=== PATIENT | female | born 1965 | race African-American/Black ===

== ENCOUNTER 2018-01-17 02:11 | Inpatient (IN) ==
[2018-01-18] MEDS ORDERED: Lactobacillus Acidophilus/L. Spores Tablet ONE (22:31)
[2018-01-19] MEDS: Insulin NovoLOG Aspart Correctional Sugar Inj SQ SCH ×4 (08:00→20:44)
[2018-01-19 08:27] LABS: Baso % (Auto) 0.5 % (0.0-2.0); Eos # (Auto) 0.2 th/mm3 (0.0-0.4); Eos % (Auto) 4.6 % (0.0-4.0); Hematocrit 32.6 % (35.0-46.0); Hemoglobin 10.2 gm/dL (11.6-15.3); Lymph # (Auto) 0.7 th/mm3 (1.0-4.8); Lymph % (Auto) 18.7 % (9.0-44.0); Mean Corpuscular HGB Conc 31.2 % (32.0-36.0); Mean Corpuscular Hemoglobin 28.5 pg (27.0-34.0); Mean Corpuscular Volume 91.2 fL (80.0-100.0); Mean Platelet Volume 8.1 fL (7.0-11.0); Mono # (Auto) 0.3 th/mm3 (0.0-0.9); Mono % (Auto) 8.9 % (0.0-8.0); Neut # (Auto) 2.3 th/mm3 (1.8-7.7); Neut % (Auto) 67.3 % (16.0-70.0); Platelet Count 299 th/mm3 (150-450); Red Blood Count 3.57 mil/mm3 (4.00-5.30); Red Cell Distribution Width 17.4 % (11.6-17.2); White Blood Count 3.5 th/mm3 (4.0-11.0)
[2018-01-19] MEDS ORDERED: Amiodarone 200 MG Tablet PO SCH (09:00)
[2018-01-19] MEDS ORDERED: Furosemide 40 MG Tablet PO SCH (09:00)
[2018-01-19] MEDS: Lactobacillus Acidophilus/L. Spores Tablet PO SCH ×2 (10:16→20:30)
[2018-01-19] MEDS: Aspirin 325 MG Tablet PO SCH (10:17)
[2018-01-19] MEDS: amLODIPine 5 MG Tablet PO SCH (10:17)
[2018-01-19] MEDS: Pantoprazole Inj 40 MG Vial IV.PUSH SCH (10:18)
[2018-01-19] MEDS: Docusate Sodium 100 MG Capsule PO SCH ×2 (10:18→20:30)
[2018-01-19] MEDS: Folic Acid 1 MG Tablet PO SCH (10:18)
[2018-01-19] MEDS: Insulin Detemir Inj 1,000 UNIT/10 ML Vial SQ SCH ×2 (10:21→20:31)
--- NOTE | 2018-01-19 13:15 | P.PNIM ---
Subjective Interval history: Pt feels more swollen today She does not feel more SOB Still requiring 2L of supplemental O2 Physical Exam Vital signs: Vital Signs 01/19/18 04:00 01/19/18 08:00 Temperature 97.5 F L 97.4 F L Pulse Rate 63 64 Respiratory Rate 19 18 Blood Pressure 179/88 H 169/77 H Pulse Oximetry 97 94 L Intake & Output 01/18/18 01/19/18 01/19/18 18:59 06:59 18:59 Intake Total 240 / 240 Output Total Balance 239 / 239 Intake: Oral 240 / 240 Output: Stool Other: # Voids 1 # Incontinent Voids 2 Date of Last Bowel Movement 01/19/18 01/18/18 Narrative: GENERAL: NAD, AAOx3, somewhat flat affect CARDIO: Regular. RESP: CTA bilaterally. Poor inspiratory effort. ABD: Minimal bowel sounds, firm, distended, nontender. No guarding. EXT: 2+ Bilateral LE edema. SCDs in place - Urinary Catheter Management Indwelling Urethral Catheter Cath placed during this visit: yes Urethral indwelling: Yes Reason for continuing: Hourly intake/output Insertion date: 01/21/18 Insertion time: 12:40 Results - Labs CBC & Chem 7: 01/24/18 12:00 01/25/18 07:00 Laboratory Results - last 24 hr 01/16/18 01/16/18 01/16/18 23:14 23:14 23:14 WBC RBC Hgb Hct MCV MCH MCHC RDW Plt Count MPV Neut % (Auto) Lymph % (Auto) Hughes % (Auto) Eos % (Auto) Baso % (Auto) Neut # (Auto) Lymph # (Auto) Hughes # (Auto) Eos # (Auto) Baso # (Auto) CBC Comment WBC Differential Differential Comment PT 11.6 INR 1.1 APTT 29.0 Sodium 136 Potassium 6.1 H Chloride 103 Carbon Dioxide 26.3 Anion Gap 7 BUN 47 H Creatinine 2.43 H Estimated GFR 21 L POC Glucose Random Glucose 117 H Calcium 8.6 Magnesium Total Bilirubin 0.4 AST 57 H ALT 63 H Alkaline Phosphatase 920 H B-Natriuretic Peptide 1368 H Total Protein 7.9 Albumin 2.3 L Lipase 37 L Free T4 TSH 3rd Generation 7.470 H Urine Color Urine Turbidity Urine pH Ur Specific Gardiner Urine Protein Urine Glucose (UA) Urine Ketones Urine Occult Blood Urine Nitrite Urine Bilirubin Urine Urobilinogen Ur Leukocyte Esterase Urine RBC Urine WBC Ur Squamous Epith Cells Hyaline Casts Urine Mucus Micro UA Comment 01/16/18 01/17/18 01/17/18 23:14 00:15 06:11 WBC 4.7 RBC 3.56 L Hgb 10.4 L Hct 32.6 L MCV 91.5 MCH 29.1 MCHC 31.8 L RDW 17.7 H Plt Count 317 MPV 8.1 Neut % (Auto) 76.1 H Lymph % (Auto) 13.8 Hughes % (Auto) 6.4 Eos % (Auto) 2.1 Baso % (Auto) 1.6 Neut # (Auto) 3.6 Lymph # (Auto) 0.7 L Hughes # (Auto) 0.3 Eos # (Auto) 0.1 Baso # (Auto) 0.1 CBC Comment DIFF FINAL WBC Differential Differential Comment PT INR APTT Sodium 137 Potassium 5.5 H Chloride 103 Carbon Dioxide 25.2 Anion Gap 9 BUN 44 H Creatinine 2.30 H Estimated GFR 27 L POC Glucose Random Glucose 34 L* Calcium 8.8 Magnesium Total Bilirubin AST ALT Alkaline Phosphatase B-Natriuretic Peptide Total Protein Albumin Lipase Free T4 TSH 3rd Generation Urine Color YELLOW Urine Turbidity CLEAR Urine pH 6.0 Ur Specific Gardiner 1.015 Urine Protein >=500 Urine Glucose (UA) NEG Urine Ketones NEG Urine Occult Blood NEG Urine Nitrite NEG Urine Bilirubin NEG Urine Urobilinogen LESS THAN 2 Ur Leukocyte Esterase NEG Urine RBC 3 Urine WBC 1 Ur Squamous Epith Cells <1 Hyaline Casts 6 Urine Mucus FEW H Micro UA Comment CULT NOT INDICATED 01/17/18 01/18/18 01/18/18 11:49 10:31 10:31 WBC 5.1 RBC 3.59 L Hgb 10.3 L Hct 32.9 L MCV 91.6 MCH 28.8 MCHC 31.4 L RDW 17.6 H Plt Count 321 MPV 8.5 Neut % (Auto) 75.1 H Lymph % (Auto) 13.8 Hughes % (Auto) 7.4 Eos % (Auto) 2.2 Baso % (Auto) 1.5 Neut # (Auto) 3.8 Lymph # (Auto) 0.7 L Hughes # (Auto) 0.4 Eos # (Auto) 0.1 Baso # (Auto) 0.1 CBC Comment DIFF FINAL WBC Differential Differential Comment PT INR APTT Sodium 136 Potassium 5.7 H 5.0 Chloride 101 Carbon Dioxide 24.7 Anion Gap 10 BUN 46 H Creatinine 2.49 H Estimated GFR 25 L POC Glucose Random Glucose 263 H D Calcium 8.5 Magnesium 2.2 Total Bilirubin 0.5 AST 52 H ALT 65 H Alkaline Phosphatase 918 H B-Natriuretic Peptide Total Protein 7.9 Albumin 2.7 L Lipase Free T4 1.48 H TSH 3rd Generation Urine Color Urine Turbidity Urine pH Ur Specific Gardiner Urine Protein Urine Glucose (UA) Urine Ketones Urine Occult Blood Urine Nitrite Urine Bilirubin Urine Urobilinogen Ur Leukocyte Esterase Urine RBC Urine WBC Ur Squamous Epith Cells Hyaline Casts Urine Mucus Micro UA Comment 01/19/18 01/19/18 06:47 08:11 WBC 3.5 L RBC 3.57 L Hgb 10.2 L Hct 32.6 L MCV 91.2 MCH 28.5 MCHC 31.2 L RDW 17.4 H Plt Count 299 MPV 8.1 Neut % (Auto) 67.3 Lymph % (Auto) 18.7 Hughes % (Auto) 8.9 H Eos % (Auto) 4.6 H Baso % (Auto) 0.5 Neut # (Auto) 2.3 Lymph # (Auto) 0.7 L Hughes # (Auto) 0.3 Eos # (Auto) 0.2 Baso # (Auto) 0.0 CBC Comment WBC Differential . Differential Comment Auto diff final PT INR APTT Sodium Potassium Chloride Carbon Dioxide Anion Gap BUN Creatinine Estimated GFR POC Glucose 95 Random Glucose Calcium Magnesium Total Bilirubin AST ALT Alkaline Phosphatase B-Natriuretic Peptide Total Protein Albumin Lipase Free T4 TSH 3rd Generation Urine Color Urine Turbidity Urine pH Ur Specific Gardiner Urine Protein Urine Glucose (UA) Urine Ketones Urine Occult Blood Urine Nitrite Urine Bilirubin Urine Urobilinogen Ur Leukocyte Esterase Urine RBC Urine WBC Ur Squamous Epith Cells Hyaline Casts Urine Mucus Micro UA Comment Assessment and Plan - Assessment (1) Nonischemic cardiomyopathy Code(s): I42.8 - Other cardiomyopathies Status: Chronic Plan: Nonischemic cardiomyopathy Chronic systolic CHF with EF 15-20% s/p AICD - Pt was given a dose of IV Lasix in the ED - CXR in the ED noted Cardiomegaly with prominent main pulmonary artery. Pacer lead overlies right ventricle. No focal consolidation or effusion. - Pt was continued on PO Lasix 40mg BID due to worsening renal function - Give a dose of Lasix 80mg IV this evening with Albumin IV given prior to the Lasix - Still awaiting repeat labs for today - Monitor electrolyte closely - Pt was reportedly evaluated at [facility] recently for Heart transplant vs. LVAD but had a stroke during that admission and was not felt to be a good candidate after the CVA. - Cont. home meds - CXR in AM - Monitor clinical status closely - Pt is typically on 2L of supplemental O2 - Discussed code status with the pt and she wishes to be a full code. - Consult Palliative care for goals of care (2) Diabetes Code(s): E11.9 - Type 2 diabetes mellitus without complications Status: Chronic Plan: Diabetes mellitus, poorly controlled Hgb A1C 14.4 on 08/31/17 Hypoglycemia - Pt was also given Novolin 10 units and Dextrose overnight and was hypoglycemic with BS 34 on 01/17. Pt was given orange juice twice this morning and her BS improved to 158. - Today her BS are in the 200s. - Pt is normally on Novolin 10 units BID and NovoLog SSI - Basal insulin with Levemir 5 units BID started on 01/18 and titrate up to 10 units BID today, BS on 01/18 and last night were still quite elevated in the 200- 300s but today are lower - Keep insulin scheduled as it for now - NovoLog SSI - Accu checks - Monitor BS closely (3) Acute on chronic kidney failure Code(s): N17.9 - Acute kidney failure, unspecified; N18.9 - Chronic kidney disease, unspecified Status: Acute Plan: Hyperkalemia Acute on chronic renal disease, stage 3 - Outpt labs from 11/2017 noted Cr around 1.4-1.5 - Labs in the ED noted a potassium of 6.1. - Pt was given Kayexalate and Calcium Gluconate in the ED her repeat potassium this morning was 5.5 and second repeat was 5.7 on 01/17 - Pt refusing Lab draws on 01/18, but we discussed with the pt the importance of getting er labs drawn to monitor her electrolytes and kidney function and was agreed - Pt was given a second dose of Kayexalate on 01/17 but pt has not moved her bowels. - Repeat K+ down to 5.0 but renal function is worse on 01/18 with Cr around 2.49 - Pt was given a dose of IV Lasix in the ED and she was continued on oral Lasix 40mg BID - Monitor renal function - Awaiting repeat labs today (4) Hyperkalemia Code(s): E87.5 - Hyperkalemia Status: Acute Plan: - See above (5) HTN (hypertension) Code(s): I10 - Essential (primary) hypertension Status: Acute Plan: HTN - Cont. home meds - BP is poorly controlled - Clonidine PRN - Monitor closely (6) Elevated LFTs Code(s): R94.5 - Abnormal results of liver function studies Status: Acute Plan: Elevated LFTS Congestive hepatopathy Ascites - Review of outpt records show the pts AlkPhos has been elevated since 10/2016 - AlkPhos Isoenzyme in 10/2017 noted 72% liver, 20% bone, 8% intestine - Transjugular liver bx (12/20/17) --> Findings suggestive of congestive hepatopathy. (7) Ascites Code(s): R18.8 - Other ascites Status: Acute Plan: - See above (8) Constipation Code(s): K59.00 - Constipation, unspecified Status: Acute Plan: Abdominal pain Nausea/vomiting Constipation - Pt is a 52 y/o AAF with chronic systolic CHF, nonischemic cardiomyopathy with EF 15-20% s/p AICD, hx of CVA in 12/2017 (Bilateral acute to subacute posterior cerebral artery infarcts on Head CT on 12/22/17), congestive hepatopathy, ascites , HTN, CKD, stage 3, and type 2 diabetes mellitus, insulin dependent. Pt has had multiple hospitalizations at [facility] in [place] and [facility] in the last several month for various issues related to her CHF /Cardiomyopathy, DKA, Acute on chronic renal failure, CVA. After her most recent admission from 12/02/17 to 01/08/18 was for CHF and was transferred to [facility] to be evaluated for possible heart transplant vs. LVAD. During that admission she had an acute CVA with resulting left sided weakness and felt that she was not a good candidate for advanced heart failure treatment. Pt was discharged to [facility] on 01/08/18. - She was brought to the ED from a local rehab center for hyperkalemia and N/V. She has noted issues with constipation more recently. Over the last two days she has had nausea/vomiting and has not been eating much. She has not passed any stool in the last two days either. - CT abd/pelvis in the ED which noted moderate ascites and anasarca, cardiomegaly with pacer lead tip in right ventricle, and small fat-containing umbilical hernia. No bowel obstruction. In reviewing the images she has a significant amount of stool throughout the colon and in the rectum. - Pt had a small BM on 01/17 but has been refusing the Lactulose BID - Pt was given Mag Citrate and Colace BID on 01/18 but no significant stooling - Zofran PRN - Protonix 40mg IV daily - Gastrografin enema for tomorrow - Attending Attestation Patient examined. Assessment and plan formulated with Margaux Caceres PA-C. I agree with the above. 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
[2018-01-19 15:53] LABS: Anion Gap 9 meq/L (5-15); Blood Urea Nitrogen 48 mg/dL (7-18); Chloride 100 meq/L (98-107); Glomerular Filtration Rate 25 mL/min (>89); Potassium 5.1 meq/L (3.5-5.1); Sodium 136 meq/L (136-145)
[2018-01-19 15:54] LABS: Alanine Aminotransferase 61 U/L (10-53); Albumin 2.4 g/dL (3.4-5.0); Alkaline Phosphatase 878 U/L (45-117); Aspartate Aminotransferase 50 U/L (15-37); Calcium 8.7 mg/dL (8.5-10.1); Free T4 (Free Thyroxine) 1.36 ng/dL (0.76-1.46); Glucose,Random 64 mg/dL (74-106); Magnesium 2.3 mg/dL (1.5-2.5); Total Protein 7.6 g/dL (6.4-8.2); Triiodothyronine (T3) Free 1.23 pg/mL (2.18-3.98)
[2018-01-19] MEDS: Isosorbide Mononitrate 20 MG Tablet PO SCH ×2 (17:29→20:30)
[2018-01-20 05:35] LABS: Calcium 8.3 mg/dL (8.5-10.1); Carbon Dioxide 26.4 meq/L (21.0-32.0); Magnesium 2.3 mg/dL (1.5-2.5); Potassium 5.1 meq/L (3.5-5.1)
[2018-01-20] MEDS: Insulin NovoLOG Aspart Correctional Sugar Inj SQ SCH ×4 (09:11→23:16)
--- NOTE | 2018-01-20 10:35 | XR ---
EXAM DATE: 01/20/2018 10:32 AM EDT AGE/SEX: 52 years / Female INDICATIONS: Short of breath. CLINICAL DATA: This is the patient's initial encounter. Patient reports that signs and symptoms have been present for 4 - 6 days and indicates a pain score of 0/10. MEDICAL/SURGICAL HISTORY: Congestive heart failure. Cardiovascular disease. Pacemaker. COMPARISON: No prior exams available for comparison. FINDINGS: Single lead AICD device in place. No significant focal pleural or parenchymal opacities. Cardiac silh ouette is enlarged. Central pulmonary vascularity is slightly indistinct. Bony thorax is intact. CONCLUSION: 1. Cardiomegaly with trace positive fluid balance. Electronically signed by: Houston Vogt MD 01/20/2018 10:34 AM EDT
[2018-01-20] MEDS ORDERED: Diatrizoate Meglum/Diatrizoate Sod Liq 120 ML Bottle (for RAD diag) RECTAL ONE (10:45)
--- NOTE | 2018-01-20 10:49 | FL ---
EXAM DATE: 01/20/2018 10:37 AM EDT AGE/SEX: 52 years / Female INDICATIONS: Constipation. CLINICAL DATA: This is the patient's initial encounter. Patient reports that signs and symptoms have been present for 1 week and indicates a pain score of 10/10. MEDICAL/SURGICAL HISTORY: None. Renal failure, chronic. Anemia. Cerebrovascular disease. CHF. CAD. DVT. Diabetes. GERD. None. COMPARISON: No prior exams available for comparison. FLUORO TIME: 3.6 IMAGE COUNT: 17 FINDINGS: Preliminary film is unremarkable. There is a moderate amount stool throughout the colon. A small amou nt of residual contrast is seen in the right colon. The study is being performed for therapeutic cons tipation. Under fluoroscopic guidance a Gastrografin enema was performed with free flow of contrast to the righ t colon. There is a diffuse amount stool throughout the entire colon. CONCLUSION: Status post therapeutic Gastrografin enema. Electronically signed by: Jaziel Jonas MD 01/20/2018 10:48 AM EDT
[2018-01-20] MEDS: Aspirin 325 MG Tablet PO SCH (10:59)
[2018-01-20] MEDS: Docusate Sodium 100 MG Capsule PO SCH ×2 (11:00→22:30)
[2018-01-20] MEDS: Isosorbide Mononitrate 20 MG Tablet PO SCH ×2 (11:01→22:30)
[2018-01-20] MEDS: Lactobacillus Acidophilus/L. Spores Tablet PO SCH ×2 (11:01→22:30)
[2018-01-20] MEDS: Folic Acid 1 MG Tablet PO SCH (11:01)
[2018-01-20] MEDS: Pantoprazole Inj 40 MG Vial IV.PUSH SCH (11:02)
[2018-01-20] MEDS: amLODIPine 5 MG Tablet PO SCH (11:02)
[2018-01-20] MEDS: Insulin Detemir Inj 1,000 UNIT/10 ML Vial SQ SCH ×2 (11:04→23:16)
--- NOTE | 2018-01-20 12:19 | P.PNIM ---
Subjective Interval history: Pt had Gastrografin enema today and has had a large volume of stool output Pt was seen by ST on 01/19 and recommended mechanical soft diet with nectar thickened liquids Pt has had bleeding from a previous IV site in the RUE Physical Exam Vital signs: Vital Signs 01/19/18 15:18 01/19/18 16:00 01/19/18 19:56 Temperature 98.3 F Pulse Rate 65 65 Respiratory Rate 17 Blood Pressure 186/81 H Pulse Oximetry 97 99 01/19/18 20:00 01/19/18 23:51 01/20/18 00:00 Temperature 97.9 F 97.8 F Pulse Rate 67 68 66 Respiratory Rate 18 18 Blood Pressure 176/82 H 163/72 H Pulse Oximetry 97 95 01/20/18 04:00 01/20/18 05:04 Temperature 97.8 F Pulse Rate 63 60 Respiratory Rate 18 Blood Pressure 175/80 H Pulse Oximetry 94 L Intake & Output 01/19/18 01/20/18 01/20/18 18:59 06:59 18:59 Intake Total 650 / 650 Balance 650 / 650 Intake: Oral 650 / 650 Other: # Voids 7 4 Date of Last Bowel Movement 01/18/18 01/19/18 # Bowel Movements 2 Narrative: GENERAL: NAD, AAOx3, somewhat flat affect CARDIO: Regular. RESP: CTA bilaterally. Poor inspiratory effort. ABD: Minimal bowel sounds, firm, less distended, nontender. No guarding. EXT: 2+ Bilateral LE edema. SCDs in place - Urinary Catheter Management Indwelling Urethral Catheter Cath placed during this visit: yes Urethral indwelling: Yes Reason for continuing: Acute urinary retention Insertion date: 01/21/18 Insertion time: 12:40 Results - Labs CBC & Chem 7: 01/21/18 08:57 01/23/18 12:57 Laboratory Results - last 24 hr 01/19/18 01/19/18 01/19/18 06:47 13:10 17:26 Sodium 136 Potassium 5.1 Chloride 100 Carbon Dioxide 27.0 Anion Gap 9 BUN 48 H Creatinine 2.48 H Estimated GFR 25 L POC Glucose 162 H 127 H Random Glucose 64 L Calcium 8.7 Magnesium 2.3 Total Bilirubin 0.5 AST 50 H ALT 61 H Alkaline Phosphatase 878 H B-Natriuretic Peptide Total Protein 7.6 Albumin 2.4 L TSH 6.760 H Free T4 1.36 Free T3 1.23 L 01/19/18 01/20/18 01/20/18 20:23 04:12 04:12 Sodium 137 Potassium 5.1 Chloride 101 Carbon Dioxide 26.4 Anion Gap 10 BUN 46 H Creatinine 2.35 H Estimated GFR 26 L POC Glucose 223 H Random Glucose 224 H D Calcium 8.3 L Magnesium 2.3 Total Bilirubin AST ALT Alkaline Phosphatase B-Natriuretic Peptide 1852 H Total Protein Albumin TSH Free T4 Free T3 01/20/18 07:42 Sodium Potassium Chloride Carbon Dioxide Anion Gap BUN Creatinine Estimated GFR POC Glucose 276 H Random Glucose Calcium Magnesium Total Bilirubin AST ALT Alkaline Phosphatase B-Natriuretic Peptide Total Protein Albumin TSH Free T4 Free T3 - Imaging Impressions Chest X-Ray 01/20/18 06:00 CONCLUSION: 1. Cardiomegaly with trace positive fluid balance. Enema w/Water Soluble 01/20/18 08:00 CONCLUSION: Status post therapeutic Gastrografin enema. Assessment and Plan - Assessment (1) Nonischemic cardiomyopathy Code(s): I42.8 - Other cardiomyopathies Status: Chronic Plan: Nonischemic cardiomyopathy Chronic systolic CHF with EF 15-20% s/p AICD - Pt was given a dose of IV Lasix in the ED - CXR in the ED noted Cardiomegaly with prominent main pulmonary artery. Pacer lead overlies right ventricle. No focal consolidation or effusion. - Pt was continued on PO Lasix 40mg BID due to worsening renal function - Pt was given a dose of Lasix 80mg IV with Albumin IV given prior to the Lasix on 01/19 - Cr is stable to improved today at 2.35 - BNP is elevated from at admission from 1368--> 1852 - Change Lasix from PO to 80mg IV BID - Monitor electrolyte closely - Pt was reportedly evaluated at [facility] recently for Heart transplant vs. LVAD but had a stroke during that admission and was not felt to be a good candidate after the CVA. - CXR (01/20/18) --> Cardiomegaly with trace positive fluid balance - Monitor clinical status closely - Pt is typically on 2L of supplemental O2 - Discussed code status with the pt and she wishes to be a full code. - Consult Palliative care for goals of care (2) Diabetes Code(s): E11.9 - Type 2 diabetes mellitus without complications Status: Chronic Plan: Diabetes mellitus, poorly controlled Hgb A1C 14.4 on 08/31/17 Hypoglycemia - Pt was also given Novolin 10 units and Dextrose overnight and was hypoglycemic with BS 34 on 01/17. Pt was given orange juice twice this morning and her BS improved to 158. - Today her BS are in the 200s. - Pt is normally on Novolin 10 units BID and NovoLog SSI - Basal insulin with Levemir 5 units BID started on 01/18 and titrate up to 10 units BID today, BS on 01/18 were still quite elevated in the 200-300s but valentine morning glucose on 01/19 was 95 so the insulin scheduled was kept the same - Her blood sugars last night and this morning are in the 200s - Consider increasing Levemir to 10 units BID but BS are rather labile, continue to monitor closely for now - NovoLog SSI - Accu checks - Monitor BS closely (3) Acute on chronic kidney failure Code(s): N17.9 - Acute kidney failure, unspecified; N18.9 - Chronic kidney disease, unspecified Status: Acute Plan: Hyperkalemia Acute on chronic renal disease, stage 3 - Outpt labs from 11/2017 noted Cr around 1.4-1.5 - Labs in the ED noted a potassium of 6.1. - Pt was given Kayexalate and Calcium Gluconate in the ED her repeat potassium this morning was 5.5 and second repeat was 5.7 on 01/17 - Pt refusing Lab draws on 01/18, but we discussed with the pt the importance of getting er labs drawn to monitor her electrolytes and kidney function and was agreed - Pt was given a second dose of Kayexalate on 01/17 but pt has not moved her bowels. - Repeat K+ down to 5.0 but renal function is worse on 01/18 with Cr around 2.49 - Pt was on po Lasix but continued to have swelling during initial hospitalization - Change to IV Lasix and monitor renal function (4) Hyperkalemia Code(s): E87.5 - Hyperkalemia Status: Acute Plan: - See above (5) HTN (hypertension) Code(s): I10 - Essential (primary) hypertension Status: Acute Plan: HTN - Cont. home meds - BP is poorly controlled on multiple medications - Monitor with change to IV Lasix - Clonidine PRN - Monitor closely (6) Elevated LFTs Code(s): R94.5 - Abnormal results of liver function studies Status: Acute Plan: Elevated LFTS Congestive hepatopathy Ascites - Review of outpt records show the pts AlkPhos has been elevated since 10/2016 - AlkPhos Isoenzyme in 10/2017 noted 72% liver, 20% bone, 8% intestine - Transjugular liver bx (12/20/17) --> Findings suggestive of congestive hepatopathy. (7) Ascites Code(s): R18.8 - Other ascites Status: Acute Plan: - See above (8) Constipation Code(s): K59.00 - Constipation, unspecified Status: Acute Plan: Abdominal pain Nausea/vomiting Constipation, improved - Pt is a 52 y/o AAF with chronic systolic CHF, nonischemic cardiomyopathy with EF 15-20% s/p AICD, hx of CVA in 12/2017 (Bilateral acute to subacute posterior cerebral artery infarcts on Head CT on 12/22/17), congestive hepatopathy, ascites , HTN, CKD, stage 3, and type 2 diabetes mellitus, insulin dependent. Pt has had multiple hospitalizations at [facility] in [place] and [facility] in the last several month for various issues related to her CHF /Cardiomyopathy, DKA, Acute on chronic renal failure, CVA. After her most recent admission from 12/02/17 to 01/08/18 was for CHF and was transferred to [facility] to be evaluated for possible heart transplant vs. LVAD. During that admission she had an acute CVA with resulting left sided weakness and felt that she was not a good candidate for advanced heart failure treatment. Pt was discharged to [facility] on 01/08/18. - She was brought to the ED from a local rehab center for hyperkalemia and N/V. She has noted issues with constipation more recently. Over the last two days she has had nausea/vomiting and has not been eating much. She has not passed any stool in the last two days either. - CT abd/pelvis in the ED which noted moderate ascites and anasarca, cardiomegaly with pacer lead tip in right ventricle, and small fat-containing umbilical hernia. No bowel obstruction. In reviewing the images she has a significant amount of stool throughout the colon and in the rectum. - Pt had a small BM on 01/17 but has been refusing the Lactulose BID - Pt was given Mag Citrate and Colace BID on 01/18 but no significant stooling - Pt had Gastrografin enema on 01/20 with large volume of stool output - Zofran PRN - Protonix 40mg IV daily - Attending Attestation Patient examined. Assessment and plan formulated with Margaux Caceres PA-C. I agree with the above.
--- NOTE | 2018-01-20 14:08 | P.CONPAL ---
Consult Service: Palliative Care . Requesting Physician: Margaux Caceres Reason for Consult: a. To assist with evaluation and management of symptoms including: debility, constipation b. To assist medical decision maker(s) with: better understanding of current medical conditions; weighing benefits/burdens of medical treatment options; making medical treatment decisions. Primary Care Provider: Te Ramirez MD . History of Present Illness History of Present Illness: Patient is a 52-year-old female with a history of nonischemic cardiomyopathy with EF 15-20% s/p AICD, history of CVA in 12/2017, ascites, hypertension, CKD- stage III and diabetes who presented to [place] ED from a local rehab center on 01/16/2018 for evaluation of GI complaints. The patient reported intermittent n/ v, abdominal pain and poor nutritional intake x 2 days. Patient reported that she had been doing fairly well but had recently developed some lower extremity edema over the previous week. Outpatient blood work showed hyperkalemia; BNP was elevated at 1337. A recent echocardiogram on 11/09/2017 showed mild LVH; estimated EF 15-20%; mild to moderate mitral regurgitation; moderate tricuspid regurgitation; right ventricular systolic pressure estimated at 44mmHG; mild pulmonary hypertension and mild pulmonic regurgitation. Patient has had multiple hospitalizations at other facilities in the past several months secondary to her CHF/cardiomyopathy, DKA, acute on chronic renal failure and CVA. Most recently the patient was admitted from 12/02/2017 through 01/08/2018 with a CHF exacerbation; she was transferred to [facility] in [place] to be evaluated for a possible heart transplant versus LVAD. During that hospitalization the patient had an acute CVA and was no longer considered a candidate for aggressive interventions. She was discharged to [place] campus on 01/08/2018 Additional diagnostic data: * Vital signs: Pulse 57, respirations 18, BP 161/85, oxygen saturation 90% on room air * WBC: 4.7, hemoglobin 10.4, hematocrit 32.6, platelets 317, neutrophils 76.1% * Sodium: 136, potassium 6.1, chloride 103, carbon dioxide 26.3, glucose 117, calcium 8.6 * BUN: 47, creatinine 2.43, GFR 21 * Total bilirubin: 57, ALT 63, alkaline phosphatase 920 * BNP 1368 * Total protein: 7.9, albumin 2.3 * PT: 11.6, INR 1.1, APTT 29.0 * Urinalysis was normal * Chest x-ray revealed cardiomegaly with prominent main pulmonary artery; no focal consolidation or effusion. * CT abdomen/pelvis showing moderate ascites and anasarca; cardiomegaly with pacer lead tip in the right ventricle; small fat-containing umbilical hernia but no bowel obstruction. While in the ED, the patient received calcium gluconate 1 g IV, D50 1 amp IV, Novolin R 10 units IV, Kayexalate 30 g PO and Lasix 40 mg IV. Patient was admitted for further evaluation and medical management of abdominal pain. Additional impressions: gastroenteritis, hyperkalemia and CHF exacerbation. Patient's blood glucose was low the following morning at 34, improving to 158 after drinking some orange juice. Speech therapy evaluated patient on 01/19/2018 and recommendations were made for a mechanically soft diet with nectar consistency thickened liquids. Imaging showed the patient had a significant amount of stool throughout the colon and in the rectum; she had a small bowel movement on 01/17/2018 but was refusing lactulose. Patient received mag citrate and Colace BID on 01/17/18 but did not have a good BM. Patient had a Gastrografin enema today and had a large volume of stool output. . Function/Cognitive Trajectory: Patient reports feeling weak and tired. Family states the patient has been in and out of the hospital multiple times in the past year or more, but the patient continues is "okay when she's not sick." They report ongoing aggressive goals. Review of Systems Constitutional: Reports lack of energy, Reports weakness Cardiovascular: Reports leg swelling Comments: resolving Gastrointestinal: Reports abdominal pain, Reports constipation, Reports nausea PMFSH - History History Provided By: Patient, Family Member, Medical Record - Medical History Medical History: Medical History (Last Updated 01/20/18 @ 15:16 by GEOVANNA Aguero) Anemia Atrial fibrillation Cardiomyopathy Coronary artery disease DVT (deep venous thrombosis) GERD (gastroesophageal reflux disease) High triglycerides - Surgical History Surgical History: Surgical History (Last Updated 01/20/18 @ 15:16 by GEOVANNA Aguero) AICD (automatic cardioverter/defibrillator) present History of cardiac catheterization History of liver biopsy - Family History Family History: Family History (Last Updated 01/20/18 @ 15:19 by GEOVANNA Aguero) Mother Hypertension Brother Hypertension Sister Hypertension Stroke - Tobacco History Second Hand Smoke Exposure: No Tobacco Use In Past 30 Days: No (Patient denies) Smoking Status: Never smoker - Alcohol History How Often Do You Have a Drink Containing Alcohol: Never - Substance Use History Substance History: No History of Abuse - Travel History History of Recent Travel: No Recent Travel in the [place] Within the Last 8 Weeks: No Medications and Allergies Active Medications: Active Medications Acetaminophen (Tylenol) 650 mg PO Q4H PRN PRN Reason: fever or pain Amiodarone HCl (Cordarone) 100 mg PO DAILY [facility] Amlodipine Besylate (Norvasc) 5 mg PO DAILY [facility] Last Admin: 01/20/18 11:02 Dose: 5 mg Apixaban (Eliquis) 5 mg PO BID [facility] Last Admin: 01/20/18 11:04 Dose: Not Given Aspirin (Aspirin) 325 mg PO DAILY [facility] Last Admin: 01/20/18 10:59 Dose: Not Given Bisoprolol Fumarate (Zebeta) 2.5 mg PO DAILY [facility] Last Admin: 01/20/18 11:03 Dose: 2.5 mg Clonidine HCl (Catapres) 0.1 mg PO Q6H PRN PRN Reason: systolic BP greater than 170 Last Admin: 01/19/18 17:31 Dose: 0.1 mg Dextrose (D50w Vial) 50 ml IV.PUSH UNSCH PRN PRN Reason: HYPOGLYCEMIA - SEE COMMENTS Docusate Sodium (Colace) 100 mg PO BID [facility] Last Admin: 01/20/18 11:00 Dose: Not Given Folic Acid (Folic Acid) 1 mg PO DAILY [facility] Last Admin: 01/20/18 11:01 Dose: 1 mg Furosemide (Lasix Inj) 80 mg IV.PUSH BID@0900,1800 [facility] Furosemide (Lasix Inj) 80 mg IV.PUSH ONCE ONE Stop: 01/20/18 13:17 Glucagon (Glucagon Inj) 1 mg OTHER UNSCH PRN PRN Reason: HYPOGLYCEMIA-SEE COMMENTS Hydralazine HCl (Apresoline) 100 mg PO Q8HR [facility] Last Admin: 01/20/18 06:20 Dose: 100 mg Insulin Aspart (Novolog Insulin Suppl Scale Inj) 0 unit SQ [facility]; Protocol Last Admin: 01/20/18 09:11 Dose: 7 unit Insulin Detemir (Levemir Inj) 5 unit SQ Q12HR [facility] Last Admin: 01/20/18 11:04 Dose: 5 unit Isosorbide Mononitrate (Ismo) 20 mg PO BID [facility] Last Admin: 01/20/18 11:01 Dose: 20 mg Lactobacillus Acidophilus (Lactinex) 1 tab PO Q12HR [facility] Last Admin: 01/20/18 11:01 Dose: 1 tab Miscellaneous (Pill Splitter) 1 each OTHER UNSCH PRN PRN Reason: SEE LABEL COMMENTS Ondansetron HCl (Zofran Odt) 4 mg PO Q4H PRN PRN Reason: NAUSEA OR VOMITING Pantoprazole Sodium (Protonix Inj) 40 mg IV.PUSH Q24H [facility] Last Admin: 01/20/18 11:02 Dose: Not Given Thiamine HCl (Vitamin B1) 50 mg PO DAILY [facility] Last Admin: 01/20/18 11:02 Dose: 50 mg Allergies Allergy/AdvReac Type Severity Reaction Status Date / Time lisinopril Allergy Unknown Verified 01/16/18 22:57 oseltamivir Allergy Unknown Verified 01/16/18 22:57 tramadol Allergy Unknown Verified 01/16/18 22:57 Home Medications Medication Instructions Recorded Confirmed Type Saccharomyces boulardii 250 mg PO DAILY 01/18/18 01/18/18 History amiodarone 100 mg PO DAILY 01/18/18 01/18/18 History amlodipine 5 mg PO DAILY 01/18/18 01/18/18 History apixaban 5 mg PO BID 01/18/18 01/18/18 History ascorbic acid (vitamin C) 250 mg PO DAILY 01/18/18 01/18/18 History aspirin 325 mg PO DAILY 01/18/18 01/18/18 History bisoprolol fumarate 2.5 mg PO DAILY 01/18/18 01/18/18 History clonidine HCl 0.2 mg PO BID 01/18/18 01/18/18 History famotidine 20 mg PO DAILY 01/18/18 01/18/18 History folic acid 1 mg PO DAILY 01/18/18 01/18/18 History furosemide 40 mg PO BID 01/18/18 01/18/18 History hydralazine 100 mg PO Q8HR 01/18/18 01/18/18 History insulin aspart U-100 1 sliding scale dose SUB-Q UD 01/18/18 01/18/18 History insulin glargine 10 unit SUB-Q BID 01/18/18 01/18/18 History isosorbide mononitrate 20 mg PO BID 01/18/18 01/18/18 History lactulose 20 g PO BID 01/18/18 01/18/18 History ondansetron 4 mg PO Q6HR PRN 01/18/18 01/18/18 History thiamine HCl (vitamin B1) 50 mg PO DAILY 01/18/18 01/18/18 History Advance Directives Advance Directives Date on File: 01/20/18 Living Will: No Healthcare Surrogate: Yes (Completed 01/20/2018) Health Care Surrogate Name and Number: Primary: Tanvi De Paz [phone] Alternate: Randi De Paz [phone] Power of Pants Presser Automatic: No Today's verbally stated goals: Patient verbalizing aggressive goals at this time. Upon discharge, she plans to go to a different SNF for rehab or possible rehab outpatient. . Family/friends goals: Family supports patient's aggressive goals. . Ethical and Legal Issues: No known ethical or legal issues at this time. . Physical Exam Vital Signs: Vital Signs - 24 hr 01/19/18 15:18 01/19/18 16:00 01/19/18 19:56 Temperature 98.3 F Pulse Rate 65 65 Respiratory Rate 17 Blood Pressure 186/81 H Pulse Oximetry 97 99 01/19/18 20:00 01/19/18 23:51 01/20/18 00:00 Temperature 97.9 F 97.8 F Pulse Rate 67 68 66 Respiratory Rate 18 18 Blood Pressure 176/82 H 163/72 H Pulse Oximetry 97 95 01/20/18 04:00 01/20/18 05:04 01/20/18 08:00 Temperature 97.8 F 98.6 F Pulse Rate 63 60 88 Respiratory Rate 18 17 Blood Pressure 175/80 H 158/74 H Pulse Oximetry 94 L 96 01/20/18 12:00 Temperature 97.1 F L Pulse Rate 60 Respiratory Rate 16 Blood Pressure 199/93 H Pulse Oximetry 97 . I&O: Intake & Output 01/18/18 01/19/18 01/20/18 01/21/18 06:59 06:59 06:59 06:59 Intake Total 240 / 240 650 / 650 Output Total Balance 239 / 239 650 / 650 . Physical Exam: CONSTITUTIONAL/GENERAL: This is a chronically ill appearing, middle aged female in no acute distress. TUBES/LINES/DRAINS: PIV x 1, nasal cannula SKIN: No jaundice, rashes, or lesions. Ecchymoses on upper extremities. Skin temperature appropriate. Not diaphoretic. HEAD: Atraumatic. Normocephalic. EYES: Pupils equal and round. Extraocular motions intact. No scleral icterus. No injection or drainage. Fundi not examined. ENT: Hearing grossly normal. Nose without bleeding or purulent drainage. NECK: Trachea midline. Supple, nontender. No palpable thyroid enlargement or nodularity. CARDIOVASCULAR: Regular rate and rhythm without murmurs, gallops, or rubs. No JVD. Peripheral pulses symmetric. RESPIRATORY/CHEST: Symmetric, unlabored respirations. Breath sounds equal bilaterally. No wheezes, rales, or rhonchi. GASTROINTESTINAL: Abdomen soft, non-tender, nondistended. No guarding. Bowel sounds present. GENITOURINARY: Without palpable bladder distension. MUSCULOSKELETAL: Extremities without clubbing or cyanosis. Trace edema in feet bilaterally. Left hand is swollen. LYMPHATICS: No palpable cervical or supraclavicular adenopathy. NEUROLOGICAL: Awake and alert. Answers questions appropriately; able to make needs known. Follows commands. Left-sided weakness PSYCHIATRIC: No obvious anxiety/depression. No apparent hallucinations or other psychotic thought process. . Diagnostic Tests Laboratory: Laboratory Results - last 72 hr 01/16/18 01/16/18 01/16/18 23:14 23:14 23:14 WBC RBC Hgb Hct MCV MCH MCHC RDW Plt Count MPV Neut % (Auto) Lymph % (Auto) [place] % (Auto) Eos % (Auto) Baso % (Auto) Neut # (Auto) Lymph # (Auto) [place] # (Auto) Eos # (Auto) Baso # (Auto) CBC Comment WBC Differential Differential Comment PT 11.6 INR 1.1 APTT 29.0 Sodium 136 Potassium 6.1 H Chloride 103 Carbon Dioxide 26.3 Anion Gap 7 BUN 47 H Creatinine 2.43 H Estimated GFR 21 L POC Glucose Random Glucose 117 H Calcium 8.6 Magnesium Total Bilirubin 0.4 AST 57 H ALT 63 H Alkaline Phosphatase 920 H B-Natriuretic Peptide 1368 H Total Protein 7.9 Albumin 2.3 L Lipase 37 L TSH Free T3 Free T4 TSH 3rd Generation 7.470 H Urine Color Urine Turbidity Urine pH Ur Specific [place] Urine Protein Urine Glucose (UA) Urine Ketones Urine Occult Blood Urine Nitrite Urine Bilirubin Urine Urobilinogen Ur Leukocyte Esterase Urine RBC Urine WBC Ur Squamous Epith Cells Hyaline Casts Urine Mucus Micro UA Comment 01/16/18 01/17/18 01/17/18 23:14 00:15 06:11 WBC 4.7 RBC 3.56 L Hgb 10.4 L Hct 32.6 L MCV 91.5 MCH 29.1 MCHC 31.8 L RDW 17.7 H Plt Count 317 MPV 8.1 Neut % (Auto) 76.1 H Lymph % (Auto) 13.8 [place] % (Auto) 6.4 Eos % (Auto) 2.1 Baso % (Auto) 1.6 Neut # (Auto) 3.6 Lymph # (Auto) 0.7 L [place] # (Auto) 0.3 Eos # (Auto) 0.1 Baso # (Auto) 0.1 CBC Comment DIFF FINAL WBC Differential Differential Comment PT INR APTT Sodium 137 Potassium 5.5 H Chloride 103 Carbon Dioxide 25.2 Anion Gap 9 BUN 44 H Creatinine 2.30 H Estimated GFR 27 L POC Glucose Random Glucose 34 L* Calcium 8.8 Magnesium Total Bilirubin AST ALT Alkaline Phosphatase B-Natriuretic Peptide Total Protein Albumin Lipase TSH Free T3 Free T4 TSH 3rd Generation Urine Color YELLOW Urine Turbidity CLEAR Urine pH 6.0 Ur Specific [place] 1.015 Urine Protein >=500 Urine Glucose (UA) NEG Urine Ketones NEG Urine Occult Blood NEG Urine Nitrite NEG Urine Bilirubin NEG Urine Urobilinogen LESS THAN 2 Ur Leukocyte Esterase NEG Urine RBC 3 Urine WBC 1 Ur Squamous Epith Cells <1 Hyaline Casts 6 Urine Mucus FEW H Micro UA Comment CULT NOT INDICATED 01/17/18 01/18/18 01/18/18 11:49 10:31 10:31 WBC 5.1 RBC 3.59 L Hgb 10.3 L Hct 32.9 L MCV 91.6 MCH 28.8 MCHC 31.4 L RDW 17.6 H Plt Count 321 MPV 8.5 Neut % (Auto) 75.1 H Lymph % (Auto) 13.8 [place] % (Auto) 7.4 Eos % (Auto) 2.2 Baso % (Auto) 1.5 Neut # (Auto) 3.8 Lymph # (Auto) 0.7 L [place] # (Auto) 0.4 Eos # (Auto) 0.1 Baso # (Auto) 0.1 CBC Comment DIFF FINAL WBC Differential Differential Comment PT INR APTT Sodium 136 Potassium 5.7 H 5.0 Chloride 101 Carbon Dioxide 24.7 Anion Gap 10 BUN 46 H Creatinine 2.49 H Estimated GFR 25 L POC Glucose Random Glucose 263 H D Calcium 8.5 Magnesium 2.2 Total Bilirubin 0.5 AST 52 H ALT 65 H Alkaline Phosphatase 918 H B-Natriuretic Peptide Total Protein 7.9 Albumin 2.7 L Lipase TSH Free T3 Free T4 1.48 H TSH 3rd Generation Urine Color Urine Turbidity Urine pH Ur Specific [place] Urine Protein Urine Glucose (UA) Urine Ketones Urine Occult Blood Urine Nitrite Urine Bilirubin Urine Urobilinogen Ur Leukocyte Esterase Urine RBC Urine WBC Ur Squamous Epith Cells Hyaline Casts Urine Mucus Micro UA Comment 01/19/18 01/19/18 01/19/18 06:47 06:47 08:11 WBC 3.5 L RBC 3.57 L Hgb 10.2 L Hct 32.6 L MCV 91.2 MCH 28.5 MCHC 31.2 L RDW 17.4 H Plt Count 299 MPV 8.1 Neut % (Auto) 67.3 Lymph % (Auto) 18.7 [place] % (Auto) 8.9 H Eos % (Auto) 4.6 H Baso % (Auto) 0.5 Neut # (Auto) 2.3 Lymph # (Auto) 0.7 L [place] # (Auto) 0.3 Eos # (Auto) 0.2 Baso # (Auto) 0.0 CBC Comment WBC Differential . Differential Comment Auto diff final PT INR APTT Sodium 136 Potassium 5.1 Chloride 100 Carbon Dioxide 27.0 Anion Gap 9 BUN 48 H Creatinine 2.48 H Estimated GFR 25 L POC Glucose 95 Random Glucose 64 L Calcium 8.7 Magnesium 2.3 Total Bilirubin 0.5 AST 50 H ALT 61 H Alkaline Phosphatase 878 H B-Natriuretic Peptide Total Protein 7.6 Albumin 2.4 L Lipase TSH 6.760 H Free T3 1.23 L Free T4 1.36 TSH 3rd Generation Urine Color Urine Turbidity Urine pH Ur Specific [place] Urine Protein Urine Glucose (UA) Urine Ketones Urine Occult Blood Urine Nitrite Urine Bilirubin Urine Urobilinogen Ur Leukocyte Esterase Urine RBC Urine WBC Ur Squamous Epith Cells Hyaline Casts Urine Mucus Micro UA Comment 01/19/18 01/19/18 01/19/18 13:10 17:26 20:23 WBC RBC Hgb Hct MCV MCH MCHC RDW Plt Count MPV Neut % (Auto) Lymph % (Auto) [place] % (Auto) Eos % (Auto) Baso % (Auto) Neut # (Auto) Lymph # (Auto) [place] # (Auto) Eos # (Auto) Baso # (Auto) CBC Comment WBC Differential Differential Comment PT INR APTT Sodium Potassium Chloride Carbon Dioxide Anion Gap BUN Creatinine Estimated GFR POC Glucose 162 H 127 H 223 H Random Glucose Calcium Magnesium Total Bilirubin AST ALT Alkaline Phosphatase B-Natriuretic Peptide Total Protein Albumin Lipase TSH Free T3 Free T4 TSH 3rd Generation Urine Color Urine Turbidity Urine pH Ur Specific [place] Urine Protein Urine Glucose (UA) Urine Ketones Urine Occult Blood Urine Nitrite Urine Bilirubin Urine Urobilinogen Ur Leukocyte Esterase Urine RBC Urine WBC Ur Squamous Epith Cells Hyaline Casts Urine Mucus Micro UA Comment 01/20/18 01/20/18 01/20/18 04:12 04:12 07:42 WBC RBC Hgb Hct MCV MCH MCHC RDW Plt Count MPV Neut % (Auto) Lymph % (Auto) [place] % (Auto) Eos % (Auto) Baso % (Auto) Neut # (Auto) Lymph # (Auto) [place] # (Auto) Eos # (Auto) Baso # (Auto) CBC Comment WBC Differential Differential Comment PT INR APTT Sodium 137 Potassium 5.1 Chloride 101 Carbon Dioxide 26.4 Anion Gap 10 BUN 46 H Creatinine 2.35 H Estimated GFR 26 L POC Glucose 276 H Random Glucose 224 H D Calcium 8.3 L Magnesium 2.3 Total Bilirubin AST ALT Alkaline Phosphatase B-Natriuretic Peptide 1852 H Total Protein Albumin Lipase TSH Free T3 Free T4 TSH 3rd Generation Urine Color Urine Turbidity Urine pH Ur Specific [place] Urine Protein Urine Glucose (UA) Urine Ketones Urine Occult Blood Urine Nitrite Urine Bilirubin Urine Urobilinogen Ur Leukocyte Esterase Urine RBC Urine WBC Ur Squamous Epith Cells Hyaline Casts Urine Mucus Micro UA Comment 01/20/18 12:14 WBC RBC Hgb Hct MCV MCH MCHC RDW Plt Count MPV Neut % (Auto) Lymph % (Auto) [place] % (Auto) Eos % (Auto) Baso % (Auto) Neut # (Auto) Lymph # (Auto) [place] # (Auto) Eos # (Auto) Baso # (Auto) CBC Comment WBC Differential Differential Comment PT INR APTT Sodium Potassium Chloride Carbon Dioxide Anion Gap BUN Creatinine Estimated GFR POC Glucose 174 H Random Glucose Calcium Magnesium Total Bilirubin AST ALT Alkaline Phosphatase B-Natriuretic Peptide Total Protein Albumin Lipase TSH Free T3 Free T4 TSH 3rd Generation Urine Color Urine Turbidity Urine pH Ur Specific [place] Urine Protein Urine Glucose (UA) Urine Ketones Urine Occult Blood Urine Nitrite Urine Bilirubin Urine Urobilinogen Ur Leukocyte Esterase Urine RBC Urine WBC Ur Squamous Epith Cells Hyaline Casts Urine Mucus Micro UA Comment Result Diagrams: 01/19/18 06:47 01/20/18 04:12 Microbiology: . Imaging: Chest X-Ray 01/20/18 06:00 CONCLUSION: 1. Cardiomegaly with trace positive fluid balance. Enema w/Water Soluble 01/20/18 08:00 CONCLUSION: Status post therapeutic Gastrografin enema. . Procedures: . Patient/Family Conference Present at Family Conference: Spoke with patient and 2 of her daughters at bedside. . Family Conference Location: Bedside Issues Discussed: * Palliative care role, purpose, approach * Additional medical, psychosocial, and spiritual history * Patients general health, functional status, and cognitive changes in the months leading up to the current hospitalization * Patient/family understanding of the current medical problems * Patient/family understanding of prognosis * Patients goals of care as best understood from advance directives and/or conversations and/or values * Current medical treatment options and benefits/burdens of those options * Likely scenarios comparing ongoing aggressive care with a transition to comfort measures only * Questions answered to the best of my ability * Palliative care contact information provided . Assessment and Plan - Disease Oriented Problem List (1) CHF exacerbation (2) Constipation (3) Diabetes (4) Acute on chronic kidney failure (5) Hyperkalemia (6) HTN (hypertension) (7) Elevated LFTs (8) Ascites - Symptom Scale (1) Debility, unspecified 0-10 Scale: Unable to quantify (2) Constipation 0-10 Scale: Unable to quantify Pertinent Non-Medical Issues: Psychosocial: Patient lives in [place]. Patient is legally but . She has 3 daughters (Randi, Izabel and Tanvi). She lives with one of her daughters. Spiritual:Christain jung; declined cable dispatcher visits Legal: Healthcare surrogate designation form completed 01/20/2018. Daughter, Tanvi Paula, is the primary healthcare surrogate decision-maker. Another daughter, Randi Paula, is the alternate healthcare surrogate decision maker. Ethical issues impacting care: No known ethical issues impacting care at this time. . Important Contacts: Tanvi Paula, daughter: [phone] Randi Paula, daughter: [phone] Lori Paula, daughter: [phone] . Prognosis: Patient is a 52 year old female with a complex medical history. She has multiple hospitalizations in recent months secondary to CHF, DKA, acute on chronic renal failure and CVA. Most recently the patient was admitted from 2017 through 01/08/2018 with a CHF exacerbation; she was transferred to [facility] in [place] to be evaluated for a possible heart transplant versus LVAD. During that hospitalization the patient had an acute CVA and was no longer considered a candidate for aggressive interventions. EF 15-20%. Patient is at high risk for ongoing decline and complications. She is hospice appropriate when/if her goals become comfort oriented. . Code Status: Full Code Plan: = FULL CODE = Decision making: patient currently shows insight and judgement related to her medical conditions. Healthcare surrogate designation form completed 01/20/2018. Daughter, Tanvi Paula, is the primary healthcare surrogate decision-maker. Another daughter, Randi Paula, is the alternate healthcare surrogate decision maker. = AGGRESSIVE GOALS = Discussed patient with Margaux ALMAGUER and nurse (Naseem) = Palliative care contact information was provided to the patient. = Symptom management Debility: Patient has had multiple hospitalizations at other facilities in the past several months secondary to her CHF/cardiomyopathy, DKA, acute on chronic renal failure and CVA. Recent echocardiogram in October, with EF 15-20%; family states there is a more recent echocardiogram showing the EF had improved. Follow-up echocardiogram ordered. Physical therapy following. Constipation: Imaging showed the patient had a significant amount of stool throughout the colon and in the rectum; she had a small bowel movement on 01/17/2018 but was refusing lactulose. Patient received mag citrate and Colace BID on 01/17/18 but did not have a good BM. Patient had a Gastrografin enema today and had a large volume of stool output. Current orders for Colace BID; w continue to monitor. = Palliative care will continue to follow this patient throughout her hospitalization to establish trust, assist with symptom management and clarification of medical treatment goals. Appreciation Thank you for the opportunity to participate in the care of Jesusita Horn. . Attestation Attestation: To help prompt me to consider important information that might be impacting today's encounter and assessment, information from prior notes written by myself or my colleagues may have been "brought forward" into today's note. My signature on this note, however, is an attestation that I personally performed the exam, history, and/or decision-making noted today, and, unless otherwise indicated, the interactions with patient, family, and staff as well as the review of records all occurred today. I also attest that the listed assessment and stated plan reflect my best clinical judgment today based on the combination of historical information, prior notes, and today's exam/ interactions. When time spent is documented, it refers only to time spent today by the signer, or if indicated, combined time spent today by collaborating physician/nurse practitioner. .
[2018-01-21] MEDS: Insulin Detemir Inj 1,000 UNIT/10 ML Vial SQ SCH ×2 (09:49→23:14)
[2018-01-21] MEDS: Lactobacillus Acidophilus/L. Spores Tablet PO SCH ×2 (09:49→22:45)
[2018-01-21] MEDS: Isosorbide Mononitrate 20 MG Tablet PO SCH ×2 (09:49→22:44)
[2018-01-21] MEDS: Folic Acid 1 MG Tablet PO SCH (09:49)
[2018-01-21] MEDS: Pantoprazole Inj 40 MG Vial IV.PUSH SCH (09:49)
[2018-01-21] MEDS: amLODIPine 5 MG Tablet PO SCH (09:49)
[2018-01-21] MEDS: Docusate Sodium 100 MG Capsule PO SCH ×2 (09:50→22:45)
[2018-01-21] MEDS: Aspirin 325 MG Tablet PO SCH (09:50)
[2018-01-21] MEDS: Insulin NovoLOG Aspart Correctional Sugar Inj SQ SCH ×4 (09:53→22:55)
[2018-01-21 10:10] LABS: Albumin 2.2 g/dL (3.4-5.0); Anion Gap 12 meq/L (5-15); Aspartate Aminotransferase 31 U/L (15-37); Blood Urea Nitrogen 43 mg/dL (7-18); Calcium 8.7 mg/dL (8.5-10.1); Carbon Dioxide 24.9 meq/L (21.0-32.0); Chloride 101 meq/L (98-107); Glomerular Filtration Rate 32 mL/min (>89); Glucose,Random 161 mg/dL (74-106); Potassium 4.6 meq/L (3.5-5.1); Sodium 138 meq/L (136-145)
[2018-01-21 10:13] LABS: Alanine Aminotransferase 42 U/L (10-53); Alkaline Phosphatase 660 U/L (45-117); Total Protein 6.7 g/dL (6.4-8.2)
[2018-01-21 10:39] LABS: Baso % (Auto) 1.2 % (0.0-2.0); Eos # (Auto) 0.2 th/mm3 (0.0-0.4); Eos % (Auto) 4.8 % (0.0-4.0); Hematocrit 28.5 % (35.0-46.0); Hemoglobin 9.1 gm/dL (11.6-15.3); Lymph # (Auto) 0.6 th/mm3 (1.0-4.8); Lymph % (Auto) 16.4 % (9.0-44.0); Mean Corpuscular HGB Conc 31.8 % (32.0-36.0); Mean Corpuscular Hemoglobin 28.8 pg (27.0-34.0); Mean Corpuscular Volume 90.6 fL (80.0-100.0); Mean Platelet Volume 8.1 fL (7.0-11.0); Mono # (Auto) 0.3 th/mm3 (0.0-0.9); Neut # (Auto) 2.4 th/mm3 (1.8-7.7); Neut % (Auto) 68.6 % (16.0-70.0); Platelet Count 256 th/mm3 (150-450); Red Blood Count 3.15 mil/mm3 (4.00-5.30); Red Cell Distribution Width 17.6 % (11.6-17.2); White Blood Count 3.5 th/mm3 (4.0-11.0)
[2018-01-21] MEDS ORDERED: [UNRECOGNIZED DRUG - REMARK] OTHER SCH (11:45)
--- NOTE | 2018-01-21 11:52 | P.PNIM ---
Subjective Interval history: IV site at left arm continues to ooze. Pt's PO intake is poor. Pt has refused to eat today. I asked nursing to try to have REPLANTING MACHINE OPERATOR sit with pt to see if Ms. Horn could be encouraged to eat. Physical Exam Vital signs: Vital Signs 01/20/18 12:00 01/20/18 16:00 01/20/18 20:00 Temperature 97.1 F L 97.3 F L 98.1 F Pulse Rate 60 60 Respiratory Rate 16 14 14 Blood Pressure 199/93 H 194/87 H 177/82 H Pulse Oximetry 97 99 96 01/20/18 23:30 01/21/18 00:00 01/21/18 03:31 Temperature 97.2 F L 97.6 F Pulse Rate 62 57 L 58 L Respiratory Rate 17 17 Blood Pressure 186/74 H 173/75 H Pulse Oximetry 100 99 01/21/18 04:00 01/21/18 04:15 01/21/18 08:00 Temperature 97.2 F L Pulse Rate 57 L 58 L Respiratory Rate 16 Blood Pressure 168/74 H 167/79 H Pulse Oximetry 99 Intake & Output 01/20/18 01/21/18 01/21/18 18:59 06:59 18:59 Intake Total 720 / 720 Balance 720 / 720 Intake: Oral 720 / 720 Other: # Voids 2 # Incontinent Voids 6 Date of Last Bowel Movement 01/20/18 01/20/18 Narrative: GENERAL: This is a well-nourished, well-developed patient, in no apparent distress. CARDIOVASCULAR: Regular rate and rhythm without murmurs, gallops, or rubs. RESPIRATORY: Clear to auscultation. Breath sounds equal bilaterally. No wheezes , rales, or rhonchi. GASTROINTESTINAL: Abdomen soft, non-tender, nondistended. Normal active bowel sounds MUSCULOSKELETAL: massive edema/anasarca at all extremities NEURO: Alert & Oriented x4 to person, place, time, situation. Moves all ext x4 Results - Labs CBC & Chem 7: 01/21/18 08:57 01/21/18 08:57 Laboratory Results - last 24 hr 01/20/18 01/20/18 01/20/18 12:14 17:53 22:31 WBC RBC Hgb Hct MCV MCH MCHC RDW Plt Count MPV Neut % (Auto) Lymph % (Auto) [place] % (Auto) Eos % (Auto) Baso % (Auto) Neut # (Auto) Lymph # (Auto) [place] # (Auto) Eos # (Auto) Baso # (Auto) WBC Differential Differential Comment Sodium Potassium Chloride Carbon Dioxide Anion Gap BUN Creatinine Estimated GFR POC Glucose 174 H 141 H 113 H Random Glucose Calcium Total Bilirubin AST ALT Alkaline Phosphatase Total Protein Albumin 01/21/18 01/21/18 01/21/18 08:36 08:57 08:57 WBC 3.5 L RBC 3.15 L Hgb 9.1 L Hct 28.5 L MCV 90.6 MCH 28.8 MCHC 31.8 L RDW 17.6 H Plt Count 256 MPV 8.1 Neut % (Auto) 68.6 Lymph % (Auto) 16.4 [place] % (Auto) 9.0 H Eos % (Auto) 4.8 H Baso % (Auto) 1.2 Neut # (Auto) 2.4 Lymph # (Auto) 0.6 L [place] # (Auto) 0.3 Eos # (Auto) 0.2 Baso # (Auto) 0.0 WBC Differential . Differential Comment Auto diff final Sodium 138 Potassium 4.6 Chloride 101 Carbon Dioxide 24.9 Anion Gap 12 BUN 43 H Creatinine 1.98 H Estimated GFR 32 L POC Glucose 167 H Random Glucose 161 H Calcium 8.7 Total Bilirubin 0.4 AST 31 ALT 42 Alkaline Phosphatase 660 H Total Protein 6.7 D Albumin 2.2 L 01/21/18 11:18 WBC RBC Hgb Hct MCV MCH MCHC RDW Plt Count MPV Neut % (Auto) Lymph % (Auto) [place] % (Auto) Eos % (Auto) Baso % (Auto) Neut # (Auto) Lymph # (Auto) [place] # (Auto) Eos # (Auto) Baso # (Auto) WBC Differential Differential Comment Sodium Potassium Chloride Carbon Dioxide Anion Gap BUN Creatinine Estimated GFR POC Glucose 200 H Random Glucose Calcium Total Bilirubin AST ALT Alkaline Phosphatase Total Protein Albumin - Imaging Impressions Chest X-Ray 01/20/18 06:00 CONCLUSION: 1. Cardiomegaly with trace positive fluid balance. Enema w/Water Soluble 01/20/18 08:00 CONCLUSION: Status post therapeutic Gastrografin enema. Assessment and Plan - Plan (1) Constipation Code(s): K59.00 - Constipation, unspecified Status: Acute Plan: Abdominal pain Nausea/vomiting Constipation, improved - Pt is a 52 y/o AAF with chronic systolic CHF, nonischemic cardiomyopathy with EF 15-20% s/p AICD, hx of CVA in 12/2017 (Bilateral acute to subacute posterior cerebral artery infarcts on Head CT on 12/22/17), congestive hepatopathy, ascites , HTN, CKD, stage 3, and type 2 diabetes mellitus, insulin dependent. Pt has had multiple hospitalizations at [facility] in [place] and [facility] in the last several month for various issues related to her CHF /Cardiomyopathy, DKA, Acute on chronic renal failure, CVA. After her most recent admission from 12/02/17 to 01/08/18 was for CHF and was transferred to [facility] to be evaluated for possible heart transplant vs. LVAD. During that admission she had an acute CVA with resulting left sided weakness and felt that she was not a good candidate for advanced heart failure treatment. Pt was discharged to [facility] on 01/08/18. - She was brought to the ED from a local rehab center for hyperkalemia and N/V. She has noted issues with constipation more recently. Over the last two days she has had nausea/vomiting and has not been eating much. She has not passed any stool in the last two days either. - CT abd/pelvis in the ED which noted moderate ascites and anasarca, cardiomegaly with pacer lead tip in right ventricle, and small fat-containing umbilical hernia. No bowel obstruction. In reviewing the images she has a significant amount of stool throughout the colon and in the rectum. - Pt had a small BM on 01/17 but has been refusing the Lactulose BID - Pt was given Mag Citrate and Colace BID on 01/18 but no significant stooling - Pt had Gastrografin enema on 01/20 with large volume of stool output - Zofran PRN - Protonix 40mg IV daily (2) Nonischemic cardiomyopathy Code(s): I42.8 - Other cardiomyopathies Status: Chronic Plan: Nonischemic cardiomyopathy Chronic systolic CHF with EF 15-20% s/p AICD - Pt was given a dose of IV Lasix in the ED - CXR in the ED noted Cardiomegaly with prominent main pulmonary artery. Pacer lead overlies right ventricle. No focal consolidation or effusion. - Pt was continued on PO Lasix 40mg BID due to worsening renal function - Pt was given a dose of Lasix 80mg IV with Albumin IV given prior to the Lasix on 01/19 - Cr is stable to improved today at 2.35 - BNP is elevated from at admission from 1368--> 1852 - Monitor electrolyte closely - Pt was reportedly evaluated at [facility] recently for Heart transplant vs. LVAD but had a stroke during that admission and was not felt to be a good candidate after the CVA. - CXR (01/20/18) --> Cardiomegaly with trace positive fluid balance - Monitor clinical status closely - Pt is typically on 2L of supplemental O2 - Discussed code status with the pt and she wishes to be a full code. - appreciate input from Palliative Service - increased lasix to 80mg IV TID. - Pt's Creatinine has improved with IV lasix but there is no clinical improvement yet. - Pt's prognosis is poor. - Hospice would be appropriate. - Consult Nephrology to see if pt might benefit from hemodialysis (3) Diabetes Code(s): E11.9 - Type 2 diabetes mellitus without complications Status: Chronic Plan: Diabetes mellitus, poorly controlled Hgb A1C 14.4 on 08/31/17 Hypoglycemia - Pt was also given Novolin 10 units and Dextrose overnight and was hypoglycemic with BS 34 on 01/17. Pt was given orange juice twice this morning and her BS improved to 158. - Today her BS are in the 200s. - Pt is normally on Novolin 10 units BID and NovoLog SSI - Basal insulin with Levemir 5 units BID started on 01/18 and titrate up to 10 units BID today, BS on 01/18 were still quite elevated in the 200-300s but valentine morning glucose on 01/19 was 95 so the insulin scheduled was kept the same - Her blood sugars last night and this morning are in the 200s - Consider increasing Levemir to 10 units BID but BS are rather labile, continue to monitor closely for now - NovoLog SSI - Accu checks - Monitor BS closely (4) Acute on chronic kidney failure Code(s): N17.9 - Acute kidney failure, unspecified; N18.9 - Chronic kidney disease, unspecified Status: Acute Plan: Hyperkalemia Acute on chronic renal disease, stage 3 - Outpt labs from 11/2017 noted Cr around 1.4-1.5 - Labs in the ED noted a potassium of 6.1. - Pt was given Kayexalate and Calcium Gluconate in the ED her repeat potassium this morning was 5.5 and second repeat was 5.7 on 01/17 - Pt refusing Lab draws on 01/18, but we discussed with the pt the importance of getting er labs drawn to monitor her electrolytes and kidney function and was agreed - Pt was given a second dose of Kayexalate on 01/17 but pt has not moved her bowels. - Repeat K+ down to 5.0 but renal function is worse on 01/18 with Cr around 2.49 - renal function improving - see above (5) Hyperkalemia Code(s): E87.5 - Hyperkalemia Status: Acute Plan: - See above (6) HTN (hypertension) Code(s): I10 - Essential (primary) hypertension Status: Acute Plan: HTN - Cont. home meds - BP is poorly controlled on multiple medications - Monitor with change to IV Lasix - Clonidine PRN - Monitor closely (7) Elevated LFTs Code(s): R94.5 - Abnormal results of liver function studies Status: Acute Plan: Elevated LFTS Congestive hepatopathy Ascites - Review of outpt records show the pts AlkPhos has been elevated since 10/2016 - AlkPhos Isoenzyme in 10/2017 noted 72% liver, 20% bone, 8% intestine - Transjugular liver bx (12/20/17) --> Findings suggestive of congestive hepatopathy. (8) Ascites Code(s): R18.8 - Other ascites Status: Acute Plan: - See above (9) CVA - recent CVA - holding oral anticoagulant d/t continued oozing from forming peripheral IV site. - pt at risk for developing anemia d/t blood loss.
--- NOTE | 2018-01-21 14:38 | MB ---
cc: Shin Ahmadi MD DATE: 01/21/2018 REASON FOR CONSULTATION: Elevated BUN and creatinine, for evaluation. HISTORY OF PRESENT ILLNESS: This is a 52-year-old female with past medical history of ischemic heart disease, congestive heart failure with nonischemic cardiomyopathy, history of cerebrovascular accident, AICD placement, ascites, hypertension, chronic kidney disease, diabetes mellitus, on insulin, who was admitted because of abdominal pain, constipation and hyperkalemia. I was called to see the patient because of elevated BUN and creatinine. The patient is not a very good historian. She seems to be not oriented completely. She does not know why she was brought to the hospital and how long she has been here. Most of the history was taken from the patient's chart and some from the patient. According to the patient, she is not still eating very good and she has been vomiting off and on. She has multiple admissions at [facility] related to her cardiomyopathy. Her creatinine on admission was 2.4 and it has stayed in the same range and today is slightly better, is 1.9. The potassium was elevated on admission ,was 6.1 and it is improved, now it is in normal range. The patient denies any shortness of breath. She does not have any chest pain. She has mild abdominal discomfort and vomited once this morning, according to her, and she has nausea. There is no history of diarrhea. Currently, she has a Hines catheter, which is draining clear urine. The patient was found on admission that she has ascites and anasarca and she has been getting a diuretic. She initially reached. She initially received the treatment for hyperkalemia also. PAST MEDICAL HISTORY: Nonischemic cardiomyopathy, hypertension, diabetes mellitus, chronic kidney disease, hyperlipidemia, and history of alcoholism. PAST SURGICAL HISTORY: History of automatic implantable cardioverter-defibrillator placement and transjugular liver biopsy. REVIEW OF SYSTEMS: The patient has generalized weakness, feeling tired, has decreased appetite, nausea and vomited once. Mild abdominal discomfort. No chest pain, no shortness of breath. She is not fully oriented. Oriented x 1 only. SOCIAL HISTORY: She has history of alcoholism. There is no history of smoking. FAMILY HISTORY: Noncontributory. ALLERGIES: SHE IS ALLERGIC TO LISINOPRIL, OSELTAMIVIR, TRAMADOL. MEDICATIONS: Currently, she is on the following medications: 1. Tylenol p.r.n. 2. Amiodarone 100 mg daily. 3. Eliquis 5 mg b.i.d. 4. Aspirin 325 mg daily. 5. Zebeta 2.5 mg once a day. 6. Catapres 0.1 mg p.r.n. 7. Colace 100 mg b.i.d. 8. Folic acid 1 mg daily. 9. Lasix 80 mg t.i.d. 10. Glucagon 1 mg p.r.n. 11. Hydralazine 100 mg q.8 hours. 12. Insulin aspart as per sliding scale. 13. Insulin Levemir 5000 units subcutaneous every 12 hourly. 14. Esmolol 20 mg b.i.d. 15. Lactinex 1 tablet q.12 hours. 16. Procardia-XL 30 mg b.i.d. 17. Zofran as needed. 18. Protonix as needed. 19. Vitamin B1 50 mg daily. PHYSICAL EXAMINATION: GENERAL: Awake, alert. She is not fully oriented, not in acute distress. VITAL SIGNS: Her last blood pressure is 189/87. The blood pressure is on the higher side. Temperature is 97.2, oxygen saturation is 98-99%. HEENT: Pupils are mid constricted. Nonicteric sclerae. Conjunctivae are normal. NECK: Supple. JVD is slightly elevated. LUNGS: The patient has bilateral decreased air entry with basilar rales and scattered wheezing. HEART: S1, S2. Regular rate and rhythm. ABDOMEN: Soft and lax. There is an umbilical hernia, reducible and nontender. EXTREMITIES: She has 1+ edema in the legs. INVESTIGATIONS: WBC count 3.5, hemoglobin 9.1, platelet count of 256, neutrophils 68.7%, eosinophils 4.8%. INR 1.1. Sodium 138, potassium 4.6, chloride 101, bicarbonate 24.6, BUN 43, creatinine 1.9, glucose 200, calcium 8.7. AST, ALT normal. Alkaline phosphatase is 660, total protein is 6.7, albumin of 2.2. Urinalysis showing protein of more than 500. IMAGING STUDIES: The patient has a chest x-ray done, which shows cardiomegaly with prominent pulmonary artery. I cannot get the CT scan results, since EMR is updated. Abdominal x-ray shows that she has radiographic contrast in the colon. Moderate ascites. ASSESSMENT AND PLAN: 1. Hypertension, uncontrolled. 2. Chronic kidney disease with possibility of some acute worsening. 3. Congestive heart failure with cardiomyopathy. 4. Diabetes mellitus. 5. Proteinuria and edema. 6. Generalized anasarca and ascites. The patient has proteinuria and most likely she has chronic kidney disease because of diabetic nephropathy. The CT scan report, finally I was able to review, and says the kidneys are normal in size. Currently, she is on diuretic with Lasix. She has been diuresing well. Her creatinine is slightly better now. The potassium is normal. Need to encourage oral intake. The blood pressure is on the higher side. She is currently on Hydralazine 100 mg and nifedipine was just started today, so we will wait for the effect of the nifedipine and continue the diuretic and try to keep the patient in negative fluid balance, avoiding nephrotoxins. Thank you for the consultation. I will follow the patient while she is in the hospital. MD CHERRIE Tam/SARAH , 01:52 PM , 02:37 PM
--- NOTE | 2018-01-21 18:13 | ECHRPT ---
Indication: HEART FAILURE CONCLUSIONS Normal left ventricular size. Mild concentric left ventricular hypertrophy. Low normal to mildly red uced left ventricular systolic function with estimated ejection fraction of 45-50%. No segmental wall motion abnormalities. Possible mild right ventricular enlargement with normal systolic function. A pacemaker wire is noted. Mild mitral valve regurgitation. There is mild tricuspid valve regurgitation. The estimated pulmonary arterial pressure is 35 mmH BP: / HR: Rhythm: Sinus MEASUREMENTS (Male / Female) Normal Values Technical Quality:Fair 2D ECHO LV Diastolic Diameter PLAX 5.1 cm 4.2 - 5.9 / 3.9 - 5.3 cm LV Systolic Diameter PLAX 3.5 cm IVS Diastolic Thickness 1.1 cm 0.6 - 1.0 / 0.6 - 0.9 cm LVPW Diastolic Thickness 1.1 cm 0.6 - 1.0 / 0.6 - 0.9 cm LV Relative Wall Thickness 0.4 RV Internal Dim ED PLAX 3.0 cm LVOT Diameter 2.0 cm Aortic Root Diameter 2.8 cm LA Systolic Diameter LX 3.7 cm 3.0 - 4.0 / 2.7 - 3.8 cm M-MODE AV Cusp Separation MM 2.0 cm DOPPLER AV Peak Velocity 136.0 cm/s AV Peak Gradient 7.4 mmHg AV Mean Gradient 4.0 mmHg AV Velocity Time Integral 31.7 cm LVOT Peak Velocity 83.5 cm/s LVOT Peak Gradient 2.8 mmHg LVOT Velocity Time Integral 21.1 cm AV Area Cont Eq vti 2.1 cm AV Area Cont Eq pk 1.9 cm Mitral E Point Velocity 96.3 cm/s Mitral A Point Velocity 49.9 cm/s Mitral E to A Ratio 1.9 LV E' Lateral Velocity 7.0 cm/s Mitral E to LV E' Lateral Ratio 13.7 LV E' Septal Velocity 6.5 cm/s Mitral E to LV E' Septal Ratio 14.7 TR Peak Velocity 266.0 cm/s TR Peak Gradient 28.3 mmHg Right Atrial Pressure 10.0 mmHg Pulmonary Artery Systolic Pressu 38.3 mmHg Right Ventricular Systolic Press 38.3 mmHg PV Peak Velocity 53.4 cm/s PV Peak Gradient 1.1 mmHg FINDINGS LEFT VENTRICLE Normal left ventricular size. Mild concentric left ventricular hypertrophy. Low normal to mildly red uced left ventricular systolic function with estimated ejection fraction of 45-50%. No segmental wall motion abnormalities. RIGHT VENTRICLE Possible mild right ventricular enlargement with normal systolic function. A pacemaker wire is noted. LEFT ATRIUM The left atrial size is normal. RIGHT ATRIUM The right atrial size is normal. There is a pacemaker wire present in the right atrial cavity. ATRIAL SEPTUM No atrial level shunt is demonstrated by color flow Doppler interrogation. AORTA The aortic root and proximal ascending aorta are normal in size on limited imaging. MITRAL VALVE Mild mitral valve regurgitation. AORTIC VALVE Trileaflet aortic valve. No aortic valve stenosis or regurgitation. TRICUSPID VALVE There is mild tricuspid valve regurgitation. The estimated pulmonary arterial pressure is 35 mmHg. PULMONARY VALVE Mild pulmonary valve regurgitation. VESSELS The inferior vena cava was not well visualized. PERICARDIUM No pericardial effusion. Matt Amezcua MD (Electronically Signed) Final Date:21 January 2018 18:12
[2018-01-22] MEDS: Lactobacillus Acidophilus/L. Spores Tablet PO SCH ×2 (09:32→20:40)
[2018-01-22] MEDS: Docusate Sodium 100 MG Capsule PO SCH ×2 (09:33→20:40)
[2018-01-22] MEDS: Isosorbide Mononitrate 20 MG Tablet PO SCH ×2 (09:33→20:40)
[2018-01-22] MEDS: Folic Acid 1 MG Tablet PO SCH (09:33)
[2018-01-22] MEDS: Pantoprazole Inj 40 MG Vial IV.PUSH SCH (09:34)
--- NOTE | 2018-01-22 10:23 | P.PNPAL ---
Reason for Visit Reason for visit: a. To assist with evaluation and management of symptoms including: debility, constipation b. To assist medical decision maker(s) with: better understanding of current medical conditions; weighing benefits/burdens of medical treatment options; making medical treatment decisions. Subjective Subjective/Interval History: Draft.. Patient is a 52-year-old female with a history of nonischemic cardiomyopathy with EF 15-20% s/p AICD, history of CVA in 12/2017, ascites, hypertension, CKD- stage III and diabetes who presented to [facility] from a local rehab center on 01/16/2018 for evaluation of GI complaints. The patient reported intermittent n/ v, abdominal pain and poor nutritional intake x 2 days. Patient reported that she had been doing fairly well but had recently developed some lower extremity edema over the previous week. Outpatient blood work showed hyperkalemia; BNP was elevated at 1337. Imaging showed the patient had a significant amount of stool throughout the colon and in the rectum; she had a small bowel movement on 01/17/2018 but was refusing lactulose. Patient received mag citrate and Colace BID on 01/17/18 but did not have a good BM. Patient had a Gastrografin enema on and had a large volume of stool output. Follow up visit for symptom management and clarification of medical treatment goals. Patient presents lying in bed, more alert and engaged than yesterday. Patient reports she has not had a bowel movement since 01/20/18. Abdomen is firm, slightly distended. Bowel sound are hypoactive. Appetite improving. Patient remains on mechanically soft diet with nectar consistency thickened liquids. Speech therapy following. Patient reporting ongoing weakness stating she is too weak to get OOB. Echocardiogram on 01/21/2018 with estimated EF of 45-50%. . Advance Directives Advance Directives Date on File: 01/20/18 Health Care Surrogate Name and Number: Primary: Tanvi De Paz [phone] Alternate: Randi De Paz [phone] Objective Vital Signs: Vital Signs 01/21/18 12:00 01/21/18 16:00 01/21/18 19:41 Temperature 97.2 F L 97.1 F L 98.1 F Pulse Rate 62 58 L 63 Respiratory Rate 17 16 18 Blood Pressure 189/87 H 169/76 H 130/76 Pulse Oximetry 98 99 96 01/21/18 20:00 01/21/18 23:13 01/22/18 00:00 Temperature 97.4 F L Pulse Rate 62 62 62 Respiratory Rate 18 Blood Pressure 137/72 Pulse Oximetry 95 01/22/18 03:18 01/22/18 04:00 01/22/18 08:00 Temperature 97.6 F 97.3 F L Pulse Rate 63 63 60 Respiratory Rate 17 18 Blood Pressure 123/67 143/67 H Pulse Oximetry 98 97 Intake & Output 01/21/18 01/22/18 01/22/18 18:59 06:59 18:59 Intake Total 480 / 480 480 / 480 Output Total 2700 / 2700 650 / 650 Balance -2220 / -2220 -170 / -170 Weight 77.5 kg Intake: Oral 480 / 480 480 / 480 Output: Urine 1350 / 1350 Urine Amount (Catheter) 1350 / 1350 650 / 650 Indwelling Urethral Catheter 1350 / 1350 650 / 650 Other: Date of Last Bowel Movement 01/20/18 # Bowel Movements 0 0 Weight On Admission 77.5 kg Physical Exam: CONSTITUTIONAL/GENERAL: This is a chronically ill appearing, middle aged female in no acute distress. TUBES/LINES/DRAINS: PIV x 1, nasal cannula SKIN: No jaundice, rashes, or lesions. Ecchymoses on upper extremities. Skin temperature appropriate. Not diaphoretic. HEAD: Atraumatic. Normocephalic. EYES: Pupils equal and round. Extraocular motions intact. No scleral icterus. No injection or drainage. Fundi not examined. ENT: Hearing grossly normal. Nose without bleeding or purulent drainage. NECK: Trachea midline. Supple, nontender. No palpable thyroid enlargement or nodularity. CARDIOVASCULAR: Regular rate and rhythm without murmurs, gallops, or rubs. No JVD. Peripheral pulses symmetric. RESPIRATORY/CHEST: Symmetric, unlabored respirations. Breath sounds equal bilaterally. No wheezes, rales, or rhonchi. GASTROINTESTINAL: Abdomen firm, slightly distended no guarding. Hypoactive sounds present. GENITOURINARY: Without palpable bladder distension. MUSCULOSKELETAL: Extremities without clubbing or cyanosis. Trace edema in feet bilaterally. Left hand is swollen. LYMPHATICS: No palpable cervical or supraclavicular adenopathy. NEUROLOGICAL: Awake and alert. Answers questions appropriately; able to make needs known. Follows commands. Left-sided weakness PSYCHIATRIC: No obvious anxiety/depression. No apparent hallucinations or other psychotic thought process. . Diagnostic Tests Laboratory: Laboratory Results - last 72 hr 01/19/18 01/19/18 01/19/18 06:47 13:10 17:26 WBC RBC Hgb Hct MCV MCH MCHC RDW Plt Count MPV Neut % (Auto) Lymph % (Auto) [place] % (Auto) Eos % (Auto) Baso % (Auto) Neut # (Auto) Lymph # (Auto) [place] # (Auto) Eos # (Auto) Baso # (Auto) WBC Differential Differential Comment Sodium 136 Potassium 5.1 Chloride 100 Carbon Dioxide 27.0 Anion Gap 9 BUN 48 H Creatinine 2.48 H Estimated GFR 25 L POC Glucose 162 H 127 H Random Glucose 64 L Calcium 8.7 Magnesium 2.3 Total Bilirubin 0.5 AST 50 H ALT 61 H Alkaline Phosphatase 878 H B-Natriuretic Peptide Total Protein 7.6 Albumin 2.4 L TSH 6.760 H Free T4 1.36 Free T3 1.23 L 01/19/18 01/20/18 01/20/18 20:23 04:12 04:12 WBC RBC Hgb Hct MCV MCH MCHC RDW Plt Count MPV Neut % (Auto) Lymph % (Auto) [place] % (Auto) Eos % (Auto) Baso % (Auto) Neut # (Auto) Lymph # (Auto) [place] # (Auto) Eos # (Auto) Baso # (Auto) WBC Differential Differential Comment Sodium 137 Potassium 5.1 Chloride 101 Carbon Dioxide 26.4 Anion Gap 10 BUN 46 H Creatinine 2.35 H Estimated GFR 26 L POC Glucose 223 H Random Glucose 224 H D Calcium 8.3 L Magnesium 2.3 Total Bilirubin AST ALT Alkaline Phosphatase B-Natriuretic Peptide 1852 H Total Protein Albumin TSH Free T4 Free T3 01/20/18 01/20/18 01/20/18 07:42 12:14 17:53 WBC RBC Hgb Hct MCV MCH MCHC RDW Plt Count MPV Neut % (Auto) Lymph % (Auto) [place] % (Auto) Eos % (Auto) Baso % (Auto) Neut # (Auto) Lymph # (Auto) [place] # (Auto) Eos # (Auto) Baso # (Auto) WBC Differential Differential Comment Sodium Potassium Chloride Carbon Dioxide Anion Gap BUN Creatinine Estimated GFR POC Glucose 276 H 174 H 141 H Random Glucose Calcium Magnesium Total Bilirubin AST ALT Alkaline Phosphatase B-Natriuretic Peptide Total Protein Albumin TSH Free T4 Free T3 01/20/18 01/21/18 01/21/18 22:31 08:36 08:57 WBC 3.5 L RBC 3.15 L Hgb 9.1 L Hct 28.5 L MCV 90.6 MCH 28.8 MCHC 31.8 L RDW 17.6 H Plt Count 256 MPV 8.1 Neut % (Auto) 68.6 Lymph % (Auto) 16.4 [place] % (Auto) 9.0 H Eos % (Auto) 4.8 H Baso % (Auto) 1.2 Neut # (Auto) 2.4 Lymph # (Auto) 0.6 L [place] # (Auto) 0.3 Eos # (Auto) 0.2 Baso # (Auto) 0.0 WBC Differential . Differential Comment Auto diff final Sodium Potassium Chloride Carbon Dioxide Anion Gap BUN Creatinine Estimated GFR POC Glucose 113 H 167 H Random Glucose Calcium Magnesium Total Bilirubin AST ALT Alkaline Phosphatase B-Natriuretic Peptide Total Protein Albumin TSH Free T4 Free T3 01/21/18 01/21/18 01/21/18 08:57 11:18 17:01 WBC RBC Hgb Hct MCV MCH MCHC RDW Plt Count MPV Neut % (Auto) Lymph % (Auto) [place] % (Auto) Eos % (Auto) Baso % (Auto) Neut # (Auto) Lymph # (Auto) [place] # (Auto) Eos # (Auto) Baso # (Auto) WBC Differential Differential Comment Sodium 138 Potassium 4.6 Chloride 101 Carbon Dioxide 24.9 Anion Gap 12 BUN 43 H Creatinine 1.98 H Estimated GFR 32 L POC Glucose 200 H 154 H Random Glucose 161 H Calcium 8.7 Magnesium Total Bilirubin 0.4 AST 31 ALT 42 Alkaline Phosphatase 660 H B-Natriuretic Peptide Total Protein 6.7 D Albumin 2.2 L TSH Free T4 Free T3 01/21/18 01/21/18 01/22/18 21:16 23:09 09:07 WBC RBC Hgb Hct MCV MCH MCHC RDW Plt Count MPV Neut % (Auto) Lymph % (Auto) [place] % (Auto) Eos % (Auto) Baso % (Auto) Neut # (Auto) Lymph # (Auto) [place] # (Auto) Eos # (Auto) Baso # (Auto) WBC Differential Differential Comment Sodium Potassium Chloride Carbon Dioxide Anion Gap BUN Creatinine Estimated GFR POC Glucose 135 H 155 H 256 H Random Glucose Calcium Magnesium Total Bilirubin AST ALT Alkaline Phosphatase B-Natriuretic Peptide Total Protein Albumin TSH Free T4 Free T3 Result Diagrams: 01/21/18 08:57 01/22/18 10:05 Imaging: Chest X-Ray 01/20/18 06:00 CONCLUSION: 1. Cardiomegaly with trace positive fluid balance. Enema w/Water Soluble 01/20/18 08:00 CONCLUSION: Status post therapeutic Gastrografin enema. Procedures: N/A . Assessment and Plan - Disease Oriented Problem List (1) CHF exacerbation (2) Constipation (3) Diabetes (4) Acute on chronic kidney failure (5) Hyperkalemia (6) HTN (hypertension) (7) Elevated LFTs (8) Ascites - Symptom Scale (2) Constipation 0-10 Scale: Unable to quantify Pertinent Non-Medical Issues: Psychosocial: Patient lives in [place]. Patient is legally but . She has 3 daughters (Randi, Izabel and Tanvi). She lives with one of her daughters. Spiritual:Christain jung; declined sports apparel internship visits Legal: Healthcare surrogate designation form completed 01/20/2018. Daughter, Tanvi Paula, is the primary healthcare surrogate decision-maker. Another daughter, Randi Paula, is the alternate healthcare surrogate decision maker. Ethical issues impacting care: No known ethical issues impacting care at this time. . Important Contacts: Tanvi Paula, daughter: [phone] Randi Paula, daughter: [phone] Daphneyhubert Paula, daughter: [phone] . Prognosis: Patient is a 52 year old female with a complex medical history. She has multiple hospitalizations in recent months secondary to CHF, DKA, acute on chronic renal failure and CVA. Most recently the patient was admitted from 2017 through 01/08/2018 with a CHF exacerbation; she was transferred to [facility] in [place] to be evaluated for a possible heart transplant versus LVAD. During that hospitalization the patient had an acute CVA and was no longer considered a candidate for aggressive interventions. EF 15-20%. Patient is at high risk for ongoing decline and complications. She is hospice appropriate when/if her goals become comfort oriented. . Code Status: Full Code Plan: = FULL CODE = Decision making: patient currently shows insight and judgement related to her medical conditions. Healthcare surrogate designation form completed 01/20/2018. Daughter, Tanvi Paula, is the primary healthcare surrogate decision-maker. Another daughter, Ranid Paula, is the alternate healthcare surrogate decision maker. = AGGRESSIVE GOALS = Palliative care contact information was provided to the patient. = Symptom management: Debility: Patient has had multiple hospitalizations at other facilities in the past several months secondary to her CHF/cardiomyopathy, DKA, acute on chronic renal failure and CVA. Recent echocardiogram in October, with EF 15-20%; family states there is a more recent echocardiogram showing the EF had improved. Follow- up echocardiogram on 01/21/2018 with estimated EF of 45-50%. Physical therapy following. Constipation: Imaging showed the patient had a significant amount of stool throughout the colon and in the rectum; she had a small bowel movement on 01/17/2018 but was refusing lactulose. Patient had a Gastrografin enema 01/20/2018 and had a large volume of stool output but has had no bowel movement since that time. Abdomen is firm, slightly distended with hypoactive bowel sounds. Current orders for Colace BID. Recommendations to add additional laxative; consider KUB. = Palliative care will continue to follow this patient throughout her hospitalization to establish trust, assist with symptom management and clarification of medical treatment goals. Attestation Attestation: To help prompt me to consider important information that might be impacting today's encounter and assessment, information from prior notes written by myself or my colleagues may have been "brought forward" into today's note. My signature on this note, however, is an attestation that I personally performed the exam, history, and/or decision-making noted today, and, unless otherwise indicated, the interactions with patient, family, and staff as well as the review of records all occurred today. I also attest that the listed assessment and stated plan reflect my best clinical judgment today based on the combination of historical information, prior notes, and today's exam/ interactions. When time spent is documented, it refers only to time spent today by the signer, or if indicated, combined time spent today by collaborating physician/nurse practitioner.
[2018-01-22] MEDS: Insulin NovoLOG Aspart Correctional Sugar Inj SQ SCH ×4 (10:30→20:41)
[2018-01-22 11:27] LABS: Carbon Dioxide 26.5 meq/L (21.0-32.0); Potassium 4.1 meq/L (3.5-5.1)
[2018-01-22] MEDS: Aspirin 325 MG Tablet PO SCH (12:12)
[2018-01-22] MEDS: Insulin Detemir Inj 1,000 UNIT/10 ML Vial SQ SCH ×2 (12:13→20:41)
--- NOTE | 2018-01-22 12:40 | P.PN ---
Subjective Interval history: 52-year-old female with past medical history of ischemic heart disease, congestive heart failure with nonischemic cardiomyopathy, history of cerebrovascular accident, AICD placement, ascites, hypertension, chronic kidney disease, diabetes mellitus, on insulin, who was admitted because of abdominal pain, constipation and hyperkalemia. I was called to see the patient because of elevated BUN and creatinine. Patient is alert, feeling better, breathing improving. Physical Exam Vital signs: Vital Signs 01/21/18 16:00 01/21/18 19:41 01/21/18 20:00 Temperature 97.1 F L 98.1 F Pulse Rate 58 L 63 62 Respiratory Rate 16 18 Blood Pressure 169/76 H 130/76 Pulse Oximetry 99 96 01/21/18 23:13 01/22/18 00:00 01/22/18 03:18 Temperature 97.4 F L 97.6 F Pulse Rate 62 62 63 Respiratory Rate 18 17 Blood Pressure 137/72 123/67 Pulse Oximetry 95 98 01/22/18 04:00 01/22/18 08:00 Temperature 97.3 F L Pulse Rate 63 60 Respiratory Rate 18 Blood Pressure 143/67 H Pulse Oximetry 97 Intake & Output 01/21/18 01/22/18 01/22/18 18:59 06:59 18:59 Intake Total 480 / 480 480 / 480 Output Total 2700 / 2700 650 / 650 Balance -2220 / -2220 -170 / -170 Weight 77.5 kg Intake: Oral 480 / 480 480 / 480 Output: Urine 1350 / 1350 Urine Amount (Catheter) 1350 / 1350 650 / 650 Indwelling Urethral Catheter 1350 / 1350 650 / 650 Other: Date of Last Bowel Movement 01/20/18 01/20/18 # Bowel Movements 0 0 Weight On Admission 77.5 kg - Constitutional no acute distress - Routine HEENT Exam Head: Present: normocephalic Eye: Present: EOMI ENT: Present: mucous membranes moist - Routine Neck Exam Present: supple, JVD - Routine Respiratory Exam Present: rhonchi, crackles, distant breath sounds, diminished air movement - Routine Cardiovascular Exam Present: RRR, S1, S2 - Routine Abdominal Exam Present: soft, normoactive bowel sounds, distended - Routine Extremities Exam Present: edema (moderate) - Routine Skin Exam Present: intact - Routine Neurological Exam Present: alert, oriented X3 - Detailed Neurological Exam: Coma Scale Verbal Response: Oriented - Routine Psychiatric Exam Present: cooperative - Urinary Catheter Management Indwelling Urethral Catheter Cath placed during this visit: yes Reason for continuing: Hourly intake/output Insertion date: 01/21/18 Insertion time: 12:40 Results - Labs CBC & Chem 7: 01/21/18 08:57 01/22/18 10:05 Laboratory Results - last 24 hr 01/21/18 01/21/18 01/21/18 17:01 21:16 23:09 Sodium Potassium Chloride Carbon Dioxide Anion Gap BUN Creatinine Estimated GFR POC Glucose 154 H 135 H 155 H Random Glucose Calcium Magnesium 01/22/18 01/22/18 01/22/18 09:07 10:05 10:05 Sodium 136 Potassium 4.1 Chloride 99 Carbon Dioxide 26.5 Anion Gap 11 BUN 44 H Creatinine 2.25 H Estimated GFR 28 L POC Glucose 256 H Random Glucose 230 H Calcium 9.0 Magnesium 2.1 Assessment and Plan - Plan 1. Hypertension, uncontrolled. 2. Chronic kidney disease with possibility of some acute worsening. 3. Congestive heart failure with cardiomyopathy. 4. Diabetes mellitus. 5. Proteinuria and edema. 6. Generalized anasarca and ascites. The patient has proteinuria and most likely she has chronic kidney disease because of diabetic nephropathy. The CT scan report,showing the kidneys are normal in size. Currently, she is on diuretic with Lasix 80 mg TID, Continue same. Creatinine increase slightly to 2.2, possibly at her baseline, Follow Urine out put and BMP. Keep the patient in negative fluid balance, avoiding nephrotoxins.
--- NOTE | 2018-01-22 12:57 | P.PNIM ---
Subjective Interval history: Patient resting comfortably in bed offers no new concerns/complaints Physical Exam Vital signs: Vital Signs 01/21/18 16:00 01/21/18 19:41 01/21/18 20:00 Temperature 97.1 F L 98.1 F Pulse Rate 58 L 63 62 Respiratory Rate 16 18 Blood Pressure 169/76 H 130/76 Pulse Oximetry 99 96 01/21/18 23:13 01/22/18 00:00 01/22/18 03:18 Temperature 97.4 F L 97.6 F Pulse Rate 62 62 63 Respiratory Rate 18 17 Blood Pressure 137/72 123/67 Pulse Oximetry 95 98 01/22/18 04:00 01/22/18 08:00 Temperature 97.3 F L Pulse Rate 63 60 Respiratory Rate 18 Blood Pressure 143/67 H Pulse Oximetry 97 Intake & Output 01/21/18 01/22/18 01/22/18 18:59 06:59 18:59 Intake Total 480 / 480 480 / 480 Output Total 2700 / 2700 650 / 650 Balance -2220 / -2220 -170 / -170 Weight 77.5 kg Intake: Oral 480 / 480 480 / 480 Output: Urine 1350 / 1350 Urine Amount (Catheter) 1350 / 1350 650 / 650 Indwelling Urethral Catheter 1350 / 1350 650 / 650 Other: Date of Last Bowel Movement 01/20/18 01/20/18 # Bowel Movements 0 0 Weight On Admission 77.5 kg - Constitutional no acute distress - Routine HEENT Exam Head: Present: normocephalic, atraumatic Eye: Present: EOMI ENT: Present: mucous membranes dry - Routine Respiratory Exam Present: CTA bilaterally. Absent: accessory muscle use - Routine Cardiovascular Exam Present: RRR - Routine Abdominal Exam Present: soft, normoactive bowel sounds. Absent: tenderness, distended - Routine Extremities Exam Present: edema (anasarca), pulses intact - Routine Neurological Exam Present: oriented X3 - Urinary Catheter Management Indwelling Urethral Catheter Cath placed during this visit: yes Reason for continuing: Hourly intake/output Insertion date: 01/21/18 Insertion time: 12:40 Results - Labs CBC & Chem 7: 01/21/18 08:57 01/23/18 12:57 Laboratory Results - last 24 hr 01/21/18 01/21/18 01/21/18 17:01 21:16 23:09 Sodium Potassium Chloride Carbon Dioxide Anion Gap BUN Creatinine Estimated GFR POC Glucose 154 H 135 H 155 H Random Glucose Calcium Magnesium 01/22/18 01/22/18 01/22/18 09:07 10:05 10:05 Sodium 136 Potassium 4.1 Chloride 99 Carbon Dioxide 26.5 Anion Gap 11 BUN 44 H Creatinine 2.25 H Estimated GFR 28 L POC Glucose 256 H Random Glucose 230 H Calcium 9.0 Magnesium 2.1 Assessment and Plan - Assessment (1) Nonischemic cardiomyopathy Code(s): I42.8 - Other cardiomyopathies Status: Chronic Plan: Nonischemic cardiomyopathy Chronic systolic CHF with EF 15-20% s/p AICD - Pt was given a dose of IV Lasix in the ED - CXR in the ED noted Cardiomegaly with prominent main pulmonary artery. Pacer lead overlies right ventricle. No focal consolidation or effusion. - Pt was continued on PO Lasix 40mg BID due to worsening renal function - Pt was given a dose of Lasix 80mg IV with Albumin IV given prior to the Lasix on 01/19 - Cr is stable to improved today at 2.35 - BNP is elevated from at admission from 1368--> 1852 - Change Lasix from PO to 80mg IV BID - Monitor electrolyte closely - Pt was reportedly evaluated at [facility] recently for Heart transplant vs. LVAD but had a stroke during that admission and was not felt to be a good candidate after the CVA. - CXR (01/20/18) --> Cardiomegaly with trace positive fluid balance - Monitor clinical status closely - Pt is typically on 2L of supplemental O2 - Discussed code status with the pt and she wishes to be a full code. - Consult Palliative care for goals of care - Echocardiogram from 01/21/18 reveiwed and reveals: Normal left ventricular size. Mild concentric left ventricular hypertrophy. Low normal to mildly reduced left ventricular systolic function with estimated ejection fraction of 45-50% . No segmental wall motion abnormalities. Possible mild right ventricular enlargement with normal systolic function. A pacemaker wire is noted. Mild mitral valve regurgitation. There is mild tricuspid valve regurgitation. The estimated pulmonary arterial pressure is 35 mmH - patient continues to have anasarca Consider cardiology consult in AM (2) Diabetes Code(s): E11.9 - Type 2 diabetes mellitus without complications Status: Chronic Plan: Diabetes mellitus, poorly controlled Hgb A1C 14.4 on 08/31/17 Hypoglycemia - Pt was also given Novolin 10 units and Dextrose overnight and was hypoglycemic with BS 34 on 01/17. Pt was given orange juice twice this morning and her BS improved to 158. - Today her BS are in the 200s. - Pt is normally on Novolin 10 units BID and NovoLog SSI - Basal insulin with Levemir 5 units BID started on 01/18 - increase Levemir to 10 units BID (01/22) - Her blood sugars last night and this morning are in the 200s - continue to monitor closely for now - NovoLog SSI - Accu checks - Monitor BS closely (3) Acute on chronic kidney failure Code(s): N17.9 - Acute kidney failure, unspecified; N18.9 - Chronic kidney disease, unspecified Status: Acute Plan: Hyperkalemia Acute on chronic renal disease, stage 3 - Outpt labs from 11/2017 noted Cr around 1.4-1.5 - Labs in the ED noted a potassium of 6.1. - Pt was given Kayexalate and Calcium Gluconate in the ED her repeat potassium this morning was 5.5 and second repeat was 5.7 on 01/17 - Pt refusing Lab draws on 01/18, but we discussed with the pt the importance of getting er labs drawn to monitor her electrolytes and kidney function and was agreed - Pt was given a second dose of Kayexalate on 01/17 but pt has not moved her bowels. - Repeat K+ down to 5.0 but renal function is worse on 01/18 with Cr around 2.49 - Pt was on po Lasix but continued to have swelling during initial hospitalization - Changed to IV Lasix and monitor renal function -Consult nephrology, appreciate input -BMP in AM (4) Hyperkalemia Code(s): E87.5 - Hyperkalemia Status: Acute Plan: - See above (5) HTN (hypertension) Code(s): I10 - Essential (primary) hypertension Status: Acute Plan: HTN - Cont. home meds - BP is poorly controlled on multiple medications - Monitor with change to IV Lasix - Clonidine PRN - Monitor closely (6) Elevated LFTs Code(s): R94.5 - Abnormal results of liver function studies Status: Acute Plan: Elevated LFTS Congestive hepatopathy Ascites - Review of outpt records show the pts AlkPhos has been elevated since 10/2016 - AlkPhos Isoenzyme in 10/2017 noted 72% liver, 20% bone, 8% intestine - Transjugular liver bx (12/20/17) --> Findings suggestive of congestive hepatopathy. (7) Ascites Code(s): R18.8 - Other ascites Status: Acute Plan: - See above (8) Constipation Code(s): K59.00 - Constipation, unspecified Status: Acute Plan: Abdominal pain Nausea/vomiting Constipation, improved - Pt is a 52 y/o AAF with chronic systolic CHF, nonischemic cardiomyopathy with EF 15-20% s/p AICD, hx of CVA in 12/2017 (Bilateral acute to subacute posterior cerebral artery infarcts on Head CT on 12/22/17), congestive hepatopathy, ascites , HTN, CKD, stage 3, and type 2 diabetes mellitus, insulin dependent. Pt has had multiple hospitalizations at [facility] in [place] and [facility] in the last several month for various issues related to her CHF /Cardiomyopathy, DKA, Acute on chronic renal failure, CVA. After her most recent admission from 12/02/17 to 01/08/18 was for CHF and was transferred to [facility] to be evaluated for possible heart transplant vs. LVAD. During that admission she had an acute CVA with resulting left sided weakness and felt that she was not a good candidate for advanced heart failure treatment. Pt was discharged to [facility] on 01/08/18. - She was brought to the ED from a local rehab center for hyperkalemia and N/V. She has noted issues with constipation more recently. Over the last two days she has had nausea/vomiting and has not been eating much. She has not passed any stool in the last two days either. - CT abd/pelvis in the ED which noted moderate ascites and anasarca, cardiomegaly with pacer lead tip in right ventricle, and small fat-containing umbilical hernia. No bowel obstruction. In reviewing the images she has a significant amount of stool throughout the colon and in the rectum. - Pt had a small BM on 01/17 but has been refusing the Lactulose BID - Pt was given Mag Citrate and Colace BID on 01/18 but no significant stooling - Pt had Gastrografin enema on 7/2 with large volume of stool output - Zofran PRN - Protonix 40mg IV daily - Attending Attestation Patient examined. Assessment and plan formulated with Missy ZAMBRANO I agree with the above.
[2018-01-23] MEDS: Insulin NovoLOG Aspart Correctional Sugar Inj SQ SCH ×4 (08:58→22:18)
[2018-01-23] MEDS: Docusate Sodium 100 MG Capsule PO SCH ×2 (08:59→20:38)
[2018-01-23] MEDS: Aspirin 325 MG Tablet PO SCH (08:59)
[2018-01-23] MEDS: Lactobacillus Acidophilus/L. Spores Tablet PO SCH ×2 (08:59→20:38)
[2018-01-23] MEDS: Folic Acid 1 MG Tablet PO SCH (09:00)
[2018-01-23] MEDS: Isosorbide Mononitrate 20 MG Tablet PO SCH ×2 (09:00→20:37)
[2018-01-23] MEDS: Insulin Detemir Inj 1,000 UNIT/10 ML Vial SQ SCH ×2 (09:01→19:10)
[2018-01-23] MEDS: Pantoprazole Inj 40 MG Vial IV.PUSH SCH (09:01)
--- NOTE | 2018-01-23 11:24 | P.PNNP ---
Subjective Interval history: Reports nausea and dizziness. Creatinine at 2.25 yesterday. Moderate edema. <Sabrina Keller - Last Filed: 01/23/18 11:25> Physical Exam Vital signs: Vital Signs 01/22/18 12:00 01/22/18 16:00 01/22/18 19:49 Temperature 97.1 F L 97.3 F L Pulse Rate 62 65 68 Respiratory Rate 18 18 Blood Pressure 164/77 H 163/74 H Pulse Oximetry 98 98 01/22/18 20:00 01/22/18 20:32 01/22/18 23:05 Temperature 97.3 F L 97.9 F Pulse Rate 67 68 Respiratory Rate 17 17 Blood Pressure 136/63 148/66 H Pulse Oximetry 96 96 97 01/23/18 00:00 01/23/18 03:53 01/23/18 04:00 Temperature 97.8 F Pulse Rate 68 68 80 Respiratory Rate 17 Blood Pressure 167/72 H Pulse Oximetry 97 01/23/18 08:00 Temperature 97.7 F Pulse Rate 69 Respiratory Rate 17 Blood Pressure 183/73 H Pulse Oximetry 98 Intake & Output 01/22/18 01/23/18 01/23/18 18:59 06:59 18:59 Intake Total 120 / 120 Output Total 550 / 550 550 / 550 Balance -550 / -550 -430 / -430 Intake: Oral 120 / 120 Output: Urine Amount (Catheter) 550 / 550 550 / 550 Indwelling Urethral Catheter 550 / 550 550 / 550 Other: Date of Last Bowel Movement 01/20/18 01/22/18 01/22/18 # Bowel Movements 1 - Constitutional no acute distress - Routine HEENT Exam Head: Present: normocephalic - Routine Neck Exam Present: supple - Routine Respiratory Exam Present: decreased breath sounds. Absent: rales, rhonchi, wheezes - Routine Cardiovascular Exam Present: RRR. Absent: murmur - Routine Abdominal Exam Present: distended - Routine Extremities Exam Present: edema - Routine Skin Exam Present: intact, warm - Routine Neurological Exam Present: alert, oriented X3 - Urinary Catheter Management Indwelling Urethral Catheter Cath placed during this visit: yes Urethral indwelling: Yes Reason for continuing: Acute urinary retention Insertion date: 01/21/18 Insertion time: 12:40 <Sabrina Keller - Last Filed: 01/23/18 11:25> Vital signs: Vital Signs 01/22/18 23:05 01/23/18 00:00 01/23/18 03:53 Temperature 97.9 F Pulse Rate 68 68 68 Respiratory Rate 17 Blood Pressure 148/66 H Pulse Oximetry 97 01/23/18 04:00 01/23/18 08:00 01/23/18 11:24 Temperature 97.8 F 97.7 F Pulse Rate 80 69 Respiratory Rate 17 17 Blood Pressure 167/72 H 183/73 H Pulse Oximetry 97 98 97 01/23/18 12:00 01/23/18 16:00 Temperature 97.2 F L 97.3 F L Pulse Rate 63 63 Respiratory Rate 18 18 Blood Pressure 151/72 H 138/67 Pulse Oximetry 98 97 Intake & Output 01/23/18 01/23/18 01/24/18 06:59 18:59 06:59 Intake Total 120 / 120 Output Total 550 / 550 500 / 500 Balance -430 / -430 -500 / -500 Intake: Oral 120 / 120 Output: Urine Amount (Catheter) 550 / 550 500 / 500 Indwelling Urethral Catheter 550 / 550 500 / 500 Other: Date of Last Bowel Movement 01/22/18 01/22/18 # Bowel Movements 1 - Urinary Catheter Management Indwelling Urethral Catheter Cath placed during this visit: no <Shin Ahmadi - Last Filed: 01/23/18 22:43> Assessment and Plan - Assessment (1) Acute on chronic kidney failure Code(s): N17.9 - Acute kidney failure, unspecified; N18.9 - Chronic kidney disease, unspecified Status: Acute Plan: 1. Hypertension, uncontrolled. 2. Chronic kidney disease with possibility of some acute worsening. 3. Congestive heart failure with cardiomyopathy. 4. Diabetes mellitus. 5. Proteinuria and edema. 6. Generalized anasarca and ascites. The patient has proteinuria and most likely she has chronic kidney disease because of diabetic nephropathy. Baseline creatinine of 1.4-1.5 12/[address] scan report,showing the kidneys are normal in size. Baseline creatinine of 1.4-1.5 12/06 On Lasix 80 mg TID Creatinine increase slightly to 2.2. Follow Urine out put and BMP. Avoid nephrotoxins. NPO for heart cath today will order IVF's <Sabrina Keller - Last Filed: 01/23/18 11:25> - Assessment (1) Acute on chronic kidney failure Code(s): N17.9 - Acute kidney failure, unspecified; N18.9 - Chronic kidney disease, unspecified Status: Acute - Attending Attestation Patient seen and examined, agree with above. Creatinine is almost same. <Shin Ahmadi - Last Filed: 01/23/18 22:43>
[2018-01-23] MEDS ORDERED: fentaNYL Citrate Inj 100 MCG/2 ML Ampul ONE (14:23)
[2018-01-23] MEDS ORDERED: Heparin/NS PF Inj 500 ML ONE (14:23)
[2018-01-23] MEDS ORDERED: Lidocaine PF 1% Inj 30 ML Vial ONE (14:25)
[2018-01-23 14:38] LABS: Calcium 8.2 mg/dL (8.5-10.1); Carbon Dioxide 30.2 meq/L (21.0-32.0); Potassium 4.2 meq/L (3.5-5.1)
--- NOTE | 2018-01-23 16:25 | P.CONCA ---
History of Present Illness Consult date: 01/23/18 Requesting Physician: Steve Womack Reason for Consult: chf Primary Care Provider: eT Ramirez MD Chief Complaint: dyspnea, edema, abdominal distention History of Present Illness: Patient is a poor historian at baseline and much of her recent history is obtained from the medical records. 52 y/o AAF with chronic systolic CHF, nonischemic cardiomyopathy with EF previously reported as 15-20% s/p AICD but with apparent recovery of LV systolic function with current LVEF 45-50% by TTE on , PAF, hx of DVT, hx of CVA in 12/2017 (Bilateral acute to subacute posterior cerebral artery infarcts on Head CT on 12/22/17), congestive hepatopathy, ascites, HTN, CKD, stage 3 with acute on chronic renal insufficiency, and type 2 diabetes mellitus , insulin dependent. She has had multiple hospitalizations at [facility] in [place] and [facility] in the last several month for various issues related to her CHF/Cardiomyopathy, DKA, Acute on chronic renal failure, CVA. After her most recent admission from 12/02/17 to 01/08/18 was for CHF and was transferred to [facility] to be evaluated for possible heart transplant vs. LVAD. During that admission she had an acute CVA with resulting left sided weakness and felt that she was not a good candidate for advanced heart failure treatment. Pt was discharged to [facility] on 01/08/18. She was brought to the ED from a local rehab center on I believe 01/19/18 for hyperkalemia and nausea and vomiting with abdominal distention. She has noted issues with constipation more recently. CT abd/pelvis in the ED noted moderate ascites and anasarca, cardiomegaly with pacer lead tip in right ventricle, and small fat-containing umbilical hernia. No bowel obstruction. She had significant amount of stool throughout the colon and in the rectum. Her records from recent cardiovascular evaluation at outside facilities including heart catheterizations are currently unavailable for review, however have been requested. She has been started on an aggressive diuretic regimen with Lasix 80mg IV TID and has also been evaluated by nephrology. The patient and her sister at the bedside believe that she is getting somewhat better in terms of her dyspnea, edema and abdominal discomfort/distention. Her treating medical liaison Dr Womakc relays to me that it appears that she has not had much for improvement. Cardiology was consulted to possibly perform right heart catheterization for evaluation of CO/CI and volume status as well as medical management. Currently, her LE edema is minimal at the foot, ankle and quiros. She has tense edema in the thighs bilaterally along with a hard distended abdomen with subcutaneous edema. She denies any chest pain, palpitations, or syncope. Review of Systems Comments: 10pt ros negative other than noted in hpi, however patient is a poor historian [facility] - History History Provided By: Patient (see hpi), Family Member, Medical Record - Medical History Medical History: Medical History (Last Updated 01/20/18 @ 15:16 by GEOVANNA Aguero) Anemia Atrial fibrillation Cardiomyopathy Coronary artery disease DVT (deep venous thrombosis) GERD (gastroesophageal reflux disease) High triglycerides - Surgical History Surgical History: Surgical History (Last Updated 01/20/18 @ 15:16 by GEOVANNA Aguero) AICD (automatic cardioverter/defibrillator) present History of cardiac catheterization History of liver biopsy - Family History Family History: Family History (Last Updated 01/20/18 @ 15:19 by GEOVANNA Aguero) Mother Hypertension Brother Hypertension Sister Hypertension Stroke - Tobacco History Second Hand Smoke Exposure: No Tobacco Use In Past 30 Days: No (Patient denies) Smoking Status: Never smoker - Alcohol History How Often Do You Have a Drink Containing Alcohol: Never - Substance Use History Substance History: No History of Abuse - Travel History History of Recent Travel: No Recent Travel in the [facility] Within the Last 8 Weeks: No Medications and Allergies Active Medications: Active Medications Acetaminophen (Tylenol) 650 mg PO Q4H PRN PRN Reason: fever or pain Amiodarone HCl (Cordarone) 100 mg PO DAILY [facility] Apixaban (Eliquis) 5 mg PO BID [facility] Last Admin: 01/23/18 09:00 Dose: 5 mg Aspirin (Aspirin) 325 mg PO DAILY [facility] Last Admin: 01/23/18 08:59 Dose: 325 mg Carvedilol (Coreg) 12.5 mg PO BID [facility] Clonidine HCl (Catapres) 0.2 mg PO Q8HR [facility] Dextrose (D50w Vial) 50 ml IV.PUSH UNSCH PRN PRN Reason: HYPOGLYCEMIA - SEE COMMENTS Docusate Sodium (Colace) 100 mg PO BID [facility] Last Admin: 01/23/18 08:59 Dose: 100 mg Folic Acid (Folic Acid) 1 mg PO DAILY [facility] Last Admin: 01/23/18 09:00 Dose: 1 mg Furosemide (Lasix Inj) 80 mg IV.PUSH TID [facility] Last Admin: 01/23/18 08:59 Dose: 80 mg Glucagon (Glucagon Inj) 1 mg OTHER UNSCH PRN PRN Reason: HYPOGLYCEMIA-SEE COMMENTS Hydralazine HCl (Apresoline) 100 mg PO Q8HR [facility] Last Admin: 01/23/18 13:46 Dose: 100 mg Albumin Human (Alburx 5% Inj) 500 mls @ 250 mls/hr IV.SIG TID@0800,1200,1700 [facility] Sodium Chloride (Ns Inj) 1,000 mls @ 50 mls/hr IV.CONT .Q20H [facility] Insulin Aspart (Novolog Insulin Suppl Scale Inj) 0 unit SQ ACHS [facility]; Protocol Last Admin: 01/23/18 15:03 Dose: Not Given Insulin Detemir (Levemir Inj) 10 unit SQ Q12HR [facility] Last Admin: 01/23/18 09:01 Dose: 10 unit Isosorbide Mononitrate (Ismo) 20 mg PO BID [facility] Last Admin: 01/23/18 09:00 Dose: 20 mg Lactobacillus Acidophilus (Lactinex) 1 tab PO Q12HR [facility] Last Admin: 01/23/18 08:59 Dose: 1 tab Miscellaneous (Pill Splitter) 1 each OTHER UNSCH PRN PRN Reason: SEE LABEL COMMENTS Nifedipine (Procardia Xl) 30 mg PO BID [facility] Last Admin: 01/23/18 09:00 Dose: 30 mg Ondansetron HCl (Zofran Odt) 4 mg PO Q4H PRN PRN Reason: NAUSEA OR VOMITING Last Admin: 01/21/18 22:44 Dose: 4 mg Pantoprazole Sodium (Protonix Inj) 40 mg IV.PUSH Q24H [facility] Last Admin: 01/23/18 09:01 Dose: 40 mg Thiamine HCl (Vitamin B1) 50 mg PO DAILY [facility] Last Admin: 01/23/18 09:00 Dose: 50 mg Allergies Allergy/AdvReac Type Severity Reaction Status Date / Time lisinopril Allergy Unknown Verified 01/16/18 22:57 oseltamivir Allergy Unknown Verified 01/16/18 22:57 tramadol Allergy Unknown Verified 01/16/18 22:57 Home Medications Medication Instructions Recorded Confirmed Type Saccharomyces boulardii 250 mg PO DAILY 01/18/18 01/18/18 History amiodarone 100 mg PO DAILY 01/18/18 01/18/18 History amlodipine 5 mg PO DAILY 01/18/18 01/18/18 History apixaban 5 mg PO BID 01/18/18 01/18/18 History ascorbic acid (vitamin C) 250 mg PO DAILY 01/18/18 01/18/18 History aspirin 325 mg PO DAILY 01/18/18 01/18/18 History bisoprolol fumarate 2.5 mg PO DAILY 01/18/18 01/18/18 History clonidine HCl 0.2 mg PO BID 01/18/18 01/18/18 History famotidine 20 mg PO DAILY 01/18/18 01/18/18 History folic acid 1 mg PO DAILY 01/18/18 01/18/18 History furosemide 40 mg PO BID 01/18/18 01/18/18 History hydralazine 100 mg PO Q8HR 01/18/18 01/18/18 History insulin aspart U-100 1 sliding scale dose SUB-Q UD 01/18/18 01/18/18 History insulin glargine 10 unit SUB-Q BID 01/18/18 01/18/18 History isosorbide mononitrate 20 mg PO BID 01/18/18 01/18/18 History lactulose 20 g PO BID 01/18/18 01/18/18 History ondansetron 4 mg PO Q6HR PRN 01/18/18 01/18/18 History thiamine HCl (vitamin B1) 50 mg PO DAILY 01/18/18 01/18/18 History Exam Vital signs: Vital Signs 01/22/18 16:00 01/22/18 19:49 01/22/18 20:00 Temperature 97.3 F L 97.3 F L Pulse Rate 65 68 67 Respiratory Rate 18 17 Blood Pressure 163/74 H 136/63 Pulse Oximetry 98 96 01/22/18 20:32 01/22/18 23:05 01/23/18 00:00 Temperature 97.9 F Pulse Rate 68 68 Respiratory Rate 17 Blood Pressure 148/66 H Pulse Oximetry 96 97 01/23/18 03:53 01/23/18 04:00 01/23/18 08:00 Temperature 97.8 F 97.7 F Pulse Rate 68 80 69 Respiratory Rate 17 17 Blood Pressure 167/72 H 183/73 H Pulse Oximetry 97 98 01/23/18 11:24 Temperature Pulse Rate Respiratory Rate Blood Pressure Pulse Oximetry 97 Intake & Output 01/22/18 01/23/18 01/23/18 18:59 06:59 18:59 Intake Total 120 / 120 Output Total 550 / 550 550 / 550 Balance -550 / -550 -430 / -430 Intake: Oral 120 / 120 Output: Urine Amount (Catheter) 550 / 550 550 / 550 Indwelling Urethral Catheter 550 / 550 550 / 550 Other: Date of Last Bowel Movement 01/20/18 01/22/18 01/22/18 # Bowel Movements 1 - Routine Neck Exam Comments: GENERAL: NAD, AAOx3, somewhat flat affect CARDIO: Regular. 2/6 FANY RESP: CTA bilaterally. Poor inspiratory effort. ABD: Minimal bowel sounds, firm, distended, nontender. No guarding. EXT: 2+ Bilateral LE edema at thighs only . SCDs in place Results 01/21/18 08:57 01/23/18 12:57 Comprehensive Metabolic Panel 01/23/18 Range/Units 12:57 Sodium 140 (136-145) meq/L Potassium 4.2 (3.5-5.1) meq/L Chloride 101 (98-107) meq/L Carbon Dioxide 30.2 (21.0-32.0) meq/L BUN 43 H (7-18) mg/dL Creatinine 2.18 H (0.50-1.00) mg/dL Calcium 8.2 L D (8.5-10.1) mg/dL Intake and Output 01/23/18 01/23/18 01/23/18 06:59 14:59 22:59 Intake Total 120 / 120 Output Total 550 / 550 Balance -430 / -430 Intake: Oral 120 / 120 Output: Urine Amount (Catheter) 550 / 550 Indwelling Urethral Catheter 550 / 550 Other: Date of Last Bowel Movement 01/22/18 01/22/18 # Bowel Movements 1 Assessment and Plan - Assessment (1) Nonischemic cardiomyopathy Code(s): I42.8 - Other cardiomyopathies Status: Chronic Plan: Reported hx of NICM with EF as low as 15%, s/p AICD. Current LVEF is 45-50% by excellent quality echocardiogram on 01/21/18, which I personally reviewed and agree with EF estimate. Change Bisoprolol to Carvedilol 12.5mg bid. Allergy to RIN-Is. Not a good candidate for spironolactone due the CKD and hyperkalemia. HFpEF - still hypervolemic. Continue current diuretic therapy with Lasix 80mg iv tid and add metolazone 2.5mg daily. If no significant increase in diuresis, would change lasix to torsemide considering large bowl wall edema noted. Paroxysmal Atrial fibrillation: - continue anticoagulation therapy with Eliquis 5mg bid. (2) Acute on chronic kidney failure Code(s): N17.9 - Acute kidney failure, unspecified; N18.9 - Chronic kidney disease, unspecified Status: Acute Plan: Query if component of cardiorenal syndrome. Attempted RHC today to evaluate Cardiac index/output via right brachial vein approach due to patient's refusal of IJ access and is currently fully anticoagulated with eliquis would have posed high bleeding risk for femoral v. approach. Attempt to gain procedural access was unsuccessful today. Attempt to obtain right brachial venous access with IV team tomorrow and after may consider trying RHC again. (3) HTN (hypertension) Code(s): I10 - Essential (primary) hypertension Status: Acute Plan: Poorly Controlled. Change Bisoprolol to Carvedilol 12.5mg bid Increase Clonidine to 0.2mg q8hr with hold for sbp< 110 Continue Hydralazine [id number], Isosorbide 20mg bid, Nifedipine 30mg bid. (4) Ascites Code(s): R18.8 - Other ascites Status: Acute
--- NOTE | 2018-01-23 17:33 | P.PNIM ---
Subjective Interval history: No new complaints. Physical Exam Vital signs: Vital Signs 01/22/18 19:49 01/22/18 20:00 01/22/18 20:32 Temperature 97.3 F L Pulse Rate 68 67 Respiratory Rate 17 Blood Pressure 136/63 Pulse Oximetry 96 96 01/22/18 23:05 01/23/18 00:00 01/23/18 03:53 Temperature 97.9 F Pulse Rate 68 68 68 Respiratory Rate 17 Blood Pressure 148/66 H Pulse Oximetry 97 01/23/18 04:00 01/23/18 08:00 01/23/18 11:24 Temperature 97.8 F 97.7 F Pulse Rate 80 69 Respiratory Rate 17 17 Blood Pressure 167/72 H 183/73 H Pulse Oximetry 97 98 97 Intake & Output 01/22/18 01/23/18 01/23/18 18:59 06:59 18:59 Intake Total 120 / 120 Output Total 550 / 550 550 / 550 Balance -550 / -550 -430 / -430 Intake: Oral 120 / 120 Output: Urine Amount (Catheter) 550 / 550 550 / 550 Indwelling Urethral Catheter 550 / 550 550 / 550 Other: Date of Last Bowel Movement 01/20/18 01/22/18 01/22/18 # Bowel Movements 1 Narrative: GENERAL: NAD CARDIOVASCULAR: Regular rate and rhythm without murmurs, gallops, or rubs. RESPIRATORY: Clear to auscultation. Breath sounds equal bilaterally. No wheezes , rales, or rhonchi. GASTROINTESTINAL: Abdomen soft, non-tender, nondistended. Normal active bowel sounds MUSCULOSKELETAL: anasarca with b/l LE edema through thighs. Marked edema at LUE also NEURO: Alert & Oriented x4 to person, place, time, situation. Moves all ext x4 - Urinary Catheter Management Indwelling Urethral Catheter Cath placed during this visit: yes Urethral indwelling: Yes Reason for continuing: Hourly intake/output Insertion date: 01/21/18 Insertion time: 12:40 Results - Labs CBC & Chem 7: 01/21/18 08:57 01/23/18 12:57 Laboratory Results - last 24 hr 01/22/18 01/22/18 01/23/18 17:17 20:30 12:57 Sodium 140 Potassium 4.2 Chloride 101 Carbon Dioxide 30.2 Anion Gap 9 BUN 43 H Creatinine 2.18 H Estimated GFR 29 L POC Glucose 245 H 351 H Random Glucose 137 H Calcium 8.2 L D - Imaging ITS Impressions Chest X-Ray 01/20/18 06:00 CONCLUSION: 1. Cardiomegaly with trace positive fluid balance. Enema w/Water Soluble 01/20/18 08:00 CONCLUSION: Status post therapeutic Gastrografin enema. Assessment and Plan - Assessment (1) Nonischemic cardiomyopathy Code(s): I42.8 - Other cardiomyopathies Status: Chronic Plan: Nonischemic cardiomyopathy Chronic systolic CHF with EF 15-20% s/p AICD - comgmt with Cardiology & Palliative Medicine - Pt was given a dose of IV Lasix in the ED - CXR in the ED noted Cardiomegaly with prominent main pulmonary artery. Pacer lead overlies right ventricle. No focal consolidation or effusion. - BNP 1,368 (01/16), 1,852 (01/20) - IV lasix 80mg TID with IV albumin 1 hour prior - metolazone 2.5mg (01/23/18 - present) - Monitor electrolyte closely - Pt was reportedly evaluated at [facility] recently for Heart transplant vs. LVAD but had a stroke during that admission and was not felt to be a good candidate after the CVA. - CXR (01/20/18) --> Cardiomegaly with trace positive fluid balance - Full Code - Supplemental O2 at 2L NC - Pt is typically on 2L of supplemental O2 - Echocardiogram from (01/21/18) - Normal left ventricular size. Mild concentric left ventricular hypertrophy. - Low normal to mildly reduced left - ventricular systolic function with estimated ejection fraction of 45-50% . - No segmental wall motion abnormalities. - Possible mild right ventricular enlargement with normal systolic function. A pacemaker wire is noted. - The estimated pulmonary arterial pressure is 35 mmH - Case d/w Dr. Barreto. Unable to obtain RHC today (01/23). - Possible RHC 01/27/18. Eliquis on hold - will start SubQ heparin for DVT prophylaxis 01/25/18 - supportive care (2) Diabetes Code(s): E11.9 - Type 2 diabetes mellitus without complications Status: Chronic Plan: Diabetes mellitus, poorly controlled Hgb A1C 14.4 on 08/31/17 Hypoglycemia - increase Levemir to 20 units BID (01/22) - NovoLog SSI - Accu checks - Monitor BS closely (3) Acute on chronic kidney failure Code(s): N17.9 - Acute kidney failure, unspecified; N18.9 - Chronic kidney disease, unspecified Status: Acute Plan: Hyperkalemia Acute on chronic renal disease, stage 3 - Outpt labs from 11/2017 noted Cr around 1.4-1.5 - Labs in the ED noted a potassium of 6.1. - Pt was given Kayexalate and Calcium Gluconate in the ED her repeat potassium this morning was 5.5 and second repeat was 5.7 on 01/17 - Pt refusing Lab draws on 01/18, but we discussed with the pt the importance of getting er labs drawn to monitor her electrolytes and kidney function and was agreed - Pt was given a second dose of Kayexalate on 01/17 but pt has not moved her bowels. - Repeat K+ down to 5.0 but renal function is worse on 01/18 with Cr around 2.49 - Pt was on po Lasix but continued to have swelling during initial hospitalization - Changed to IV Lasix and monitor renal function -Consult nephrology, appreciate input -BMP in AM (4) Hyperkalemia Code(s): E87.5 - Hyperkalemia Status: Acute Plan: - See above (5) HTN (hypertension) Code(s): I10 - Essential (primary) hypertension Status: Acute Plan: HTN - Cont. home meds - BP is poorly controlled on multiple medications - Monitor with change to IV Lasix - Clonidine PRN - Monitor closely (6) Elevated LFTs Code(s): R94.5 - Abnormal results of liver function studies Status: Acute Plan: Elevated LFTS Congestive hepatopathy Ascites - Review of outpt records show the pts AlkPhos has been elevated since 10/2016 - AlkPhos Isoenzyme in 10/2017 noted 72% liver, 20% bone, 8% intestine - Transjugular liver bx (12/20/17) --> Findings suggestive of congestive hepatopathy. (7) Ascites Code(s): R18.8 - Other ascites Status: Acute Plan: - See above (8) Constipation Code(s): K59.00 - Constipation, unspecified Status: Acute Plan: Abdominal pain Nausea/vomiting Constipation, improved - Pt is a 52 y/o AAF with chronic systolic CHF, nonischemic cardiomyopathy with EF 15-20% s/p AICD, hx of CVA in 12/2017 (Bilateral acute to subacute posterior cerebral artery infarcts on Head CT on 12/22/17), congestive hepatopathy, ascites , HTN, CKD, stage 3, and type 2 diabetes mellitus, insulin dependent. Pt has had multiple hospitalizations at [facility] in [place] and [facility] in the last several month for various issues related to her CHF /Cardiomyopathy, DKA, Acute on chronic renal failure, CVA. After her most recent admission from 12/02/17 to 01/08/18 was for CHF and was transferred to [facility] to be evaluated for possible heart transplant vs. LVAD. During that admission she had an acute CVA with resulting left sided weakness and felt that she was not a good candidate for advanced heart failure treatment. Pt was discharged to [facility] on 01/08/18. - She was brought to the ED from a local rehab center for hyperkalemia and N/V. She has noted issues with constipation more recently. Over the last two days she has had nausea/vomiting and has not been eating much. She has not passed any stool in the last two days either. - CT abd/pelvis in the ED which noted moderate ascites and anasarca, cardiomegaly with pacer lead tip in right ventricle, and small fat-containing umbilical hernia. No bowel obstruction. In reviewing the images she has a significant amount of stool throughout the colon and in the rectum. 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
[2018-01-23] MEDS: Albumin Human 5% Inj 500 ML IV.SIG SCH ×2 (17:45→19:00)
[2018-01-23] MEDS: Carvedilol 12.5 MG Tablet PO SCH (20:38)
[2018-01-23] MEDS: Sod Chloride 0.9% Inj 1,000 ML IV.CONT SCH (21:26)
--- NOTE | 2018-01-24 08:42 | P.PNCA ---
<Len Mark - Last Filed: 01/24/18 09:14> Subjective Interval history: Seen with RN at bedside. Patient is sleeping upon arrival this morning, easily awakened, but grumpy and does not want to speak. She feels like her breathing might be a little better today. She denies any chest pain. Negative fluid balance overnight. Renal function stable. Physical Exam Vital signs: Vital Signs 01/23/18 11:24 01/23/18 12:00 01/23/18 16:00 Temperature 97.2 F L 97.3 F L Pulse Rate 63 63 Respiratory Rate 18 18 Blood Pressure 151/72 H 138/67 Pulse Oximetry 97 98 97 01/23/18 20:35 01/24/18 00:00 01/24/18 00:15 Temperature 97.2 F L 97.3 F L Pulse Rate 67 65 67 Respiratory Rate 17 17 Blood Pressure 183/87 H 177/85 H Pulse Oximetry 97 99 01/24/18 04:30 01/24/18 05:58 01/24/18 07:57 Temperature 97.9 F 97.2 F L Pulse Rate 69 69 71 Respiratory Rate 17 20 Blood Pressure 196/87 H 165/73 H 145/68 H Pulse Oximetry 99 99 Intake & Output 01/23/18 01/24/18 01/24/18 18:59 06:59 18:59 Intake Total 240 / 240 Output Total 500 / 500 1000 / 1000 Balance -500 / -500 -760 / -760 Intake: Oral 240 / 240 Output: Urine Amount (Catheter) 500 / 500 1000 / 1000 Indwelling Urethral Catheter 500 / 500 1000 / 1000 Other: Date of Last Bowel Movement 01/22/18 01/22/18 # Bowel Movements 0 Narrative: GENERAL: Well-developed well-nourished. In no acute distress. NECK: No carotid bruits. No JVD. CARDIOVASCULAR: Regular rate and rhythm. No murmur appreciated. RESPIRATORY: No accessory muscle use. Clear to auscultation. Breath sounds equal bilaterally. MUSCULOSKELETAL: No clubbing or cyanosis. No edema. NEUROLOGICAL: Awake and alert. Normal speech. - Urinary Catheter Management Indwelling Urethral Catheter Cath placed during this visit: yes Urethral indwelling: Yes Reason for continuing: Hourly intake/output Insertion date: 01/21/18 Insertion time: 12:40 Assessment and Plan - Plan Reported hx of NICM with EF as low as 15%, s/p AICD: Current LVEF is 45-50% by excellent quality echocardiogram on 01/21/18, agree with EF estimate on review. Changed Bisoprolol to Carvedilol 12.5mg bid. Allergy to RIN-Is. Not a good candidate for spironolactone due the CKD and hyperkalemia. Heart failure with preserved ejection fraction still hypervolemic. Continue current diuretic therapy with Lasix 80mg iv tid and add metolazone 2.5mg daily. If no significant increase in diuresis, would change lasix to torsemide considering large bowl wall edema noted. Paroxysmal atrial fibrillation: - continue anticoagulation therapy with Eliquis 5mg bid. Acute on chronic renal failure: Query if component of cardiorenal syndrome. Attempted RHC 01/23 to evaluate Cardiac index/output via right brachial vein approach due to patient's refusal of IJ access and is currently fully anticoagulated with eliquis would have posed high bleeding risk for femoral v. approach. Attempted to gain procedural access was unsuccessful. No plans at this time proceed w/ RHC. Hypertension: Poorly Controlled, but appears better this morning Continue carvedilol 12.5mg bid Continue clonidine to 0.2mg q8hr with hold for sbp< 110 Continue Hydralazine [id number], Isosorbide 20mg bid, Nifedipine 30mg bid. Discussed Condition With: Patient with RN at bedside, Dr. Barreto <Markus Barreto - Last Filed: 01/24/18 14:19> Physical Exam Vital signs: Vital Signs 01/23/18 16:00 01/23/18 20:35 01/24/18 00:00 Temperature 97.3 F L 97.2 F L Pulse Rate 63 67 65 Respiratory Rate 18 17 Blood Pressure 138/67 183/87 H Pulse Oximetry 97 97 01/24/18 00:15 01/24/18 04:30 01/24/18 05:58 Temperature 97.3 F L 97.9 F Pulse Rate 67 69 69 Respiratory Rate 17 17 Blood Pressure 177/85 H 196/87 H 165/73 H Pulse Oximetry 99 99 01/24/18 07:57 01/24/18 11:47 Temperature 97.2 F L 97.5 F L Pulse Rate 71 66 Respiratory Rate 20 20 Blood Pressure 145/68 H 159/74 H Pulse Oximetry 99 98 Intake & Output 01/23/18 01/24/18 01/24/18 18:59 06:59 18:59 Intake Total 740 / 740 Output Total 500 / 500 1000 / 1000 Balance -500 / -500 -260 / -260 Intake: IV 500 / 500 Alburx 5% Inj 500 ML @ 250 mls/ 500 / 500 hr IV.SIG TID@0800,1200,1700 ARIANA Rx#:[id number] Oral 240 / 240 Output: Urine Amount (Catheter) 500 / 500 1000 / 1000 Indwelling Urethral Catheter 500 / 500 1000 / 1000 Other: Date of Last Bowel Movement 01/22/18 01/22/18 01/22/18 # Bowel Movements 0 - Urinary Catheter Management Indwelling Urethral Catheter Cath placed during this visit: no Assessment and Plan - Assessment (1) Nonischemic cardiomyopathy Code(s): I42.8 - Other cardiomyopathies Status: Chronic (2) Acute on chronic kidney failure Code(s): N17.9 - Acute kidney failure, unspecified; N18.9 - Chronic kidney disease, unspecified Status: Acute (3) HTN (hypertension) Code(s): I10 - Essential (primary) hypertension Status: Acute (4) Ascites Code(s): R18.8 - Other ascites Status: Acute - Plan Agree with above. Would increase Metolazone to 5mg daily. If she does not have further increased Urine output, would transition lasix to Torsemide 80mg bid. Consider increasing Clonidine to 0.3mg q8hr, however may cause unacceptable fatigue. HTN may be in part driven by constipation and tense abdominal distention --> aggressive bowl regimen
--- NOTE | 2018-01-24 10:24 | P.PNNP ---
Subjective Interval history: Patient is sleeping this morning with no complaints. Creatinine at 2.18 today from 2.25. <Sabrina Keller - Last Filed: 01/24/18 10:16> Physical Exam Vital signs: Vital Signs 01/23/18 11:24 01/23/18 12:00 01/23/18 16:00 Temperature 97.2 F L 97.3 F L Pulse Rate 63 63 Respiratory Rate 18 18 Blood Pressure 151/72 H 138/67 Pulse Oximetry 97 98 97 01/23/18 20:35 01/24/18 00:00 01/24/18 00:15 Temperature 97.2 F L 97.3 F L Pulse Rate 67 65 67 Respiratory Rate 17 17 Blood Pressure 183/87 H 177/85 H Pulse Oximetry 97 99 01/24/18 04:30 01/24/18 05:58 01/24/18 07:57 Temperature 97.9 F 97.2 F L Pulse Rate 69 69 71 Respiratory Rate 17 20 Blood Pressure 196/87 H 165/73 H 145/68 H Pulse Oximetry 99 99 Intake & Output 01/23/18 01/24/18 01/24/18 18:59 06:59 18:59 Intake Total 240 / 240 Output Total 500 / 500 1000 / 1000 Balance -500 / -500 -760 / -760 Intake: Oral 240 / 240 Output: Urine Amount (Catheter) 500 / 500 1000 / 1000 Indwelling Urethral Catheter 500 / 500 1000 / 1000 Other: Date of Last Bowel Movement 01/22/18 01/22/18 # Bowel Movements 0 - Constitutional no acute distress - Routine HEENT Exam Head: Present: normocephalic ENT: Present: mucous membranes moist - Routine Neck Exam Present: supple. Absent: JVD - Routine Respiratory Exam Present: decreased breath sounds. Absent: rhonchi, wheezes, crackles - Routine Cardiovascular Exam Present: RRR. Absent: murmur - Routine Abdominal Exam Present: soft, normoactive bowel sounds - Routine Extremities Exam Present: edema - Routine Skin Exam Present: warm - Urinary Catheter Management Indwelling Urethral Catheter Cath placed during this visit: yes Urethral indwelling: Yes Reason for continuing: Hourly intake/output Insertion date: 01/21/18 Insertion time: 12:40 <Sabrina Keller - Last Filed: 01/24/18 10:16> Vital signs: Vital Signs 01/24/18 00:00 01/24/18 00:15 01/24/18 04:30 Temperature 97.3 F L 97.9 F Pulse Rate 65 67 69 Respiratory Rate 17 17 Blood Pressure 177/85 H 196/87 H Pulse Oximetry 99 99 01/24/18 05:58 01/24/18 07:57 01/24/18 11:47 Temperature 97.2 F L 97.5 F L Pulse Rate 69 71 66 Respiratory Rate 20 20 Blood Pressure 165/73 H 145/68 H 159/74 H Pulse Oximetry 99 98 01/24/18 15:52 Temperature 97.5 F L Pulse Rate 66 Respiratory Rate 20 Blood Pressure 178/86 H Pulse Oximetry 99 Intake & Output 01/24/18 01/24/18 01/25/18 06:59 18:59 06:59 Intake Total 740 / 740 500 / 500 Output Total 1000 / 1000 1025 / 1025 Balance -260 / -260 -525 / -525 Intake: IV 500 / 500 500 / 500 Alburx 5% Inj 500 ML @ 250 mls/ 500 / 500 500 / 500 hr IV.SIG TID@0800,1200,1700 ARIANA Rx#:[id number] Oral 240 / 240 Output: Urine Amount (Catheter) 1000 / 1000 1025 / 1025 Indwelling Urethral Catheter 1000 / 1000 1025 / 1025 Other: Date of Last Bowel Movement 01/22/18 01/22/18 # Bowel Movements 0 - Urinary Catheter Management Indwelling Urethral Catheter Cath placed during this visit: no <Shin Ahmadi - Last Filed: 01/24/18 22:57> Assessment and Plan - Assessment (1) Acute on chronic kidney failure Code(s): N17.9 - Acute kidney failure, unspecified; N18.9 - Chronic kidney disease, unspecified Status: Acute Plan: 1 The patient has proteinuria and most likely she has chronic kidney disease because of diabetic nephropathy. Baseline creatinine of 1.4-1.5 12/[address] scan report,showing the kidneys are normal in size. On Lasix 80 mg TID and metolazone and continues to have significant dependent edema Creatinine slightly improved at 2.18 Follow Urine out put and BMP. Avoid nephrotoxins. If patient going for heart cath recommend IVF's 12 hours prior to heart cath. (2) HTN (hypertension) Code(s): I10 - Essential (primary) hypertension Status: Acute Plan: Blood pressure labile at times Will monitor (3) Hyperkalemia Code(s): E87.5 - Hyperkalemia Status: Acute Plan: Resolved <Sabrina Keller - Last Filed: 01/24/18 10:16> - Assessment (1) Acute on chronic kidney failure Code(s): N17.9 - Acute kidney failure, unspecified; N18.9 - Chronic kidney disease, unspecified Status: Acute (2) HTN (hypertension) Code(s): I10 - Essential (primary) hypertension Status: Acute (3) Hyperkalemia Code(s): E87.5 - Hyperkalemia Status: Acute - Attending Attestation Patient seen and examined, agree with above. Creatinine is same, 2.1, avoid Nephrotoxins. <Shin Ahmadi - Last Filed: 01/24/18 22:57>
[2018-01-24] MEDS: Albumin Human 5% Inj 500 ML IV.SIG SCH ×3 (10:36→17:48)
[2018-01-24] MEDS: Docusate Sodium 100 MG Capsule PO SCH ×2 (10:40→21:25)
[2018-01-24] MEDS: Aspirin 325 MG Tablet PO SCH (10:40)
[2018-01-24] MEDS: Carvedilol 12.5 MG Tablet PO SCH ×2 (10:41→21:25)
[2018-01-24] MEDS: Insulin Detemir Inj 1,000 UNIT/10 ML Vial SQ SCH ×2 (10:42→21:21)
[2018-01-24] MEDS: Isosorbide Mononitrate 20 MG Tablet PO SCH ×2 (10:42→21:21)
[2018-01-24] MEDS: Lactobacillus Acidophilus/L. Spores Tablet PO SCH ×2 (10:43→21:25)
[2018-01-24] MEDS: Folic Acid 1 MG Tablet PO SCH (10:43)
[2018-01-24] MEDS: Insulin NovoLOG Aspart Correctional Sugar Inj SQ SCH ×4 (10:45→21:24)
[2018-01-24] MEDS: Sod Chloride 0.9% Inj 1,000 ML IV.CONT SCH (10:46)
[2018-01-24] MEDS: Pantoprazole Inj 40 MG Vial IV.PUSH SCH (10:50)
[2018-01-24 13:05] LABS: Eos # (Auto) 0.1 th/mm3 (0.0-0.4); Eos % (Auto) 3.1 % (0.0-4.0); Hematocrit 25.7 % (35.0-46.0); Hemoglobin 8.1 gm/dL (11.6-15.3); Lymph # (Auto) 0.5 th/mm3 (1.0-4.8); Lymph % (Auto) 11.3 % (9.0-44.0); Mean Corpuscular HGB Conc 31.6 % (32.0-36.0); Mean Corpuscular Hemoglobin 28.8 pg (27.0-34.0); Mean Corpuscular Volume 91.3 fL (80.0-100.0); Mean Platelet Volume 8.3 fL (7.0-11.0); Mono # (Auto) 0.3 th/mm3 (0.0-0.9); Neut # (Auto) 3.2 th/mm3 (1.8-7.7); Neut % (Auto) 77.6 % (16.0-70.0); Platelet Count 271 th/mm3 (150-450); Red Blood Count 2.81 mil/mm3 (4.00-5.30); Red Cell Distribution Width 16.8 % (11.6-17.2); White Blood Count 4.1 th/mm3 (4.0-11.0)
--- NOTE | 2018-01-24 13:28 | P.PNPAL ---
Reason for Visit Reason for visit: a. To assist with evaluation and management of symptoms including: debility, constipation b. To assist medical decision maker(s) with: better understanding of current medical conditions; weighing benefits/burdens of medical treatment options; making medical treatment decisions. Subjective Subjective/Interval History: Patient is a 52-year-old female who presented to [place] ED from a local rehab center on 01/16/2018 for evaluation of GI complaints. The patient reported intermittent n/v, abdominal pain and poor nutritional intake x 2 days. Patient reported that she had been doing fairly well but had recently developed some lower extremity edema over the previous week. Outpatient blood work showed hyperkalemia; BNP was elevated at 1337. Of note, patient has had multiple hospitalizations in the past several months for varius issues related to her CHF /cardiomyopathy (EF 10-15%), DKA, acute on chronic renal failure and CVA. During her most recent hospitalization in 11/2017, the patient was transferred to [facility] to be evaluated for possible heart transplant versus LVAD. During that admission the patient had an acute CVA with resulting left-sided weakness, and it was felt that she was not a good candidate for further advanced heart failure treatment. An echocardiogram on 01/21/2018 revealed an estimated EF of 45-50%. Follow up visit with Tia Harper, Palliative EMPLOYEE RELATIONS ADVISOR, for symptom management and clarification of medical treatment goals. Patient presents lying in bed with her eyes closed. She arouses to verbal stimuli but is difficult to engage in conversation. She denies dyspnea and/or pain. Patient remains hypervolemic; she continues to have significant dependent edema. Most recent BNP on 01/20/2018: 1852. Receiving Lasix 80 mg IV 3 TID and metolazone 2.5 mg daily. Nephrology following. Cardiology was consulted for possible right heart catheterization for evaluation of CO/CI and volume status as well as medical management. Procedure was attempted via right brachial vein because the patient refused IJ access; access attempt was unsuccessful. Patient was fully anticoagulated on Eliquis and would be high bleeding risk for femoral vein approach. Plan to reattempt today. Patient has verbalized ongoing goals; she was encouraged to consider what would be most important if there were no aggressive interventional options offered. Patient initially turned her ahead away and closed her eyes, but she eventually nodded that she would be willing to discuss medical treatment goals further after the cardiac catheterization. . Advance Directives Advance Directives Date on File: 01/20/18 Health Care Surrogate Name and Number: Primary: Tanvi De Paz [phone] Alternate: Randi De Paz [phone] Objective Vital Signs: Vital Signs 01/23/18 16:00 01/23/18 20:35 01/24/18 00:00 Temperature 97.3 F L 97.2 F L Pulse Rate 63 67 65 Respiratory Rate 18 17 Blood Pressure 138/67 183/87 H Pulse Oximetry 97 97 01/24/18 00:15 01/24/18 04:30 01/24/18 05:58 Temperature 97.3 F L 97.9 F Pulse Rate 67 69 69 Respiratory Rate 17 17 Blood Pressure 177/85 H 196/87 H 165/73 H Pulse Oximetry 99 99 01/24/18 07:57 01/24/18 11:47 Temperature 97.2 F L 97.5 F L Pulse Rate 71 66 Respiratory Rate 20 20 Blood Pressure 145/68 H 159/74 H Pulse Oximetry 99 98 Intake & Output 01/23/18 01/24/18 01/24/18 18:59 06:59 18:59 Intake Total 740 / 740 Output Total 500 / 500 1000 / 1000 Balance -500 / -500 -260 / -260 Intake: IV 500 / 500 Alburx 5% Inj 500 ML @ 250 mls/ 500 / 500 hr IV.SIG TID@0800,1200,1700 ARIANA Rx#:[id number] Oral 240 / 240 Output: Urine Amount (Catheter) 500 / 500 1000 / 1000 Indwelling Urethral Catheter 500 / 500 1000 / 1000 Other: Date of Last Bowel Movement 01/22/18 01/22/18 01/22/18 # Bowel Movements 0 Physical Exam: CONSTITUTIONAL/GENERAL: This is a chronically ill appearing, middle aged female in no acute distress. TUBES/LINES/DRAINS: PIV x 1, nasal cannula SKIN: No jaundice, rashes, or lesions. Ecchymoses on upper extremities. Skin temperature appropriate. Not diaphoretic. HEAD: Atraumatic. Normocephalic. EYES: Pupils equal and round. Extraocular motions intact. No scleral icterus. No injection or drainage. Fundi not examined. ENT: Hearing grossly normal. Nose without bleeding or purulent drainage. NECK: Trachea midline. Supple, nontender. No palpable thyroid enlargement or nodularity. CARDIOVASCULAR: Regular rate and rhythm without murmurs, gallops, or rubs. No JVD. Peripheral pulses symmetric. RESPIRATORY/CHEST: Symmetric, unlabored respirations. Breath sounds equal bilaterally. No wheezes, rales, or rhonchi. GASTROINTESTINAL: Abdomen firm, slightly distended no guarding. Hypoactive sounds present. GENITOURINARY: Without palpable bladder distension. MUSCULOSKELETAL: Extremities without clubbing or cyanosis. Trace edema in feet bilaterally. Left hand is swollen. LYMPHATICS: No palpable cervical or supraclavicular adenopathy. NEUROLOGICAL: Awake and alert. Answers questions appropriately; able to make needs known. Follows commands. Left-sided weakness PSYCHIATRIC: No obvious anxiety/depression. No apparent hallucinations or other psychotic thought process. . Diagnostic Tests Laboratory: Laboratory Results - last 72 hr 01/21/18 01/21/18 01/21/18 17:01 21:16 23:09 Sodium Potassium Chloride Carbon Dioxide Anion Gap BUN Creatinine Estimated GFR POC Glucose 154 H 135 H 155 H Random Glucose Calcium Magnesium 01/22/18 01/22/18 01/22/18 09:07 10:05 10:05 Sodium 136 Potassium 4.1 Chloride 99 Carbon Dioxide 26.5 Anion Gap 11 BUN 44 H Creatinine 2.25 H Estimated GFR 28 L POC Glucose 256 H Random Glucose 230 H Calcium 9.0 Magnesium 2.1 01/22/18 01/22/18 01/22/18 12:42 17:17 20:30 Sodium Potassium Chloride Carbon Dioxide Anion Gap BUN Creatinine Estimated GFR POC Glucose 223 H 245 H 351 H Random Glucose Calcium Magnesium 01/23/18 01/23/18 01/24/18 12:57 20:45 07:52 Sodium 140 Potassium 4.2 Chloride 101 Carbon Dioxide 30.2 Anion Gap 9 BUN 43 H Creatinine 2.18 H Estimated GFR 29 L POC Glucose 111 H 242 H Random Glucose 137 H Calcium 8.2 L D Magnesium 01/24/18 07:53 Sodium Potassium Chloride Carbon Dioxide Anion Gap BUN Creatinine Estimated GFR POC Glucose 285 H Random Glucose Calcium Magnesium Result Diagrams: 01/24/18 12:00 01/24/18 12:00 Imaging: Chest X-Ray 01/20/18 06:00 CONCLUSION: 1. Cardiomegaly with trace positive fluid balance. Enema w/Water Soluble 01/20/18 08:00 CONCLUSION: Status post therapeutic Gastrografin enema. Procedures: N/A . Assessment and Plan - Disease Oriented Problem List (1) CHF exacerbation (2) Constipation (3) Diabetes (4) Acute on chronic kidney failure (5) Hyperkalemia (6) HTN (hypertension) (7) Elevated LFTs (8) Ascites Pertinent Non-Medical Issues: Psychosocial: Patient lives in [place]. Patient is legally but . She has 3 daughters (Randi, Izabel and Tanvi). She lives with one of her daughters. Spiritual:Christain jung; declined manager financial reporting visits Legal: Healthcare surrogate designation form completed 01/20/2018. Daughter, Tanvi Paula, is the primary healthcare surrogate decision-maker. Another daughter, Randi Paula, is the alternate healthcare surrogate decision maker. Ethical issues impacting care: No known ethical issues impacting care at this time. . Important Contacts: Tanvi Paula, daughter: [phone] Randi Paula, daughter: [phone] Lori Paula, daughter: [phone] . Prognosis: Patient is a 52 year old female with a complex medical history. She has multiple hospitalizations in recent months secondary to CHF, DKA, acute on chronic renal failure and CVA. Most recently the patient was admitted from 2017 through 01/08/2018 with a CHF exacerbation; she was transferred to [facility] in [place] to be evaluated for a possible heart transplant versus LVAD. During that hospitalization the patient had an acute CVA and was no longer considered a candidate for aggressive interventions. EF 15-20%. Patient is at high risk for ongoing decline and complications. She is hospice appropriate when/if her goals become comfort oriented. . Code Status: Full Code Plan: = FULL CODE = Decision making: patient currently shows insight and judgement related to her medical conditions. Healthcare surrogate designation form completed 01/20/2018. Daughter, Tanvi Paula, is the primary healthcare surrogate decision-maker. Another daughter, Randi Paula, is the alternate healthcare surrogate decision maker. = Patient has verbalized ongoing goals; she was encouraged to consider what would be most important if there were no aggressive interventional options offered. Patient initially turned her ahead away and closed her eyes, but she eventually nodded that she would be willing to discuss medical treatment goals further after the cardiac catheterization. = Symptom management: Debility: Patient has had multiple hospitalizations at other facilities in the past several months secondary to her CHF/cardiomyopathy, DKA, acute on chronic renal failure and CVA. Recent echocardiogram in October, with EF 15-20%; family states there is a more recent echocardiogram showing the EF had improved. Follow- up echocardiogram on 01/21/2018 with estimated EF of 45-50%. Physical therapy following. Constipation: Imaging showed the patient had a significant amount of stool throughout the colon and in the rectum; she had a small bowel movement on 01/17/2018 but was refusing lactulose. Patient had a Gastrografin enema 01/20/2018 and had a large volume of stool output but has had no bowel movement since that time. Abdomen is firm, slightly distended with hypoactive bowel sounds. Current orders for Colace BID. = Palliative care will continue to follow this patient throughout her hospitalization to establish trust, assist with symptom management and clarification of medical treatment goals.
[2018-01-24 13:29] LABS: Calcium 8.2 mg/dL (8.5-10.1); Carbon Dioxide 27.4 meq/L (21.0-32.0); Potassium 4.2 meq/L (3.5-5.1)
[2018-01-24] MEDS: Minoxidil 2.5 MG Tablet PO SCH (17:49)
[2018-01-25] MEDS: Sod Chloride 0.9% Inj 1,000 ML IV.CONT SCH ×2 (06:26→23:48)
[2018-01-25 08:00] LABS: Calcium 9.2 mg/dL (8.5-10.1); Potassium 3.9 meq/L (3.5-5.1)
--- NOTE | 2018-01-25 08:34 | P.PNCA ---
<Ivory Coburn Elda - Last Filed: 01/25/18 08:30> Subjective Interval history: awake and alert this morning. reports stable sob. no chest pain. no events on tele overnight. Physical Exam Vital signs: Vital Signs 01/24/18 11:47 01/24/18 15:52 01/24/18 20:00 Temperature 97.5 F L 97.5 F L 97.2 F L Pulse Rate 66 66 60 Respiratory Rate 20 20 17 Blood Pressure 159/74 H 178/86 H 134/60 Pulse Oximetry 98 99 97 01/25/18 00:00 01/25/18 04:00 Temperature 97.8 F 97.6 F Pulse Rate 64 67 Respiratory Rate 17 17 Blood Pressure 148/70 H 138/66 Pulse Oximetry 98 98 Intake & Output 01/24/18 01/25/18 01/25/18 18:59 06:59 18:59 Intake Total 500 / 500 120 / 120 Output Total 1025 / 1025 900 / 900 Balance -525 / -525 -780 / -780 Weight 80.4 kg Intake: IV 500 / 500 Alburx 5% Inj 500 ML @ 250 mls/ 500 / 500 hr IV.SIG TID@0800,1200,1700 ARIANA Rx#:[id number] Oral 120 / 120 Output: Urine 900 / 900 Urine Amount (Catheter) 1025 / 1025 Indwelling Urethral Catheter 1025 / 1025 Other: Date of Last Bowel Movement 01/22/18 01/22/18 Narrative: GENERAL: SKIN: Warm and dry. HEAD: Normocephalic. EYES: No scleral icterus. No injection or drainage. NECK: Supple, trachea midline. No JVD or lymphadenopathy. CARDIOVASCULAR: Regular rate and rhythm without murmurs, gallops, or rubs. RESPIRATORY: Breath sounds equal bilaterally. No accessory muscle use. GASTROINTESTINAL: Abdomen soft, non-tender, nondistended. MUSCULOSKELETAL: No cyanosis, or edema. BACK: Nontender without obvious deformity. No CVA tenderness. - Urinary Catheter Management Indwelling Urethral Catheter Cath placed during this visit: yes Urethral indwelling: Yes Reason for continuing: Hourly intake/output Insertion date: 01/21/18 Insertion time: 12:40 Assessment and Plan - Assessment (1) Nonischemic cardiomyopathy Code(s): I42.8 - Other cardiomyopathies Status: Chronic (2) Acute on chronic kidney failure Code(s): N17.9 - Acute kidney failure, unspecified; N18.9 - Chronic kidney disease, unspecified Status: Acute (3) HTN (hypertension) Code(s): I10 - Essential (primary) hypertension Status: Acute - Plan Reported hx of NICM with EF as low as 15%, s/p AICD: Current LVEF is 45-50% by excellent quality echocardiogram on 01/21/18, agree with EF estimate on review. Cont Carvedilol 12.5mg bid. Allergy to RIN-Is. Not a good candidate for spironolactone due the CKD and hyperkalemia. Heart failure with preserved ejection fraction Improved diuresis with current diuretic therapy with Lasix 80mg iv tid and metolazone 5mg daily. If no significant increase in diuresis, would change lasix to torsemide considering large bowl wall edema noted. Paroxysmal atrial fibrillation: - continue anticoagulation therapy with Eliquis 5mg bid. Acute on chronic renal failure: Query if component of cardiorenal syndrome. Attempted RHC 01/23 to evaluate Cardiac index/output via right brachial vein approach due to patient's refusal of IJ access and is currently fully anticoagulated with eliquis would have posed high bleeding risk for femoral v. approach. Attempted to gain procedural access was unsuccessful. No plans at this time proceed w/ RHC. Hypertension: Poorly Controlled, but appears better this morning Continue carvedilol 12.5mg bid Continue clonidine to 0.2mg q8hr with hold for sbp< 110 Continue Hydralazine [id number], Isosorbide 20mg bid, Nifedipine 30mg bid. <Ahmet Solitario - Last Filed: 01/25/18 11:57> Physical Exam Vital signs: Vital Signs 01/24/18 15:52 01/24/18 20:00 01/25/18 00:00 Temperature 97.5 F L 97.2 F L 97.8 F Pulse Rate 66 60 64 Respiratory Rate 20 17 17 Blood Pressure 178/86 H 134/60 148/70 H Pulse Oximetry 99 97 98 01/25/18 04:00 01/25/18 08:00 Temperature 97.6 F 97.5 F L Pulse Rate 67 66 Respiratory Rate 17 14 Blood Pressure 138/66 162/75 H Pulse Oximetry 98 96 Intake & Output 01/24/18 01/25/1818 18:59 06:59 18:59 Intake Total 500 / 500 620 / 620 Output Total 1025 / 1025 900 / 900 Balance -525 / -525 -280 / -280 Weight 80.4 kg Intake: IV 500 / 500 500 / 500 Alburx 5% Inj 500 ML @ 250 mls/ 500 / 500 500 / 500 hr IV.SIG TID@0800,1200,1700 ARIANA Rx#:[id number] Oral 120 / 120 Output: Urine 900 / 900 Urine Amount (Catheter) 1025 / 1025 Indwelling Urethral Catheter 1025 / 1025 Other: Date of Last Bowel Movement 01/22/18 01/22/18 - Urinary Catheter Management Indwelling Urethral Catheter Cath placed during this visit: no Assessment and Plan - Assessment (1) Nonischemic cardiomyopathy Code(s): I42.8 - Other cardiomyopathies Status: Chronic (2) Acute on chronic kidney failure Code(s): N17.9 - Acute kidney failure, unspecified; N18.9 - Chronic kidney disease, unspecified Status: Acute (3) HTN (hypertension) Code(s): I10 - Essential (primary) hypertension Status: Acute - Attending Attestation anasarca mild-mod reduced LV function mild PTH edema out of proportion to echo findings RV normal. PA pressures normal. cardiomyopathy not severe discussed previously with dr horner. albumin noted to be low. now receiving albumin IV diuretic therapy. good diuresis recorded. weights appear inaccurate. edema seems improved. monitor Cr and potassium changed metalozone to 2.5 mg BID anemia - CKD vs blood loss vs hemolysis
[2018-01-25] MEDS: Minoxidil 2.5 MG Tablet PO SCH (09:08)
[2018-01-25] MEDS: Docusate Sodium 100 MG Capsule PO SCH ×2 (09:10→21:16)
[2018-01-25] MEDS: Carvedilol 12.5 MG Tablet PO SCH ×2 (09:10→21:18)
[2018-01-25] MEDS: Pantoprazole Inj 40 MG Vial IV.PUSH SCH (09:10)
[2018-01-25] MEDS: Folic Acid 1 MG Tablet PO SCH (09:10)
[2018-01-25] MEDS: Lactobacillus Acidophilus/L. Spores Tablet PO SCH ×2 (09:11→21:17)
[2018-01-25] MEDS: Insulin NovoLOG Aspart Correctional Sugar Inj SQ SCH ×4 (09:15→21:18)
[2018-01-25] MEDS: Insulin Detemir Inj 1,000 UNIT/10 ML Vial SQ SCH ×2 (09:16→21:18)
[2018-01-25] MEDS: Isosorbide Mononitrate 20 MG Tablet PO SCH ×2 (09:19→21:16)
[2018-01-25] MEDS: Albumin Human 5% Inj 500 ML IV.SIG SCH ×3 (11:04→18:08)
--- NOTE | 2018-01-25 15:22 | P.PNIM ---
Subjective Interval history: Pt in better spirits today. Pt's sister is visiting at the time of my rounds. Physical Exam Vital signs: Vital Signs 01/24/18 15:52 01/24/18 20:00 01/25/18 00:00 Temperature 97.5 F L 97.2 F L 97.8 F Pulse Rate 66 60 64 Respiratory Rate 20 17 17 Blood Pressure 178/86 H 134/60 148/70 H Pulse Oximetry 99 97 98 Narrative: GENERAL: NAD, AAOx3, somewhat flat affect CARDIO: Regular. RESP: clear x b/l ABD: Minimal bowel sounds, firm, distended, nontender. No guarding. EXT: 2+ Bilateral LE edema. SCDs in place; LEE also edematous. - Urinary Catheter Management Indwelling Urethral Catheter Cath placed during this visit: yes Urethral indwelling: Yes Reason for continuing: Hourly intake/output Insertion date: 01/21/18 Insertion time: 12:40 Results - Labs CBC & Chem 7: 01/24/18 12:00 01/25/18 07:00 Assessment and Plan - Assessment (1) Nonischemic cardiomyopathy Code(s): I42.8 - Other cardiomyopathies Status: Chronic Plan: Nonischemic cardiomyopathy Chronic systolic CHF with EF 15-20% s/p AICD - Pt was given a dose of IV Lasix in the ED - CXR in the ED noted Cardiomegaly with prominent main pulmonary artery. Pacer lead overlies right ventricle. No focal consolidation or effusion. - Pt was reportedly evaluated at [facility] recently for Heart transplant vs. LVAD but had a stroke during that admission and was not felt to be a good candidate after the CVA. - comgmt with Nephrology, Cardiology, and Palliative - continue IV albumin/lasix 80mg TID - continue PO Zaroxolyn 2.5mg BID - O2 - observe clinical response - Will review case with specialists on Saturday01/27/18 - Would pt benefit from HD - DVT prophylaxis with Eliquis - supportive care (2) Diabetes Code(s): E11.9 - Type 2 diabetes mellitus without complications Status: Chronic Plan: Diabetes mellitus, poorly controlled Hgb A1C 14.4 on 08/31/17 Hypoglycemia - Pt was also given Novolin 10 units and Dextrose overnight and was hypoglycemic with BS 34 on 01/17. Pt was given orange juice twice this morning and her BS improved to 158. - Today her BS are in the 200s. - Pt is normally on Novolin 10 units BID and NovoLog SSI - Basal insulin with Levemir 5 units BID started on 01/18 and titrate up to 10 units BID today, BS on 01/18 and last night were still quite elevated in the 200- 300s but today are lower - Keep insulin scheduled as it for now - NovoLog SSI - Accu checks - Monitor BS closely (3) Acute on chronic kidney failure Code(s): N17.9 - Acute kidney failure, unspecified; N18.9 - Chronic kidney disease, unspecified Status: Acute Plan: Hyperkalemia Acute on chronic renal disease, stage 3 - Outpt labs from 11/2017 noted Cr around 1.4-1.5 - Labs in the ED noted a potassium of 6.1. - Pt was given Kayexalate and Calcium Gluconate in the ED her repeat potassium this morning was 5.5 and second repeat was 5.7 on 01/17 - Pt refusing Lab draws on 01/18, but we discussed with the pt the importance of getting er labs drawn to monitor her electrolytes and kidney function and was agreed - Pt was given a second dose of Kayexalate on 01/17 but pt has not moved her bowels. - Repeat K+ down to 5.0 but renal function is worse on 01/18 with Cr around 2.49 - Monitor renal function - Awaiting repeat labs today (4) Hyperkalemia Code(s): E87.5 - Hyperkalemia Status: Acute Plan: - See above (5) HTN (hypertension) Code(s): I10 - Essential (primary) hypertension Status: Acute Plan: HTN - Cont. home meds - BP is poorly controlled - Clonidine PRN - Monitor closely (6) Elevated LFTs Code(s): R94.5 - Abnormal results of liver function studies Status: Acute Plan: Elevated LFTS Congestive hepatopathy Ascites - Review of outpt records show the pts AlkPhos has been elevated since 10/2016 - AlkPhos Isoenzyme in 10/2017 noted 72% liver, 20% bone, 8% intestine - Transjugular liver bx (12/20/17) --> Findings suggestive of congestive hepatopathy. (7) Ascites Code(s): R18.8 - Other ascites Status: Acute Plan: - See above (8) Constipation Code(s): K59.00 - Constipation, unspecified Status: Acute Plan: Abdominal pain Nausea/vomiting Constipation - Pt is a 52 y/o AAF with chronic systolic CHF, nonischemic cardiomyopathy with EF 15-20% s/p AICD, hx of CVA in 12/2017 (Bilateral acute to subacute posterior cerebral artery infarcts on Head CT on 12/22/17), congestive hepatopathy, ascites , HTN, CKD, stage 3, and type 2 diabetes mellitus, insulin dependent. Pt has had multiple hospitalizations at [facility] in [place] and [facility] in the last several month for various issues related to her CHF /Cardiomyopathy, DKA, Acute on chronic renal failure, CVA. After her most recent admission from 12/02/17 to 01/08/18 was for CHF and was transferred to [facility] to be evaluated for possible heart transplant vs. LVAD. During that admission she had an acute CVA with resulting left sided weakness and felt that she was not a good candidate for advanced heart failure treatment. Pt was discharged to [facility] on 01/08/18. - She was brought to the ED from a local rehab center for hyperkalemia and N/V. She has noted issues with constipation more recently. Over the last two days she has had nausea/vomiting and has not been eating much. She has not passed any stool in the last two days either. - CT abd/pelvis in the ED which noted moderate ascites and anasarca, cardiomegaly with pacer lead tip in right ventricle, and small fat-containing umbilical hernia. No bowel obstruction. In reviewing the images she has a significant amount of stool throughout the colon and in the rectum. - Pt had a small BM on 01/17 but has been refusing the Lactulose BID - Pt was given Mag Citrate and Colace BID on 01/18 but no significant stooling - Zofran PRN - Protonix 40mg IV daily - Gastrografin enema for tomorrow (2) Diabetes Qualifiers: Diabetes mellitus type: type 2 Diabetes mellitus vermin exterminator insulin use: with usp use Diabetes mellitus complication status: with unspecified complications Qualified Code(s): E11.8 - Type 2 diabetes mellitus with unspecified complications; Z79.4 - alf (current) use of insulin
[2018-01-25 18:05] LABS: Free T4 (Free Thyroxine) 1.02 ng/dL (0.76-1.46); Thyroid Stimulating Hormone 4.98 uIU/mL (0.358-3.740); Triiodothyronine (T3) Free 0.98 pg/mL (2.18-3.98)
--- NOTE | 2018-01-25 20:58 | P.PNNP ---
Subjective Interval history: no acute events Physical Exam Vital signs: Vital Signs 01/25/18 00:00 01/25/18 04:00 01/25/18 08:00 Temperature 97.8 F 97.6 F 97.5 F L Pulse Rate 64 67 70 Respiratory Rate 17 17 14 Blood Pressure 148/70 H 138/66 162/75 H Pulse Oximetry 98 98 96 01/25/18 12:00 01/25/18 16:00 Temperature 98.0 F 97.1 F L Pulse Rate 63 63 Respiratory Rate 12 12 Blood Pressure 153/78 H 153/74 H Pulse Oximetry 98 97 Intake & Output 01/25/18 01/25/18 01/26/18 06:59 18:59 06:59 Intake Total 620 / 620 1480 / 1480 Output Total 900 / 900 Balance -280 / -280 1480 / 1480 Weight 80.4 kg Intake: IV 500 / 500 1000 / 1000 Alburx 5% Inj 500 ML @ 250 mls/ 500 / 500 1000 / 1000 hr IV.SIG TID@0800,1200,1700 ARIANA Rx#:[id number] Oral 120 / 120 480 / 480 Output: Urine 900 / 900 Other: Date of Last Bowel Movement 01/22/18 01/25/18 # Bowel Movements 1 - Constitutional no acute distress - Routine HEENT Exam Head: Present: normocephalic Eye: Present: EOMI ENT: Present: mucous membranes moist - Routine Neck Exam Present: supple - Routine Respiratory Exam Present: diminished air movement - Routine Cardiovascular Exam Present: RRR - Routine Abdominal Exam Present: soft - Routine Skin Exam Present: intact - Routine Neurological Exam Present: alert, oriented X3 - Detailed Neurological Exam: Coma Scale Eye Opening: Spontaneous - Routine Psychiatric Exam Present: normal affect - Urinary Catheter Management Indwelling Urethral Catheter Cath placed during this visit: yes Urethral indwelling: Yes Reason for continuing: Hourly intake/output Insertion date: 01/21/18 Insertion time: 12:40 Assessment and Plan - Assessment (1) Acute on chronic kidney failure Code(s): N17.9 - Acute kidney failure, unspecified; N18.9 - Chronic kidney disease, unspecified Status: Acute Plan: 1 The patient has proteinuria and most likely she has chronic kidney disease because of diabetic nephropathy. Baseline creatinine of 1.4-1.5 12/[address] scan report,showing the kidneys are normal in size. On Lasix 80 mg TID and metolazone and continues to have significant dependent edema Creatinine stable at 2.2 Follow Urine out put and BMP. Avoid nephrotoxins. If patient going for heart cath recommend IVF's 12 hours prior to heart cath. (2) HTN (hypertension) Code(s): I10 - Essential (primary) hypertension Status: Acute Plan: Blood pressure labile at times Will monitor (3) Hyperkalemia Code(s): E87.5 - Hyperkalemia Status: Acute Plan: Resolved
[2018-01-25 23:47] LABS: Hematocrit 25.2 % (35.0-46.0); Mean Corpuscular HGB Conc 31.9 % (32.0-36.0); Mean Corpuscular Hemoglobin 28.8 pg (27.0-34.0); Mean Corpuscular Volume 90.3 fL (80.0-100.0); Mean Platelet Volume 8.4 fL (7.0-11.0); Platelet Count 295 th/mm3 (150-450)
[2018-01-26 00:10] LABS: Alanine Aminotransferase 38 U/L (10-53); Albumin 3.7 g/dL (3.4-5.0); Anion Gap 11 meq/L (5-15); Aspartate Aminotransferase 41 U/L (15-37); Blood Urea Nitrogen 46 mg/dL (7-18); Calcium 8.6 mg/dL (8.5-10.1); Carbon Dioxide 29.2 meq/L (21.0-32.0); Chloride 101 meq/L (98-107); Glomerular Filtration Rate 28 mL/min (>89); Glucose,Random 152 mg/dL (74-106); Magnesium 1.8 mg/dL (1.5-2.5); Potassium 3.6 meq/L (3.5-5.1); Sodium 141 meq/L (136-145)
[2018-01-26 00:11] LABS: Alkaline Phosphatase 581 U/L (45-117); Total Protein 7.8 g/dL (6.4-8.2)
--- NOTE | 2018-01-26 08:10 | P.PNCA ---
<Ivory Coburn - Last Filed: 01/26/18 08:04> Subjective Interval history: reports stable SOB, on 2L O2 via nasal cannula. no chest pain or palpitations. good urine output Physical Exam Vital signs: Vital Signs 01/25/18 12:00 01/25/18 16:00 01/25/18 20:00 Temperature 98.0 F 97.1 F L 97.3 F L Pulse Rate 63 63 66 Respiratory Rate 12 12 18 Blood Pressure 153/78 H 153/74 H 148/64 H Pulse Oximetry 98 97 96 01/26/18 00:32 01/26/18 04:00 Temperature 97.4 F L 97.7 F Pulse Rate 67 69 Respiratory Rate 20 20 Blood Pressure 154/67 H 154/70 H Pulse Oximetry 97 97 Intake & Output 01/25/18 01/26/18 01/26/18 18:59 06:59 18:59 Intake Total 1480 / 1480 Output Total 700 / 700 Balance 1480 / 1480 -700 / -700 Weight 80.4 kg Intake: IV 1000 / 1000 Alburx 5% Inj 500 ML @ 250 mls/ 1000 / 1000 hr IV.SIG TID@0800,1200,1700 [facility] Rx#:[id number] Oral 480 / 480 Output: Urine 700 / 700 Other: Date of Last Bowel Movement 01/25/18 01/25/18 # Bowel Movements 1 Narrative: GENERAL: SKIN: Warm and dry. HEAD: Normocephalic. EYES: No scleral icterus. No injection or drainage. NECK: Supple, trachea midline. No JVD or lymphadenopathy. CARDIOVASCULAR: Regular rate and rhythm without murmurs, gallops, or rubs. RESPIRATORY: Breath sounds equal bilaterally. No accessory muscle use. GASTROINTESTINAL: Abdomen soft, non-tender, nondistended. MUSCULOSKELETAL: trace-1+ bilateral lower leg edema . - Urinary Catheter Management Indwelling Urethral Catheter Cath placed during this visit: yes Urethral indwelling: Yes Reason for continuing: Hourly intake/output Insertion date: 01/21/18 Insertion time: 12:40 Assessment and Plan - Assessment (1) Nonischemic cardiomyopathy Code(s): I42.8 - Other cardiomyopathies Status: Chronic (2) Acute on chronic kidney failure Code(s): N17.9 - Acute kidney failure, unspecified; N18.9 - Chronic kidney disease, unspecified Status: Acute (3) HTN (hypertension) Code(s): I10 - Essential (primary) hypertension Status: Acute - Plan Reported hx of NICM with EF as low as 15%, s/p AICD: Current LVEF is 45-50% by excellent quality echocardiogram on 01/21/18, agree with EF estimate on review. Cont Carvedilol 12.5mg bid. Allergy to RIN-Is. Not a good candidate for spironolactone due the CKD and hyperkalemia. Heart failure with preserved ejection fraction Improved diuresis with current diuretic therapy with Lasix 80mg iv tid and metolazone 2.5mg daily. If no significant increase in diuresis, would change lasix to torsemide considering large bowl wall edema noted. Paroxysmal atrial fibrillation: - continue anticoagulation therapy with Eliquis 5mg bid. Acute on chronic renal failure: Query if component of cardiorenal syndrome. Attempted RHC 01/23 to evaluate Cardiac index/output via right brachial vein approach due to patient's refusal of IJ access and is currently fully anticoagulated with eliquis would have posed high bleeding risk for femoral v. approach. Attempted to gain procedural access was unsuccessful. No plans at this time proceed w/ RHC. Hypertension: Continue carvedilol 12.5mg bid Continue clonidine to 0.2mg q8hr with hold for sbp< 110 Continue Hydralazine [id number], Isosorbide 20mg bid, Nifedipine 30mg bid. metolazone decreased to 2.5mg BID yesterday. labs pending for this morning diuresing well with -805mL output yesterday anasarca anemia- Hgb continues to decline. CKD vs. blood loss vs. hemolysis <Minor,Ahmet - Last Filed: 01/26/18 09:47> Physical Exam Vital signs: Vital Signs 01/25/18 12:00 01/25/18 16:00 01/25/18 20:00 Temperature 98.0 F 97.1 F L 97.3 F L Pulse Rate 63 63 66 Respiratory Rate 12 12 18 Blood Pressure 153/78 H 153/74 H 148/64 H Pulse Oximetry 98 97 96 01/26/18 00:32 01/26/18 04:00 01/26/18 08:00 Temperature 97.4 F L 97.7 F 97.8 F Pulse Rate 67 69 70 Respiratory Rate 20 20 16 Blood Pressure 154/67 H 154/70 H 143/69 H Pulse Oximetry 97 97 95 Intake & Output 01/25/18 01/26/18 01/26/18 18:59 06:59 18:59 Intake Total 1480 / 1480 500 / 500 Output Total 700 / 700 Balance 1480 / 1480 500 / 500 -700 / -700 Weight 80.4 kg Intake: IV 1000 / 1000 500 / 500 Alburx 5% Inj 500 ML @ 250 mls/ 1000 / 1000 500 / 500 hr IV.SIG TID@0800,1200,1700 [facility] Rx#:[id number] Oral 480 / 480 Output: Urine 700 / 700 Other: Date of Last Bowel Movement 01/25/18 01/25/18 # Bowel Movements 1 - Urinary Catheter Management Indwelling Urethral Catheter Cath placed during this visit: no Assessment and Plan - Assessment (1) Nonischemic cardiomyopathy Code(s): I42.8 - Other cardiomyopathies Status: Chronic (2) Acute on chronic kidney failure Code(s): N17.9 - Acute kidney failure, unspecified; N18.9 - Chronic kidney disease, unspecified Status: Acute (3) HTN (hypertension) Code(s): I10 - Essential (primary) hypertension Status: Acute
[2018-01-26] MEDS: Albumin Human 5% Inj 500 ML IV.SIG SCH ×3 (08:55→18:25)
[2018-01-26] MEDS: Insulin NovoLOG Aspart Correctional Sugar Inj SQ SCH ×3 (08:55→18:25)
[2018-01-26 09:03] LABS: Albumin 3.4 g/dL (3.4-5.0); Anion Gap 11 meq/L (5-15); Aspartate Aminotransferase 38 U/L (15-37); Blood Urea Nitrogen 49 mg/dL (7-18); Calcium 9.1 mg/dL (8.5-10.1); Carbon Dioxide 28.6 meq/L (21.0-32.0); Chloride 101 meq/L (98-107); Glomerular Filtration Rate 28 mL/min (>89); Glucose,Random 83 mg/dL (74-106); Potassium 3.7 meq/L (3.5-5.1); Sodium 141 meq/L (136-145)
[2018-01-26 09:04] LABS: Alanine Aminotransferase 38 U/L (10-53)
[2018-01-26 09:06] LABS: Alkaline Phosphatase 588 U/L (45-117); Total Protein 7.7 g/dL (6.4-8.2)
[2018-01-26] MEDS: Insulin Detemir Inj 1,000 UNIT/10 ML Vial SQ SCH (10:06)
[2018-01-26] MEDS: Docusate Sodium 100 MG Capsule PO SCH ×2 (10:07→21:12)
[2018-01-26] MEDS: Carvedilol 12.5 MG Tablet PO SCH ×2 (10:07→21:13)
[2018-01-26] MEDS: Isosorbide Mononitrate 20 MG Tablet PO SCH ×2 (10:08→21:13)
[2018-01-26] MEDS: Folic Acid 1 MG Tablet PO SCH (10:08)
[2018-01-26] MEDS: Lactobacillus Acidophilus/L. Spores Tablet PO SCH ×2 (10:08→21:11)
[2018-01-26] MEDS: Minoxidil 2.5 MG Tablet PO SCH (10:09)
[2018-01-26] MEDS: Pantoprazole Inj 40 MG Vial IV.PUSH SCH (10:10)
[2018-01-26 13:00] LABS: Reticulocyte Percent 0.9 % (0.4-3.0)
[2018-01-26 13:16] LABS: % Iron Saturation 9.6 % (20-50)
[2018-01-26] MEDS: Bumetanide Inj 25 MG/100 ML BAG IV.CONT SCH (13:50)
--- NOTE | 2018-01-26 15:33 | P.PNNP ---
Subjective Interval history: no acute complaints Physical Exam Vital signs: Vital Signs 01/25/18 16:00 01/25/18 20:00 01/26/18 00:32 Temperature 97.1 F L 97.3 F L 97.4 F L Pulse Rate 63 66 67 Respiratory Rate 12 18 20 Blood Pressure 153/74 H 148/64 H 154/67 H Pulse Oximetry 97 96 97 01/26/18 04:00 01/26/18 08:00 01/26/18 12:00 Temperature 97.7 F 97.8 F 97.7 F Pulse Rate 69 68 68 Respiratory Rate 20 16 12 Blood Pressure 154/70 H 143/69 H 166/79 H Pulse Oximetry 97 95 95 Intake & Output 01/25/18 01/26/18 01/26/18 18:59 06:59 18:59 Intake Total 1480 / 1480 500 / 500 500 / 500 Output Total 700 / 700 Balance 1480 / 1480 500 / 500 -200 / -200 Weight 80.4 kg Intake: IV 1000 / 1000 500 / 500 500 / 500 Alburx 5% Inj 500 ML @ 250 mls/ 1000 / 1000 500 / 500 500 / 500 hr IV.SIG TID@0800,1200,1700 [facility] Rx#:[id number] Oral 480 / 480 Output: Urine 700 / 700 Other: Date of Last Bowel Movement 01/25/18 01/25/18 01/26/18 # Bowel Movements 1 - Constitutional no acute distress - Routine HEENT Exam Head: Present: normocephalic Eye: Present: EOMI ENT: Present: mucous membranes moist - Routine Neck Exam Present: supple - Routine Respiratory Exam Present: diminished air movement - Routine Cardiovascular Exam Present: RRR - Routine Abdominal Exam Present: soft - Routine Extremities Exam Present: edema - Routine Skin Exam Present: intact - Routine Neurological Exam Present: alert - Detailed Neurological Exam: Coma Scale Eye Opening: Spontaneous - Routine Psychiatric Exam Present: normal affect - Urinary Catheter Management Indwelling Urethral Catheter Cath placed during this visit: yes Urethral indwelling: Yes Reason for continuing: Hourly intake/output Insertion date: 01/21/18 Insertion time: 12:40 Assessment and Plan - Assessment (1) Acute on chronic kidney failure Code(s): N17.9 - Acute kidney failure, unspecified; N18.9 - Chronic kidney disease, unspecified Status: Acute Plan: 1 The patient has proteinuria and most likely she has chronic kidney disease because of diabetic nephropathy. Baseline creatinine of 1.4-1.5 12/[address] scan report,showing the kidneys are normal in size. On Lasix 80 mg TID and metolazone and continues to have significant dependent edema, with ongoing albumin infusion. Creatinine stable at 2.[address] Womack - will gear changer to bumex drip at 0.5mg/ hour for further fluid mobilization. Titrate as needed based on UOP and creatinine. Follow Urine out put and BMP. Avoid nephrotoxins. . (2) HTN (hypertension) Code(s): I10 - Essential (primary) hypertension Status: Acute Plan: Blood pressure labile at times Will monitor (3) Hyperkalemia Code(s): E87.5 - Hyperkalemia Status: Acute Plan: Resolved
--- NOTE | 2018-01-26 16:18 | P.PNIM ---
Subjective Interval history: No new complaints. Pt continues with b/l LE edema and right UE Physical Exam Vital signs: Vital Signs 01/25/18 20:00 01/26/18 00:32 01/26/18 04:00 Temperature 97.3 F L 97.4 F L 97.7 F Pulse Rate 66 67 69 Respiratory Rate 18 20 20 Blood Pressure 148/64 H 154/67 H 154/70 H Pulse Oximetry 96 97 97 01/26/18 08:00 01/26/18 12:00 Temperature 97.8 F 97.7 F Pulse Rate 68 68 Respiratory Rate 16 12 Blood Pressure 143/69 H 166/79 H Pulse Oximetry 95 95 Intake & Output 01/25/18 01/26/18 01/26/18 18:59 06:59 18:59 Intake Total 1480 / 1480 500 / 500 500 / 500 Output Total 700 / 700 Balance 1480 / 1480 500 / 500 -200 / -200 Weight 80.4 kg Intake: IV 1000 / 1000 500 / 500 500 / 500 Alburx 5% Inj 500 ML @ 250 mls/ 1000 / 1000 500 / 500 500 / 500 hr IV.SIG TID@0800,1200,1700 [facility] Rx#:[id number] Oral 480 / 480 Output: Urine 700 / 700 Other: Date of Last Bowel Movement 01/25/18 01/25/18 01/26/18 # Bowel Movements 1 Narrative: . GENERAL: This is a well-nourished, well-developed patient, in no apparent distress. CARDIOVASCULAR: Regular rate and rhythm without murmurs, gallops, or rubs. RESPIRATORY: Clear to auscultation. Breath sounds equal bilaterally. No wheezes , rales, or rhonchi. GASTROINTESTINAL: Abdomen soft, non-tender, nondistended. Normal active bowel sounds MUSCULOSKELETAL: marked b/l LE at posterior aspect of pt's thighs, RUE edema NEURO: Alert & Oriented x4 to person, place, time, situation. Moves all ext x4 - Urinary Catheter Management Indwelling Urethral Catheter Cath placed during this visit: yes Urethral indwelling: Yes Reason for continuing: Hourly intake/output Insertion date: 01/21/18 Insertion time: 12:40 Results - Labs CBC & Chem 7: 01/25/18 22:45 01/26/18 06:40 Laboratory Results - last 24 hr 01/25/18 01/25/18 01/25/18 07:00 17:18 20:07 WBC RBC Hgb Hct MCV MCH MCHC RDW Plt Count MPV Retic Count Absolute Retic Sodium Potassium Chloride Carbon Dioxide Anion Gap BUN Creatinine Estimated GFR POC Glucose 165 H 345 H Random Glucose Calcium Phosphorus Magnesium Iron TIBC % Saturation Ferritin Total Bilirubin AST ALT Alkaline Phosphatase Lactate Dehydrogenase Total Protein Albumin TSH 4.980 H Free T4 1.02 Free T3 0.98 L 01/25/18 01/25/18 01/26/18 22:45 22:45 06:40 WBC 4.0 RBC 2.80 L Hgb 8.0 L Hct 25.2 L MCV 90.3 MCH 28.8 MCHC 31.9 L RDW 17.0 Plt Count 295 MPV 8.4 Retic Count Absolute Retic Sodium 141 141 Potassium 3.6 3.7 Chloride 101 101 Carbon Dioxide 29.2 28.6 Anion Gap 11 11 BUN 46 H 49 H Creatinine 2.22 H 2.22 H Estimated GFR 28 L 28 L POC Glucose Random Glucose 152 H 83 Calcium 8.6 9.1 Phosphorus 4.0 Magnesium 1.8 Iron TIBC % Saturation Ferritin Total Bilirubin 0.4 0.4 AST 41 H 38 H ALT 38 38 Alkaline Phosphatase 581 H 588 H Lactate Dehydrogenase Total Protein 7.8 D 7.7 Albumin 3.7 3.4 TSH Free T4 Free T3 01/26/18 01/26/18 01/26/18 08:54 12:04 12:35 WBC RBC Hgb Hct MCV MCH MCHC RDW Plt Count MPV Retic Count Absolute Retic Sodium Potassium Chloride Carbon Dioxide Anion Gap BUN Creatinine Estimated GFR POC Glucose 96 120 H Random Glucose Calcium Phosphorus Magnesium Iron 17 L TIBC 176 L % Saturation 9.6 L Ferritin Total Bilirubin AST ALT Alkaline Phosphatase Lactate Dehydrogenase Total Protein Albumin TSH Free T4 Free T3 01/26/18 01/26/18 01/26/18 12:35 12:35 12:35 WBC RBC Hgb Hct MCV MCH MCHC RDW Plt Count MPV Retic Count 0.9 Absolute Retic 25.9 Sodium Potassium Chloride Carbon Dioxide Anion Gap BUN Creatinine Estimated GFR POC Glucose Random Glucose Calcium Phosphorus Magnesium Iron TIBC % Saturation Ferritin 180 Total Bilirubin AST ALT Alkaline Phosphatase Lactate Dehydrogenase 168 Total Protein Albumin TSH Free T4 Free T3 - Imaging ITS Impressions Chest X-Ray 01/20/18 06:00 CONCLUSION: 1. Cardiomegaly with trace positive fluid balance. Enema w/Water Soluble 01/20/18 08:00 CONCLUSION: Status post therapeutic Gastrografin enema. Assessment and Plan - Assessment (1) Nonischemic cardiomyopathy Code(s): I42.8 - Other cardiomyopathies Status: Chronic Plan: Nonischemic cardiomyopathy Chronic systolic CHF with EF 15-20% s/p AICD - Pt was given a dose of IV Lasix in the ED - CXR in the ED noted Cardiomegaly with prominent main pulmonary artery. Pacer lead overlies right ventricle. No focal consolidation or effusion. - Pt was reportedly evaluated at [facility] recently for Heart transplant vs. LVAD but had a stroke during that admission and was not felt to be a good candidate after the CVA. - comgmt with Nephrology, Cardiology, and Palliative - continue IV albumin - change IV lasix to Bumex gtt - continue PO Zaroxolyn 2.5mg BID - O2 - observe clinical response - Would pt benefit from HD - DVT prophylaxis with Eliquis - supportive care Diabetes mellitus, poorly controlled Hgb A1C 14.4 on 08/31/17 Hypoglycemia - levemir 20 units BID - novolog SS (2) Diabetes Code(s): E11.9 - Type 2 diabetes mellitus without complications Status: Chronic Plan: - see above (3) Acute on chronic kidney failure Code(s): N17.9 - Acute kidney failure, unspecified; N18.9 - Chronic kidney disease, unspecified Status: Acute Plan: Hyperkalemia Acute on chronic renal disease, stage 3 - Outpt labs from 11/2017 noted Cr around 1.4-1.5 - Labs in the ED noted a potassium of 6.1. - Pt was given Kayexalate and Calcium Gluconate in the ED her repeat potassium this morning was 5.5 and second repeat was 5.7 on 01/17 - Pt refusing Lab draws on 01/18, but we discussed with the pt the importance of getting er labs drawn to monitor her electrolytes and kidney function and was agreed - Pt was given a second dose of Kayexalate on 01/17 but pt has not moved her bowels. - Repeat K+ down to 5.0 but renal function is worse on 01/18 with Cr around 2.49 - Monitor renal function - Awaiting repeat labs today (4) Hyperkalemia Code(s): E87.5 - Hyperkalemia Status: Acute Plan: - See above (5) HTN (hypertension) Code(s): I10 - Essential (primary) hypertension Status: Acute Plan: HTN - Cont. home meds - BP is poorly controlled - Clonidine PRN - Monitor closely (6) Elevated LFTs Code(s): R94.5 - Abnormal results of liver function studies Status: Acute Plan: Elevated LFTS Congestive hepatopathy Ascites - Review of outpt records show the pts AlkPhos has been elevated since 10/2016 - AlkPhos Isoenzyme in 10/2017 noted 72% liver, 20% bone, 8% intestine - Transjugular liver bx (12/20/17) --> Findings suggestive of congestive hepatopathy. (7) Ascites Code(s): R18.8 - Other ascites Status: Acute Plan: - See above (8) Constipation Code(s): K59.00 - Constipation, unspecified Status: Acute Plan: Abdominal pain Nausea/vomiting Constipation - Pt is a 52 y/o AAF with chronic systolic CHF, nonischemic cardiomyopathy with EF 15-20% s/p AICD, hx of CVA in 12/2017 (Bilateral acute to subacute posterior cerebral artery infarcts on Head CT on 12/22/17), congestive hepatopathy, ascites , HTN, CKD, stage 3, and type 2 diabetes mellitus, insulin dependent. Pt has had multiple hospitalizations at [facility] in [place] and [facility] in the last several month for various issues related to her CHF /Cardiomyopathy, DKA, Acute on chronic renal failure, CVA. After her most recent admission from 12/02/17 to 01/08/18 was for CHF and was transferred to [facility] to be evaluated for possible heart transplant vs. LVAD. During that admission she had an acute CVA with resulting left sided weakness and felt that she was not a good candidate for advanced heart failure treatment. Pt was discharged to [facility] on 01/08/18. - She was brought to the ED from a local rehab center for hyperkalemia and N/V. She has noted issues with constipation more recently. Over the last two days she has had nausea/vomiting and has not been eating much. She has not passed any stool in the last two days either. - CT abd/pelvis in the ED which noted moderate ascites and anasarca, cardiomegaly with pacer lead tip in right ventricle, and small fat-containing umbilical hernia. No bowel obstruction. In reviewing the images she has a significant amount of stool throughout the colon and in the rectum. - Pt had a small BM on 01/17 but has been refusing the Lactulose BID - Pt was given Mag Citrate and Colace BID on 01/18 but no significant stooling - Zofran PRN - Protonix 40mg IV daily - Gastrografin enema for tomorrow - Plan (1) Constipation Code(s): K59.00 - Constipation, unspecified Status: Acute Plan: Abdominal pain Nausea/vomiting Constipation, improved - Pt is a 52 y/o AAF with chronic systolic CHF, nonischemic cardiomyopathy with EF 15-20% s/p AICD, hx of CVA in 12/2017 (Bilateral acute to subacute posterior cerebral artery infarcts on Head CT on 12/22/17), congestive hepatopathy, ascites , HTN, CKD, stage 3, and type 2 diabetes mellitus, insulin dependent. Pt has had multiple hospitalizations at [facility] in [place] and [facility] in the last several month for various issues related to her CHF /Cardiomyopathy, DKA, Acute on chronic renal failure, CVA. After her most recent admission from 12/02/17 to 01/08/18 was for CHF and was transferred to [facility] to be evaluated for possible heart transplant vs. LVAD. During that admission she had an acute CVA with resulting left sided weakness and felt that she was not a good candidate for advanced heart failure treatment. Pt was discharged to [facility] on 01/08/18. - She was brought to the ED from a local rehab center for hyperkalemia and N/V. She has noted issues with constipation more recently. Over the last two days she has had nausea/vomiting and has not been eating much. She has not passed any stool in the last two days either. - CT abd/pelvis in the ED which noted moderate ascites and anasarca, cardiomegaly with pacer lead tip in right ventricle, and small fat-containing umbilical hernia. No bowel obstruction. In reviewing the images she has a significant amount of stool throughout the colon and in the rectum. - Pt had a small BM on 01/17 but has been refusing the Lactulose BID - Pt was given Mag Citrate and Colace BID on 01/18 but no significant stooling - Pt had Gastrografin enema on 01/20 with large volume of stool output - Zofran PRN - Protonix 40mg IV daily (2) Nonischemic cardiomyopathy Code(s): I42.8 - Other cardiomyopathies Status: Chronic Plan: Nonischemic cardiomyopathy Chronic systolic CHF with EF 15-20% s/p AICD - Pt was given a dose of IV Lasix in the ED - CXR in the ED noted Cardiomegaly with prominent main pulmonary artery. Pacer lead overlies right ventricle. No focal consolidation or effusion. - Pt was continued on PO Lasix 40mg BID due to worsening renal function - Pt was given a dose of Lasix 80mg IV with Albumin IV given prior to the Lasix on 01/19 - Cr is stable to improved today at 2.35 - BNP is elevated from at admission from 1368--> 1852 - Monitor electrolyte closely - Pt was reportedly evaluated at [facility] recently for Heart transplant vs. LVAD but had a stroke during that admission and was not felt to be a good candidate after the CVA. - CXR (01/20/18) --> Cardiomegaly with trace positive fluid balance - Monitor clinical status closely - Pt is typically on 2L of supplemental O2 - Discussed code status with the pt and she wishes to be a full code. - appreciate input from Palliative Service - increased lasix to 80mg IV TID. - Pt's Creatinine has improved with IV lasix but there is no clinical improvement yet. - Pt's prognosis is poor. - Hospice would be appropriate. - Consult Nephrology to see if pt might benefit from hemodialysis (3) Diabetes Code(s): E11.9 - Type 2 diabetes mellitus without complications Status: Chronic Plan: Diabetes mellitus, poorly controlled Hgb A1C 14.4 on 08/31/17 Hypoglycemia - Pt was also given Novolin 10 units and Dextrose overnight and was hypoglycemic with BS 34 on 01/17. Pt was given orange juice twice this morning and her BS improved to 158. - Today her BS are in the 200s. - Pt is normally on Novolin 10 units BID and NovoLog SSI - Basal insulin with Levemir 5 units BID started on 01/18 and titrate up to 10 units BID today, BS on 01/18 were still quite elevated in the 200-300s but valentine morning glucose on 01/19 was 95 so the insulin scheduled was kept the same - Her blood sugars last night and this morning are in the 200s - Consider increasing Levemir to 10 units BID but BS are rather labile, continue to monitor closely for now - NovoLog SSI - Accu checks - Monitor BS closely (4) Acute on chronic kidney failure Code(s): N17.9 - Acute kidney failure, unspecified; N18.9 - Chronic kidney disease, unspecified Status: Acute Plan: Hyperkalemia Acute on chronic renal disease, stage 3 - Outpt labs from 11/2017 noted Cr around 1.4-1.5 - Labs in the ED noted a potassium of 6.1. - Pt was given Kayexalate and Calcium Gluconate in the ED her repeat potassium this morning was 5.5 and second repeat was 5.7 on 01/17 - Pt refusing Lab draws on 01/18, but we discussed with the pt the importance of getting er labs drawn to monitor her electrolytes and kidney function and was agreed - Pt was given a second dose of Kayexalate on 01/17 but pt has not moved her bowels. - Repeat K+ down to 5.0 but renal function is worse on 01/18 with Cr around 2.49 - renal function improving - see above (5) Hyperkalemia Code(s): E87.5 - Hyperkalemia Status: Acute Plan: - See above (6) HTN (hypertension) Code(s): I10 - Essential (primary) hypertension Status: Acute Plan: HTN - Cont. home meds - BP is poorly controlled on multiple medications - Monitor with change to IV Lasix - Clonidine PRN - Monitor closely (7) Elevated LFTs Code(s): R94.5 - Abnormal results of liver function studies Status: Acute Plan: Elevated LFTS Congestive hepatopathy Ascites - Review of outpt records show the pts AlkPhos has been elevated since 10/2016 - AlkPhos Isoenzyme in 10/2017 noted 72% liver, 20% bone, 8% intestine - Transjugular liver bx (12/20/17) --> Findings suggestive of congestive hepatopathy. (8) Ascites Code(s): R18.8 - Other ascites Status: Acute Plan: - See above (9) CVA - recent CVA - holding oral anticoagulant d/t continued oozing from forming peripheral IV site. - pt at risk for developing anemia d/t blood loss. 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
--- NOTE | 2018-01-27 08:00 | P.PNCA ---
<Ivory Coburn A - Last Filed: 01/27/18 07:54> Subjective Interval history: reports increased dyspnea, on 2L O2 via nasal cannula and resting comfortably. no chest pain Physical Exam Vital signs: Vital Signs 01/26/18 08:00 01/26/18 12:00 01/26/18 16:00 Temperature 97.8 F 97.7 F 97.4 F L Pulse Rate 68 70 70 Respiratory Rate 16 12 16 Blood Pressure 143/69 H 166/79 H 143/73 H Pulse Oximetry 95 95 93 L 01/26/18 20:00 01/27/18 00:00 01/27/18 04:00 Temperature 97.4 F L 97.5 F L 97.4 F L Pulse Rate 69 65 63 Respiratory Rate 18 18 18 Blood Pressure 142/68 H 145/53 H 158/70 H Pulse Oximetry 93 L 95 97 Intake & Output 01/26/18 01/27/18 01/27/18 18:59 06:59 18:59 Intake Total 1000 / 1000 340 / 340 Output Total 1800 / 1800 Balance -800 / -800 340 / 340 Weight 80.4 kg Intake: IV 1000 / 1000 Alburx 5% Inj 500 ML @ 250 mls/ 1000 / 1000 hr IV.SIG TID@0800,1200,1700 [facility] Rx#:[id number] Oral 340 / 340 Output: Urine 1800 / 1800 Other: # Voids 500 Date of Last Bowel Movement 01/26/18 01/25/18 Narrative: GENERAL: This is a well-nourished, well-developed patient, in no apparent distress. CARDIOVASCULAR: Regular rate and rhythm without murmurs, gallops, or rubs. RESPIRATORY: Clear to auscultation. Breath sounds equal bilaterally. No wheezes , rales, or rhonchi. GASTROINTESTINAL: Abdomen soft, non-tender, nondistended. Normal active bowel sounds MUSCULOSKELETAL: mild b/l LE at posterior aspect of pt's thighs, trace edema to bilateral lower legs NEURO: Alert & Oriented x4 to person, place, time, situation. Moves all ext x4 - Urinary Catheter Management Indwelling Urethral Catheter Cath placed during this visit: yes Urethral indwelling: Yes Reason for continuing: Hourly intake/output Insertion date: 01/21/18 Insertion time: 12:40 Assessment and Plan - Assessment (1) Nonischemic cardiomyopathy Code(s): I42.8 - Other cardiomyopathies Status: Chronic (2) Acute on chronic kidney failure Code(s): N17.9 - Acute kidney failure, unspecified; N18.9 - Chronic kidney disease, unspecified Status: Acute (3) HTN (hypertension) Code(s): I10 - Essential (primary) hypertension Status: Acute - Plan Reported hx of NICM with EF as low as 15%, s/p AICD: Current LVEF is 45-50% by excellent quality echocardiogram on 01/21/18, agree with EF estimate on review. Cont Carvedilol 12.5mg bid. Allergy to RIN-Is. Not a good candidate for spironolactone due the CKD and hyperkalemia. Paroxysmal atrial fibrillation: - continue anticoagulation therapy with Eliquis 5mg bid. Acute on chronic renal failure: Query if component of cardiorenal syndrome. Attempted RHC 01/23 to evaluate Cardiac index/output via right brachial vein approach due to patient's refusal of IJ access and is currently fully anticoagulated with eliquis would have posed high bleeding risk for femoral v. approach. Attempted to gain procedural access was unsuccessful. No plans at this time proceed w/ RHC. Hypertension: Continue carvedilol 12.5mg bid Continue clonidine to 0.2mg q8hr with hold for sbp< 110 Continue Hydralazine [id number], Isosorbide 20mg bid, Nifedipine 30mg bid. -460mL urine output yesterday nephrology has switched from furosemide to bumex gtt anemia- Hgb continues to decline. CKD vs. blood loss vs. hemolysis <Ahmet Solitario - Last Filed: 01/27/18 13:04> Physical Exam Vital signs: Vital Signs 01/26/18 16:00 01/26/18 20:00 01/27/18 00:00 Temperature 97.4 F L 97.4 F L 97.5 F L Pulse Rate 70 69 65 Respiratory Rate 16 18 18 Blood Pressure 143/73 H 142/68 H 145/53 H Pulse Oximetry 93 L 93 L 95 01/27/18 04:00 01/27/18 07:56 01/27/18 08:00 Temperature 97.4 F L 95.7 F L 97.5 F L Pulse Rate 63 66 64 Respiratory Rate 18 16 20 Blood Pressure 158/70 H 133/70 145/71 H Pulse Oximetry 97 97 95 01/27/18 11:45 Temperature 97.2 F L Pulse Rate 69 Respiratory Rate 20 Blood Pressure 131/69 Pulse Oximetry 97 Intake & Output 01/26/18 01/27/18 01/27/18 18:59 06:59 18:59 Intake Total 1000 / 1000 840 / 840 500 / 500 Output Total 1800 / 1800 Balance -800 / -800 840 / 840 500 / 500 Weight 80.4 kg Intake: IV 1000 / 1000 500 / 500 500 / 500 Alburx 5% Inj 500 ML @ 250 mls/ 1000 / 1000 500 / 500 500 / 500 hr IV.SIG TID@0800,1200,1700 [facility] Rx#:[id number] Oral 340 / 340 Output: Urine 1800 / 1800 Other: # Voids 500 Date of Last Bowel Movement 01/26/18 01/25/18 01/26/18 - Urinary Catheter Management Indwelling Urethral Catheter Cath placed during this visit: no Assessment and Plan - Assessment (1) Nonischemic cardiomyopathy Code(s): I42.8 - Other cardiomyopathies Status: Chronic (2) Acute on chronic kidney failure Code(s): N17.9 - Acute kidney failure, unspecified; N18.9 - Chronic kidney disease, unspecified Status: Acute (3) HTN (hypertension) Code(s): I10 - Essential (primary) hypertension Status: Acute - Attending Attestation still tense abdominal and bilateral lower extremity edema JVP not significantly elevated echocardiogram reviewed. Mild RV enlargement with normal estimated PA pressures not responding to intermittent IV diuretic dosing. switched to Bumex gtt today with Zaroxolyn. Monitor Cr and I/O. Albumin also being administered. Discussed case with Dr. Loaiza. Consider imaging of IVC and hepatic portal system to rule out obstruction or compression. Unfortunately, due to Cr, unable to do CT with contrast.
[2018-01-27] MEDS: Folic Acid 1 MG Tablet PO SCH (08:15)
[2018-01-27] MEDS: Docusate Sodium 100 MG Capsule PO SCH ×2 (08:15→23:58)
[2018-01-27] MEDS: Carvedilol 12.5 MG Tablet PO SCH ×2 (08:15→23:56)
[2018-01-27] MEDS: Minoxidil 2.5 MG Tablet PO SCH (08:15)
[2018-01-27] MEDS: Insulin Detemir Inj 1,000 UNIT/10 ML Vial SQ SCH (08:16)
[2018-01-27] MEDS: Insulin NovoLOG Aspart Correctional Sugar Inj SQ SCH ×3 (08:16→17:57)
[2018-01-27] MEDS: Lactobacillus Acidophilus/L. Spores Tablet PO SCH ×2 (08:16→23:57)
[2018-01-27 08:34] LABS: Baso % (Auto) 0.8 % (0.0-2.0); Eos # (Auto) 0.2 th/mm3 (0.0-0.4); Eos % (Auto) 3.7 % (0.0-4.0); Hematocrit 24.1 % (35.0-46.0); Hemoglobin 7.7 gm/dL (11.6-15.3); Lymph # (Auto) 0.6 th/mm3 (1.0-4.8); Lymph % (Auto) 10.7 % (9.0-44.0); Mean Corpuscular HGB Conc 31.8 % (32.0-36.0); Mean Corpuscular Hemoglobin 28.3 pg (27.0-34.0); Mean Corpuscular Volume 88.9 fL (80.0-100.0); Mean Platelet Volume 8.3 fL (7.0-11.0); Mono # (Auto) 0.4 th/mm3 (0.0-0.9); Mono % (Auto) 7.3 % (0.0-8.0); Neut # (Auto) 4.2 th/mm3 (1.8-7.7); Neut % (Auto) 77.5 % (16.0-70.0); Platelet Count 280 th/mm3 (150-450); Red Blood Count 2.71 mil/mm3 (4.00-5.30); Red Cell Distribution Width 17.1 % (11.6-17.2); White Blood Count 5.4 th/mm3 (4.0-11.0)
[2018-01-27 09:04] LABS: Carbon Dioxide 28.3 meq/L (21.0-32.0); Magnesium 1.9 mg/dL (1.5-2.5); Potassium 3.7 meq/L (3.5-5.1)
[2018-01-27] MEDS: Albumin Human 5% Inj 500 ML IV.SIG SCH ×3 (09:10→17:55)
[2018-01-27] MEDS: Isosorbide Mononitrate 20 MG Tablet PO SCH ×2 (09:13→23:57)
[2018-01-27] MEDS: Pantoprazole Inj 40 MG Vial IV.PUSH SCH (09:16)
--- NOTE | 2018-01-27 09:41 | P.PNIM ---
Subjective Interval history: Patient sleeping awakes easily offers no new concerns/complaints no improve in edema Physical Exam Vital signs: Vital Signs 01/26/18 12:00 01/26/18 16:00 01/26/18 20:00 Temperature 97.7 F 97.4 F L 97.4 F L Pulse Rate 70 70 69 Respiratory Rate 12 16 18 Blood Pressure 166/79 H 143/73 H 142/68 H Pulse Oximetry 95 93 L 93 L 01/27/18 00:00 01/27/18 04:00 01/27/18 07:56 Temperature 97.5 F L 97.4 F L 95.7 F L Pulse Rate 65 63 66 Respiratory Rate 18 18 16 Blood Pressure 145/53 H 158/70 H 133/70 Pulse Oximetry 95 97 97 01/27/18 08:00 Temperature 97.5 F L Pulse Rate 64 Respiratory Rate 20 Blood Pressure 145/71 H Pulse Oximetry 95 Intake & Output 01/26/18 01/27/18 01/27/18 18:59 06:59 18:59 Intake Total 1000 / 1000 840 / 840 Output Total 1800 / 1800 Balance -800 / -800 840 / 840 Weight 80.4 kg Intake: IV 1000 / 1000 500 / 500 Alburx 5% Inj 500 ML @ 250 mls/ 1000 / 1000 500 / 500 hr IV.SIG TID@0800,1200,1700 [facility] Rx#:[id number] Oral 340 / 340 Output: Urine 1800 / 1800 Other: # Voids 500 Date of Last Bowel Movement 01/26/18 01/25/18 Narrative: GENERAL: This is a well-nourished, well-developed patient, in no apparent distress. CARDIOVASCULAR: Regular rate and rhythm RESPIRATORY: Clear to auscultation. Breath sounds equal bilaterally. GASTROINTESTINAL: Abdomen soft, non-tender, nondistended. Normal active bowel sounds MUSCULOSKELETAL: tense edema bilateral LE at posterior aspect of pt's thighs, tense edema abdomen and LUE NEURO: Alert & Oriented x4 to person, place, time, situation. Moves all ext x4 - Urinary Catheter Management Indwelling Urethral Catheter Cath placed during this visit: yes Urethral indwelling: Yes Reason for continuing: Hourly intake/output Insertion date: 01/21/18 Insertion time: 12:40 Results - Labs CBC & Chem 7: 01/27/18 06:54 01/27/18 06:54 Laboratory Results - last 24 hr 01/26/18 01/26/18 01/26/18 12:04 12:35 12:35 WBC RBC Hgb Hct MCV MCH MCHC RDW Plt Count MPV Neut % (Auto) Lymph % (Auto) [place] % (Auto) Eos % (Auto) Baso % (Auto) Neut # (Auto) Lymph # (Auto) [place] # (Auto) Eos # (Auto) Baso # (Auto) WBC Differential Differential Comment Retic Count 0.9 Absolute Retic 25.9 Sodium Potassium Chloride Carbon Dioxide Anion Gap BUN Creatinine Estimated GFR POC Glucose 120 H Random Glucose Calcium Magnesium Iron 17 L TIBC 176 L % Saturation 9.6 L Ferritin Lactate Dehydrogenase 01/26/18 01/26/18 01/26/18 12:35 12:35 17:07 WBC RBC Hgb Hct MCV MCH MCHC RDW Plt Count MPV Neut % (Auto) Lymph % (Auto) [place] % (Auto) Eos % (Auto) Baso % (Auto) Neut # (Auto) Lymph # (Auto) [place] # (Auto) Eos # (Auto) Baso # (Auto) WBC Differential Differential Comment Retic Count Absolute Retic Sodium Potassium Chloride Carbon Dioxide Anion Gap BUN Creatinine Estimated GFR POC Glucose 91 Random Glucose Calcium Magnesium Iron TIBC % Saturation Ferritin 180 Lactate Dehydrogenase 168 01/27/18 01/27/18 01/27/18 00:28 06:54 06:54 WBC 5.4 RBC 2.71 L Hgb 7.7 L Hct 24.1 L MCV 88.9 MCH 28.3 MCHC 31.8 L RDW 17.1 Plt Count 280 MPV 8.3 Neut % (Auto) 77.5 H Lymph % (Auto) 10.7 [place] % (Auto) 7.3 Eos % (Auto) 3.7 Baso % (Auto) 0.8 Neut # (Auto) 4.2 Lymph # (Auto) 0.6 L [place] # (Auto) 0.4 Eos # (Auto) 0.2 Baso # (Auto) 0.0 WBC Differential . Differential Comment Auto diff final Retic Count Absolute Retic Sodium 140 Potassium 3.7 Chloride 100 Carbon Dioxide 28.3 Anion Gap 12 BUN 53 H Creatinine 2.20 H Estimated GFR 28 L POC Glucose 160 H Random Glucose 162 H Calcium 9.0 Magnesium 1.9 Iron TIBC % Saturation Ferritin Lactate Dehydrogenase 01/27/18 06:54 WBC RBC Hgb Hct MCV MCH MCHC RDW Plt Count MPV Neut % (Auto) Lymph % (Auto) [place] % (Auto) Eos % (Auto) Baso % (Auto) Neut # (Auto) Lymph # (Auto) [place] # (Auto) Eos # (Auto) Baso # (Auto) WBC Differential Differential Comment Retic Count Absolute Retic Sodium Potassium Chloride Carbon Dioxide Anion Gap BUN Creatinine Estimated GFR POC Glucose 180 H Random Glucose Calcium Magnesium Iron TIBC % Saturation Ferritin Lactate Dehydrogenase Assessment and Plan - Assessment (1) Nonischemic cardiomyopathy Code(s): I42.8 - Other cardiomyopathies Status: Chronic Plan: Abdominal pain Nausea/vomiting Constipation, improved - Pt is a 52 y/o AAF with chronic systolic CHF, nonischemic cardiomyopathy with EF 15-20% s/p AICD, hx of CVA in 12/2017 (Bilateral acute to subacute posterior cerebral artery infarcts on Head CT on 12/22/17), congestive hepatopathy, ascites , HTN, CKD, stage 3, and type 2 diabetes mellitus, insulin dependent. Pt has had multiple hospitalizations at [facility] in [place] and [facility] in the last several month for various issues related to her CHF /Cardiomyopathy, DKA, Acute on chronic renal failure, CVA. After her most recent admission from 12/02/17 to 01/08/18 was for CHF and was transferred to [facility] to be evaluated for possible heart transplant vs. LVAD. During that admission she had an acute CVA with resulting left sided weakness and felt that she was not a good candidate for advanced heart failure treatment. Pt was discharged to [facility] on 01/08/18. - She was brought to the ED from a local rehab center for hyperkalemia and N/V. She has noted issues with constipation more recently. Over the last two days she has had nausea/vomiting and has not been eating much. She has not passed any stool in the last two days either. - CT abd/pelvis in the ED which noted moderate ascites and anasarca, cardiomegaly with pacer lead tip in right ventricle, and small fat-containing umbilical hernia. No bowel obstruction. In reviewing the images she has a significant amount of stool throughout the colon and in the rectum. - Pt had a small BM on 01/17 but has been refusing the Lactulose BID - Pt was given Mag Citrate and Colace BID on 01/18 but no significant stooling - Pt had Gastrografin enema on 01/20 with large volume of stool output - Zofran PRN - Protonix 40mg IV daily Nonischemic cardiomyopathy Chronic systolic CHF with EF 15-20% s/p AICD - Pt was given a dose of IV Lasix in the ED - CXR in the ED noted Cardiomegaly with prominent main pulmonary artery. Pacer lead overlies right ventricle. No focal consolidation or effusion. - Pt was continued on PO Lasix 40mg BID due to worsening renal function - Pt was given a dose of Lasix 80mg IV with Albumin IV given prior to the Lasix on 01/19 - Cr is stable to improved today at 2.35 - BNP is elevated from at admission from 1368--> 1852 - Monitor electrolyte closely - Pt was reportedly evaluated at [facility] recently for Heart transplant vs. LVAD but had a stroke during that admission and was not felt to be a good candidate after the CVA. - CXR (01/20/18) --> Cardiomegaly with trace positive fluid balance - Monitor clinical status closely - Pt is typically on 2L of supplemental O2 - Discussed code status with the pt and she wishes to be a full code. - appreciate input from Palliative Service - increased lasix to 80mg IV TID. - Pt's Creatinine has improved with IV lasix but there is no clinical improvement yet. - continue IV albumin - change IV lasix to Bumex gtt (drip not running during rounds clarified with nurse- who will hang now) - continue PO Zaroxolyn 2.5mg BID - O2 - observe clinical response - Would pt benefit from HD - DVT prophylaxis with Eliquis - supportive care - Consult Nephrology to see if pt might benefit from hemodialysis Diabetes mellitus, poorly controlled Hgb A1C 14.4 on 08/31/17 Hypoglycemia - Pt was also given Novolin 10 units and Dextrose overnight and was hypoglycemic with BS 34 on 01/17. Pt was given orange juice twice this morning and her BS improved to 158. - Today her BS are in the 200s. - Pt is normally on Novolin 10 units BID and NovoLog SSI - Basal insulin with Levemir 5 units BID started on 01/18 and titrate up to 10 units BID today, BS on 6/30 were still quite elevated in the 200-300s but valentine morning glucose on 01/19 was 95 so the insulin scheduled was kept the same - Her blood sugars last night and this morning are in the 200s - Consider increasing Levemir to 10 units BID but BS are rather labile, continue to monitor closely for now - NovoLog SSI - Accu checks - Monitor BS closely Hyperkalemia Acute on chronic renal disease, stage 3 - Outpt labs from 11/2017 noted Cr around 1.4-1.5 - Labs in the ED noted a potassium of 6.1. - Pt was given Kayexalate and Calcium Gluconate in the ED her repeat potassium this morning was 5.5 and second repeat was 5.7 on 01/17 - Pt refusing Lab draws on 01/18, but we discussed with the pt the importance of getting er labs drawn to monitor her electrolytes and kidney function and was agreed - Pt was given a second dose of Kayexalate on 01/17 but pt has not moved her bowels. - Repeat K+ down to 5.0 but renal function is worse on 01/18 with Cr around 2.49 - (01/26) BUN 49m creatinine 2.22, estimated GFR 28 - (01/27) BUN 53, creatinine 2.20, estimated GFR 28 - renal function improving - see above Hyperkalemia - See above HTN (hypertension) - Cont. home meds - BP is poorly controlled on multiple medications - Monitor with change to IV Lasix - Clonidine PRN - Monitor closely Elevated LFTs Congestive hepatopathy Ascites - Review of outpt records show the pts AlkPhos has been elevated since 10/2016 - AlkPhos Isoenzyme in 10/2017 noted 72% liver, 20% bone, 8% intestine - Transjugular liver bx (12/20/17) --> Findings suggestive of congestive hepatopathy. Anemia - patient's hgb has been trending down on admission hgb 10.4 - (01/27) 7.7, hct 24.1, MCV 88.9 - iron 17, TIBC 176, % saturation 9.6 - start ferrous sulfate PO BID - reticulocyte count 0.9 - occult stool requested - recheck in AM Pt seen and examine with Iqra Beauchamp PAC. The exam, history, and the medical decision-making described in the above note were completed with the assistance of the mid-level provider. I reviewed and agree with the findings presented. I attest that I had a [id number] encounter with the patient on the same day, and personally performed and documented my assessment and findings in the medical record.
[2018-01-27] MEDS: Ferrous Sulfate 325 MG Tablet PO SCH (12:50)
[2018-01-27] MEDS: Bumetanide Inj 25 MG/100 ML BAG IV.CONT SCH (13:58)
--- NOTE | 2018-01-27 14:17 | P.PNNP ---
Subjective Interval history: Creatinine has remained stable at 2.20. On Bumex gtt. Reports shortness of breath. Dependent edema. <Sabrina Keller - Last Filed: 01/27/18 14:13> Physical Exam Vital signs: Vital Signs 01/26/18 16:00 01/26/18 20:00 01/27/18 00:00 Temperature 97.4 F L 97.4 F L 97.5 F L Pulse Rate 70 69 65 Respiratory Rate 16 18 18 Blood Pressure 143/73 H 142/68 H 145/53 H Pulse Oximetry 93 L 93 L 95 01/27/18 04:00 01/27/18 07:56 01/27/18 08:00 Temperature 97.4 F L 95.7 F L 97.5 F L Pulse Rate 63 66 64 Respiratory Rate 18 16 20 Blood Pressure 158/70 H 133/70 145/71 H Pulse Oximetry 97 97 95 01/27/18 11:45 01/27/18 14:00 Temperature 97.2 F L Pulse Rate 69 111 H Respiratory Rate 20 Blood Pressure 131/69 168/80 H Pulse Oximetry 97 Intake & Output 01/26/18 01/27/18 01/27/18 18:59 06:59 18:59 Intake Total 1000 / 1000 840 / 840 600 / 600 Output Total 1800 / 1800 Balance -800 / -800 840 / 840 600 / 600 Weight 80.4 kg Intake: IV 1000 / 1000 500 / 500 600 / 600 Bumex Inj 25 mg In 100 ml @ 0.5 100 / 100 MG/HR 2 mls/hr IV.CONT .Q24H [facility] Rx#:[id number] Alburx 5% Inj 500 ML @ 250 mls/ 1000 / 1000 500 / 500 500 / 500 hr IV.SIG TID@0800,1200,1700 [facility] Rx#:[id number] Oral 340 / 340 Output: Urine 1800 / 1800 Other: # Voids 500 Date of Last Bowel Movement 01/26/18 01/25/18 01/26/18 - Constitutional no acute distress - Routine HEENT Exam Head: Present: normocephalic ENT: Present: mucous membranes moist - Routine Neck Exam Present: supple. Absent: JVD - Routine Respiratory Exam Present: decreased breath sounds. Absent: rales, rhonchi - Routine Cardiovascular Exam Present: RRR - Routine Abdominal Exam Present: soft, normoactive bowel sounds - Routine Extremities Exam Present: edema - Routine Skin Exam Present: dry, warm - Routine Neurological Exam Present: alert - Urinary Catheter Management Indwelling Urethral Catheter Cath placed during this visit: yes Urethral indwelling: Yes Reason for continuing: Hourly intake/output Insertion date: 01/21/18 Insertion time: 12:40 <Sabrina Keller - Last Filed: 01/27/18 14:13> Vital signs: Vital Signs 01/27/18 00:00 01/27/18 04:00 01/27/18 07:56 Temperature 97.5 F L 97.4 F L 95.7 F L Pulse Rate 65 63 66 Respiratory Rate 18 18 16 Blood Pressure 145/53 H 158/70 H 133/70 Pulse Oximetry 95 97 97 01/27/18 08:00 01/27/18 11:45 01/27/18 14:00 Temperature 97.5 F L 97.2 F L Pulse Rate 64 69 111 H Respiratory Rate 20 20 Blood Pressure 145/71 H 131/69 168/80 H Pulse Oximetry 95 97 01/27/18 17:09 Temperature 97.2 F L Pulse Rate 67 Respiratory Rate 20 Blood Pressure 171/78 H Pulse Oximetry 97 Intake & Output 01/27/18 01/27/18 01/28/18 06:59 18:59 06:59 Intake Total 840 / 840 1400 / 1400 Balance 840 / 840 1400 / 1400 Weight 80.4 kg Intake: IV 500 / 500 1100 / 1100 Bumex Inj 25 mg In 100 ml @ 0.5 100 / 100 MG/HR 2 mls/hr IV.CONT .Q24H [facility] Rx#:[id number] Alburx 5% Inj 500 ML @ 250 mls/ 500 / 500 1000 / 1000 hr IV.SIG TID@0800,1200,1700 [facility] Rx#:[id number] Oral 340 / 340 300 / 300 Other: # Voids 500 Date of Last Bowel Movement 01/25/18 01/26/18 - Urinary Catheter Management Indwelling Urethral Catheter Cath placed during this visit: no <Shin Ahmadi - Last Filed: 01/27/18 21:41> Assessment and Plan - Assessment (1) Acute on chronic kidney failure Code(s): N17.9 - Acute kidney failure, unspecified; N18.9 - Chronic kidney disease, unspecified Status: Acute Plan: 1 The patient has proteinuria and most likely she has chronic kidney disease because of diabetic nephropathy. Baseline creatinine of 1.4-1.5 12/[address] scan report,showing the kidneys are normal in size. On Bumex gtt at 0.5mg/hr titrate as needed based on UOP and creatinine. Creatinine has remained stable at 2.2 Urinary output is starting to improve at 1800ml/24 hours. Continue bumex gtt starting to have improvement in urinary output Follow Urine out put and BMP. Avoid nephrotoxins. . (2) HTN (hypertension) Code(s): I10 - Essential (primary) hypertension Status: Acute Plan: Blood pressure labile at times Will monitor (3) Hyperkalemia Code(s): E87.5 - Hyperkalemia Status: Acute Plan: Resolved <Sabrina Keller - Last Filed: 01/27/18 14:13> - Assessment (1) Acute on chronic kidney failure Code(s): N17.9 - Acute kidney failure, unspecified; N18.9 - Chronic kidney disease, unspecified Status: Acute (2) HTN (hypertension) Code(s): I10 - Essential (primary) hypertension Status: Acute (3) Hyperkalemia Code(s): E87.5 - Hyperkalemia Status: Acute - Attending Attestation Patient seen and examined, agree with above. Started on Bumex infusion, Creatinine almost same, 2.2. Follow the urine out put and BMP. <Shin Ahmadi - Last Filed: 01/27/18 21:41>
--- NOTE | 2018-01-28 08:01 | P.PNCA ---
<Ivory Coburn Elda - Last Filed: 01/28/18 07:56> Subjective Interval history: 2 episodes of SOB at rest overnight with slight chest discomfort. poor urine output. Physical Exam Vital signs: Vital Signs 01/27/18 08:00 01/27/18 11:45 01/27/18 14:00 Temperature 97.5 F L 97.2 F L Pulse Rate 64 69 111 H Respiratory Rate 20 20 Blood Pressure 145/71 H 131/69 168/80 H Pulse Oximetry 95 97 01/27/18 17:09 01/27/18 20:00 01/28/18 00:00 Temperature 97.2 F L 97.3 F L 97.3 F L Pulse Rate 67 67 65 Respiratory Rate 20 24 20 Blood Pressure 171/78 H 169/72 H 145/67 H Pulse Oximetry 97 95 100 01/28/18 04:00 Temperature 98.0 F Pulse Rate 66 Respiratory Rate 16 Blood Pressure 162/69 H Pulse Oximetry 96 Intake & Output 01/27/18 01/28/18 01/28/18 18:59 06:59 18:59 Intake Total 1400 / 1400 240 / 240 Output Total 850 / 850 Balance 1400 / 1400 -610 / -610 Intake: IV 1100 / 1100 Bumex Inj 25 mg In 100 ml @ 0.5 100 / 100 MG/HR 2 mls/hr IV.CONT .Q24H [facility] Rx#:[id number] Alburx 5% Inj 500 ML @ 250 mls/ 1000 / 1000 hr IV.SIG TID@0800,1200,1700 [facility] Rx#:[id number] Oral 300 / 300 240 / 240 Output: Urine Amount (Catheter) 850 / 850 Indwelling Urethral Catheter 850 / 850 Other: Date of Last Bowel Movement 01/26/18 Narrative: GENERAL: This is a well-nourished, well-developed patient, in no apparent distress. CARDIOVASCULAR: Regular rate and rhythm, no murmurs RESPIRATORY: Clear to auscultation. Breath sounds equal bilaterally. GASTROINTESTINAL: Abdomen soft, non-tender, nondistended. Normal active bowel sounds MUSCULOSKELETAL: tense edema bilateral LE at posterior aspect of pt's thighs, tense edema abdomen NEURO: Alert & Oriented x4 to person, place, time, situation. Moves all ext x4 - Urinary Catheter Management Indwelling Urethral Catheter Cath placed during this visit: yes Urethral indwelling: Yes Reason for continuing: Hourly intake/output Insertion date: 01/21/18 Insertion time: 12:40 Assessment and Plan - Assessment (1) Nonischemic cardiomyopathy Code(s): I42.8 - Other cardiomyopathies Status: Chronic (2) Acute on chronic kidney failure Code(s): N17.9 - Acute kidney failure, unspecified; N18.9 - Chronic kidney disease, unspecified Status: Acute (3) HTN (hypertension) Code(s): I10 - Essential (primary) hypertension Status: Acute - Plan Reported hx of NICM with EF as low as 15%, s/p AICD: Current LVEF is 45-50% by excellent quality echocardiogram on 01/21/18 Cont Carvedilol. Allergy to RIN-Is. Not a good candidate for spironolactone due the CKD and hyperkalemia. Paroxysmal atrial fibrillation: - continue anticoagulation therapy with Eliquis 5mg bid. Acute on chronic renal failure: Query if component of cardiorenal syndrome. Attempted RHC 01/23 to evaluate Cardiac index/output via right brachial vein approach due to patient's refusal of IJ access and is currently fully anticoagulated with eliquis would have posed high bleeding risk for femoral v. approach. Attempted to gain procedural access was unsuccessful. No plans at this time proceed w/ RHC. Hypertension: Continue carvedilol Continue clonidine to 0.2mg q8hr with hold for sbp< 110 Continue Hydralazine [id number], Isosorbide 20mg bid, Nifedipine 30mg bid. tense edema to upper legs and abdomen x 2-3 weeks echo shows mild RV enlargement with normal PAP. consider imaging to abdomen and IVC to rule out obstruction /compression poor urine output despite bumex gtt and zaroxolyn creatinine stable, 2.2 anemia- Hgb continues to decline. CKD vs. blood loss vs. hemolysis stool for occult blood has been ordered <Ahmet Solitario - Last Filed: 01/28/18 11:26> Physical Exam Vital signs: Vital Signs 01/27/18 11:45 01/27/18 14:00 01/27/18 17:09 Temperature 97.2 F L 97.2 F L Pulse Rate 69 111 H 67 Respiratory Rate 20 20 Blood Pressure 131/69 168/80 H 171/78 H Pulse Oximetry 97 97 01/27/18 20:00 01/28/18 00:00 01/28/18 04:00 Temperature 97.3 F L 97.3 F L 98.0 F Pulse Rate 67 65 66 Respiratory Rate 24 20 16 Blood Pressure 169/72 H 145/67 H 162/69 H Pulse Oximetry 95 100 96 01/28/18 08:00 Temperature 97.5 F L Pulse Rate 64 Respiratory Rate 18 Blood Pressure 162/74 H Pulse Oximetry 96 Intake & Output 01/27/18 01/28/18 01/28/18 18:59 06:59 18:59 Intake Total 1400 / 1400 240 / 240 Output Total 850 / 850 Balance 1400 / 1400 -610 / -610 Intake: IV 1100 / 1100 Bumex Inj 25 mg In 100 ml @ 0.5 100 / 100 MG/HR 2 mls/hr IV.CONT .Q24H [facility] Rx#:[id number] Alburx 5% Inj 500 ML @ 250 mls/ 1000 / 1000 hr IV.SIG TID@0800,1200,1700 [facility] Rx#:[id number] Oral 300 / 300 240 / 240 Output: Urine Amount (Catheter) 850 / 850 Indwelling Urethral Catheter 850 / 850 Other: Date of Last Bowel Movement 01/26/18 01/26/18 - Urinary Catheter Management Indwelling Urethral Catheter Cath placed during this visit: no Assessment and Plan - Assessment (1) Nonischemic cardiomyopathy Code(s): I42.8 - Other cardiomyopathies Status: Chronic (2) Acute on chronic kidney failure Code(s): N17.9 - Acute kidney failure, unspecified; N18.9 - Chronic kidney disease, unspecified Status: Acute (3) HTN (hypertension) Code(s): I10 - Essential (primary) hypertension Status: Acute - Attending Attestation Bumex gtt titrated up poor urine output may need to consider ultrafiltration renal following - will sign off call with further questions
[2018-01-28] MEDS: Insulin NovoLOG Aspart Correctional Sugar Inj SQ SCH ×4 (08:04→21:09)
[2018-01-28] MEDS: Insulin Detemir Inj 1,000 UNIT/10 ML Vial SQ SCH ×2 (08:04→21:09)
[2018-01-28] MEDS: Docusate Sodium 100 MG Capsule PO SCH ×2 (08:12→21:05)
[2018-01-28] MEDS: Carvedilol 12.5 MG Tablet PO SCH ×2 (08:12→21:05)
[2018-01-28] MEDS: Minoxidil 2.5 MG Tablet PO SCH (08:12)
[2018-01-28] MEDS: Folic Acid 1 MG Tablet PO SCH (08:12)
[2018-01-28] MEDS: Isosorbide Mononitrate 20 MG Tablet PO SCH ×2 (08:12→21:05)
[2018-01-28] MEDS: Lactobacillus Acidophilus/L. Spores Tablet PO SCH ×2 (08:12→21:05)
--- NOTE | 2018-01-28 09:50 | P.PNIM ---
Subjective Interval history: Follow up: nonischemic cardiomyopathy with anasarca Patient sitting up in bed eating breakfast c/o generalized discomfort and stiffness continues to have firm edema abd, LUE and BLE Physical Exam Vital signs: Vital Signs 01/27/18 11:45 01/27/18 14:00 01/27/18 17:09 Temperature 97.2 F L 97.2 F L Pulse Rate 69 111 H 67 Respiratory Rate 20 20 Blood Pressure 131/69 168/80 H 171/78 H Pulse Oximetry 97 97 01/27/18 20:00 01/28/18 00:00 01/28/18 04:00 Temperature 97.3 F L 97.3 F L 98.0 F Pulse Rate 67 65 66 Respiratory Rate 24 20 16 Blood Pressure 169/72 H 145/67 H 162/69 H Pulse Oximetry 95 100 96 01/28/18 08:00 Temperature 97.5 F L Pulse Rate 64 Respiratory Rate 18 Blood Pressure 162/74 H Pulse Oximetry 96 Intake & Output 01/27/18 01/28/18 01/28/18 18:59 06:59 18:59 Intake Total 1400 / 1400 240 / 240 Output Total 850 / 850 Balance 1400 / 1400 -610 / -610 Intake: IV 1100 / 1100 Bumex Inj 25 mg In 100 ml @ 0.5 100 / 100 MG/HR 2 mls/hr IV.CONT .Q24H [facility] Rx#:[id number] Alburx 5% Inj 500 ML @ 250 mls/ 1000 / 1000 hr IV.SIG TID@0800,1200,1700 [facility] Rx#:[id number] Oral 300 / 300 240 / 240 Output: Urine Amount (Catheter) 850 / 850 Indwelling Urethral Catheter 850 / 850 Other: Date of Last Bowel Movement 01/26/18 Narrative: GENERAL: This is a 53 year old female with left hemiparalysis who appears older than stated age, in no apparent distress. CARDIOVASCULAR: Regular rate and rhythm RESPIRATORY: Clear to auscultation. Breath sounds equal bilaterally. GASTROINTESTINAL: Abdomen soft, non-tender, nondistended. Normal active bowel sounds MUSCULOSKELETAL: tense/firm edema bilateral LE at posterior aspect of pt's thighs, tense edema abdomen and LUE NEURO: Alert & Oriented. Moves all ext x4 - Urinary Catheter Management Indwelling Urethral Catheter Cath placed during this visit: yes Urethral indwelling: Yes Reason for continuing: Hourly intake/output Insertion date: 01/21/18 Insertion time: 12:40 Results - Labs CBC & Chem 7: 01/28/18 08:35 01/28/18 08:35 Laboratory Results - last 24 hr 01/28/18 00:11 POC Glucose 197 H Assessment and Plan - Assessment (1) Nonischemic cardiomyopathy Code(s): I42.8 - Other cardiomyopathies Status: Chronic Plan: Abdominal pain Nausea/vomiting Constipation, improved - Pt is a 52 y/o AAF with chronic systolic CHF, nonischemic cardiomyopathy with EF 15-20% s/p AICD, hx of CVA in 12/2017 (Bilateral acute to subacute posterior cerebral artery infarcts on Head CT on 12/22/17), congestive hepatopathy, ascites , HTN, CKD, stage 3, and type 2 diabetes mellitus, insulin dependent. Pt has had multiple hospitalizations at [facility] in [place] and [facility] in the last several month for various issues related to her CHF /Cardiomyopathy, DKA, Acute on chronic renal failure, CVA. After her most recent admission from 12/02/17 to 01/08/18 was for CHF and was transferred to [facility] to be evaluated for possible heart transplant vs. LVAD. During that admission she had an acute CVA with resulting left sided weakness and felt that she was not a good candidate for advanced heart failure treatment. Pt was discharged to [facility] on 01/08/18. - She was brought to the ED from a local rehab center for hyperkalemia and N/V. She has noted issues with constipation more recently. Over the last two days she has had nausea/vomiting and has not been eating much. She has not passed any stool in the last two days either. - CT abd/pelvis in the ED which noted moderate ascites and anasarca, cardiomegaly with pacer lead tip in right ventricle, and small fat-containing umbilical hernia. No bowel obstruction. In reviewing the images she has a significant amount of stool throughout the colon and in the rectum. - Pt had a small BM on 01/17 but has been refusing the Lactulose BID - Pt was given Mag Citrate and Colace BID on 01/18 but no significant stooling - Pt had Gastrografin enema on 01/20 with large volume of stool output - Zofran PRN - Protonix 40mg IV daily Nonischemic cardiomyopathy Chronic systolic CHF with EF 15-20% s/p AICD - Pt was given a dose of IV Lasix in the ED - CXR in the ED noted Cardiomegaly with prominent main pulmonary artery. Pacer lead overlies right ventricle. No focal consolidation or effusion. - Pt was continued on PO Lasix 40mg BID due to worsening renal function - Pt was given a dose of Lasix 80mg IV with Albumin IV given prior to the Lasix on 01/19 - Cr is stable to improved today at 2.35 - BNP is elevated from at admission from 1368--> 1852 - Monitor electrolyte closely - Pt was reportedly evaluated at [facility] recently for Heart transplant vs. LVAD but had a stroke during that admission and was not felt to be a good candidate after the CVA. - CXR (01/20/18) --> Cardiomegaly with trace positive fluid balance - Monitor clinical status closely - Pt is typically on 2L of supplemental O2 - Discussed code status with the pt and she wishes to be a full code. - appreciate input from Palliative Service - increased lasix to 80mg IV TID. - Pt's Creatinine has improved with IV lasix but there is no clinical improvement yet. - continue IV albumin - change IV lasix to Bumex gtt (01/26/18) - continue PO Zaroxolyn 2.5mg BID - O2 - observe clinical response - Would pt benefit from HD - DVT prophylaxis with Eliquis - supportive care - Consult Nephrology to see if pt might benefit from hemodialysis Diabetes mellitus, poorly controlled Hgb A1C 14.4 on 08/31/17 Hypoglycemia - Pt was also given Novolin 10 units and Dextrose overnight and was hypoglycemic with BS 34 on 01/17. Pt was given orange juice twice this morning and her BS improved to 158. - Today her BS are in the 200s. - Pt is normally on Novolin 10 units BID and NovoLog SSI - Basal insulin with Levemir 5 units BID started on 01/18 -> titrated to 15 units BID - NovoLog SSI - Accu checks - Monitor BS closely Hyperkalemia Acute on chronic renal disease, stage 3 - Outpt labs from 11/2017 noted Cr around 1.4-1.5 - Labs in the ED noted a potassium of 6.1. - Pt was given Kayexalate and Calcium Gluconate in the ED her repeat potassium this morning was 5.5 and second repeat was 5.7 on 01/17 - Pt refusing Lab draws on 01/18, but we discussed with the pt the importance of getting er labs drawn to monitor her electrolytes and kidney function and was agreed - Pt was given a second dose of Kayexalate on 01/17 but pt has not moved her bowels. - Repeat K+ down to 5.0 but renal function is worse on 01/18 with Cr around 2.49 - (01/26) BUN 49m creatinine 2.22, estimated GFR 28 - (01/27) BUN 53, creatinine 2.20, estimated GFR 28 - Labs pending for this AM HTN (hypertension) - Cont. home meds - BP is poorly controlled on multiple medications - Monitor with change to IV Lasix - Clonidine PRN - Monitor closely Elevated LFTs Congestive hepatopathy Ascites - Review of outpt records show the pts AlkPhos has been elevated since 10/2016 - AlkPhos Isoenzyme in 10/2017 noted 72% liver, 20% bone, 8% intestine - Transjugular liver bx (12/20/17) --> Findings suggestive of congestive hepatopathy. Anemia - patient's hgb has been trending down on admission hgb 10.4 - (01/27) 7.7, hct 24.1, MCV 88.9 - iron 17, TIBC 176, % saturation 9.6 - start ferrous sulfate PO BID - reticulocyte count 0.9 - occult stool requested - labs pending for this AM The exam, history, and the medical decision-making described in the above note were completed with the assistance of the mid-level provider. I reviewed and agree with the findings presented. I attest that I had a [id number] encounter with the patient on the same day, and personally performed and documented my assessment and findings in the medical record. lower levemir dosing for hypoglycemia. cont bumex gtt and monitor edema/urine output and gfr.
[2018-01-28 09:56] LABS: Baso % (Auto) 1.3 % (0.0-2.0); Eos # (Auto) 0.2 th/mm3 (0.0-0.4); Eos % (Auto) 5.1 % (0.0-4.0); Hematocrit 25.1 % (35.0-46.0); Lymph # (Auto) 0.4 th/mm3 (1.0-4.8); Lymph % (Auto) 14.7 % (9.0-44.0); Mean Corpuscular Hemoglobin 28.6 pg (27.0-34.0); Mean Corpuscular Volume 89.3 fL (80.0-100.0); Mean Platelet Volume 8.4 fL (7.0-11.0); Mono # (Auto) 0.3 th/mm3 (0.0-0.9); Mono % (Auto) 9.3 % (0.0-8.0); Neut # (Auto) 2.1 th/mm3 (1.8-7.7); Neut % (Auto) 69.6 % (16.0-70.0); Platelet Count 327 th/mm3 (150-450); Red Blood Count 2.81 mil/mm3 (4.00-5.30); White Blood Count 3.1 th/mm3 (4.0-11.0)
[2018-01-28 10:19] LABS: Calcium 9.5 mg/dL (8.5-10.1); Carbon Dioxide 26.2 meq/L (21.0-32.0); Potassium 3.6 meq/L (3.5-5.1)
[2018-01-28] MEDS: Ferrous Sulfate 325 MG Tablet PO SCH ×3 (12:10→17:27)
[2018-01-28] MEDS: Albumin Human 5% Inj 500 ML IV.SIG SCH ×3 (12:10→17:27)
--- NOTE | 2018-01-28 14:03 | P.PNPAL ---
Reason for Visit Reason for visit: a. To assist with evaluation and management of symptoms including: Edema, pain , orthopnea b. To assist medical decision maker(s) with: better understanding of current medical conditions; weighing benefits/burdens of medical treatment options; making medical treatment decisions. Subjective Subjective/Interval History: Patient seen today to evaluate symptom management of edema, pain, orthopnea. Patient continues to have tense edema to bilateral thighs and left upper extremity. Abdomen remains tense with CT of abdomen and pelvis showing moderate ascites and anasarca. She states her lower extremities were also painfully edematous prior to the application of knee-high sequential compression devices which have improved her edema below the knee. The lower legs reveal creases from compression and remain with trace to 1+ edema. Patient states she has had tense edema in her left upper extremity since her stroke in December 2017, but not prior. She states that the lower extremity edema had developed after her stroke and had been present since. She complains of pain from the edema as well as early satiety, likely related to the ascites and anasarca. She describes it as a tightness that increases with any mobility of the extremity, or sitting up, but is constant in duration of moderately severe intensity. She complains of orthopnea, although has minimal dyspnea sitting up. She is unable to lie flat and requires head of bed elevated to an approximate 3 pillow height. She states it feels as though she is "drowning" when trying to recline. . Family/Friend Interactions: Patient's family is at bedside. Clinical update given. Extensive cardiac education completed. Reviewed pathophysiology for possible right heart dysfunction contributing to symptoms of edema, ascites, anasarca. Reviewed current symptomatology. Family participated in providing information. Reviewed goals of care to include CODE STATUS and patient confirms that she wishes to continue aggressive care. Family also agrees with this goal. Her discharge plan is to go home with family. We did discuss participation with physical therapy to facilitate that goal. She states that she has difficulty moving due to the severe, tense edema in her legs, abdomen and left arm. . Advance Directives Advance Directives Date on File: 01/20/18 Health Care Surrogate Name and Number: Primary: Tanvi De Paz [phone] Alternate: Randi De Paz [phone] Objective Vital Signs: Vital Signs 01/27/18 14:00 01/27/18 17:09 01/27/18 20:00 Temperature 97.2 F L 97.3 F L Pulse Rate 111 H 67 67 Respiratory Rate 20 24 Blood Pressure 168/80 H 171/78 H 169/72 H Pulse Oximetry 97 95 01/28/18 00:00 01/28/18 04:00 01/28/18 08:00 Temperature 97.3 F L 98.0 F 97.5 F L Pulse Rate 65 66 64 Respiratory Rate 20 16 18 Blood Pressure 145/67 H 162/69 H 162/74 H Pulse Oximetry 100 96 96 01/28/18 12:00 Temperature 97.1 F L Pulse Rate 64 Respiratory Rate 20 Blood Pressure 165/81 H Pulse Oximetry 99 Intake & Output 01/27/18 01/28/18 01/28/18 18:59 06:59 18:59 Intake Total 1400 / 1400 740 / 740 500 / 500 Output Total 850 / 850 Balance 1400 / 1400 -110 / -110 500 / 500 Intake: IV 1100 / 1100 500 / 500 500 / 500 Bumex Inj 25 mg In 100 ml @ 0.5 100 / 100 MG/HR 2 mls/hr IV.CONT .Q24H [facility] Rx#:[id number] Alburx 5% Inj 500 ML @ 250 mls/ 1000 / 1000 500 / 500 500 / 500 hr IV.SIG TID@0800,1200,1700 [facility] Rx#:[id number] Oral 300 / 300 240 / 240 Output: Urine Amount (Catheter) 850 / 850 Indwelling Urethral Catheter 850 / 850 Other: Date of Last Bowel Movement 01/26/18 01/26/18 Physical Exam: CONSTITUTIONAL/GENERAL: This is a chronically ill appearing, middle aged female in no acute distress. TUBES/LINES/DRAINS: PIV x 1, nasal cannula SKIN: No jaundice, rashes, or lesions. Ecchymoses on upper extremities. Skin temperature appropriate. Not diaphoretic. HEAD: Atraumatic. Normocephalic. EYES: Pupils equal and round. Extraocular motions intact. No scleral icterus. No injection or drainage. Fundi not examined. ENT: Hearing grossly normal. Nose without bleeding or purulent drainage. NECK: Trachea midline. Supple, nontender. No palpable thyroid enlargement or nodularity. CARDIOVASCULAR: Regular rate and rhythm without murmurs, gallops, or rubs. Mild , right sided JVD. Peripheral pulses symmetric. RESPIRATORY/CHEST: Symmetric, unlabored respirations. Breath sounds equal bilaterally. No wheezes, rales, or rhonchi. GASTROINTESTINAL: Abdomen firm, distended, no guarding, tender to palpation. Hypoactive sounds present. GENITOURINARY: Without palpable bladder distension. MUSCULOSKELETAL: Extremities without clubbing or cyanosis. Tense edema in bilateral lower extremities, decreased below the knee secondary to compression of SCDs. Left upper extremity with tense edema at distal bicep and tricep, and 2+ edema through the remainder of the left upper extremity. LYMPHATICS: No palpable cervical or supraclavicular adenopathy. NEUROLOGICAL: Awake and alert. Answers questions appropriately; able to make needs known. Follows commands. Left-sided weakness PSYCHIATRIC: No obvious anxiety/depression. No apparent hallucinations or other psychotic thought process. . Diagnostic Tests Laboratory: Laboratory Results - last 72 hr 01/25/18 01/25/18 01/25/18 07:00 17:18 20:07 WBC RBC Hgb Hct MCV MCH MCHC RDW Plt Count MPV Neut % (Auto) Lymph % (Auto) Knox % (Auto) Eos % (Auto) Baso % (Auto) Neut # (Auto) Lymph # (Auto) Knox # (Auto) Eos # (Auto) Baso # (Auto) WBC Differential Differential Comment Retic Count Absolute Retic Sodium Potassium Chloride Carbon Dioxide Anion Gap BUN Creatinine Estimated GFR POC Glucose 165 H 345 H Random Glucose Calcium Phosphorus Magnesium Iron TIBC % Saturation Ferritin Total Bilirubin AST ALT Alkaline Phosphatase Lactate Dehydrogenase Total Protein Albumin TSH 4.980 H Free T4 1.02 Free T3 0.98 L 01/25/18 01/25/18 01/26/18 22:45 22:45 06:40 WBC 4.0 RBC 2.80 L Hgb 8.0 L Hct 25.2 L MCV 90.3 MCH 28.8 MCHC 31.9 L RDW 17.0 Plt Count 295 MPV 8.4 Neut % (Auto) Lymph % (Auto) Knox % (Auto) Eos % (Auto) Baso % (Auto) Neut # (Auto) Lymph # (Auto) Knox # (Auto) Eos # (Auto) Baso # (Auto) WBC Differential Differential Comment Retic Count Absolute Retic Sodium 141 141 Potassium 3.6 3.7 Chloride 101 101 Carbon Dioxide 29.2 28.6 Anion Gap 11 11 BUN 46 H 49 H Creatinine 2.22 H 2.22 H Estimated GFR 28 L 28 L POC Glucose Random Glucose 152 H 83 Calcium 8.6 9.1 Phosphorus 4.0 Magnesium 1.8 Iron TIBC % Saturation Ferritin Total Bilirubin 0.4 0.4 AST 41 H 38 H ALT 38 38 Alkaline Phosphatase 581 H 588 H Lactate Dehydrogenase Total Protein 7.8 D 7.7 Albumin 3.7 3.4 TSH Free T4 Free T3 01/26/18 01/26/18 01/26/18 08:54 12:04 12:35 WBC RBC Hgb Hct MCV MCH MCHC RDW Plt Count MPV Neut % (Auto) Lymph % (Auto) Knox % (Auto) Eos % (Auto) Baso % (Auto) Neut # (Auto) Lymph # (Auto) Knox # (Auto) Eos # (Auto) Baso # (Auto) WBC Differential Differential Comment Retic Count Absolute Retic Sodium Potassium Chloride Carbon Dioxide Anion Gap BUN Creatinine Estimated GFR POC Glucose 96 120 H Random Glucose Calcium Phosphorus Magnesium Iron 17 L TIBC 176 L % Saturation 9.6 L Ferritin Total Bilirubin AST ALT Alkaline Phosphatase Lactate Dehydrogenase Total Protein Albumin TSH Free T4 Free T3 01/26/18 01/26/18 01/26/18 12:35 12:35 12:35 WBC RBC Hgb Hct MCV MCH MCHC RDW Plt Count MPV Neut % (Auto) Lymph % (Auto) Knox % (Auto) Eos % (Auto) Baso % (Auto) Neut # (Auto) Lymph # (Auto) Knox # (Auto) Eos # (Auto) Baso # (Auto) WBC Differential Differential Comment Retic Count 0.9 Absolute Retic 25.9 Sodium Potassium Chloride Carbon Dioxide Anion Gap BUN Creatinine Estimated GFR POC Glucose Random Glucose Calcium Phosphorus Magnesium Iron TIBC % Saturation Ferritin 180 Total Bilirubin AST ALT Alkaline Phosphatase Lactate Dehydrogenase 168 Total Protein Albumin TSH Free T4 Free T3 01/26/18 01/27/18 01/27/18 17:07 00:28 06:54 WBC 5.4 RBC 2.71 L Hgb 7.7 L Hct 24.1 L MCV 88.9 MCH 28.3 MCHC 31.8 L RDW 17.1 Plt Count 280 MPV 8.3 Neut % (Auto) 77.5 H Lymph % (Auto) 10.7 Knox % (Auto) 7.3 Eos % (Auto) 3.7 Baso % (Auto) 0.8 Neut # (Auto) 4.2 Lymph # (Auto) 0.6 L Knox # (Auto) 0.4 Eos # (Auto) 0.2 Baso # (Auto) 0.0 WBC Differential . Differential Comment Auto diff final Retic Count Absolute Retic Sodium Potassium Chloride Carbon Dioxide Anion Gap BUN Creatinine Estimated GFR POC Glucose 91 160 H Random Glucose Calcium Phosphorus Magnesium Iron TIBC % Saturation Ferritin Total Bilirubin AST ALT Alkaline Phosphatase Lactate Dehydrogenase Total Protein Albumin TSH Free T4 Free T3 01/27/18 01/27/18 01/28/18 06:54 06:54 00:11 WBC RBC Hgb Hct MCV MCH MCHC RDW Plt Count MPV Neut % (Auto) Lymph % (Auto) Knox % (Auto) Eos % (Auto) Baso % (Auto) Neut # (Auto) Lymph # (Auto) Knox # (Auto) Eos # (Auto) Baso # (Auto) WBC Differential Differential Comment Retic Count Absolute Retic Sodium 140 Potassium 3.7 Chloride 100 Carbon Dioxide 28.3 Anion Gap 12 BUN 53 H Creatinine 2.20 H Estimated GFR 28 L POC Glucose 180 H 197 H Random Glucose 162 H Calcium 9.0 Phosphorus Magnesium 1.9 Iron TIBC % Saturation Ferritin Total Bilirubin AST ALT Alkaline Phosphatase Lactate Dehydrogenase Total Protein Albumin TSH Free T4 Free T3 01/28/18 01/28/18 08:35 08:35 WBC 3.1 L RBC 2.81 L Hgb 8.0 L Hct 25.1 L MCV 89.3 MCH 28.6 MCHC 32.0 RDW 17.0 Plt Count 327 MPV 8.4 Neut % (Auto) 69.6 Lymph % (Auto) 14.7 Knox % (Auto) 9.3 H Eos % (Auto) 5.1 H Baso % (Auto) 1.3 Neut # (Auto) 2.1 Lymph # (Auto) 0.4 L Knox # (Auto) 0.3 Eos # (Auto) 0.2 Baso # (Auto) 0.0 WBC Differential . Differential Comment Auto diff final Retic Count Absolute Retic Sodium 139 Potassium 3.6 Chloride 100 Carbon Dioxide 26.2 Anion Gap 13 BUN 55 H Creatinine 2.15 H Estimated GFR 29 L POC Glucose Random Glucose 63 L Calcium 9.5 Phosphorus Magnesium Iron TIBC % Saturation Ferritin Total Bilirubin AST ALT Alkaline Phosphatase Lactate Dehydrogenase Total Protein Albumin TSH Free T4 Free T3 Result Diagrams: 01/28/18 08:35 01/28/18 08:35 Imaging: ITS Impressions Chest X-Ray 01/20/18 06:00 CONCLUSION: 1. Cardiomegaly with trace positive fluid balance. Enema w/Water Soluble 01/20/18 08:00 CONCLUSION: Status post therapeutic Gastrografin enema. Procedures: N/A . Assessment and Plan - Disease Oriented Problem List (1) CHF exacerbation (2) Constipation (3) Diabetes (4) Acute on chronic kidney failure (5) Hyperkalemia (6) HTN (hypertension) (7) Elevated LFTs (8) Ascites Pertinent Non-Medical Issues: Psychosocial: Patient lives in [place]. Patient is legally but . She has 3 daughters (Randi, Izabel and Tanvi). She lives with one of her daughters. Spiritual: Mandaen jung; declined safety specialist visits Legal: Healthcare surrogate designation form completed 01/20/2018. Daughter, Tanvi Paula, is the primary healthcare surrogate decision-maker. Another daughter, Randi Paula, is the alternate healthcare surrogate decision maker. Ethical issues impacting care: No known ethical issues impacting care at this time. . Important Contacts: Tanvi Paula, daughter: [phone] Randi Paula, daughter: [phone] Lori Paula, daughter: [phone] . Prognosis: Patient is a 52 year old female with a complex medical history. She has multiple hospitalizations in recent months secondary to CHF, DKA, acute on chronic renal failure and CVA. Most recently the patient was admitted from 2017 through 01/08/2018 with a CHF exacerbation; she was transferred to [facility] in [place] to be evaluated for a possible heart transplant versus LVAD. During that hospitalization the patient had an acute CVA and was no longer considered a candidate for aggressive interventions. EF 15-20%. Patient is at high risk for ongoing decline and complications. She is hospice appropriate when/if her goals become comfort oriented. . Code Status: Full Code Plan: = FULL CODE = Decision making: patient currently shows insight and judgement related to her medical conditions. Healthcare surrogate designation form completed 01/20/2018. Daughter, Tanvi Paula, is the primary healthcare surrogate decision-maker. Another daughter, Randi Paula, is the alternate healthcare surrogate decision maker. = Patient has verbalized ongoing goals to go home with her family once stabilized. After discussion, she is aware that without a right-sided heart catheterization, there is little more that can be done to determine the cause of her fluid retention. In spite of continuous colloid and Bumex infusion, her I/oh balance remains positive. 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 Bilateral lower extremities appear to have more of a right-sided heart failure appearance, the left arm swelling is concerning for recurrent DVT. Would recommend venous Doppler of left upper extremity. * Pain: She states that the edema is causing her discomfort, making it difficult for her to move. She is currently on an albumin and Bumex continuous drip to attempt to ameliorate the edema, however at this time is not resolving the problem. Previous attempt at right heart catheterization was unsuccessful at gaining access and after multiple needle sticks, the patient declined any further intervention. She may be willing to reconsider that if adequate explanation is given. * Orthopnea: Part of her discomfort is being unable to recline as it exacerbates her dyspnea significantly. Head of bed is elevated at the approximate 3 pillow orthopnea level. Patient does become mildly dyspneic with continuous speech, requiring that she rest before resuming conversation. = Palliative care will continue to follow this patient throughout her hospitalization to establish trust, assist with symptom management and clarification of medical treatment goals. Attestation Attestation: To help prompt me to consider important information that might be impacting today's encounter and assessment, information from prior notes written by myself or my colleagues may have been "brought forward" into today's note. My signature on this note, however, is an attestation that I personally performed the exam, history, and/or decision-making noted today, and, unless otherwise indicated, the interactions with patient, family, and staff as well as the review of records all occurred today. I also attest that the listed assessment and stated plan reflect my best clinical judgment today based on the combination of historical information, prior notes, and today's exam/ interactions. When time spent is documented, it refers only to time spent today by the signer, or if indicated, combined time spent today by collaborating physician/nurse practitioner. .
--- NOTE | 2018-01-28 14:40 | P.PNNP ---
Subjective Interval history: Seen earlier in day. Continues to have tight dependent edema. On bumex gtt. Creatinine is stable. <Sabrina Keller - Last Filed: 01/28/18 14:32> Physical Exam Vital signs: Vital Signs 01/27/18 17:09 01/27/18 20:00 01/28/18 00:00 Temperature 97.2 F L 97.3 F L 97.3 F L Pulse Rate 67 67 65 Respiratory Rate 20 24 20 Blood Pressure 171/78 H 169/72 H 145/67 H Pulse Oximetry 97 95 100 01/28/18 04:00 01/28/18 08:00 01/28/18 12:00 Temperature 98.0 F 97.5 F L 97.1 F L Pulse Rate 66 64 64 Respiratory Rate 16 18 20 Blood Pressure 162/69 H 162/74 H 165/81 H Pulse Oximetry 96 96 99 Intake & Output 01/27/18 01/28/18 01/28/18 18:59 06:59 18:59 Intake Total 1400 / 1400 740 / 740 500 / 500 Output Total 850 / 850 Balance 1400 / 1400 -110 / -110 500 / 500 Intake: IV 1100 / 1100 500 / 500 500 / 500 Bumex Inj 25 mg In 100 ml @ 0.5 100 / 100 MG/HR 2 mls/hr IV.CONT .Q24H [facility] Rx#:[id number] Alburx 5% Inj 500 ML @ 250 mls/ 1000 / 1000 500 / 500 500 / 500 hr IV.SIG TID@0800,1200,1700 [facility] Rx#:[id number] Oral 300 / 300 240 / 240 Output: Urine Amount (Catheter) 850 / 850 Indwelling Urethral Catheter 850 / 850 Other: Date of Last Bowel Movement 01/26/18 01/26/18 - Constitutional no acute distress - Routine HEENT Exam Head: Present: normocephalic ENT: Present: mucous membranes moist - Routine Neck Exam Present: supple. Absent: JVD - Routine Respiratory Exam Present: decreased breath sounds. Absent: rales, rhonchi, wheezes - Routine Cardiovascular Exam Present: RRR. Absent: murmur - Routine Abdominal Exam Present: soft, normoactive bowel sounds - Routine Extremities Exam Present: edema Comments: tight dependent edema - Routine Skin Exam Present: dry, warm - Routine Neurological Exam Present: alert - Routine Psychiatric Exam Present: cooperative - Urinary Catheter Management Indwelling Urethral Catheter Cath placed during this visit: yes Urethral indwelling: Yes Reason for continuing: Hourly intake/output Insertion date: 01/21/18 Insertion time: 12:40 <Sabrina Keller - Last Filed: 01/28/18 14:32> Vital signs: Vital Signs 01/28/18 00:00 01/28/18 04:00 01/28/18 08:00 Temperature 97.3 F L 98.0 F 97.5 F L Pulse Rate 65 66 64 Respiratory Rate 20 16 18 Blood Pressure 145/67 H 162/69 H 162/74 H Pulse Oximetry 100 96 96 01/28/18 12:00 01/28/18 16:00 Temperature 97.1 F L 97.1 F L Pulse Rate 64 66 Respiratory Rate 20 22 Blood Pressure 165/81 H 165/72 H Pulse Oximetry 99 98 Intake & Output 01/28/18 01/28/18 01/29/18 06:59 18:59 06:59 Intake Total 740 / 740 1720 / 1720 Output Total 850 / 850 875 / 875 Balance -110 / -110 845 / 845 Intake: IV 500 / 500 1000 / 1000 Alburx 5% Inj 500 ML @ 250 mls/ 500 / 500 1000 / 1000 hr IV.SIG TID@0800,1200,1700 [facility] Rx#:[id number] Oral 240 / 240 720 / 720 Output: Urine 875 / 875 Urine Amount (Catheter) 850 / 850 Indwelling Urethral Catheter 850 / 850 Other: Date of Last Bowel Movement 01/26/18 - Urinary Catheter Management Indwelling Urethral Catheter Cath placed during this visit: no <Shin Ahmadi - Last Filed: 01/28/18 21:54> Assessment and Plan - Assessment (1) Acute on chronic kidney failure Code(s): N17.9 - Acute kidney failure, unspecified; N18.9 - Chronic kidney disease, unspecified Status: Acute Plan: 1 The patient has proteinuria and most likely she has chronic kidney disease because of diabetic nephropathy. Baseline creatinine of 1.4-1.5 12/[address] scan report,showing the kidneys are normal in size. On Bumex gtt at 1 mg/hr titrate as needed based on UOP and creatinine. Creatinine has remained stable at 2.15 Continue bumex gtt continues to increased edema will increase metolazone. Follow Urine out put and BMP. Avoid nephrotoxins. . (2) HTN (hypertension) Code(s): I10 - Essential (primary) hypertension Status: Acute Plan: Blood pressure elevated Minoxidil increased Will monitor (3) Hyperkalemia Code(s): E87.5 - Hyperkalemia Status: Acute Plan: Resolved <Sabrina Keller - Last Filed: 01/28/18 14:32> - Assessment (1) Acute on chronic kidney failure Code(s): N17.9 - Acute kidney failure, unspecified; N18.9 - Chronic kidney disease, unspecified Status: Acute (2) HTN (hypertension) Code(s): I10 - Essential (primary) hypertension Status: Acute (3) Hyperkalemia Code(s): E87.5 - Hyperkalemia Status: Acute - Attending Attestation Patient seen and examine, agree with above. Creatinine is almost same. Edema is not imrpoving. Continue Bumex gtt, increase Metolazone. Follow the urine out put and BMP. <Shin Ahmadi - Last Filed: 01/28/18 21:54>
[2018-01-28] MEDS: Bumetanide Inj 25 MG/100 ML BAG IV.CONT SCH (17:26)
[2018-01-28] MEDS: Pantoprazole Inj 40 MG Vial IV.PUSH SCH (17:27)
[2018-01-28] MEDS: metOLazone 5 MG Tablet PO SCH (19:11)
[2018-01-29] MEDS: Bumetanide Inj 25 MG/100 ML BAG IV.CONT SCH ×2 (05:09→19:57)
[2018-01-29] MEDS: Docusate Sodium 100 MG Capsule PO SCH ×2 (08:22→20:12)
[2018-01-29] MEDS: Minoxidil 2.5 MG Tablet PO SCH (08:23)
[2018-01-29] MEDS: Carvedilol 12.5 MG Tablet PO SCH ×2 (08:23→20:12)
[2018-01-29] MEDS: Lactobacillus Acidophilus/L. Spores Tablet PO SCH ×2 (08:23→20:12)
[2018-01-29] MEDS: Folic Acid 1 MG Tablet PO SCH (08:24)
[2018-01-29] MEDS: Sod Chloride 0.9% Inj 1,000 ML IV.CONT SCH ×2 (08:37→08:40)
[2018-01-29] MEDS: metOLazone 5 MG Tablet PO SCH (09:00)
[2018-01-29] MEDS: Isosorbide Mononitrate 20 MG Tablet PO SCH ×2 (09:00→20:12)
[2018-01-29] MEDS: Pantoprazole Inj 40 MG Vial IV.PUSH SCH (10:00)
--- NOTE | 2018-01-29 10:53 | P.PNIM ---
Subjective Interval history: No new complaints Tense edema relatively unchanged BP still elevated Physical Exam Vital signs: Vital Signs 01/28/18 12:00 01/28/18 16:00 01/28/18 19:53 Temperature 97.1 F L 97.1 F L Pulse Rate 64 66 66 Respiratory Rate 20 22 Blood Pressure 165/81 H 165/72 H Pulse Oximetry 99 98 01/28/18 20:00 01/28/18 22:15 01/28/18 23:57 Temperature 97.5 F L Pulse Rate 66 68 Respiratory Rate 17 18 Blood Pressure 147/74 H Pulse Oximetry 94 L 01/29/18 00:35 01/29/18 04:00 01/29/18 04:50 Temperature 97.2 F L 97.3 F L Pulse Rate 67 68 70 Respiratory Rate 17 17 Blood Pressure 136/74 174/83 H Pulse Oximetry 97 97 01/29/18 08:00 01/29/18 08:07 Temperature 97.5 F L Pulse Rate 73 Respiratory Rate 18 Blood Pressure 168/75 H Pulse Oximetry 93 L 97 Intake & Output 01/28/18 01/29/18 01/29/18 18:59 06:59 18:59 Intake Total 1720 / 1720 580 / 580 Output Total 875 / 875 300 / 300 Balance 845 / 845 280 / 280 Weight 86 kg Intake: IV 1000 / 1000 100 / 100 Bumex Inj 25 mg In 100 ml @ 1 100 / 100 MG/HR 4 mls/hr IV.CONT .Q24H [facility] Rx#:[id number] Alburx 5% Inj 500 ML @ 250 mls/ 1000 / 1000 hr IV.SIG TID@0800,1200,1700 [facility] Rx#:[id number] Oral 720 / 720 480 / 480 Output: Urine 875 / 875 Urine Amount (Catheter) 300 / 300 Indwelling Urethral Catheter 300 / 300 Other: Date of Last Bowel Movement 01/26/18 01/27/18 01/27/18 # Bowel Movements 0 Narrative: GENERAL: This is a 53 year old female with left hemiparalysis who appears older than stated age, in no apparent distress. CARDIOVASCULAR: Regular rate and rhythm RESPIRATORY: Clear to auscultation. Breath sounds equal bilaterally. GASTROINTESTINAL: Abdomen soft, non-tender, nondistended. Normal active bowel sounds MUSCULOSKELETAL: tense/firm edema bilateral LE at posterior aspect of pt's thighs, tense edema abdomen and LUE NEURO: Alert & Oriented. - Urinary Catheter Management Indwelling Urethral Catheter Cath placed during this visit: yes Urethral indwelling: Yes Reason for continuing: Hourly intake/output Insertion date: 01/21/18 Insertion time: 12:40 Results - Labs CBC & Chem 7: 01/28/18 08:35 01/28/18 08:35 Laboratory Results - last 24 hr 01/28/18 01/29/18 01/29/18 21:00 05:07 07:59 POC Glucose 223 H 230 H 199 H - Imaging ITS Impressions Chest X-Ray 01/20/18 06:00 CONCLUSION: 1. Cardiomegaly with trace positive fluid balance. Enema w/Water Soluble 01/20/18 08:00 CONCLUSION: Status post therapeutic Gastrografin enema. Assessment and Plan - Assessment (1) Nonischemic cardiomyopathy Code(s): I42.8 - Other cardiomyopathies Status: Chronic Plan: Abdominal pain Nausea/vomiting Constipation, improved - Pt is a 52 y/o AAF with chronic systolic CHF, nonischemic cardiomyopathy with EF 15-20% s/p AICD, hx of CVA in 12/2017 (Bilateral acute to subacute posterior cerebral artery infarcts on Head CT on 12/22/17), congestive hepatopathy, ascites , HTN, CKD, stage 3, and type 2 diabetes mellitus, insulin dependent. Pt has had multiple hospitalizations at [facility] in [place] and [facility] in the last several month for various issues related to her CHF /Cardiomyopathy, DKA, Acute on chronic renal failure, CVA. After her most recent admission from 12/02/17 to 01/08/18 was for CHF and was transferred to [facility] to be evaluated for possible heart transplant vs. LVAD. During that admission she had an acute CVA with resulting left sided weakness and felt that she was not a good candidate for advanced heart failure treatment. Pt was discharged to [facility] on 01/08/18. - She was brought to the ED from a local rehab center for hyperkalemia and N/V. She has noted issues with constipation more recently. Over the last two days she has had nausea/vomiting and has not been eating much. She has not passed any stool in the last two days either. - CT abd/pelvis in the ED which noted moderate ascites and anasarca, cardiomegaly with pacer lead tip in right ventricle, and small fat-containing umbilical hernia. No bowel obstruction. In reviewing the images she has a significant amount of stool throughout the colon and in the rectum. - Pt had a small BM on 01/17 but has been refusing the Lactulose BID - Pt was given Mag Citrate and Colace BID on 01/18 but no significant stooling - Pt had Gastrografin enema on 01/20 with large volume of stool output - Zofran PRN - Protonix 40mg IV daily Nonischemic cardiomyopathy Chronic systolic CHF with EF 15-20% s/p AICD - Pt was given a dose of IV Lasix in the ED - CXR in the ED noted Cardiomegaly with prominent main pulmonary artery. Pacer lead overlies right ventricle. No focal consolidation or effusion. - Pt was continued on PO Lasix 40mg BID due to worsening renal function - Pt was given a dose of Lasix 80mg IV with Albumin IV given prior to the Lasix on 01/19 BNP is elevated from at admission from 1368--> 1852 - Pt was reportedly evaluated at [facility] recently for Heart transplant vs. LVAD but had a stroke during that admission and was not felt to be a good candidate after the CVA. - CXR (01/20/18) --> Cardiomegaly with trace positive fluid balance - Pt is typically on 2L of supplemental O2 - Discussed code status with the pt and she wishes to be a full code. - Appreciate input from Palliative Service - 2D echo (01/21/18): - Estimated ejection fraction of 45-50%. No segmental wall motion abnormalities. - Possible mild right ventricular enlargement with normal systolic function. - A pacemaker wire is noted. - Mild mitral valve regurgitation. - Mild tricuspid valve regurgitation. - Estimated pulmonary arterial pressure is 35 mmHg - Pt was previous on Lasix to 80mg IV TID during admission and pt's Creatinine improved with IV lasix but there is no clinical improvement yet. - continue IV albumin - The IV lasix was changed to Bumex gtt (01/26/18) - Zaroxolyn increased to 5mg BID on 01/28 - O2 - observe clinical response - DVT prophylaxis with Eliquis - supportive care - Nephrology following Diabetes mellitus, poorly controlled Hgb A1C 14.4 on 08/31/17 Hypoglycemia - Pt was also given Novolin 10 units and Dextrose overnight and was hypoglycemic with BS 34 on 01/17. Pt was given orange juice twice this morning and her BS improved to 158. - Today her BS are in the 200s. - Pt is normally on Novolin 10 units BID and NovoLog SSI - Basal insulin with Levemir 5 units BID started on 01/18 -> titrated to 15 units BID - NovoLog SSI - Accu checks - Monitor BS closely Hyperkalemia Acute on chronic renal disease, stage 3 - Outpt labs from 11/2017 noted Cr around 1.4-1.5 - Labs in the ED noted a potassium of 6.1. - Pt was given Kayexalate and Calcium Gluconate in the ED her repeat potassium this morning was 5.5 and second repeat was 5.7 on 01/17 - Pt refusing Lab draws on 01/18, but we discussed with the pt the importance of getting er labs drawn to monitor her electrolytes and kidney function and was agreed - Pt was given a second dose of Kayexalate on 01/17 but pt has not moved her bowels. - (01/26) BUN 49m creatinine 2.22, estimated GFR 28 - (01/27) BUN 53, creatinine 2.20, estimated GFR 28 - (01/28) BUN 55, Creatinine 2.15, estimated GFR 29 - Labs pending for this AM HTN (hypertension) - Cont. home meds - BP is poorly controlled on multiple medications: Coreg 12.5mg BID, Clonidine 0.2mg Q8H, Hydralazine 100mg Q8H, Minoxidil 5mg po daily, Procardia XL 30mg po BID - Clonidine PRN - Monitor closely Elevated LFTs Congestive hepatopathy The exam, history, and the medical decision-making described in the above note were completed with the assistance of the mid-level provider. I reviewed and agree with the findings presented. I attest that I had a [id number] encounter with the patient on the same day, and personally performed and documented my assessment and findings in the medical record. Ascites - Review of outpt records show the pts AlkPhos has been elevated since 10/2016 - AlkPhos Isoenzyme in 10/2017 noted 72% liver, 20% bone, 8% intestine - Transjugular liver bx (12/20/17) --> Findings suggestive of congestive hepatopathy. Anemia - patient's hgb has been trending down on admission hgb 10.4 - (01/27) Hgb 7.7, hct 24.1, MCV 88.9 - (01/28) Hgb 8.0. Hct 25.1 - iron 17, TIBC 176, % saturation 9.6 - Ferrous sulfate PO BID - reticulocyte count 0.9 - occult stool requested - Monitor H/H The exam, history, and the medical decision-making described in the above note were completed with the assistance of the mid-level provider. I reviewed and agree with the findings presented. I attest that I had a [id number] encounter with the patient on the same day, and personally performed and documented my assessment and findings in the medical record.
[2018-01-29] MEDS: Insulin Detemir Inj 1,000 UNIT/10 ML Vial SQ SCH ×2 (10:54→22:33)
[2018-01-29] MEDS: Insulin NovoLOG Aspart Correctional Sugar Inj SQ SCH ×3 (11:04→22:40)
[2018-01-29] MEDS: Ferrous Sulfate 325 MG Tablet PO SCH ×2 (12:00→17:45)
[2018-01-29 13:32] LABS: Calcium 9.8 mg/dL (8.5-10.1); Carbon Dioxide 26.5 meq/L (21.0-32.0); Potassium 3.8 meq/L (3.5-5.1)
--- NOTE | 2018-01-29 16:47 | P.PNNP ---
Subjective Interval history: Seen earlier in day. Creatinine at 2.34. Continues to have dependent edema. On bumex gtt. Shortness of breath improved <Sabrina Keller - Last Filed: 01/29/18 16:48> Physical Exam Vital signs: Vital Signs 01/28/18 19:53 01/28/18 20:00 01/28/18 22:15 Temperature 97.5 F L Pulse Rate 66 66 Respiratory Rate 17 18 Blood Pressure 147/74 H Pulse Oximetry 94 L 01/28/18 23:57 01/29/18 00:35 01/29/18 04:00 Temperature 97.2 F L Pulse Rate 68 67 68 Respiratory Rate 17 Blood Pressure 136/74 Pulse Oximetry 97 01/29/18 04:50 01/29/18 08:00 01/29/18 08:07 Temperature 97.3 F L 97.5 F L Pulse Rate 70 73 Respiratory Rate 17 18 Blood Pressure 174/83 H 168/75 H Pulse Oximetry 97 93 L 97 01/29/18 12:00 Temperature 97.5 F L Pulse Rate 68 Respiratory Rate 18 Blood Pressure 169/72 H Pulse Oximetry 86 L Intake & Output 01/28/18 01/29/18 01/29/18 18:59 06:59 18:59 Intake Total 1720 / 1720 580 / 580 1000 / 1000 Output Total 875 / 875 300 / 300 Balance 845 / 845 280 / 280 1000 / 1000 Weight 86 kg Intake: IV 1000 / 1000 100 / 100 1000 / 1000 Bumex Inj 25 mg In 100 ml @ 1 100 / 100 MG/HR 4 mls/hr IV.CONT .Q24H [facility] Rx#:[id number] NS Inj 1,000 ML @ 50 mls/hr IV. 1000 / 1000 CONT .Q20H [facility] Rx#:[id number] Alburx 5% Inj 500 ML @ 250 mls/ 1000 / 1000 hr IV.SIG TID@0800,1200,1700 [facility] Rx#:[id number] Oral 720 / 720 480 / 480 Output: Urine 875 / 875 Urine Amount (Catheter) 300 / 300 Indwelling Urethral Catheter 300 / 300 Other: Date of Last Bowel Movement 01/26/18 01/27/18 01/27/18 # Bowel Movements 0 - Constitutional no acute distress - Routine HEENT Exam Head: Present: normocephalic - Routine Neck Exam Present: supple. Absent: JVD - Routine Respiratory Exam Present: decreased breath sounds. Absent: rales, rhonchi - Routine Cardiovascular Exam Present: RRR. Absent: murmur - Routine Abdominal Exam Present: soft, normoactive bowel sounds. Absent: tenderness - Routine Extremities Exam Present: edema Comments: dependent - Routine Skin Exam Present: dry, warm - Urinary Catheter Management Indwelling Urethral Catheter Cath placed during this visit: yes Urethral indwelling: Yes Reason for continuing: Hourly intake/output Insertion date: 01/21/18 Insertion time: 12:40 <Sabrina Keller - Last Filed: 01/29/18 16:48> Vital signs: Vital Signs 01/28/18 19:53 01/28/18 20:00 01/28/18 22:15 Temperature 97.5 F L Pulse Rate 66 66 Respiratory Rate 17 18 Blood Pressure 147/74 H Pulse Oximetry 94 L 01/28/18 23:57 01/29/18 00:35 01/29/18 04:00 Temperature 97.2 F L Pulse Rate 68 67 68 Respiratory Rate 17 Blood Pressure 136/74 Pulse Oximetry 97 01/29/18 04:50 01/29/18 08:00 01/29/18 08:07 Temperature 97.3 F L 97.5 F L Pulse Rate 70 73 Respiratory Rate 17 18 Blood Pressure 174/83 H 168/75 H Pulse Oximetry 97 93 L 97 01/29/18 12:00 01/29/18 16:00 Temperature 97.5 F L 97.2 F L Pulse Rate 68 66 Respiratory Rate 18 18 Blood Pressure 169/72 H 129/65 Pulse Oximetry 86 L 92 L Intake & Output 01/29/18 01/29/18 01/30/18 06:59 18:59 06:59 Intake Total 580 / 580 1480 / 1480 Output Total 300 / 300 Balance 280 / 280 1480 / 1480 Weight 86 kg Intake: IV 100 / 100 1000 / 1000 Bumex Inj 25 mg In 100 ml @ 1 100 / 100 MG/HR 4 mls/hr IV.CONT .Q24H [facility] Rx#:[id number] NS Inj 1,000 ML @ 50 mls/hr IV. 1000 / 1000 CONT .Q20H [facility] Rx#:[id number] Oral 480 / 480 480 / 480 Output: Urine Amount (Catheter) 300 / 300 Indwelling Urethral Catheter 300 / 300 Other: Date of Last Bowel Movement 01/27/18 01/27/18 # Bowel Movements 0 - Urinary Catheter Management Indwelling Urethral Catheter Cath placed during this visit: no <Shin Ahmadi - Last Filed: 01/29/18 19:26> Assessment and Plan - Assessment (1) Acute on chronic kidney failure Code(s): N17.9 - Acute kidney failure, unspecified; N18.9 - Chronic kidney disease, unspecified Status: Acute Plan: 1 The patient has proteinuria and most likely she has chronic kidney disease because of diabetic nephropathy. Baseline creatinine of 1.4-1.5 12/[address] scan report,showing the kidneys are normal in size. On Bumex gtt at 1 mg/hr titrate as needed based on UOP and creatinine. Creatinine slightly increased at 2.34 Continue bumex gtt and metolazone. Follow Urine out put and BMP. Avoid nephrotoxins. . (2) HTN (hypertension) Code(s): I10 - Essential (primary) hypertension Status: Acute Plan: blood pressure elevated On Coreg 12.5mg BID, Clonidine 0.2mg Q8H, Hydralazine 100mg Q8H, Minoxidil 5mg po daily, Procardia XL 30mg po BID Procardia XL increased Will monitor (3) Hyperkalemia Code(s): E87.5 - Hyperkalemia Status: Acute Plan: Resolved <Sabrina Keller - Last Filed: 01/29/18 16:48> - Assessment (1) Acute on chronic kidney failure Code(s): N17.9 - Acute kidney failure, unspecified; N18.9 - Chronic kidney disease, unspecified Status: Acute (2) HTN (hypertension) Code(s): I10 - Essential (primary) hypertension Status: Acute (3) Hyperkalemia Code(s): E87.5 - Hyperkalemia Status: Acute - Attending Attestation Patient seen and examined, agree with above. Still has edema, continue diuretics. If not better by tomorrow, will consider HD. D/W the patient about HD. <Shin Ahmadi - Last Filed: 01/29/18 19:26>
[2018-01-29] MEDS: Albumin Human 25% Inj 100 ML IV.SIG SCH ×2 (17:40)
--- NOTE | 2018-01-29 22:46 | XR ---
EXAM DATE: 01/29/2018 9:47 PM EDT AGE/SEX: 53 years / Female INDICATIONS: Shortness of breath. CLINICAL DATA: This is the patient's subsequent encounter. Patient reports that signs and symptoms h ave been present for 2 weeks and indicates a pain score of 0/10. MEDICAL/SURGICAL HISTORY: . Congestive heart failure. Cardiovascular disease Pacemaker. COMPARISON: C, CHEST 2V PA&LAT, 01/20/2018. . FINDINGS: There is a pacing/AICD device in place from the left subclavian approach. The heart size is mildly en larged. There is increased density at the left base with silhouetting the left hemidiaphragm. The rig ht lung is clear. CONCLUSION: Left lower lobe atelectasis or consolidation. Electronically signed by: Justin Post MD 01/29/2018 10:44 PM EDT
[2018-01-30] MEDS: Bumetanide Inj 25 MG/100 ML BAG IV.CONT SCH ×2 (00:16→18:48)
[2018-01-30 05:11] LABS: Baso % (Auto) 0.5 % (0.0-2.0); Eos # (Auto) 0.2 th/mm3 (0.0-0.4); Eos % (Auto) 2.6 % (0.0-4.0); Hematocrit 23.2 % (35.0-46.0); Hemoglobin 7.7 gm/dL (11.6-15.3); Lymph # (Auto) 0.4 th/mm3 (1.0-4.8); Lymph % (Auto) 5.8 % (9.0-44.0); Mean Corpuscular HGB Conc 33.2 % (32.0-36.0); Mean Corpuscular Hemoglobin 29.3 pg (27.0-34.0); Mean Corpuscular Volume 88.2 fL (80.0-100.0); Mean Platelet Volume 8.6 fL (7.0-11.0); Mono # (Auto) 0.3 th/mm3 (0.0-0.9); Mono % (Auto) 4.6 % (0.0-8.0); Neut # (Auto) 5.3 th/mm3 (1.8-7.7); Neut % (Auto) 86.5 % (16.0-70.0); Platelet Count 343 th/mm3 (150-450); Red Blood Count 2.64 mil/mm3 (4.00-5.30); Red Cell Distribution Width 16.6 % (11.6-17.2); White Blood Count 6.1 th/mm3 (4.0-11.0)
[2018-01-30 05:36] LABS: Calcium 9.7 mg/dL (8.5-10.1); Carbon Dioxide 26.5 meq/L (21.0-32.0); Potassium 3.8 meq/L (3.5-5.1)
--- NOTE | 2018-01-30 10:12 | P.PNIM ---
Subjective Interval history: pt thinks swelling better. Physical Exam Vital signs: Vital Signs 01/29/18 12:00 01/29/18 16:00 01/29/18 19:37 Temperature 97.5 F L 97.2 F L Pulse Rate 66 66 Respiratory Rate 18 18 Blood Pressure 169/72 H 129/65 Pulse Oximetry 86 L 92 L 90 L 01/29/18 20:00 01/29/18 20:30 01/29/18 22:38 Temperature 97.3 F L Pulse Rate 73 72 97 H Respiratory Rate 19 23 Blood Pressure 173/78 H Pulse Oximetry 93 L 01/29/18 23:23 01/30/18 00:00 01/30/18 04:00 Temperature 97.4 F L 97.7 F Pulse Rate 71 77 72 Respiratory Rate 19 18 Blood Pressure 171/80 H 157/83 H Pulse Oximetry 95 96 01/30/18 05:15 Temperature Pulse Rate 69 Respiratory Rate Blood Pressure Pulse Oximetry Intake & Output 01/29/18 01/30/18 01/30/18 18:59 06:59 18:59 Intake Total 2200 / 2200 460 / 460 Output Total 2075 / 2075 500 / 500 Balance 125 / 125 -40 / -40 Weight 86 kg Intake: IV 1000 / 1000 100 / 100 Bumex Inj 25 mg In 100 ml @ 1 100 / 100 MG/HR 4 mls/hr IV.CONT .Q24H [facility] Rx#:[id number] NS Inj 1,000 ML @ 50 mls/hr IV. 1000 / 1000 CONT .Q20H [facility] Rx#:[id number] Oral 1200 / 1200 360 / 360 Output: Urine 2075 / 2075 500 / 500 Other: Date of Last Bowel Movement 01/27/18 01/27/18 # Bowel Movements 0 0 heart reg lung cta abd hard abd wall edema ext hard lower ext edema - Urinary Catheter Management Indwelling Urethral Catheter Cath placed during this visit: yes Urethral indwelling: Yes Reason for continuing: Hourly intake/output Insertion date: 01/21/18 Insertion time: 12:40 Results - Labs CBC & Chem 7: 01/30/18 04:33 01/30/18 04:33 Laboratory Results - last 24 hr 01/29/18 01/29/18 01/29/18 12:14 12:55 17:04 WBC RBC Hgb Hct MCV MCH MCHC RDW Plt Count MPV Neut % (Auto) Lymph % (Auto) [place]ata[place] % (Auto) Eos % (Auto) Baso % (Auto) Neut # (Auto) Lymph # (Auto) [place] # (Auto) Eos # (Auto) Baso # (Auto) WBC Differential Differential Comment Sodium 138 Potassium 3.8 Chloride 99 Carbon Dioxide 26.5 Anion Gap 13 BUN 59 H Creatinine 2.34 H Estimated GFR 27 L POC Glucose 193 H 213 H Random Glucose 128 H Calcium 9.8 01/29/18 01/30/18 01/30/18 21:03 04:33 04:33 WBC 6.1 RBC 2.64 L Hgb 7.7 L Hct 23.2 L MCV 88.2 MCH 29.3 MCHC 33.2 RDW 16.6 Plt Count 343 MPV 8.6 Neut % (Auto) 86.5 H Lymph % (Auto) 5.8 L [place] % (Auto) 4.6 Eos % (Auto) 2.6 Baso % (Auto) 0.5 Neut # (Auto) 5.3 Lymph # (Auto) 0.4 L [place] # (Auto) 0.3 Eos # (Auto) 0.2 Baso # (Auto) 0.0 WBC Differential . Differential Comment Auto diff final Sodium 138 Potassium 3.8 Chloride 99 Carbon Dioxide 26.5 Anion Gap 13 BUN 68 H Creatinine 2.44 H Estimated GFR 25 L POC Glucose 219 H Random Glucose 102 Calcium 9.7 01/30/18 09:01 WBC RBC Hgb Hct MCV MCH MCHC RDW Plt Count MPV Neut % (Auto) Lymph % (Auto) [place] % (Auto) Eos % (Auto) Baso % (Auto) Neut # (Auto) Lymph # (Auto) [place] # (Auto) Eos # (Auto) Baso # (Auto) WBC Differential Differential Comment Sodium Potassium Chloride Carbon Dioxide Anion Gap BUN Creatinine Estimated GFR POC Glucose 168 H Random Glucose Calcium - Imaging Impressions Chest X-Ray 01/29/18 00:00 CONCLUSION: Left lower lobe atelectasis or consolidation. Assessment and Plan - Assessment (1) Nonischemic cardiomyopathy Code(s): I42.8 - Other cardiomyopathies Status: Chronic Plan: Abdominal pain Nausea/vomiting Constipation, improved - Pt is a 52 y/o AAF with chronic systolic CHF, nonischemic cardiomyopathy with EF 15-20% s/p AICD, hx of CVA in 12/2017 (Bilateral acute to subacute posterior cerebral artery infarcts on Head CT on 12/22/17), congestive hepatopathy, ascites , HTN, CKD, stage 3, and type 2 diabetes mellitus, insulin dependent. Pt has had multiple hospitalizations at [facility] in [place] and [facility] in the last several month for various issues related to her CHF /Cardiomyopathy, DKA, Acute on chronic renal failure, CVA. After her most recent admission from 12/02/17 to 01/08/18 was for CHF and was transferred to [facility] to be evaluated for possible heart transplant vs. LVAD. During that admission she had an acute CVA with resulting left sided weakness and felt that she was not a good candidate for advanced heart failure treatment. Pt was discharged to [facility] on 01/08/18. - She was brought to the ED from a local rehab center for hyperkalemia and N/V. She has noted issues with constipation more recently. Over the last two days she has had nausea/vomiting and has not been eating much. She has not passed any stool in the last two days either. - CT abd/pelvis in the ED which noted moderate ascites and anasarca, cardiomegaly with pacer lead tip in right ventricle, and small fat-containing umbilical hernia. No bowel obstruction. In reviewing the images she has a significant amount of stool throughout the colon and in the rectum. - Pt had a small BM on 01/17 but has been refusing the Lactulose BID - Pt was given Mag Citrate and Colace BID on 01/18 but no significant stooling - Pt had Gastrografin enema on 01/20 with large volume of stool output - Zofran PRN - Protonix 40mg IV daily Nonischemic cardiomyopathy Chronic systolic CHF with EF 15-20% s/p AICD - Pt was given a dose of IV Lasix in the ED - CXR in the ED noted Cardiomegaly with prominent main pulmonary artery. Pacer lead overlies right ventricle. No focal consolidation or effusion. - Pt was continued on PO Lasix 40mg BID due to worsening renal function - Pt was given a dose of Lasix 80mg IV with Albumin IV given prior to the Lasix on 01/19 BNP is elevated from at admission from 1368--> 1852 - Pt was reportedly evaluated at [facility] recently for Heart transplant vs. LVAD but had a stroke during that admission and was not felt to be a good candidate after the CVA. - CXR (01/20/18) --> Cardiomegaly with trace positive fluid balance - Pt is typically on 2L of supplemental O2 - Discussed code status with the pt and she wishes to be a full code. - Appreciate input from Palliative Service - 2D echo (01/21/18): - Estimated ejection fraction of 45-50%. No segmental wall motion abnormalities. - Possible mild right ventricular enlargement with normal systolic function. - A pacemaker wire is noted. - Mild mitral valve regurgitation. - Mild tricuspid valve regurgitation. - Estimated pulmonary arterial pressure is 35 mmHg - Pt was previous on Lasix to 80mg IV TID during admission . - continue IV albumin - The IV lasix was changed to Bumex gtt (01/26/18) - Zaroxolyn increased to 5mg BID on 01/28 - O2 - observe clinical response - DVT prophylaxis with Eliquis - supportive care - Nephrology following Pt thinks swelling is a little better today. but her renal function a little worse. would seem she needs to be dialyzed. ADDENDUM: SPOKE WITH DR Aspen KING. WE WILL PERFORM RADIONUCLEOTIDE VENOGRAM WITH VQ TO FOLLOW TO EXCLUDE IVC [facility] IS CONCERNED FOR THIS DX. Diabetes mellitus, poorly controlled Hgb A1C 14.4 on 08/31/17 Hypoglycemia - Pt was also given Novolin 10 units and Dextrose overnight and was hypoglycemic with BS 34 on 01/17. Pt was given orange juice twice this morning and her BS improved to 158. - Today her BS are in the 200s. - Pt is normally on Novolin 10 units BID and NovoLog SSI - Basal insulin with Levemir 5 units BID started on 01/18 -> titrated to 15 units BID - NovoLog SSI - Accu checks - Monitor BS closely Hyperkalemia Acute on chronic renal disease, stage 3 - Outpt labs from 11/2017 noted Cr around 1.4-1.5 - Labs in the ED noted a potassium of 6.1. - Pt was given Kayexalate and Calcium Gluconate in the ED her repeat potassium this morning was 5.5 and second repeat was 5.7 on 01/17 - Pt refusing Lab draws on 01/18, but we discussed with the pt the importance of getting er labs drawn to monitor her electrolytes and kidney function and was agreed - Pt was given a second dose of Kayexalate on 01/17 but pt has not moved her bowels. - (01/26) BUN 49m creatinine 2.22, estimated GFR 28 - (01/27) BUN 53, creatinine 2.20, estimated GFR 28 - (01/28) BUN 55, Creatinine 2.15, estimated GFR 29 - Labs pending for this AM HTN (hypertension) - Cont. home meds - BP is poorly controlled on multiple medications: Coreg 12.5mg BID, Clonidine 0.2mg Q8H, Hydralazine 100mg Q8H, Minoxidil 5mg po daily, Procardia XL 30mg po BID - Clonidine PRN - Monitor closely Elevated LFTs Congestive hepatopathy The exam, history, and the medical decision-making described in the above note were completed with the assistance of the mid-level provider. I reviewed and agree with the findings presented. I attest that I had a [id number] encounter with the patient on the same day, and personally performed and documented my assessment and findings in the medical record. Ascites - Review of outpt records show the pts AlkPhos has been elevated since 10/2016 - AlkPhos Isoenzyme in 10/2017 noted 72% liver, 20% bone, 8% intestine - Transjugular liver bx (12/20/17) --> Findings suggestive of congestive hepatopathy. Anemia - patient's hgb has been trending down on admission hgb 10.4 - (01/27) Hgb 7.7, hct 24.1, MCV 88.9 - (01/28) Hgb 8.0. Hct 25.1 - iron 17, TIBC 176, % saturation 9.6 - Ferrous sulfate PO BID - reticulocyte count 0.9 - occult stool requested - Monitor H/H
[2018-01-30] MEDS: Lactobacillus Acidophilus/L. Spores Tablet PO SCH ×2 (11:55→21:15)
[2018-01-30] MEDS: Folic Acid 1 MG Tablet PO SCH (11:56)
[2018-01-30] MEDS: Minoxidil 2.5 MG Tablet PO SCH (11:56)
[2018-01-30] MEDS: Docusate Sodium 100 MG Capsule PO SCH ×2 (11:56→21:15)
[2018-01-30] MEDS: Carvedilol 12.5 MG Tablet PO SCH ×2 (11:56→21:15)
[2018-01-30] MEDS: Albumin Human 25% Inj 100 ML IV.SIG SCH ×3 (11:57→18:49)
[2018-01-30] MEDS: Pantoprazole Inj 40 MG Vial IV.PUSH SCH (12:07)
[2018-01-30] MEDS: metOLazone 5 MG Tablet PO SCH (12:25)
[2018-01-30] MEDS: Isosorbide Mononitrate 20 MG Tablet PO SCH ×2 (12:25→21:15)
[2018-01-30] MEDS: Ferrous Sulfate 325 MG Tablet PO SCH ×2 (14:21→18:49)
--- NOTE | 2018-01-30 15:55 | P.RAD ---
Post Procedure Progress Note - Pre Procedure Diagnosis (1) Nonischemic cardiomyopathy - Post Procedure Diagnosis (1) Nonischemic cardiomyopathy - Procedure Information Procedure Date: 01/30/18 Supervising Radiologist: Tano Mcintosh Jr, MD Estimated blood loss (mL): 0 Anesthesia: Local - Plan of Activity Patient to Unit: Nursing Unit Patient Condition: Good See PACS Report for procedural detail/treatment. CVAD Radiology Procedures right Femoral Central Line Placement Device: triple lumen Vietnamese: 7 - Additional Detail Findings: R groin CVL placed. Functions well. OK to use. Plan: OK to use CVL.
--- NOTE | 2018-01-30 17:07 | NM ---
EXAM DATE: 01/30/2018 4:53 PM EDT AGE/SEX: 53 years / Female INDICATIONS: Short of breath. CLINICAL DATA: This is the patient's initial encounter. Patient reports that signs and symptoms have been present for 2 days and indicates a pain score of 4/10. MEDICAL/SURGICAL HISTORY: Diabetes mellitus type II. Renal failure, chronic. Cardiovascular d isease. CHF. Pacemaker. COMPARISON: [facility], CHEST 1V SINGLE AP, 01/29/2018. . DOSE: 0.79 mCi Tc99m DTPA aerosol 8.8 mCi Tc99m MAA IV TECHNIQUE: Following five minutes of tidal breathing of DTPA aerosol, planar images of the lungs wer e performed in eight projections. The patient was then injected with MAA, and eight-view perfusion s can was performed. FINDINGS: There is a homogeneous pattern of aerosol delivery to the periphery of both lungs with the exception of the left lower lobe. There is matched decreased activity at the left lower lobe. No focal ventila tory defects are seen. The perfusion lung scan demonstrates a homogenous pattern of uptake in both lungs with the exception of the left lower lobe. There is matched decreased activity at the left lower lobe.. No segmental o r subsegmental defects are seen. The chest x-ray demonstrate increased density of the left lower lobe . CONCLUSION: 1. Low probability for pulmonary embolus. 2. There is a triple matched defect at the left lower lobe likely related to consolidation, atelecta sis and/or effusion. Electronically signed by: Justin Post MD 01/30/2018 5:05 PM EDT
--- NOTE | 2018-01-30 18:08 | NM ---
Indication: IVC thrombus. MEDICAL HISTORY: Diabetes mellitus type 2, chronic renal failure, congestive heart failure. SURGICAL HISTORY: Pacemaker, hysterectomy Encounter: Initial Pain score: 0/10 Acuity: 1 day 8.8 mCi of technetium 99 M MAA was administered with an injection from the right lower extremity. FINDINGS: The IVC is clearly patent. The isotope can be seen extending from the right pelvis into the IVC and then into the right heart. CONCLUSION: The IVC is patent. Electronically signed by: Justin Post MD 01/30/2018 6:06 PM EDT
--- NOTE | 2018-01-30 18:50 | P.PNNP ---
Subjective Interval history: Patient seen after the nuclear scan, breathing is better. Physical Exam Vital signs: Vital Signs 01/29/18 19:37 01/29/18 20:00 01/29/18 20:30 Temperature 97.3 F L Pulse Rate 73 72 Respiratory Rate 19 Blood Pressure 173/78 H Pulse Oximetry 90 L 93 L 01/29/18 22:38 01/29/18 23:23 01/30/18 00:00 Temperature 97.4 F L Pulse Rate 97 H 71 77 Respiratory Rate 23 19 Blood Pressure 171/80 H Pulse Oximetry 95 01/30/18 04:00 01/30/18 05:15 Temperature 97.7 F Pulse Rate 72 69 Respiratory Rate 18 Blood Pressure 157/83 H Pulse Oximetry 96 Intake & Output 01/29/18 01/30/18 01/30/18 18:59 06:59 18:59 Intake Total 2200 / 2200 560 / 560 100 / 100 Output Total 2075 / 2075 500 / 500 Balance 125 / 125 60 / 60 100 / 100 Weight 86 kg Intake: IV 1000 / 1000 200 / 200 100 / 100 Bumex Inj 25 mg In 100 ml @ 1 100 / 100 MG/HR 4 mls/hr IV.CONT .Q24H ARIANA Rx#:[id number] NS Inj 1,000 ML @ 50 mls/hr IV. 1000 / 1000 CONT .Q20H ARIANA Rx#:[id number] Flexbumin 25% Inj 100 ML @ 60 100 / 100 100 / 100 mls/hr IV.SIG TID@,,17 ARIANA Rx#:[id number] Oral 1200 / 1200 360 / 360 Output: Urine 2075 / 2075 500 / 500 Other: Date of Last Bowel Movement 01/27/18 01/27/18 # Bowel Movements 0 0 Narrative: GENERAL: Patient is alert, has mild SOB, with nasal cannula. CARDIOVASCULAR: Regular rate and rhythm RESPIRATORY: Clear to auscultation. Breath sounds equal bilaterally. GASTROINTESTINAL: Abdomen soft, non-tender, nondistended. Normal active bowel sounds MUSCULOSKELETAL: tense/firm edema bilateral LE at posterior aspect of pt's thighs, tense edema abdomen and LUE NEURO: Alert & Oriented. - Urinary Catheter Management Indwelling Urethral Catheter Cath placed during this visit: yes Urethral indwelling: Yes Reason for continuing: Hourly intake/output Insertion date: 01/21/18 Insertion time: 12:40 Assessment and Plan - Assessment (1) Acute on chronic kidney failure Code(s): N17.9 - Acute kidney failure, unspecified; N18.9 - Chronic kidney disease, unspecified Status: Acute Plan: 1 The patient has proteinuria and most likely she has chronic kidney disease because of diabetic nephropathy. Baseline creatinine of 1.4-1.5 12/[address] scan report,showing the kidneys are normal in size. On Bumex gtt at 1 mg/hr titrate as needed based on UOP and creatinine. Creatinine slightly increased at 2.34 Continue bumex gtt and metolazone. Follow Urine out put and BMP. Avoid nephrotoxins. Patient has stable Creatinine.Urine out put is better. D/W the patient about possible HD if not better. . (2) HTN (hypertension) Code(s): I10 - Essential (primary) hypertension Status: Acute Plan: blood pressure elevated On Coreg 12.5mg BID, Clonidine 0.2mg Q8H, Hydralazine 100mg Q8H, Minoxidil 5mg po daily, Procardia XL 30mg po BID Procardia XL increased Will monitor (3) Hyperkalemia Code(s): E87.5 - Hyperkalemia Status: Acute Plan: Resolved
[2018-01-30] MEDS: Insulin NovoLOG Aspart Correctional Sugar Inj SQ SCH ×2 (23:40→23:42)
[2018-01-31] MEDS: Insulin NovoLOG Aspart Correctional Sugar Inj SQ SCH ×6 (00:01→18:08)
[2018-01-31] MEDS: metOLazone 5 MG Tablet PO SCH ×3 (00:01→18:08)
[2018-01-31] MEDS: Insulin Detemir Inj 1,000 UNIT/10 ML Vial SQ SCH ×2 (01:21→09:35)
[2018-01-31 07:30] LABS: Calcium 9.4 mg/dL (8.5-10.1); Carbon Dioxide 26.2 meq/L (21.0-32.0); Potassium 4.1 meq/L (3.5-5.1)
[2018-01-31 07:48] LABS: ABG Base Excess 2.8 mmol/L (-2-2); ABG PCO2 51 mmHg (38-42); ABG PO2 65 mmHg (61-120)
--- NOTE | 2018-01-31 08:03 | P.PNADD ---
Addendum to Inpatient Note Reason for Addendum: Additional Documentation Additional information: S: Medical team paged at approximately 0645 for HALICAT secondary to respiratory distress. Upon arrival nursing staff reports patient for acute on chronic CHF exacerbation. Patient was recommended to have cardiac catheterization, however patient declined. Patient also had a VQ scan completed yesterday that showed low probability of pulmonary embolism. This morning patient was found to be in respiratory distress with oxygen saturations in the low 80s. Patient was put on nonrebreather and HALICAT was called. Upon arriving to the room patient is in respiratory distress and only able to communicate in short, incomplete sentences. Currently her only complaint is increased abdominal pain due to her distention which is her baseline per nursing staff report. O: GENERAL: Elderly female lying in bed in respiratory distress. SKIN: Cool and dry. HEENT: Atraumatic, normocephalic with extraocular motions intact. No rhinorrhea. No visible lymphadenopathy or jugulovenous distension appreciated. CARDIOVASCULAR: Regular rate and rhythm without obvious murmurs, gallops, or rubs. RESPIRATORY: Crackles bilaterally on anterior auscultation of both lung arreaga. Patient in respiratory distress and unable to eat full sentences. Patient using accessory muscles. GASTROINTESTINAL: Abdomen taut, distended with distant bowel sounds. Patient tender to palpation in all 4 quadrants. (Baseline per nursing report) MUSCULOSKELETAL: No cyanosis or edema. No calf tenderness. NEURO/PSYCH: Afocal on limited exam. Awake and alert. A/P: Ms. Mc is a 53-year-old female admitted for acute on chronic CHF exacerbation currently presenting in respiratory distress. -Stat chest x-ray and ABG ordered -Patient with mild respiratory improvement on application of nonrebreather -Due to worsening respiratory status and increasing oxygen demand, recommend patient be transferred to ICU for further management at this time -Dr. Loaiza, patient's attending physician, arrived at bedside and will resume patient care at this time
[2018-01-31 08:04] LABS: Baso % (Auto) 0.6 % (0.0-2.0); Eos # (Auto) 0.2 th/mm3 (0.0-0.4); Eos % (Auto) 3.2 % (0.0-4.0); Hematocrit 21.7 % (35.0-46.0); Lymph # (Auto) 0.4 th/mm3 (1.0-4.8); Lymph % (Auto) 7.5 % (9.0-44.0); Mean Corpuscular HGB Conc 32.4 % (32.0-36.0); Mean Corpuscular Hemoglobin 28.6 pg (27.0-34.0); Mean Corpuscular Volume 88.4 fL (80.0-100.0); Mean Platelet Volume 8.2 fL (7.0-11.0); Mono # (Auto) 0.3 th/mm3 (0.0-0.9); Neut # (Auto) 3.9 th/mm3 (1.8-7.7); Neut % (Auto) 81.7 % (16.0-70.0); Platelet Count 335 th/mm3 (150-450); Red Blood Count 2.46 mil/mm3 (4.00-5.30); Red Cell Distribution Width 16.2 % (11.6-17.2); White Blood Count 4.8 th/mm3 (4.0-11.0)
--- NOTE | 2018-01-31 08:05 | IR ---
EXAM DATE: 01/30/2018 4:05 PM EDT AGE/SEX: 53 years / Female INDICATIONS: Patient presents with a need for venous access for a nuclear medicine test. CLINICAL DATA: This is the patient's initial encounter. Patient reports that signs and symptoms have been present for 1 day and indicates a pain score of 7/10. MEDICAL/SURGICAL HISTORY: Congestive heart failure. Hypertension. Diabetes mellitus type II. Nonischemic cardiomyopathy CVA Congestive hepatopathy, ascites of atrial tachycardia CKD, stage 3Hyp erlipidemiaHx regular alcohol use . Transjugular live BxAICDLHC COMPARISON: No prior exams available for comparison. FLUORO TIME (min): .09 IMAGE SERIES: ACCESS SITE: Right femoral vein DEVICE(S): 7 Malay triple lumen Arrow central line 20cm . . PROCEDURE : 1. Ultrasound guided venipuncture. 2. Fluoroscopic guidance. 3. Central line placement. The risks, benefits and alternatives to the procedure were explained and verbal and written consent w as obtained. The site was prepped in sterile fashion. Full sterile technique was used, including ca p, mask, sterile gloves and gown and a large sterile sheet. Hand hygiene and 2% chlorhexidine prep w as utilized per protocol for cutaneous antisepsis with appropriate dry time for site. Sterile gel an d sterile probe cover were utilized for ultrasound guidance. The skin and subcutaneous tissues were infiltrated with local anesthetic solution. A suitable site a paxton the vein was selected with ultrasound and fluoroscopic guidance. A small incision was made. Th e vein was accessed under direct ultrasound visualization using the micropuncture technique. The leydi ropuncture set was exchanged for a 0.035 wire. The tract was dilated. The catheter was advanced int o position under direct fluoroscopic visualization, and was advanced with the tip at the junction of the superior vena cava and rt atrium. The catheter was fixed in place with suture and a sterile dres sing was applied. The patient tolerated the procedure well and there were no complications. CONCLUSION: 1. Uncomplicated line placement as above. Electronically signed by: Tano Mcintosh MD 01/31/2018 8:04 AM EDT
--- NOTE | 2018-01-31 08:38 | XR ---
EXAM DATE: 01/31/2018 8:25 AM EDT AGE/SEX: 53 years / Female INDICATIONS: Shortness of breath. CLINICAL DATA: This is the patient's initial encounter. Patient reports that signs and symptoms have been present for 1 day and indicates a pain score of 0/10. MEDICAL/SURGICAL HISTORY: Diabetes mellitus type II. Congestive heart failure. Pacemaker. [place] [facility] [place]. . FINDINGS: A single AP view of the chest demonstrates mild cardiomegaly. Pulmonary vascular engorgement. Right b asilar intra-alveolar opacity. No effusions. Left lung is clear. The previously seen opacity on the l eft has resolved. Pacing device overlies the left chest. CONCLUSION: 1. Cardiomegaly with pulmonary vascular engorgement. 2. Right lower lobe consolidation is new and could either relate to an infectious etiology or focal edema. 3. Left lower lobe consolidation from the prior study has resolved. Electronically signed by: Tano Mcintosh MD 01/31/2018 8:37 AM EDT
[2018-01-31] MEDS ORDERED: Acetaminophen 325 MG Tablet PO PRN (08:55)
[2018-01-31] MEDS ORDERED: Heparin 10,000 UNITS/10 ML Vial (for IV use) IV.FLUSH PRN (08:55)
[2018-01-31] MEDS ORDERED: Gelatin 12 MM/7 MM Topical Foam TOPICAL PRN (08:55)
[2018-01-31] MEDS ORDERED: Sod Chloride 0.9% Inj 1,000 ML IV.CONT PRN (08:55)
[2018-01-31] MEDS ORDERED: Sod Chloride 0.9% Inj 1,000 ML OTHER PRN ×2 (08:55)
--- NOTE | 2018-01-31 09:01 | P.PNIM ---
Subjective Interval history: nemo called due to acute respiratory distress and hypoxia this AM pt moved to ICU and is currently less sob. called daughter back but no answer x 2. left message. Physical Exam Vital signs: Vital Signs 01/30/18 16:00 01/30/18 19:04 01/30/18 20:00 Temperature 98.9 F 97.3 F L Pulse Rate 69 66 Respiratory Rate 16 18 18 Blood Pressure 132/65 126/60 Pulse Oximetry 94 L 100 93 L 01/31/18 00:45 01/31/18 01:00 01/31/18 05:00 Temperature 97.2 F L Pulse Rate 68 69 71 Respiratory Rate 19 Blood Pressure 143/69 H Pulse Oximetry 95 01/31/18 05:10 Temperature 97.2 F L Pulse Rate 71 Respiratory Rate 19 Blood Pressure 170/77 H Pulse Oximetry 94 L Intake & Output 01/30/18 01/31/18 01/31/18 18:59 06:59 18:59 Intake Total 200 / 200 240 / 240 Output Total 200 / 200 Balance 200 / 200 40 / 40 Weight 88.8 kg Intake: IV 200 / 200 Bumex Inj 25 mg In 100 ml @ 1 100 / 100 MG/HR 4 mls/hr IV.CONT .Q24H ARIANA Rx#:[id number] Flexbumin 25% Inj 100 ML @ 60 100 / 100 mls/hr IV.SIG TID@, ARIANA Rx#:[id number] Oral 240 / 240 Output: Urine Amount (Catheter) 200 / 200 Indwelling Urethral Catheter 200 / 200 Other: Date of Last Bowel Movement 01/30/18 # Bowel Movements 0 on nrb. breathing less labored heart reg lung guilherme crackles lue edema abd wall edema lower ext hard edema right groin catheter.blood around exit site. - Urinary Catheter Management Indwelling Urethral Catheter Cath placed during this visit: yes Urethral indwelling: Yes Reason for continuing: Hourly intake/output Insertion date: 01/21/18 Insertion time: 12:40 Results - Labs CBC & Chem 7: 01/31/18 08:00 01/31/18 06:24 Laboratory Results - last 24 hr 01/30/18 01/30/18 01/31/18 09:01 20:22 06:24 WBC RBC Hgb Hct MCV MCH MCHC RDW Plt Count MPV Neut % (Auto) Lymph % (Auto) [place] % (Auto) Eos % (Auto) Baso % (Auto) Neut # (Auto) Lymph # (Auto) [place] # (Auto) Eos # (Auto) Baso # (Auto) WBC Differential Differential Comment Puncture Site Patient Temperature O2 Saturation ABG pH ABG pCO2 ABG pO2 ABG HCO3 ABG O2 Content ABG Base Excess ABG Methemoglobin Denis Test Hemoglobin Carboxyhemoglobin O2 Delivery Device Liter Flow Inspired O2 Critical Value Sodium 137 Potassium 4.1 Chloride 99 Carbon Dioxide 26.2 Anion Gap 12 BUN 77 H Creatinine 2.69 H Estimated GFR 23 L POC Glucose 168 H 391 H Random Glucose 79 Calcium 9.4 01/31/18 01/31/18 07:31 08:00 WBC 4.8 RBC 2.46 L Hgb 7.0 L Hct 21.7 L MCV 88.4 MCH 28.6 MCHC 32.4 RDW 16.2 Plt Count 335 MPV 8.2 Neut % (Auto) 81.7 H Lymph % (Auto) 7.5 L [place] % (Auto) 7.0 Eos % (Auto) 3.2 Baso % (Auto) 0.6 Neut # (Auto) 3.9 Lymph # (Auto) 0.4 L [place] # (Auto) 0.3 Eos # (Auto) 0.2 Baso # (Auto) 0.0 WBC Differential . Differential Comment Auto diff final Puncture Site Right radial Patient Temperature 98.6 O2 Saturation 88 L* ABG pH 7.36 L ABG pCO2 51 H* ABG pO2 65 ABG HCO3 28 H ABG O2 Content 9.0 L ABG Base Excess 2.8 H ABG Methemoglobin 1.0 Denis Test Present Hemoglobin 7.2 L Carboxyhemoglobin 1.6 O2 Delivery Device Non-rebreathing mask Liter Flow 15.00 Inspired O2 100 Critical Value Yes Sodium Potassium Chloride Carbon Dioxide Anion Gap BUN Creatinine Estimated GFR POC Glucose Random Glucose Calcium - Imaging Impressions Central Venous Line 01/30/18 00:00 CONCLUSION: 1. Uncomplicated line placement as above. Pulmonary Perfusion Imaging 01/30/18 00:00 CONCLUSION: 1. Low probability for pulmonary embolus. 2. There is a triple matched defect at the left lower lobe likely related to consolidation, atelectasis and/or effusion. Venogram Nuclear Medicine 01/30/18 14:33 CONCLUSION: The IVC is patent. Chest X-Ray 01/31/18 07:44 CONCLUSION: 1. Cardiomegaly with pulmonary vascular engorgement. 2. Right lower lobe consolidation is new and could either relate to an infectious etiology or focal edema. 3. Left lower lobe consolidation from the prior study has resolved. Assessment and Plan - Assessment (1) Nonischemic cardiomyopathy Code(s): I42.8 - Other cardiomyopathies Status: Chronic Plan: Abdominal pain Nausea/vomiting Constipation, improved - Pt is a 52 y/o AAF with chronic systolic CHF, nonischemic cardiomyopathy with EF 15-20% s/p AICD, hx of CVA in 12/2017 (Bilateral acute to subacute posterior cerebral artery infarcts on Head CT on 12/22/17), congestive hepatopathy, ascites , HTN, CKD, stage 3, and type 2 diabetes mellitus, insulin dependent. Pt has had multiple hospitalizations at [facility] in [place] and [facility] in the last several month for various issues related to her CHF /Cardiomyopathy, DKA, Acute on chronic renal failure, CVA. After her most recent admission from 12/02/17 to 01/08/18 was for CHF and was transferred to [facility] to be evaluated for possible heart transplant vs. LVAD. During that admission she had an acute CVA with resulting left sided weakness and felt that she was not a good candidate for advanced heart failure treatment. Pt was discharged to [facility] on 01/08/18. - She was brought to the ED from a local rehab center for hyperkalemia and N/V. She has noted issues with constipation more recently. Over the last two days she has had nausea/vomiting and has not been eating much. She has not passed any stool in the last two days either. - CT abd/pelvis in the ED which noted moderate ascites and anasarca, cardiomegaly with pacer lead tip in right ventricle, and small fat-containing umbilical hernia. No bowel obstruction. In reviewing the images she has a significant amount of stool throughout the colon and in the rectum. - Pt had a small BM on 01/17 but has been refusing the Lactulose BID - Pt was given Mag Citrate and Colace BID on 01/18 but no significant stooling - Pt had Gastrografin enema on 01/20 with large volume of stool output - Zofran PRN - Protonix 40mg IV daily Nonischemic cardiomyopathy Chronic systolic CHF with EF 15-20% s/p AICD - Pt was given a dose of IV Lasix in the ED - CXR in the ED noted Cardiomegaly with prominent main pulmonary artery. Pacer lead overlies right ventricle. No focal consolidation or effusion. - Pt was continued on PO Lasix 40mg BID due to worsening renal function - Pt was given a dose of Lasix 80mg IV with Albumin IV given prior to the Lasix on 01/19 BNP is elevated from at admission from 1368--> 1852 - Pt was reportedly evaluated at [facility] recently for Heart transplant vs. LVAD but had a stroke during that admission and was not felt to be a good candidate after the CVA. - CXR (01/20/18) --> Cardiomegaly with trace positive fluid balance - Pt is typically on 2L of supplemental O2 - Discussed code status with the pt and she wishes to be a full code. - Appreciate input from Palliative Service - 2D echo (01/21/18): - Estimated ejection fraction of 45-50%. No segmental wall motion abnormalities. - Possible mild right ventricular enlargement with normal systolic function. - A pacemaker wire is noted. - Mild mitral valve regurgitation. - Mild tricuspid valve regurgitation. - Estimated pulmonary arterial pressure is 35 mmHg - Cardiology concerned for IVC thrombus. 01/30 radionucleotide venogram performed and no evidence of thrombus right groin catheter placed at that time. - Pt was previous on Lasix to 80mg IV TID during admission . - continue IV albumin - The IV lasix was changed to Bumex gtt (01/26/18) - Zaroxolyn increased to 5mg BID on 01/28 - O2 - DVT prophylaxis with Eliquis - supportive care - Lonnieicajocelyn called today 01/31 for hypoxia and sob. Pt moved to ICU. only 200cc u.o overnight with bumex gtt spoke to renal and information technology associate. Moved to ICU. vascath ordered for HD. cont nrb. called daughter x 2. no answer. pt full code. Diabetes mellitus, poorly controlled Hgb A1C 14.4 on 08/31/17 Hypoglycemia - cont basal/bolus insulin. Hyperkalemia Acute on chronic renal disease, stage 3 - Outpt labs from 11/2017 noted Cr around 1.4-1.5 - Labs in the ED noted a potassium of 6.1. - Pt was given Kayexalate and Calcium Gluconate in the ED her repeat potassium this morning was 5.5 and second repeat was 5.7 on 01/17 - Pt refusing Lab draws on 01/18, but we discussed with the pt the importance of getting er labs drawn to monitor her electrolytes and kidney function and was agreed - Pt was given a second dose of Kayexalate on 01/17 but pt has not moved her bowels. - (01/26) BUN 49m creatinine 2.22, estimated GFR 28 - (01/27) BUN 53, creatinine 2.20, estimated GFR 28 - (01/28) BUN 55, Creatinine 2.15, estimated GFR 29 HTN (hypertension) - Cont. home meds - BP is poorly controlled on multiple medications: Coreg 12.5mg BID, Clonidine 0.2mg Q8H, Hydralazine 100mg Q8H, Minoxidil 5mg po daily, Procardia XL 30mg po BID - Clonidine PRN - Monitor closely Elevated LFTs Congestive hepatopathy Ascites - Review of outpt records show the pts AlkPhos has been elevated since 10/2016 - AlkPhos Isoenzyme in 10/2017 noted 72% liver, 20% bone, 8% intestine - Transjugular liver bx (12/20/17) --> Findings suggestive of congestive hepatopathy. Anemia - patient's hgb has been trending down on admission hgb 10.4 - iron 17, TIBC 176, % saturation 9.6 - reticulocyte count 0.9 - occult stool requested - Ferrous sulfate PO BID
[2018-01-31] MEDS: Docusate Sodium 100 MG Capsule PO SCH ×2 (09:30→21:23)
[2018-01-31] MEDS: Folic Acid 1 MG Tablet PO SCH (09:34)
[2018-01-31] MEDS: Lactobacillus Acidophilus/L. Spores Tablet PO SCH ×2 (09:35→21:22)
[2018-01-31] MEDS: Albumin Human 25% Inj 100 ML IV.SIG SCH ×2 (09:39→14:32)
[2018-01-31] MEDS: Carvedilol 12.5 MG Tablet PO SCH ×2 (09:55→21:22)
[2018-01-31] MEDS: Minoxidil 2.5 MG Tablet PO SCH (09:55)
[2018-01-31] MEDS: Isosorbide Mononitrate 20 MG Tablet PO SCH ×2 (09:55→21:22)
[2018-01-31] MEDS: Pantoprazole Inj 40 MG Vial IV.PUSH SCH (09:56)
[2018-01-31] MEDS ORDERED: *Heparin 10,000 UNITS/10 ML Vial Periprocedural ONLY ONE (11:35)
[2018-01-31] MEDS ORDERED: Heparin Central Flush 100 UNIT/ML 5 ML Vial IV.FLUSH PRN (11:50)
--- NOTE | 2018-01-31 11:53 | P.RAD ---
Post Procedure Progress Note - Pre Procedure Diagnosis (1) Acute on chronic kidney failure - Post Procedure Diagnosis (1) Acute on chronic kidney failure - Procedure Information Procedure Date: 01/31/18 Supervising Radiologist: Tano Mcintosh Jr, MD Estimated blood loss (mL): 0 Anesthesia: Local - Plan of Activity Patient to Unit: Nursing Unit Patient Condition: Good See PACS Report for procedural detail/treatment. CVAD Radiology Procedures right Internal Jugular Hemodialysis Catheter Non-Tunneled Placement Arabic: 14 - Additional Detail Findings: Placed RIJ Vascath. In good position and functions well. OK to use.
--- NOTE | 2018-01-31 14:15 | P.PNPAL ---
Reason for Visit Reason for visit: a. To assist with evaluation and management of symptoms including: Edema, pain , dyspnea b. To assist medical decision maker(s) with: better understanding of current medical conditions; weighing benefits/burdens of medical treatment options; making medical treatment decisions. Subjective Subjective/Interval History: Patient seen today to evaluate symptom management of edema, pain, dyspnea. Her edema is worsening since prior evaluation. Legs, abdomen and left upper extremity with worsening, tense, non-pitting edema. She states the edema had been constant since her stroke in December 2017 and has been steadily worsening since that time. She remains on albumin and Bumex drips, however albumin was held this morning due to increasing dyspnea. Her edema has continued to increase in spite of IV diuretics. A vas cath has now been placed in the right internal jugular with plans for immediate start of hemodialysis. She remains painful both at rest and with movement. She states the pain is related to her edema and describes it as a pulling, tight, aching type of pain which is constant and worsens with movement. She is currently not receiving any medications for pain. This morning she developed dyspnea, hypoxia and respiratory distress this morning requiring a Halicat. She was moved to the intensive care unit where she currently remains on 100% nonrebreather, pending dialysis. Her dyspnea had progressively worsened over the weekend corresponding with her increase in edema to an acute stage this morning requiring significant increase in oxygen and placing her at risk for intubation. . Family/Friend Interactions: Spoke with patient's daughter, Tanvi, as patient herself is extremely lethargic and not arousing to stimuli. Tanvi is listed as patient's first healthcare surrogate in case of her incapacitation due to her current level of lethargy, patient could be considered incapacitated, at least temporarily. Reviewed patient's recent sharp decline in respiratory and cognitive status as well as her transition to the intensive care unit, signaling her unstable status. Reviewed the possibility of continued respiratory decline and discussed the possibility of patient requiring intubation. While appropriately tearful and hopeful for dialysis removing the fluid, this does not resolve the underlying issue of the cause of the edema, anasarca and ascites. Of note she had only 200 cc of urine out in spite of continuous Bumex drip. We discussed the precarious and fragile nature of her condition and the progressively increasing risk for complications. Family asserts that they would still wish to have a full code resuscitation include intubation if necessary. . Advance Directives Advance Directives Date on File: 01/20/18 Health Care Surrogate Name and Number: Primary: Tanvi De Paz [phone] Alternate: Randi De Paz [phone] Objective Vital Signs: Vital Signs 01/30/18 16:00 01/30/18 19:04 01/30/18 20:00 Temperature 98.9 F 97.3 F L Pulse Rate 69 66 Respiratory Rate 16 18 18 Blood Pressure 132/65 126/60 Pulse Oximetry 94 L 100 93 L 01/31/18 00:45 01/31/18 01:00 01/31/18 05:00 Temperature 97.2 F L Pulse Rate 68 69 71 Respiratory Rate 19 Blood Pressure 143/69 H Pulse Oximetry 95 01/31/18 05:10 01/31/18 08:00 01/31/18 10:00 Temperature 97.2 F L 96.9 F L Pulse Rate 71 74 68 Respiratory Rate 19 18 Blood Pressure 170/77 H 142/73 H Pulse Oximetry 94 L 95 01/31/18 10:08 01/31/18 12:00 Temperature Pulse Rate 67 Respiratory Rate Blood Pressure Pulse Oximetry 93 L Intake & Output 01/30/18 01/31/18 01/31/18 18:59 06:59 18:59 Intake Total 200 / 200 240 / 240 0 / 0 Output Total 200 / 200 Balance 200 / 200 40 / 40 0 / 0 Weight 195 lb 12.328 oz Intake: IV 200 / 200 0 / 0 Bumex Inj 25 mg In 100 ml @ 1 100 / 100 0 / 0 MG/HR 4 mls/hr IV.CONT .Q24H ARIANA Rx#:[id number] Flexbumin 25% Inj 100 ML @ 60 100 / 100 0 / 0 mls/hr IV.SIG TID@,, ARIANA Rx#:[id number] Oral 240 / 240 Output: Urine Amount (Catheter) 200 / 200 Indwelling Urethral Catheter 200 / 200 Other: Date of Last Bowel Movement 01/30/18 01/30/18 # Bowel Movements 0 Physical Exam: CONSTITUTIONAL/GENERAL: This is a chronically ill appearing, middle aged female in no acute distress. TUBES/LINES/DRAINS: PIV x 1, right IJ Vas-Cath, 100% nonrebreather mask. SKIN: No jaundice, rashes, or lesions. Ecchymoses on upper extremities. Skin temperature appropriate. Not diaphoretic. HEAD: Atraumatic. Normocephalic. EYES: Pupils equal and round. Extraocular motions intact. No scleral icterus. No injection or drainage. Fundi not examined. ENT: Nose without bleeding or purulent drainage. NECK: Trachea midline. Supple, nontender. No palpable thyroid enlargement or nodularity. CARDIOVASCULAR: Regular rate and rhythm without murmurs, gallops, or rubs. Right sided JVD. Peripheral pulses symmetric. RESPIRATORY/CHEST: Symmetric, unlabored respirations. Breath sounds equal bilaterally. No wheezes, rales, or rhonchi. GASTROINTESTINAL: Abdomen firm, tense, distended, no guarding, tender to palpation. Hypoactive sounds present. GENITOURINARY: Without palpable bladder distension. Hines catheter draining a small quantity dark red urine. MUSCULOSKELETAL: Extremities without clubbing or cyanosis. Tense edema in bilateral lower extremities, decreased below the knee secondary to compression of SCDs. Left upper extremity with tense edema through the left upper extremity. LYMPHATICS: No palpable cervical or supraclavicular adenopathy. NEUROLOGICAL: Lethargic, not responding to vigorous stimuli. PSYCHIATRIC: Lethargic. . Diagnostic Tests Laboratory: Laboratory Results - last 72 hr 01/28/18 01/29/18 01/29/18 21:00 05:07 07:59 WBC RBC Hgb Hct MCV MCH MCHC RDW Plt Count MPV Neut % (Auto) Lymph % (Auto) Hardin % (Auto) Eos % (Auto) Baso % (Auto) Neut # (Auto) Lymph # (Auto) Hardin # (Auto) Eos # (Auto) Baso # (Auto) WBC Differential Differential Comment Puncture Site Patient Temperature O2 Saturation ABG pH ABG pCO2 ABG pO2 ABG HCO3 ABG O2 Content ABG Base Excess ABG Methemoglobin Denis Test Hemoglobin Carboxyhemoglobin O2 Delivery Device Liter Flow Inspired O2 Critical Value Sodium Potassium Chloride Carbon Dioxide Anion Gap BUN Creatinine Estimated GFR POC Glucose 223 H 230 H 199 H Random Glucose Calcium Nasal Screen MRSA (PCR) 01/29/18 01/29/18 01/29/18 12:14 12:55 17:04 WBC RBC Hgb Hct MCV MCH MCHC RDW Plt Count MPV Neut % (Auto) Lymph % (Auto) Hardin % (Auto) Eos % (Auto) Baso % (Auto) Neut # (Auto) Lymph # (Auto) Hardin # (Auto) Eos # (Auto) Baso # (Auto) WBC Differential Differential Comment Puncture Site Patient Temperature O2 Saturation ABG pH ABG pCO2 ABG pO2 ABG HCO3 ABG O2 Content ABG Base Excess ABG Methemoglobin Denis Test Hemoglobin Carboxyhemoglobin O2 Delivery Device Liter Flow Inspired O2 Critical Value Sodium 138 Potassium 3.8 Chloride 99 Carbon Dioxide 26.5 Anion Gap 13 BUN 59 H Creatinine 2.34 H Estimated GFR 27 L POC Glucose 193 H 213 H Random Glucose 128 H Calcium 9.8 Nasal Screen MRSA (PCR) 01/29/18 01/30/18 01/30/18 21:03 04:33 04:33 WBC 6.1 RBC 2.64 L Hgb 7.7 L Hct 23.2 L MCV 88.2 MCH 29.3 MCHC 33.2 RDW 16.6 Plt Count 343 MPV 8.6 Neut % (Auto) 86.5 H Lymph % (Auto) 5.8 L Hardin % (Auto) 4.6 Eos % (Auto) 2.6 Baso % (Auto) 0.5 Neut # (Auto) 5.3 Lymph # (Auto) 0.4 L Hardin # (Auto) 0.3 Eos # (Auto) 0.2 Baso # (Auto) 0.0 WBC Differential . Differential Comment Auto diff final Puncture Site Patient Temperature O2 Saturation ABG pH ABG pCO2 ABG pO2 ABG HCO3 ABG O2 Content ABG Base Excess ABG Methemoglobin Denis Test Hemoglobin Carboxyhemoglobin O2 Delivery Device Liter Flow Inspired O2 Critical Value Sodium 138 Potassium 3.8 Chloride 99 Carbon Dioxide 26.5 Anion Gap 13 BUN 68 H Creatinine 2.44 H Estimated GFR 25 L POC Glucose 219 H Random Glucose 102 Calcium 9.7 Nasal Screen MRSA (PCR) 01/30/18 01/30/18 01/31/18 09:01 20:22 06:24 WBC RBC Hgb Hct MCV MCH MCHC RDW Plt Count MPV Neut % (Auto) Lymph % (Auto) Hardin % (Auto) Eos % (Auto) Baso % (Auto) Neut # (Auto) Lymph # (Auto) Hardin # (Auto) Eos # (Auto) Baso # (Auto) WBC Differential Differential Comment Puncture Site Patient Temperature O2 Saturation ABG pH ABG pCO2 ABG pO2 ABG HCO3 ABG O2 Content ABG Base Excess ABG Methemoglobin Denis Test Hemoglobin Carboxyhemoglobin O2 Delivery Device Liter Flow Inspired O2 Critical Value Sodium 137 Potassium 4.1 Chloride 99 Carbon Dioxide 26.2 Anion Gap 12 BUN 77 H Creatinine 2.69 H Estimated GFR 23 L POC Glucose 168 H 391 H Random Glucose 79 Calcium 9.4 Nasal Screen MRSA (PCR) 01/31/18 01/31/18 01/31/18 07:31 08:00 08:45 WBC 4.8 RBC 2.46 L Hgb 7.0 L Hct 21.7 L MCV 88.4 MCH 28.6 MCHC 32.4 RDW 16.2 Plt Count 335 MPV 8.2 Neut % (Auto) 81.7 H Lymph % (Auto) 7.5 L Hardin % (Auto) 7.0 Eos % (Auto) 3.2 Baso % (Auto) 0.6 Neut # (Auto) 3.9 Lymph # (Auto) 0.4 L Hardin # (Auto) 0.3 Eos # (Auto) 0.2 Baso # (Auto) 0.0 WBC Differential . Differential Comment Auto diff final Puncture Site Right radial Patient Temperature 98.6 O2 Saturation 88 L* ABG pH 7.36 L ABG pCO2 51 H* ABG pO2 65 ABG HCO3 28 H ABG O2 Content 9.0 L ABG Base Excess 2.8 H ABG Methemoglobin 1.0 Denis Test Present Hemoglobin 7.2 L Carboxyhemoglobin 1.6 O2 Delivery Device Non-rebreathing mask Liter Flow 15.00 Inspired O2 100 Critical Value Yes Sodium Potassium Chloride Carbon Dioxide Anion Gap BUN Creatinine Estimated GFR POC Glucose Random Glucose Calcium Nasal Screen MRSA (PCR) Mrsa detected Result Diagrams: 01/31/18 08:00 01/31/18 06:24 Procedures: 01/31: Right IJ Vas-Cath placement . Assessment and Plan - Disease Oriented Problem List (1) CHF exacerbation (2) Constipation (3) Diabetes (4) Acute on chronic kidney failure (5) Hyperkalemia (6) HTN (hypertension) (7) Elevated LFTs (8) Ascites Pertinent Non-Medical Issues: Psychosocial: Patient lives in [place]. Patient is legally but . She has 3 daughters (Randi, Davya and Tanvi). She lives with one of her daughters. Spiritual: Rastafarian jung; declined hand mexican food maker visits Legal: Healthcare surrogate designation form completed 01/20/2018. Daughter, Tanvi Paula, is the primary healthcare surrogate decision-maker. Another daughter, Randi Paula, is the alternate healthcare surrogate decision maker. Ethical issues impacting care: No known ethical issues impacting care at this time. . Important Contacts: Tanvi Paula, daughter: [phone] Randi Paula, daughter: [phone] Daphneyhubert Paula, daughter: [phone] . Prognosis: Patient is a 52 year old female with a complex medical history. She has multiple hospitalizations in recent months secondary to CHF, DKA, acute on chronic renal failure and CVA. Most recently the patient was admitted from 2017 through 01/08/2018 with a CHF exacerbation; she was transferred to [facility] in [place] to be evaluated for a possible heart transplant versus LVAD. During that hospitalization the patient had an acute CVA and was no longer considered a candidate for aggressive interventions. EF 15-20%. Patient is at high risk for ongoing decline and complications. She is hospice appropriate when/if her goals become comfort oriented. . Code Status: Full Code Plan: = FULL CODE = Decision making: patient currently shows insight and judgement related to her medical conditions. Healthcare surrogate designation form completed 01/20/2018. Daughter, Tanvi Paula, is the primary healthcare surrogate decision-maker. Another daughter, Randi Paula, is the alternate healthcare surrogate decision maker. = Patient has verbalized ongoing goals to go home with her family once stabilized. After discussion, she is aware that without a right-sided heart catheterization, there is little more that can be done to determine the cause of her fluid retention. In spite of continuous colloid and Bumex infusion, her I/O balance remains positive. = Symptom management: * Edema: She is currently on an albumin and Bumex continuous drip to attempt to ameliorate the edema, however at this time is not resolving the problem. Previous attempt at right heart catheterization was unsuccessful at gaining access and after multiple needle sticks, the patient declined any further intervention. 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 Bilateral lower extremities appear to have more of a right-sided heart failure appearance, the left arm swelling is concerning for recurrent DVT. Would recommend venous Doppler of left upper extremity. * Pain: She is currently too lethargic to make her needs known. Her pain is primarily edema related as she has difficulty moving due to the significant swelling and is generally uncomfortable due to the tense edema. Dialysis has been initiated to try to reduce the fluid load. * Dyspnea: Patient became significantly dyspneic and developed respiratory difficulty this morning, requiring a Halicat. She has since been placed on a 100% nonrebreather and moved to the intensive care unit. She is at risk for continued respiratory decline and intubation. Family states at this time they would agree with intubation. = Palliative care will continue to follow this patient throughout her hospitalization to establish trust, assist with symptom management and clarification of medical treatment goals. Attestation Attestation: To help prompt me to consider important information that might be impacting today's encounter and assessment, information from prior notes written by myself or my colleagues may have been "brought forward" into today's note. My signature on this note, however, is an attestation that I personally performed the exam, history, and/or decision-making noted today, and, unless otherwise indicated, the interactions with patient, family, and staff as well as the review of records all occurred today. I also attest that the listed assessment and stated plan reflect my best clinical judgment today based on the combination of historical information, prior notes, and today's exam/ interactions. When time spent is documented, it refers only to time spent today by the signer, or if indicated, combined time spent today by collaborating physician/nurse practitioner. .
[2018-01-31] MEDS: Ferrous Sulfate 325 MG Tablet PO SCH ×2 (14:31→18:08)
[2018-01-31] MEDS: Bumetanide Inj 25 MG/100 ML BAG IV.CONT SCH (14:31)
--- NOTE | 2018-01-31 14:35 | IR ---
EXAM DATE: 01/31/2018 12:07 PM EDT AGE/SEX: 53 years / Female INDICATIONS: Patient presents with acute renal failure, in need of catheter placement. CLINICAL DATA: This is the patient's initial encounter. Patient reports that signs and symptoms have been present for 2 days and indicates a pain score of 8/10. MEDICAL/SURGICAL HISTORY: Diabetes mellitus type II. Congestive heart failure. Pacemaker. COMPARISON: [facility], CV LINE PLCMT W US&FL, 01/30/2018. . FLUORO TIME (min): .32 IMAGE SERIES: 1 ACCESS SITE: Right internal jugular vein DEVICE(S): 14 Samoan double lumen Schon catheter 15cm . . PROCEDURE : 1. Ultrasound guided venipuncture. 2. Fluoroscopic guidance. 3. Central line placement. The risks, benefits and alternatives to the procedure were explained and verbal and written consent w as obtained. The site was prepped in sterile fashion. Full sterile technique was used, including ca p, mask, sterile gloves and gown and a large sterile sheet. Hand hygiene and 2% chlorhexidine prep w as utilized per protocol for cutaneous antisepsis with appropriate dry time for site. Sterile gel an d sterile probe cover were utilized for ultrasound guidance. The skin and subcutaneous tissues were infiltrated with local anesthetic solution. A suitable site a paxton the vein was selected with ultrasound and fluoroscopic guidance. A small incision was made. Th e vein was accessed under direct ultrasound visualization using the micropuncture technique. The leydi ropuncture set was exchanged for a 0.035 wire. The tract was dilated. The catheter was advanced int o position under direct fluoroscopic visualization, and was advanced with the tip at the junction of the superior vena cava and rt atrium. The catheter was fixed in place with suture and a sterile dres sing was applied. The patient tolerated the procedure well and there were no complications. CONCLUSION: 1. Uncomplicated line placement as above. Electronically signed by: Tano Mcintosh MD 01/31/2018 2:34 PM EDT
[2018-01-31 14:59] LABS: Hepatitits B Surface Antigen Nonreactive (Nonreactive)
--- NOTE | 2018-01-31 15:02 | P.PNCC ---
Subjective Subjective Remarks/Hospital Course: I have been asked to see this 53-year-old woman with end-stage systolic heart failure and massive fluid retention. Attempts at diuresis is resulted in azotemia. She has woody edema involving the lower legs and abdomen. The extent and nature of the edema is not the pattern typically found an end-stage heart failure including severe right ventricular dysfunction. But her neck veins clearly demonstrated venous hypertension and without a doubt she needs fluid removed from her intravascular space. I am not certain how well she will mobilize extravascular water thereafter but I concur that at this point extracorporeal fluid removal is necessary. The hospitalist service has transferred her to the intensive care unit where I met her on her arrival. A dialysis catheter has been placed and we are instituting hemodialysis now. I have discussed the situation in detail with the dialysis team and agree that the removal of 3-4 L initially should be feasible. Ultimately, recovery of her renal function will be required for long-term survival. Hopefully reduction of venous hypertension will allow this. In the meantime we will stop her diuretics and hold her albumin replacement. Objective Vital Signs / I&O: Vital Signs 01/30/18 16:00 01/30/18 19:04 01/30/18 20:00 Temperature 98.9 F 97.3 F L Pulse Rate 69 66 Respiratory Rate 16 18 18 Blood Pressure 132/65 126/60 Pulse Oximetry 94 L 100 93 L 01/31/18 00:45 01/31/18 01:00 01/31/18 05:00 Temperature 97.2 F L Pulse Rate 68 69 71 Respiratory Rate 19 Blood Pressure 143/69 H Pulse Oximetry 95 01/31/18 05:10 01/31/18 08:00 01/31/18 10:00 Temperature 97.2 F L 96.9 F L Pulse Rate 71 74 68 Respiratory Rate 19 18 Blood Pressure 170/77 H 142/73 H Pulse Oximetry 94 L 95 01/31/18 10:08 01/31/18 12:00 Temperature Pulse Rate 67 Respiratory Rate Blood Pressure Pulse Oximetry 93 L Intake & Output 01/30/18 01/31/18 01/31/18 18:59 06:59 18:59 Intake Total 200 / 200 240 / 240 0 / 0 Output Total 200 / 200 Balance 200 / 200 40 / 40 0 / 0 Weight 88.8 kg Intake: IV 200 / 200 0 / 0 Bumex Inj 25 mg In 100 ml @ 1 100 / 100 0 / 0 MG/HR 4 mls/hr IV.CONT .Q24H [facility] Rx#:[id number] Flexbumin 25% Inj 100 ML @ 60 100 / 100 0 / 0 mls/hr IV.SIG TID@08,,17 [facility] Rx#:[id number] Oral 240 / 240 Output: Urine Amount (Catheter) 200 / 200 Indwelling Urethral Catheter 200 / 200 Other: Date of Last Bowel Movement 01/30/18 01/30/18 # Bowel Movements 0 Result Diagrams: 01/31/18 08:00 01/31/18 06:24 Objective Remarks: Physical exam: Head: Mild generalized edema, atraumatic Neck: Supple, airway widely patent, mild snoring but no obstruction. Lungs: Diffuse crackles, decreased breath sounds both bases. Mildly labored respiratory pattern. Heart: Rate controlled. Tensely distended jugular veins. Abdomen: Generalized edema in the lower abdominal soft tissue, quiet, no peritoneal irritation. Extremities: Tense woody edema involving both lower extremities and lower abdomen. Marginal distal perfusion. Neuro: Groans to stimulation. Wiggles fingers and toes to loud command. Assessment and Plan - Assessment and Plan Plan: Assessment and Plan - Assessment (1) Nonischemic cardiomyopathy, Chronic systolic CHF with EF 15-20% s/p AICD Code(s): I42.8 - Other cardiomyopathies Status: Chronic Plan: After her most recent admission from 12/02/17 to 01/08/18 was for CHF and was transferred to [facility] to be evaluated for possible heart transplant vs. LVAD. During that admission she had an acute CVA with resulting left sided weakness and felt that she was not a good candidate for advanced heart failure treatment. Pt was discharged to [facility] on 01/08/18. - Pt was given a dose of IV Lasix in the ED - CXR in the ED noted Cardiomegaly with prominent main pulmonary artery. Pacer lead overlies right ventricle. No focal consolidation or effusion. - Pt was continued on PO Lasix 40mg BID due to worsening renal function - Pt was given a dose of Lasix 80mg IV with Albumin IV given prior to the Lasix on 01/19 BNP is elevated from at admission from 1368--> 1852 - Pt was reportedly evaluated at [facility] recently for Heart transplant vs. LVAD but had a stroke during that admission and was not felt to be a good candidate after the CVA. - CXR (01/20/18) --> Cardiomegaly with trace positive fluid balance - Pt is typically on 2L of supplemental O2 - Discussed code status with the pt and she wishes to be a full code. - Appreciate input from Palliative Service - 2D echo (01/21/18): - Estimated ejection fraction of 45-50%. No segmental wall motion abnormalities. - Possible mild right ventricular enlargement with normal systolic function. - A pacemaker wire is noted. - Mild mitral valve regurgitation. - Mild tricuspid valve regurgitation. - Estimated pulmonary arterial pressure is 35 mmHg - Cardiology concerned for IVC thrombus. 01/30 radionucleotide venogram performed and no evidence of thrombus right groin catheter placed at that time. - Pt was previous on Lasix to 80mg IV TID during admission . - continue IV albumin - The IV lasix was changed to Bumex gtt (01/26/18) - Zaroxolyn increased to 5mg BID on 01/28 - O2 - DVT prophylaxis with Eliquis - supportive care - Lonnieicat called today 01/31 for hypoxia and sob. Pt moved to ICU. only 200cc u.o overnight with bumex gtt [facility] hospitalist spoke to renal and community assistant. Moved to ICU. vascath ordered for HD. cont nrb. called daughter x 2. no answer. pt full code. (2) hypoxemic respiratory failure, acute -Nonrebreathing mask, probable early intubation (3) Abdominal pain Nausea/vomiting Constipation, improved - Pt had a small BM on 01/17 but has been refusing the Lactulose BID - Pt was given Mag Citrate and Colace BID on 01/18 but no significant stooling - Pt had Gastrografin enema on 01/20 with large volume of stool output - Zofran PRN - Protonix 40mg IV daily (3) Diabetes mellitus, poorly controlled Hgb A1C 14.4 on 08/31/17 Hypoglycemia - cont basal/bolus insulin. (4)Hyperkalemia, Acute on chronic renal disease, stage 3 - Outpt labs from 11/2017 noted Cr around 1.4-1.5 - Labs in the ED noted a potassium of 6.1. - Pt was given Kayexalate and Calcium Gluconate in the ED her repeat potassium this morning was 5.5 and second repeat was 5.7 on 01/17 - Pt refusing Lab draws on 01/18, but we discussed with the pt the importance of getting er labs drawn to monitor her electrolytes and kidney function and was agreed - Pt was given a second dose of Kayexalate on 01/17 but pt has not moved her bowels. - (01/26) BUN 49m creatinine 2.22, estimated GFR 28 - (01/27) BUN 53, creatinine 2.20, estimated GFR 28 - (01/28) BUN 55, Creatinine 2.15, estimated GFR 29 - 01/31 -hemodialysis instituted today, name is to remove at least 3-4 L. (5)HTN (hypertension) - Cont. home meds - BP is poorly controlled on multiple medications: Coreg 12.5mg BID, Clonidine 0.2mg Q8H, Hydralazine 100mg Q8H, Minoxidil 5mg po daily, Procardia XL 30mg po BID - Clonidine PRN - Monitor closely (6)Elevated LFTs, Congestive hepatopathy, Ascites - Review of outpt records show the pts AlkPhos has been elevated since 10/2016 - AlkPhos Isoenzyme in 10/2017 noted 72% liver, 20% bone, 8% intestine - Transjugular liver bx (12/20/17) --> Findings suggestive of congestive hepatopathy. (5)Anemia - patient's hgb has been trending down on admission hgb 10.4 - iron 17, TIBC 176, % saturation 9.6 - reticulocyte count 0.9 - occult stool requested - Ferrous sulfate PO BID Overall impression: This woman is critically ill with hypoxemic respiratory failure due to advanced pulmonary edema produced by extreme fluid overload. The etiology is cardiac decompensation associated with advancing renal failure. The sudden worsening of renal failure appears to be related to venous hypertension, referred to by some as the cardiorenal syndrome. By physical exam the central venous pressure is at least 30 mmHg. Attempts at aggressive diuretic therapy have been unsuccessful, not surprisingly. Hopefully reduction of intravascular volume and venous hypertension will allow her kidneys to respond to normal diuretic therapy. Critical care time 60 minutes aside from invasive procedures.
[2018-01-31 15:20] LABS: Hepatitis A IgM Antibody Nonreactive (Nonreactive)
[2018-01-31] MEDS: Heparin 10,000 UNITS/10 ML Vial (for IV use) OTHER PRN (16:24)
--- NOTE | 2018-01-31 19:08 | P.PNNP ---
Subjective Interval history: Patient seen during HD, alert, in moderate resp. distress. Physical Exam Vital signs: Vital Signs 01/30/18 20:00 01/31/18 00:45 01/31/18 01:00 Temperature 97.3 F L 97.2 F L Pulse Rate 66 68 69 Respiratory Rate 18 19 Blood Pressure 126/60 143/69 H Pulse Oximetry 93 L 95 01/31/18 05:00 01/31/18 05:10 01/31/18 08:00 Temperature 97.2 F L 96.9 F L Pulse Rate 71 71 74 Respiratory Rate 19 18 Blood Pressure 170/77 H 142/73 H Pulse Oximetry 94 L 95 01/31/18 10:00 01/31/18 10:08 01/31/18 12:00 Temperature 97.5 F L Pulse Rate 68 64 Respiratory Rate 12 Blood Pressure 154/69 H Pulse Oximetry 93 L 95 01/31/18 14:00 01/31/18 16:00 01/31/18 18:00 Temperature 98.0 F Pulse Rate 64 68 68 Respiratory Rate 11 L Blood Pressure 120/68 Pulse Oximetry 95 Intake & Output 01/31/18 01/31/18 02/01/18 06:59 18:59 06:59 Intake Total 240 / 240 0 / 0 Output Total 200 / 200 4175 / 4175 Balance 40 / 40 -4175 / -4175 Weight 88.8 kg Intake: IV 0 / 0 Bumex Inj 25 mg In 100 ml @ 1 0 / 0 MG/HR 4 mls/hr IV.CONT .Q24H [facility] Rx#:[id number] Flexbumin 25% Inj 100 ML @ 60 0 / 0 mls/hr IV.SIG TID@ [facility] Rx#:[id number] Oral 240 / 240 Output: Hemodialysis Amount 4000 / 4000 Urine Amount (Catheter) 200 / 200 175 / 175 Indwelling Urethral Catheter 200 / 200 175 / 175 Other: Date of Last Bowel Movement 01/30/18 01/30/18 # Bowel Movements 0 Narrative: GENERAL: Patient is alert, in moderate SOB, with nasal cannula. CARDIOVASCULAR: Regular rate and rhythm RESPIRATORY: Clear to auscultation. Breath sounds equal bilaterally. GASTROINTESTINAL: Abdomen soft, non-tender, nondistended. Normal active bowel sounds MUSCULOSKELETAL: tense/firm edema bilateral LE at posterior aspect of pt's thighs, tense edema abdomen and LUE NEURO: Alert & Oriented. - Urinary Catheter Management Indwelling Urethral Catheter Cath placed during this visit: yes Urethral indwelling: Yes Reason for continuing: Hourly intake/output Insertion date: 01/21/18 Insertion time: 12:40 Assessment and Plan - Assessment (1) Acute on chronic kidney failure Code(s): N17.9 - Acute kidney failure, unspecified; N18.9 - Chronic kidney disease, unspecified Status: Acute Plan: 1 The patient has proteinuria and most likely she has chronic kidney disease because of diabetic nephropathy. Baseline creatinine of 1.4-1.5 12/[address] scan report,showing the kidneys are normal in size. On Bumex gtt at 1 mg/hr titrate as needed based on UOP and creatinine. Creatinine slightly increased at 2.34 Continue Bumex gtt and metolazone. Follow Urine out put and BMP. Avoid nephrotoxins. Patient has worsening breathing. Also has increase in the Creatinine. Started on HD, BP is stable, will remove fluid as tolerated. . (2) HTN (hypertension) Code(s): I10 - Essential (primary) hypertension Status: Acute Plan: blood pressure elevated On Coreg 12.5mg BID, Clonidine 0.2mg Q8H, Hydralazine 100mg Q8H, Minoxidil 5mg po daily, Procardia XL 30mg po BID Procardia XL increased Will monitor (3) Hyperkalemia Code(s): E87.5 - Hyperkalemia Status: Acute Plan: Resolved
[2018-01-31] MEDS: Dextrose 50% in Water 50 ML Vial IV.PUSH PRN (21:40)
[2018-02-01] MEDS: Insulin NovoLOG Aspart Correctional Sugar Inj SQ SCH ×5 (01:58→21:00)
[2018-02-01] MEDS: Insulin Detemir Inj 1,000 UNIT/10 ML Vial SQ SCH ×3 (01:58→21:02)
[2018-02-01 06:24] LABS: Albumin 3.8 g/dL (3.4-5.0); Calcium 9.4 mg/dL (8.5-10.1); Carbon Dioxide 25.1 meq/L (21.0-32.0); Phosphorus 5.1 mg/dL (2.5-4.9); Potassium 4.4 meq/L (3.5-5.1)
--- NOTE | 2018-02-01 08:14 | P.PNCC ---
Subjective Subjective Remarks/Hospital Course: I have been asked to see this 53-year-old woman with end-stage systolic heart failure and massive fluid retention. Attempts at diuresis is resulted in azotemia. She has woody edema involving the lower legs and abdomen. The extent and nature of the edema is not the pattern typically found an end-stage heart failure including severe right ventricular dysfunction. But her neck veins clearly demonstrated venous hypertension and without a doubt she needs fluid removed from her intravascular space. I am not certain how well she will mobilize extravascular water thereafter but I concur that at this point extracorporeal fluid removal is necessary. The hospitalist service has transferred her to the intensive care unit where I met her on her arrival. A dialysis catheter has been placed and we are instituting hemodialysis now. I have discussed the situation in detail with the dialysis team and agree that the removal of 3-4 L initially should be feasible. Ultimately, recovery of her renal function will be required for long-term survival. Hopefully reduction of venous hypertension will allow this. In the meantime we will stop her diuretics and hold her albumin replacement. 02/01: Removed 4 L of fluid with hemodialysis yesterday. She is still floridly overloaded with tensely distended jugular veins up to the ear. Her lower abdomen and legs woody with fluid engorgement. Spontaneous urine has not picked up. Objective Vital Signs / I&O: Vital Signs 01/31/18 10:00 01/31/18 10:08 01/31/18 12:00 Temperature 97.5 F L Pulse Rate 68 64 Respiratory Rate 12 Blood Pressure 154/69 H Pulse Oximetry 93 L 95 01/31/18 14:00 01/31/18 16:00 01/31/18 18:00 Temperature 98.0 F Pulse Rate 64 68 68 Respiratory Rate 11 L Blood Pressure 120/68 Pulse Oximetry 95 01/31/18 20:00 01/31/18 21:30 01/31/18 21:50 Temperature 97.8 F Pulse Rate 65 Respiratory Rate 11 L Blood Pressure 123/67 Pulse Oximetry 91 L 89 L 94 L 01/31/18 22:00 02/01/18 00:00 02/01/18 00:26 Temperature 98 F Pulse Rate 70 67 Respiratory Rate 16 Blood Pressure 148/67 H Pulse Oximetry 94 L 98 96 02/01/18 00:30 02/01/18 02:00 02/01/18 03:44 Temperature Pulse Rate 75 Respiratory Rate Blood Pressure Pulse Oximetry 94 L 97 02/01/18 03:46 02/01/18 04:00 02/01/18 05:57 Temperature 98.2 F Pulse Rate 77 76 Respiratory Rate 20 Blood Pressure 131/81 Pulse Oximetry 97 99 02/01/18 07:56 Temperature Pulse Rate Respiratory Rate Blood Pressure Pulse Oximetry 97 Intake & Output 01/31/18 02/01/18 02/01/18 18:59 06:59 18:59 Intake Total 0 / 0 240 / 240 Output Total 4175 / 4175 100 / 100 Balance -4175 / -4175 140 / 140 Weight 88.8 kg 80.9 kg Intake: IV 0 / 0 Bumex Inj 25 mg In 100 ml @ 1 0 / 0 MG/HR 4 mls/hr IV.CONT .Q24H [facility] Rx#:[id number] Flexbumin 25% Inj 100 ML @ 60 0 / 0 mls/hr IV.SIG TID@,, [facility] Rx#:[id number] Oral 240 / 240 Output: Hemodialysis Amount 4000 / 4000 Urine Amount (Catheter) 175 / 175 100 / 100 Indwelling Urethral Catheter 175 / 175 100 / 100 Other: Date of Last Bowel Movement 01/30/18 01/30/18 # Bowel Movements 0 Result Diagrams: 01/31/18 08:00 02/01/18 05:00 Objective Remarks: Physical exam: Head: Mild generalized edema, atraumatic Neck: Supple, airway widely patent, mild snoring but no obstruction. Lungs: Diffuse crackles, decreased breath sounds both bases. Moderately labored respiratory pattern. Heart: Rate controlled. Tensely distended jugular veins. Abdomen: Generalized edema in the lower abdominal soft tissue, quiet, no peritoneal irritation. Extremities: Tense woody edema involving both lower extremities and lower abdomen. Marginal distal perfusion. Neuro: Groans to stimulation. Wiggles fingers and toes to loud command. Assessment and Plan - Assessment and Plan Plan: Assessment and Plan - Assessment (1) Nonischemic cardiomyopathy, Chronic systolic CHF with EF 15-20% s/p AICD Code(s): I42.8 - Other cardiomyopathies Status: Chronic After her most recent admission from 12/02/17 to 01/08/18 was for CHF and was transferred to [facility] to be evaluated for possible heart transplant vs. LVAD. During that admission she had an acute CVA with resulting left sided weakness and felt that she was not a good candidate for advanced heart failure treatment. Pt was discharged to [facility] on 01/08/18. - Pt was given a dose of IV Lasix in the ED - CXR in the ED noted Cardiomegaly with prominent main pulmonary artery. Pacer lead overlies right ventricle. No focal consolidation or effusion. - Pt was continued on PO Lasix 40mg BID due to worsening renal function - Pt was given a dose of Lasix 80mg IV with Albumin IV given prior to the Lasix on 01/19 BNP is elevated from at admission from 1368--> 1852 - Pt was reportedly evaluated at [facility] recently for Heart transplant vs. LVAD but had a stroke during that admission and was not felt to be a good candidate after the CVA. - CXR (01/20/18) --> Cardiomegaly with trace positive fluid balance - Pt is typically on 2L of supplemental O2 - Discussed code status with the pt and she wishes to be a full code. - Appreciate input from Palliative Service - 2D echo (01/21/18): - Estimated ejection fraction of 45-50%. No segmental wall motion abnormalities. - Possible mild right ventricular enlargement with normal systolic function. - A pacemaker wire is noted. - Mild mitral valve regurgitation. - Mild tricuspid valve regurgitation. - Estimated pulmonary arterial pressure is 35 mmHg - Cardiology concerned for IVC thrombus. 01/30 radionucleotide venogram performed and no evidence of thrombus right groin catheter placed at that time. - Pt was previous on Lasix to 80mg IV TID during admission . - continue IV albumin - The IV lasix was changed to Bumex gtt (01/26/18) - Zaroxolyn increased to 5mg BID on 01/28 - O2 - DVT prophylaxis with Eliquis - supportive care - Chemo called today 01/31 for hypoxia and sob. Pt moved to ICU. only 200cc u.o overnight with bumex gtt [facility] hospitalist spoke to renal and claims vice president. Moved to ICU. vascath ordered for HD. cont nrb. called daughter x 2. no answer. pt full code. Hemodialysis [id number], 4 L removed first day. (2) hypoxemic respiratory failure, acute -Nonrebreathing mask, probable early intubation (3) Abdominal pain Nausea/vomiting Constipation, improved - Pt had a small BM on 01/17 but has been refusing the Lactulose BID - Pt was given Mag Citrate and Colace BID on 01/18 but no significant stooling - Pt had Gastrografin enema on 01/20 with large volume of stool output - Zofran PRN - Protonix 40mg IV daily (3) Diabetes mellitus, poorly controlled Hgb A1C 14.4 on 08/31/17 Hypoglycemia - cont basal/bolus insulin. (4)Hyperkalemia, Acute on chronic renal disease, stage 3 - Outpt labs from 11/2017 noted Cr around 1.4-1.5 - Labs in the ED noted a potassium of 6.1. - Pt was given Kayexalate and Calcium Gluconate in the ED her repeat potassium this morning was 5.5 and second repeat was 5.7 on 01/17 - Pt refusing Lab draws on 01/18, but we discussed with the pt the importance of getting er labs drawn to monitor her electrolytes and kidney function and was agreed - Pt was given a second dose of Kayexalate on 01/17 but pt has not moved her bowels. - (01/26) BUN 49m creatinine 2.22, estimated GFR 28 - (01/27) BUN 53, creatinine 2.20, estimated GFR 28 - (01/28) BUN 55, Creatinine 2.15, estimated GFR 29 - 01/31 -hemodialysis instituted today, name is to remove at least 3-4 L. (5)HTN (hypertension) - Cont. home meds - BP is poorly controlled on multiple medications: Coreg 12.5mg BID, Clonidine 0.2mg Q8H, Hydralazine 100mg Q8H, Minoxidil 5mg po daily, Procardia XL 30mg po BID - Clonidine PRN - Monitor closely (6)Elevated LFTs, Congestive hepatopathy, Ascites - Review of outpt records show the pts AlkPhos has been elevated since 10/2016 - AlkPhos Isoenzyme in 10/2017 noted 72% liver, 20% bone, 8% intestine - Transjugular liver bx (12/20/17) --> Findings suggestive of congestive hepatopathy. (5)Anemia - patient's hgb has been trending down on admission hgb 10.4 - iron 17, TIBC 176, % saturation 9.6 - reticulocyte count 0.9 - occult stool requested - Ferrous sulfate PO BID Overall impression: This woman remains critically ill with hypoxemic respiratory failure due to advanced pulmonary edema produced by extreme fluid overload. The etiology is cardiac decompensation associated with advancing renal failure. The sudden worsening of renal failure appears to be related to venous hypertension, referred to by some as the cardiorenal syndrome. By physical exam the central venous pressure is at least 30 mmHg. Attempts at aggressive diuretic therapy have been unsuccessful, not surprisingly. Hopefully reduction of intravascular volume and venous hypertension will allow her kidneys to respond to normal diuretic therapy. Critical care 45 minutes aside from procedures.
[2018-02-01] MEDS: Isosorbide Mononitrate 20 MG Tablet PO SCH ×2 (08:56→21:45)
[2018-02-01] MEDS: Lactobacillus Acidophilus/L. Spores Tablet PO SCH ×2 (08:56→21:45)
[2018-02-01] MEDS: Docusate Sodium 100 MG Capsule PO SCH ×2 (08:56→21:44)
[2018-02-01] MEDS: Minoxidil 2.5 MG Tablet PO SCH (08:56)
[2018-02-01] MEDS: Folic Acid 1 MG Tablet PO SCH (08:56)
[2018-02-01] MEDS: Carvedilol 12.5 MG Tablet PO SCH ×2 (08:56→21:44)
[2018-02-01] MEDS: metOLazone 5 MG Tablet PO SCH ×2 (08:59→17:44)
[2018-02-01] MEDS: Pantoprazole Inj 40 MG Vial IV.PUSH SCH (09:48)
[2018-02-01] MEDS: Heparin 10,000 UNITS/10 ML Vial (for IV use) OTHER PRN (11:56)
--- NOTE | 2018-02-01 12:39 | P.PNNP ---
Subjective Interval history: Seen during hemodialysis tolerating well. On Bipap. <Sabrina Keller - Last Filed: 02/01/18 12:31> Physical Exam Vital signs: Vital Signs 01/31/18 14:00 01/31/18 16:00 01/31/18 18:00 Temperature 98.0 F Pulse Rate 64 68 68 Respiratory Rate 11 L Blood Pressure 120/68 Pulse Oximetry 95 01/31/18 20:00 01/31/18 21:30 01/31/18 21:50 Temperature 97.8 F Pulse Rate 65 Respiratory Rate 11 L Blood Pressure 123/67 Pulse Oximetry 91 L 89 L 94 L 01/31/18 22:00 02/01/18 00:00 02/01/18 00:26 Temperature 98 F Pulse Rate 70 67 Respiratory Rate 16 Blood Pressure 148/67 H Pulse Oximetry 94 L 98 96 02/01/18 00:30 02/01/18 02:00 02/01/18 03:44 Temperature Pulse Rate 75 Respiratory Rate Blood Pressure Pulse Oximetry 94 L 97 02/01/18 03:46 02/01/18 04:00 02/01/18 05:57 Temperature 98.2 F Pulse Rate 77 76 Respiratory Rate 20 Blood Pressure 131/81 Pulse Oximetry 97 99 02/01/18 07:00 02/01/18 07:56 02/01/18 08:00 Temperature 98.0 F Pulse Rate 79 Respiratory Rate 16 Blood Pressure 134/62 Pulse Oximetry 95 97 95 02/01/18 10:00 02/01/18 11:24 Temperature Pulse Rate 80 Respiratory Rate Blood Pressure Pulse Oximetry 96 Intake & Output 01/31/18 02/01/18 02/01/18 18:59 06:59 18:59 Intake Total 0 / 0 240 / 240 Output Total 4175 / 4175 100 / 100 Balance -4175 / -4175 140 / 140 Weight 88.8 kg 80.9 kg Intake: IV 0 / 0 Bumex Inj 25 mg In 100 ml @ 1 0 / 0 MG/HR 4 mls/hr IV.CONT .Q24H ARIANA Rx#:[id number] Flexbumin 25% Inj 100 ML @ 60 0 / 0 mls/hr IV.SIG TID@,, ARIANA Rx#:[id number] Oral 240 / 240 Output: Hemodialysis Amount 4000 / 4000 Urine Amount (Catheter) 175 / 175 100 / 100 Indwelling Urethral Catheter 175 / 175 100 / 100 Other: Date of Last Bowel Movement 01/30/18 01/30/18 01/30/18 # Bowel Movements 0 - Constitutional no acute distress - Routine HEENT Exam Head: Present: normocephalic - Routine Neck Exam Present: JVD - Routine Respiratory Exam Present: decreased breath sounds. Absent: rales, rhonchi - Routine Cardiovascular Exam Present: RRR - Routine Abdominal Exam Present: soft, normoactive bowel sounds. Absent: tenderness Comments: large - Routine Extremities Exam Present: edema, vascular access Comments: Tight dependent edema. - Routine Skin Exam Present: dry, warm - Routine Neurological Exam Present: alert - Routine Psychiatric Exam Present: cooperative - Urinary Catheter Management Indwelling Urethral Catheter Cath placed during this visit: yes Urethral indwelling: Yes Reason for continuing: Hourly intake/output Insertion date: 01/21/18 Insertion time: 12:40 <Sabrina Keller - Last Filed: 02/01/18 12:31> Vital signs: Vital Signs 02/01/18 11:24 02/01/18 12:00 02/01/18 14:00 Temperature 98.0 F Pulse Rate 79 80 Respiratory Rate 20 Blood Pressure 116/58 L Pulse Oximetry 96 98 02/01/18 15:31 02/01/18 16:00 02/01/18 18:00 Temperature 97.8 F Pulse Rate 84 80 Respiratory Rate 20 Blood Pressure 127/62 Pulse Oximetry 98 98 02/01/18 20:00 02/01/18 20:21 02/01/18 22:00 Temperature 98.4 F Pulse Rate 74 71 Respiratory Rate 24 Blood Pressure 126/58 L Pulse Oximetry 100 100 02/01/18 23:55 02/02/18 00:00 02/02/18 02:00 Temperature 98.4 F Pulse Rate 70 69 Respiratory Rate 20 Blood Pressure 96/52 L Pulse Oximetry 97 98 02/02/18 04:00 02/02/18 04:19 02/02/18 06:00 Temperature 98.4 F Pulse Rate 69 68 Respiratory Rate 16 Blood Pressure 111/54 L Pulse Oximetry 98 98 02/02/18 07:00 02/02/18 08:00 02/02/18 08:21 Temperature 98.4 F Pulse Rate 72 Respiratory Rate 16 Blood Pressure 133/94 H Pulse Oximetry 92 L 100 96 07/15/18 10:00 Temperature Pulse Rate 66 Respiratory Rate Blood Pressure Pulse Oximetry Intake & Output 02/01/18 02/02/18 02/02/18 18:59 06:59 18:59 Intake Total 480 / 480 Output Total 5075 / 5075 50 / 50 Balance -5075 / -5075 430 / 430 Weight 78.9 kg Intake: Oral 480 / 480 Output: Urine 50 / 50 Hemodialysis Amount 5000 / 5000 Urine Amount (Catheter) 75 / 75 Indwelling Urethral Catheter 75 / 75 Other: Date of Last Bowel Movement 01/30/18 01/30/18 02/01/18 # Bowel Movements 0 - Urinary Catheter Management Indwelling Urethral Catheter Cath placed during this visit: no <Shin Ahmadi - Last Filed: 02/02/18 10:17> Assessment and Plan - Assessment (1) Acute on chronic kidney failure Code(s): N17.9 - Acute kidney failure, unspecified; N18.9 - Chronic kidney disease, unspecified Status: Acute Plan: 1 Acute kidney injury The patient has proteinuria and most likely she has chronic kidney disease because of diabetic nephropathy. Baseline creatinine of 1.4-1.5 12/[address] scan report,showing the kidneys are normal in size. On Bumex gtt at 1 mg/hr Creatinine slightly increased at 2.46 today Oliguric with 240cc/24 hours Continue Bumex gtt Follow Urine out put and BMP. Avoid nephrotoxins. Epogen with dialysis Hemodialysis started on 01/31 with UF of 4 liters Seen during hemodialysis today and plan to remove 5 liters. . (2) HTN (hypertension) Code(s): I10 - Essential (primary) hypertension Status: Acute Plan: Improved Continue current therapy will monitor (3) Hyperkalemia Code(s): E87.5 - Hyperkalemia Status: Acute Plan: Resolved <Sabrina Keller - Last Filed: 02/01/18 12:31> - Assessment (1) Acute on chronic kidney failure Code(s): N17.9 - Acute kidney failure, unspecified; N18.9 - Chronic kidney disease, unspecified Status: Acute (2) HTN (hypertension) Code(s): I10 - Essential (primary) hypertension Status: Acute (3) Hyperkalemia Code(s): E87.5 - Hyperkalemia Status: Acute - Attending Attestation Patient seen and examined, agree with above. Seen on HD, tolerating well. BP is stable. Remove fluid as tolerated. <Shin Ahmadi - Last Filed: 02/02/18 10:17>
[2018-02-01] MEDS: Ferrous Sulfate 325 MG Tablet PO SCH ×2 (12:41→17:43)
[2018-02-01] MEDS: Bumetanide Inj 25 MG/100 ML BAG IV.CONT SCH (12:41)
[2018-02-01] MEDS: Mupirocin 2% Nasal Oint Topical Syringe EACH NARE SCH (21:44)
[2018-02-02 04:24] LABS: Albumin 3.6 g/dL (3.4-5.0); Calcium 9.2 mg/dL (8.5-10.1); Carbon Dioxide 23.1 meq/L (21.0-32.0); Phosphorus 5.8 mg/dL (2.5-4.9); Potassium 4.6 meq/L (3.5-5.1)
[2018-02-02] MEDS: Docusate Sodium 100 MG Capsule PO SCH ×2 (08:34→19:59)
[2018-02-02] MEDS: Folic Acid 1 MG Tablet PO SCH (08:34)
[2018-02-02] MEDS: Lactobacillus Acidophilus/L. Spores Tablet PO SCH ×2 (08:35→19:59)
[2018-02-02] MEDS: Minoxidil 2.5 MG Tablet PO SCH (08:35)
[2018-02-02] MEDS: metOLazone 5 MG Tablet PO SCH ×2 (08:36→17:21)
[2018-02-02] MEDS: Isosorbide Mononitrate 20 MG Tablet PO SCH ×2 (08:37→19:59)
[2018-02-02] MEDS: Carvedilol 12.5 MG Tablet PO SCH ×2 (08:37→19:59)
[2018-02-02] MEDS: Mupirocin 2% Nasal Oint Topical Syringe EACH NARE SCH ×2 (08:38→20:01)
[2018-02-02] MEDS: Insulin Detemir Inj 1,000 UNIT/10 ML Vial SQ SCH ×3 (08:42→20:01)
[2018-02-02] MEDS: Insulin NovoLOG Aspart Correctional Sugar Inj SQ SCH ×3 (08:42→17:23)
[2018-02-02] MEDS: Pantoprazole Inj 40 MG Vial IV.PUSH SCH (11:18)
--- NOTE | 2018-02-02 11:23 | P.PNNP ---
Subjective Interval history: Sleeping on bipap at 55%. Hemodialysis yesterday tolerated well. <KrishnaSabrina - Last Filed: 02/02/18 11:17> Physical Exam Vital signs: Vital Signs 02/01/18 11:24 02/01/18 12:00 02/01/18 14:00 Temperature 98.0 F Pulse Rate 79 80 Respiratory Rate 20 Blood Pressure 116/58 L Pulse Oximetry 96 98 02/01/18 15:31 02/01/18 16:00 02/01/18 18:00 Temperature 97.8 F Pulse Rate 84 80 Respiratory Rate 20 Blood Pressure 127/62 Pulse Oximetry 98 98 02/01/18 20:00 02/01/18 20:21 02/01/18 22:00 Temperature 98.4 F Pulse Rate 74 71 Respiratory Rate 24 Blood Pressure 126/58 L Pulse Oximetry 100 100 02/01/18 23:55 02/02/18 00:00 02/02/18 02:00 Temperature 98.4 F Pulse Rate 70 69 Respiratory Rate 20 Blood Pressure 96/52 L Pulse Oximetry 97 98 02/02/18 04:00 02/02/18 04:19 02/02/18 06:00 Temperature 98.4 F Pulse Rate 69 68 Respiratory Rate 16 Blood Pressure 111/54 L Pulse Oximetry 98 98 02/02/18 07:00 02/02/18 08:00 02/02/18 08:21 Temperature 98.4 F Pulse Rate 72 Respiratory Rate 16 Blood Pressure 133/94 H Pulse Oximetry 92 L 100 96 02/02/18 10:00 Temperature Pulse Rate 66 Respiratory Rate Blood Pressure Pulse Oximetry Intake & Output 02/01/18 02/02/18 02/02/18 18:59 06:59 18:59 Intake Total 480 / 480 Output Total 5075 / 5075 50 / 50 Balance -5075 / -5075 430 / 430 Weight 78.9 kg Intake: Oral 480 / 480 Output: Urine 50 / 50 Hemodialysis Amount 5000 / 5000 Urine Amount (Catheter) 75 / 75 Indwelling Urethral Catheter 75 / 75 Other: Date of Last Bowel Movement 01/30/18 01/30/18 02/01/18 # Bowel Movements 0 - Constitutional no acute distress - Routine HEENT Exam Head: Present: normocephalic ENT: Present: mucous membranes moist - Routine Neck Exam Present: supple, JVD - Routine Respiratory Exam Present: decreased breath sounds. Absent: rhonchi, wheezes, crackles - Routine Cardiovascular Exam Present: RRR - Routine Abdominal Exam Present: soft, normoactive bowel sounds, distended. Absent: tenderness - Routine Exam Groin: Present: swelling - Routine Extremities Exam Present: edema, vascular access - Routine Skin Exam Present: dry, warm - Urinary Catheter Management Indwelling Urethral Catheter Cath placed during this visit: yes Urethral indwelling: Yes Reason for continuing: Terminally ill/Comfort care Insertion date: 01/21/18 Insertion time: 12:40 <Sabrina Keller - Last Filed: 02/02/18 11:17> Vital signs: Vital Signs 02/02/18 11:50 02/02/18 12:00 02/02/18 14:00 Temperature 98.1 F Pulse Rate 64 68 Respiratory Rate 12 Blood Pressure 102/56 L Pulse Oximetry 93 L 95 02/02/18 14:56 02/02/18 16:00 02/02/18 18:00 Temperature 98.6 F Pulse Rate 65 66 Respiratory Rate 11 L Blood Pressure 128/62 Pulse Oximetry 96 95 02/02/18 19:00 02/02/18 20:00 02/02/18 20:30 Temperature 97.4 F L Pulse Rate 63 Respiratory Rate 16 Blood Pressure 107/59 L Pulse Oximetry 90 L 90 L 97 02/02/18 20:35 02/02/18 20:37 02/02/18 22:00 Temperature Pulse Rate 53 L Respiratory Rate Blood Pressure Pulse Oximetry 91 L 94 L 02/03/18 00:00 02/03/18 02:00 02/03/18 04:00 Temperature 95.4 F L 97.9 F Pulse Rate 54 L 61 62 Respiratory Rate 12 12 Blood Pressure 110/57 L 106/59 L Pulse Oximetry 95 99 02/03/18 06:00 02/03/18 08:16 Temperature Pulse Rate 71 Respiratory Rate Blood Pressure Pulse Oximetry 96 Intake & Output 02/02/18 02/03/18 02/03/18 18:59 06:59 18:59 Intake Total 400 / 400 Output Total 4050 / 4050 0 / 0 Balance -3650 / -3650 0 / 0 Weight 77.5 kg Intake: IV 200 / 200 Flexbumin 25% Inj 100 ML @ 60 200 / 200 mls/hr IV.SIG WITH DIALYSIS PRN Rx#:[id number] Oral 200 / 200 Output: Urine 50 / 50 Hemodialysis Amount 4000 / 4000 Urine Amount (Catheter) 0 / 0 0 / 0 Indwelling Urethral Catheter 0 / 0 0 / 0 Other: Date of Last Bowel Movement 02/02/18 02/02/18 # Bowel Movements 1 - Urinary Catheter Management Indwelling Urethral Catheter Cath placed during this visit: no <Shin Ahmadi - Last Filed: 02/03/18 10:41> Assessment and Plan - Assessment (1) Acute on chronic kidney failure Code(s): N17.9 - Acute kidney failure, unspecified; N18.9 - Chronic kidney disease, unspecified Status: Acute Plan: 1 Acute kidney injury The patient has proteinuria and most likely she has chronic kidney disease because of diabetic nephropathy. Baseline creatinine of 1.4-1.5 12/[address] scan report,showing the kidneys are normal in size. Creatinine stable at 2.46 -> 2.45 Anuric with 50cc/24 hours Follow Urine out put and BMP. Avoid nephrotoxins. Epogen with dialysis Hemodialysis started on 01/31 Hemodialysis yesterday with removal of 5 liters Will repeat hemodialysis today as patient continues to be fluid overloaded and remove fluid as tolerated . (2) HTN (hypertension) Code(s): I10 - Essential (primary) hypertension Status: Acute Plan: Improved Continue current therapy will monitor (3) Hyperkalemia Code(s): E87.5 - Hyperkalemia Status: Acute Plan: Resolved <Sabrina Keller - Last Filed: 02/02/18 11:17> - Assessment (1) Acute on chronic kidney failure Code(s): N17.9 - Acute kidney failure, unspecified; N18.9 - Chronic kidney disease, unspecified Status: Acute (2) HTN (hypertension) Code(s): I10 - Essential (primary) hypertension Status: Acute (3) Hyperkalemia Code(s): E87.5 - Hyperkalemia Status: Acute - Attending Attestation Patient seen and examined, agree with above. Patient seen during HD, tolerating well, BP is stable. Remove fluid as tolerated. <Shin Ahmadi - Last Filed: 02/03/18 10:41>
--- NOTE | 2018-02-02 11:25 | P.PNCC ---
Subjective Subjective Remarks/Hospital Course: I have been asked to see this 53-year-old woman with end-stage systolic heart failure and massive fluid retention. Attempts at diuresis is resulted in azotemia. She has woody edema involving the lower legs and abdomen. The extent and nature of the edema is not the pattern typically found an end-stage heart failure including severe right ventricular dysfunction. But her neck veins clearly demonstrated venous hypertension and without a doubt she needs fluid removed from her intravascular space. I am not certain how well she will mobilize extravascular water thereafter but I concur that at this point extracorporeal fluid removal is necessary. The hospitalist service has transferred her to the intensive care unit where I met her on her arrival. A dialysis catheter has been placed and we are instituting hemodialysis now. I have discussed the situation in detail with the dialysis team and agree that the removal of 3-4 L initially should be feasible. Ultimately, recovery of her renal function will be required for long-term survival. Hopefully reduction of venous hypertension will allow this. In the meantime we will stop her diuretics and hold her albumin replacement. 02/01: Removed 4 L of fluid with hemodialysis yesterday. She is still floridly overloaded with tensely distended jugular veins up to the ear. Her lower abdomen and legs woody with fluid engorgement. Spontaneous urine has not picked up. 02/02: Gas exchange remains severely impaired and patient still requires BiPAP noninvasive ventilation. Neck veins remain tensely distended and we are still waiting ahead on intravascular volume. So far the daily hemodialysis has successfully ultrafiltrating 7 L without impairing hemodynamics. Hopefully we can continue this course of treatment. Objective Vital Signs / I&O: Vital Signs 02/01/18 11:24 02/01/18 12:00 02/01/18 14:00 Temperature 98.0 F Pulse Rate 79 80 Respiratory Rate 20 Blood Pressure 116/58 L Pulse Oximetry 96 98 02/01/18 15:31 02/01/18 16:00 02/01/18 18:00 Temperature 97.8 F Pulse Rate 84 80 Respiratory Rate 20 Blood Pressure 127/62 Pulse Oximetry 98 98 02/01/18 20:00 02/01/18 20:21 02/01/18 22:00 Temperature 98.4 F Pulse Rate 74 71 Respiratory Rate 24 Blood Pressure 126/58 L Pulse Oximetry 100 100 02/01/18 23:55 02/02/18 00:00 02/02/18 02:00 Temperature 98.4 F Pulse Rate 70 69 Respiratory Rate 20 Blood Pressure 96/52 L Pulse Oximetry 97 98 02/02/18 04:00 02/02/18 04:19 02/02/18 06:00 Temperature 98.4 F Pulse Rate 69 68 Respiratory Rate 16 Blood Pressure 111/54 L Pulse Oximetry 98 98 02/02/18 07:00 02/02/18 08:00 02/02/18 08:21 Temperature 98.4 F Pulse Rate 72 Respiratory Rate 16 Blood Pressure 133/94 H Pulse Oximetry 92 L 100 96 02/02/18 10:00 Temperature Pulse Rate 66 Respiratory Rate Blood Pressure Pulse Oximetry Intake & Output 02/01/18 02/02/18 02/02/18 18:59 06:59 18:59 Intake Total 480 / 480 Output Total 5075 / 5075 50 / 50 Balance -5075 / -5075 430 / 430 Weight 78.9 kg Intake: Oral 480 / 480 Output: Urine 50 / 50 Hemodialysis Amount 5000 / 5000 Urine Amount (Catheter) 75 / 75 Indwelling Urethral Catheter 75 / 75 Other: Date of Last Bowel Movement 01/30/18 01/30/18 02/01/18 # Bowel Movements 0 Result Diagrams: 01/31/18 08:00 02/02/18 03:30 Objective Remarks: Physical exam: Head: Mild generalized edema, atraumatic Neck: Supple, airway widely patent, mask in place, no obstructive noises. Lungs: Diffuse crackles, decreased breath sounds both bases. Moderately labored respiratory pattern. Heart: Rate controlled. Tensely distended jugular veins. Abdomen: Generalized woody edema in the lower abdominal soft tissue, quiet, no peritoneal irritation. Extremities: Tense woody edema involving both lower extremities. Marginal distal perfusion. Neuro: Groans to stimulation. Wiggles fingers and toes to loud command. Mostly sleeps with mask in place. Assessment and Plan - Assessment and Plan Plan: Assessment and Plan - Assessment (1) Nonischemic cardiomyopathy, Chronic systolic CHF with EF 15-20% s/p AICD Code(s): I42.8 - Other cardiomyopathies Status: Chronic After her most recent admission from 12/02/17 to 01/08/18 was for CHF and was transferred to [facility] to be evaluated for possible heart transplant vs. LVAD. During that admission she had an acute CVA with resulting left sided weakness and felt that she was not a good candidate for advanced heart failure treatment. Pt was discharged to [facility] on 01/08/18. - Pt was given a dose of IV Lasix in the ED - CXR in the ED noted Cardiomegaly with prominent main pulmonary artery. Pacer lead overlies right ventricle. No focal consolidation or effusion. - Pt was continued on PO Lasix 40mg BID due to worsening renal function - Pt was given a dose of Lasix 80mg IV with Albumin IV given prior to the Lasix on 01/19 BNP is elevated from at admission from 1368--> 1852 - Pt was reportedly evaluated at [facility] recently for Heart transplant vs. LVAD but had a stroke during that admission and was not felt to be a good candidate after the CVA. - CXR (01/20/18) --> Cardiomegaly with trace positive fluid balance - Pt is typically on 2L of supplemental O2 - Discussed code status with the pt and she wishes to be a full code. - Appreciate input from Palliative Service - 2D echo (01/21/18): - Estimated ejection fraction of 45-50%. No segmental wall motion abnormalities. - Possible mild right ventricular enlargement with normal systolic function. - A pacemaker wire is noted. - Mild mitral valve regurgitation. - Mild tricuspid valve regurgitation. - Estimated pulmonary arterial pressure is 35 mmHg - Cardiology concerned for IVC thrombus. 01/30 radionucleotide venogram performed and no evidence of thrombus right groin catheter placed at that time. - Pt was previous on Lasix to 80mg IV TID during admission . - continue IV albumin - The IV lasix was changed to Bumex gtt (01/26/18) - Zaroxolyn increased to 5mg BID on 01/28 - O2 - DVT prophylaxis with Eliquis - supportive care - Lonnieicat called today 01/31 for hypoxia and sob. Pt moved to ICU. only 200cc u.o overnight with bumex gtt CP hospitalist spoke to renal and rn manager. Moved to ICU. vascath ordered for HD. cont nrb. called daughter x 2. no answer. pt full code. Hemodialysis [id number], 4 L removed first day. (2) hypoxemic respiratory failure, acute -Nonrebreathing mask, probable early intubation (3) Abdominal pain Nausea/vomiting Constipation, improved - Pt had a small BM on 01/17 but has been refusing the Lactulose BID - Pt was given Mag Citrate and Colace BID on 01/18 but no significant stooling - Pt had Gastrografin enema on 01/20 with large volume of stool output - Zofran PRN - Protonix 40mg IV daily (3) Diabetes mellitus, poorly controlled Hgb A1C 14.4 on 08/31/17 Hypoglycemia - cont basal/bolus insulin. (4)Hyperkalemia, Acute on chronic renal disease, stage 3 - Outpt labs from 11/2017 noted Cr around 1.4-1.5 - Labs in the ED noted a potassium of 6.1. - Pt was given Kayexalate and Calcium Gluconate in the ED her repeat potassium this morning was 5.5 and second repeat was 5.7 on 01/17 - Pt refusing Lab draws on 01/18, but we discussed with the pt the importance of getting er labs drawn to monitor her electrolytes and kidney function and was agreed - Pt was given a second dose of Kayexalate on 01/17 but pt has not moved her bowels. - (01/26) BUN 49m creatinine 2.22, estimated GFR 28 - (01/27) BUN 53, creatinine 2.20, estimated GFR 28 - (01/28) BUN 55, Creatinine 2.15, estimated GFR 29 - 01/31 -hemodialysis instituted today, name is to remove at least 3-4 L. - 02/01 - HD removed 4 liters (5)HTN (hypertension) - Cont. home meds - BP is poorly controlled on multiple medications: Coreg 12.5mg BID, Clonidine 0.2mg Q8H, Hydralazine 100mg Q8H, Minoxidil 5mg po daily, Procardia XL 30mg po BID - Clonidine PRN - Monitor closely (6)Elevated LFTs, Congestive hepatopathy, Ascites - Review of outpt records show the pts AlkPhos has been elevated since 10/2016 - AlkPhos Isoenzyme in 10/2017 noted 72% liver, 20% bone, 8% intestine - Transjugular liver bx (12/20/17) --> Findings suggestive of congestive hepatopathy. (5)Anemia - patient's hgb has been trending down on admission hgb 10.4 - iron 17, TIBC 176, % saturation 9.6 - reticulocyte count 0.9 - occult stool requested - Ferrous sulfate PO BID Overall impression: This woman remains critically ill with hypoxemic respiratory failure due to advanced pulmonary edema produced by extreme fluid overload. The etiology is cardiac decompensation associated with advancing renal failure. The sudden worsening of renal failure appears to be related to venous hypertension, referred to by some as the cardiorenal syndrome. By physical exam the central venous pressure is at least 30 mmHg. Attempts at aggressive diuretic therapy have been unsuccessful. Hopefully reduction of intravascular volume and venous hypertension will allow her kidneys to respond to normal diuretic therapy. So for hemodialysis has filtrated 7 L from the patient. The plan is to continue this course of treatment while pushing for palliative care and hospice. Critical care 40 minutes aside from procedures.
[2018-02-02] MEDS: Ferrous Sulfate 325 MG Tablet PO SCH ×2 (12:29→17:23)
[2018-02-02] MEDS: Heparin 10,000 UNITS/10 ML Vial (for IV use) OTHER PRN (12:50)
[2018-02-02] MEDS: Albumin Human 25% Inj 100 ML IV.SIG PRN ×2 (12:50→12:53)
[2018-02-02] MEDS: Acetaminophen 325 MG Tablet PO PRN (19:59)
[2018-02-02] MEDS ORDERED: Bisacodyl 10 MG Supp RECTAL ONE (21:11)
[2018-02-02] MEDS: Dextrose 50% in Water 50 ML Vial IV.PUSH PRN ×2 (21:35→21:45)
--- NOTE | 2018-02-02 22:22 | CT ---
EXAM DATE: 02/02/2018 10:13 PM EDT AGE/SEX: 53 years / Female INDICATIONS: Abdominal pain and distention. CLINICAL DATA: This is the patient's initial encounter. Patient reports that signs and symptoms have been present for 1 day and indicates a pain score of 8/10. MEDICAL/SURGICAL HISTORY: Diabetes. Renal failure, chronic. Cardiovascular disease. Pacemaker . RADIATION DOSE: 6.84 CTDI (mGy) COMPARISON: [facility] [place] A[place]OM[place] & PELVIS W/O CONTRAST, 01/16/2018. . TECHNIQUE: Multiple contiguous axial images were obtained through the abdomen. Images were obtained using multiple row detector helical technique. Using automated exposure control and adjustment of the mA and/or kV according to patient size, radiation dose was kept as low as reasonably achievable to o btain optimal diagnostic quality images. DICOM format image data is available electronically for rev iew and comparison. FINDINGS: Lower Lungs: There is patchy density seen at the lower lungs bilaterally. There is a pacing device se en in the left chest with pacing lead seen in the right side of the heart. Liver: The liver has a homogeneous density without space-occupying lesion. There is no dilation of th e biliary tree. There is dependent calcification seen in the gallbladder likely related to small ston es or milk of calcium. Spleen: Homogeneous density without enlargement. Pancreas: Unremarkable without mass or calcification. Kidneys: Normal in size and shape. No evidence of mass or hydronephrosis. Adrenal Glands: Unremarkable. Aorta: Atherosclerotic calcifications are seen. Bowel/Mesentery: There is moderate amount of ascites present. The bowel is unremarkable. Contrast is seen within the colon. Abdominal Wall: Intact. Retroperitoneum: No evidence of adenopathy in the retrocrural, para-aortic, or deep pelvic regions. Bladder: There is a Hines catheter within a decompressed bladder. Reproductive Organs: No abnormal masses or calcifications seen. Inguinal: There is a right femoral vein catheter present. Bony Structures: Unremarkable. CONCLUSION: 1. At least moderate ascites. 2. Atherosclerotic calcifications. 3. Suspected gallstones or milk of calcium in the gallbladder. Electronically signed by: Justin Post MD 02/02/2018 10:21 PM EDT
[2018-02-03] MEDS: Dextrose 50% in Water 50 ML Vial IV.PUSH PRN ×5 (00:30→10:45)
[2018-02-03] MEDS: Dextrose 10% in Water Inj 1,000 ML IV.CONT SCH ×2 (02:00→13:07)
--- NOTE | 2018-02-03 04:28 | XR ---
EXAM DATE: 02/03/2018 4:18 AM EDT AGE/SEX: 53 years / Female INDICATIONS: Hypoxemia, effusions. CLINICAL DATA: This is the patient's subsequent encounter. Patient reports that signs and symptoms h ave been present for 2 weeks and indicates a pain score of Nonresponsive. MEDICAL/SURGICAL HISTORY: . Diabetes mellitus type II. Congestive heart failure. . Pacemaker COMPARISON: [facility], CHEST 1V SINGLE AP, 01/31/2018. . FINDINGS: Right Vas-Cath is in superior vena cava. Cardiomegaly. Pacer lead overlies right ventricle. Basilar a irspace disease slightly improved from January 31. No significant effusion. No pneumothorax. CONCLUSION: Mild improvement in basilar airspace disease since January 31. Electronically signed by: Jerardo Burgos MD 02/03/2018 4:27 AM EDT
[2018-02-03] MEDS: Insulin NovoLOG Aspart Correctional Sugar Inj SQ SCH ×4 (04:47→19:12)
[2018-02-03 08:33] LABS: Albumin 3.7 g/dL (3.4-5.0); Calcium 9.4 mg/dL (8.5-10.1); Carbon Dioxide 29.4 meq/L (21.0-32.0); Potassium 3.6 meq/L (3.5-5.1)
--- NOTE | 2018-02-03 08:35 | P.PNCC ---
Subjective Subjective Remarks/Hospital Course: I have been asked to see this 53-year-old woman with end-stage systolic heart failure and massive fluid retention. Attempts at diuresis is resulted in azotemia. She has woody edema involving the lower legs and abdomen. The extent and nature of the edema is not the pattern typically found an end-stage heart failure including severe right ventricular dysfunction. But her neck veins clearly demonstrated venous hypertension and without a doubt she needs fluid removed from her intravascular space. I am not certain how well she will mobilize extravascular water thereafter but I concur that at this point extracorporeal fluid removal is necessary. The hospitalist service has transferred her to the intensive care unit where I met her on her arrival. A dialysis catheter has been placed and we are instituting hemodialysis now. I have discussed the situation in detail with the dialysis team and agree that the removal of 3-4 L initially should be feasible. Ultimately, recovery of her renal function will be required for long-term survival. Hopefully reduction of venous hypertension will allow this. In the meantime we will stop her diuretics and hold her albumin replacement. 02/01: Removed 4 L of fluid with hemodialysis yesterday. She is still floridly overloaded with tensely distended jugular veins up to the ear. Her lower abdomen and legs woody with fluid engorgement. Spontaneous urine has not picked up. 02/02: Gas exchange remains severely impaired and patient still requires BiPAP noninvasive ventilation. Neck veins remain tensely distended and we are still waiting ahead on intravascular volume. So far the daily hemodialysis has successfully ultrafiltrating 7 L without impairing hemodynamics. Hopefully we can continue this course of treatment. 02/03: no improvements despite aggressive therapy. on high flow NC. JVD still above the level of the mandible. abdomen is still severely distended. CT abd/ pelvis yesterday with moderate ascites and hepatomegaly. hypoglycemic overnight. I had a long discussion with the patient about her prognosis. She kept repeating "I don't want to hear that I'm dying. tell me something different." I explained that without transplant or mechanical support, end- stage HF is fatal. she is hospice appropriate. Objective Vital Signs / I&O: Vital Signs 02/02/18 08:21 02/02/18 10:00 02/02/18 11:50 Temperature Pulse Rate 66 Respiratory Rate Blood Pressure Pulse Oximetry 96 93 L 02/02/18 12:00 02/02/18 14:00 02/02/18 14:56 Temperature 36.7 C Pulse Rate 64 68 Respiratory Rate 12 Blood Pressure 102/56 L Pulse Oximetry 95 96 02/02/18 16:00 02/02/18 18:00 02/02/18 19:00 Temperature 37.0 C Pulse Rate 65 66 Respiratory Rate 11 L Blood Pressure 128/62 Pulse Oximetry 95 90 L 02/02/18 20:00 02/02/18 20:30 02/02/18 20:35 Temperature 36.3 C L Pulse Rate 63 Respiratory Rate 16 Blood Pressure 107/59 L Pulse Oximetry 90 L 97 91 L 02/02/18 20:37 02/02/18 22:00 02/03/18 00:00 Temperature 35.2 C L Pulse Rate 53 L 54 L Respiratory Rate 12 Blood Pressure 110/57 L Pulse Oximetry 94 L 95 02/03/18 02:00 02/03/18 04:00 02/03/18 06:00 Temperature 36.6 C Pulse Rate 61 62 71 Respiratory Rate 12 Blood Pressure 106/59 L Pulse Oximetry 99 Intake & Output 02/02/18 02/03/18 02/03/18 18:59 06:59 18:59 Intake Total 400 / 400 Output Total 4050 / 4050 0 / 0 Balance -3650 / -3650 0 / 0 Weight 77.5 kg Intake: IV 200 / 200 Flexbumin 25% Inj 100 ML @ 60 200 / 200 mls/hr IV.SIG WITH DIALYSIS PRN Rx#:[id number] Oral 200 / 200 Output: Urine 50 / 50 Hemodialysis Amount 4000 / 4000 Urine Amount (Catheter) 0 / 0 0 / 0 Indwelling Urethral Catheter 0 / 0 0 / 0 Other: Date of Last Bowel Movement 02/02/18 02/02/18 # Bowel Movements 1 Result Diagrams: 01/31/18 08:00 02/02/18 03:30 Objective Remarks: Physical exam: Head: Mild generalized edema, atraumatic Neck: Supple, airway widely patent, high flow NC in place, no obstructive noises. Lungs: Diffuse crackles, decreased breath sounds both bases. Moderately labored respiratory pattern. Heart: Rate controlled. Tensely distended jugular veins. Abdomen: Generalized woody edema in the lower abdominal soft tissue, quiet, no peritoneal irritation. severely distended. soft. Extremities: Tense woody edema involving both lower extremities. Marginal distal perfusion. Neuro: Groans to stimulation. Wiggles fingers and toes to loud command. Mostly sleeps with mask in place. Assessment and Plan - Assessment and Plan Plan: Assessment and Plan - Assessment (1) Nonischemic cardiomyopathy, Chronic systolic CHF with EF 15-20% s/p AICD Code(s): I42.8 - Other cardiomyopathies Status: Chronic After her most recent admission from 12/02/17 to 01/08/18 was for CHF and was transferred to [facility] to be evaluated for possible heart transplant vs. LVAD. During that admission she had an acute CVA with resulting left sided weakness and felt that she was not a good candidate for advanced heart failure treatment. Pt was discharged to [facility] on 01/08/18. - Pt was given a dose of IV Lasix in the ED - CXR in the ED noted Cardiomegaly with prominent main pulmonary artery. Pacer lead overlies right ventricle. No focal consolidation or effusion. - Pt was continued on PO Lasix 40mg BID due to worsening renal function - Pt was given a dose of Lasix 80mg IV with Albumin IV given prior to the Lasix on 01/19 BNP is elevated from at admission from 1368--> 1852 - Pt was reportedly evaluated at [facility] recently for Heart transplant vs. LVAD but had a stroke during that admission and was not felt to be a good candidate after the CVA. - CXR (01/20/18) --> Cardiomegaly with trace positive fluid balance - Pt is typically on 2L of supplemental O2 - Discussed code status with the pt and she wishes to be a full code. - Appreciate input from Palliative Service - 2D echo (01/21/18): - Estimated ejection fraction of 45-50%. No segmental wall motion abnormalities. - Possible mild right ventricular enlargement with normal systolic function. - A pacemaker wire is noted. - Mild mitral valve regurgitation. - Mild tricuspid valve regurgitation. - Estimated pulmonary arterial pressure is 35 mmHg - Cardiology concerned for IVC thrombus. 01/30 radionucleotide venogram performed and no evidence of thrombus right groin catheter placed at that time. - Pt was previous on Lasix to 80mg IV TID during admission . - continue IV albumin - The IV lasix was changed to Bumex gtt (01/26/18) - Zaroxolyn increased to 5mg BID on 01/28 - O2 - DVT prophylaxis with Eliquis - supportive care - Chemo called today 01/31 for hypoxia and sob. Pt moved to ICU. only 200cc u.o overnight with bumex gtt [facility] hospitalist spoke to renal and curb supervisor. Moved to ICU. vascath ordered for HD. cont nrb. called daughter x 2. no answer. pt full code. Hemodialysis [id number], 4 L removed first day. has been net negative 2-4 L/day for 3 days now. no improvements at all in respiratory distress, volume overload, distended neck veins. had discussion again today with patient and explained poor end-stage prognosis and need for hospice care. she remains resistant to any end-of life discussions. continue daily HD for volume removal. (2) hypoxemic respiratory failure, acute -continue HF NC. if she continues to insist on full code status, will need intubation if she decompensates. (3) Abdominal pain Nausea/vomiting Constipation, improved - Pt had a small BM on 01/17 but has been refusing the Lactulose BID - Pt was given Mag Citrate and Colace BID on 01/18 but no significant stooling - Pt had Gastrografin enema on 01/20 with large volume of stool output - Zofran PRN - Protonix 40mg IV daily - high concern for acute liver dysfunction in the setting of decompensated biventricular heart failure. - send LFTs. (3) Diabetes mellitus, poorly controlled Hgb A1C 14.4 on 08/31/17 Hypoglycemia - cont basal/bolus insulin. (4)Hyperkalemia, Acute on chronic renal disease, stage 3 - Outpt labs from 11/2017 noted Cr around 1.4-1.5 - Labs in the ED noted a potassium of 6.1. - Pt was given Kayexalate and Calcium Gluconate in the ED her repeat potassium this morning was 5.5 and second repeat was 5.7 on 01/17 - Pt refusing Lab draws on 01/18, but we discussed with the pt the importance of getting er labs drawn to monitor her electrolytes and kidney function and was agreed - Pt was given a second dose of Kayexalate on 01/17 but pt has not moved her bowels. - (01/26) BUN 49m creatinine 2.22, estimated GFR 28 - (01/27) BUN 53, creatinine 2.20, estimated GFR 28 - (01/28) BUN 55, Creatinine 2.15, estimated GFR 29 - 01/31 -hemodialysis instituted today, name is to remove at least 3-4 L. - 02/01 - HD removed 4 liters continue daily HD. (5)HTN (hypertension) - Cont. home meds - BP is poorly controlled on multiple medications: Coreg 12.5mg BID, Clonidine 0.2mg Q8H, Hydralazine 100mg Q8H, Minoxidil 5mg po daily, Procardia XL 30mg po BID - Clonidine PRN - Monitor closely (6)Elevated LFTs, Congestive hepatopathy, Ascites - Review of outpt records show the pts AlkPhos has been elevated since 10/2016 - AlkPhos Isoenzyme in 10/2017 noted 72% liver, 20% bone, 8% intestine - Transjugular liver bx (12/20/17) --> Findings suggestive of congestive hepatopathy. CT abd/pelvis with hepatomegaly and new hypoglycemia concerning for worsening acute liver dysfunction. (5)Anemia - patient's hgb has been trending down on admission hgb 10.4 - iron 17, TIBC 176, % saturation 9.6 - reticulocyte count 0.9 - occult stool requested - Ferrous sulfate PO BID Hypoglycemia - continue d10w - hold insulin. - frequent glucose checks. Overall impression: This woman remains critically ill with hypoxemic respiratory failure due to advanced pulmonary edema produced by extreme fluid overload. The etiology is cardiac decompensation associated with advancing renal failure. The sudden worsening of renal failure appears to be related to venous hypertension, referred to by some as the cardiorenal syndrome. By physical exam the central venous pressure is at least 30 mmHg. Attempts at aggressive diuretic therapy have been unsuccessful. Hopefully reduction of intravascular volume and venous hypertension will allow her kidneys to respond to normal diuretic therapy. So for hemodialysis has filtrated 7 L from the patient. The plan is to continue this course of treatment while pushing for palliative care and hospice. Critical care 37 minutes aside from procedures.
[2018-02-03 08:51] LABS: Albumin 3.9 g/dL (3.4-5.0)
[2018-02-03 08:53] LABS: Total Protein 8.2 g/dL (6.4-8.2)
[2018-02-03] MEDS: Docusate Sodium 100 MG Capsule PO SCH ×2 (09:45→20:43)
[2018-02-03] MEDS: Lactobacillus Acidophilus/L. Spores Tablet PO SCH ×2 (09:45→20:43)
[2018-02-03] MEDS: Carvedilol 12.5 MG Tablet PO SCH ×2 (09:45→20:43)
[2018-02-03] MEDS: Isosorbide Mononitrate 20 MG Tablet PO SCH ×2 (09:47→20:43)
[2018-02-03] MEDS: Minoxidil 2.5 MG Tablet PO SCH (09:48)
[2018-02-03] MEDS: Pantoprazole Inj 40 MG Vial IV.PUSH SCH (09:48)
[2018-02-03] MEDS: Mupirocin 2% Nasal Oint Topical Syringe EACH NARE SCH ×2 (09:49→20:42)
[2018-02-03] MEDS: Folic Acid 1 MG Tablet PO SCH (09:50)
--- NOTE | 2018-02-03 13:57 | P.PNNP ---
Subjective Interval history: Seen earlier in day. Patient is tearful and crying out. Family is requesting to be transferred to [place]. Creatinine is stable at 2.53 On hi brian nasal cannula. <KrishnaSabrina - Last Filed: 02/03/18 13:51> Physical Exam Vital signs: Vital Signs 02/02/18 14:00 02/02/18 14:56 02/02/18 16:00 Temperature 98.6 F Pulse Rate 68 65 Respiratory Rate 11 L Blood Pressure 128/62 Pulse Oximetry 96 95 02/02/18 18:00 02/02/18 19:00 02/02/18 20:00 Temperature 97.4 F L Pulse Rate 66 63 Respiratory Rate 16 Blood Pressure 107/59 L Pulse Oximetry 90 L 90 L 02/02/18 20:30 02/02/18 20:35 02/02/18 20:37 Temperature Pulse Rate Respiratory Rate Blood Pressure Pulse Oximetry 97 91 L 94 L 02/02/18 22:00 02/03/18 00:00 02/03/18 02:00 Temperature 95.4 F L Pulse Rate 53 L 54 L 61 Respiratory Rate 12 Blood Pressure 110/57 L Pulse Oximetry 95 02/03/18 04:00 02/03/18 06:00 02/03/18 08:00 Temperature 97.9 F 97.3 F L Pulse Rate 62 71 65 Respiratory Rate 12 25 H Blood Pressure 106/59 L 111/63 Pulse Oximetry 99 92 L 02/03/18 08:16 Temperature Pulse Rate Respiratory Rate Blood Pressure Pulse Oximetry 96 Intake & Output 02/02/18 02/03/18 02/03/18 18:59 06:59 18:59 Intake Total 400 / 400 500 / 500 Output Total 4050 / 4050 0 / 0 Balance -3650 / -3650 0 / 0 500 / 500 Weight 77.5 kg Intake: IV 200 / 200 500 / 500 D10W Inj 1,000 ML @ 42 mls/hr 500 / 500 IV.CONT .[id number] ARIANA Rx#: [id number] Flexbumin 25% Inj 100 ML @ 60 200 / 200 mls/hr IV.SIG WITH DIALYSIS PRN Rx#:[id number] Oral 200 / 200 Output: Urine 50 / 50 Hemodialysis Amount 4000 / 4000 Urine Amount (Catheter) 0 / 0 0 / 0 Indwelling Urethral Catheter 0 / 0 0 / 0 Other: Date of Last Bowel Movement 02/02/18 02/02/18 02/02/18 # Bowel Movements 1 - Constitutional mild distress - Routine HEENT Exam Head: Present: normocephalic - Routine Neck Exam Present: JVD - Routine Respiratory Exam Present: decreased breath sounds, rhonchi. Absent: wheezes, crackles - Routine Cardiovascular Exam Present: RRR - Routine Abdominal Exam Present: soft, normoactive bowel sounds - Routine Exam Perineum Description: Edematous - Routine Extremities Exam Present: edema Comments: Tight dependent edema - Routine Skin Exam Present: dry, warm - Routine Neurological Exam Present: alert - Routine Psychiatric Exam Present: anxious, agitated - Urinary Catheter Management Indwelling Urethral Catheter Cath placed during this visit: yes Urethral indwelling: Yes Reason for continuing: Terminally ill/Comfort care Insertion date: 01/21/18 Insertion time: 12:40 <Sabrina Keller - Last Filed: 02/03/18 13:51> Vital signs: Vital Signs 02/03/18 14:00 02/03/18 16:00 02/03/18 18:00 Temperature 97.3 F L Pulse Rate 62 67 67 Respiratory Rate 19 Blood Pressure 133/69 Pulse Oximetry 97 02/03/18 19:52 02/03/18 20:00 02/03/18 22:00 Temperature 97.0 F L Pulse Rate 66 73 Respiratory Rate 16 Blood Pressure 148/73 H Pulse Oximetry 98 99 02/03/18 23:59 02/04/18 00:00 02/04/18 02:00 Temperature 97.2 F L Pulse Rate 66 68 Respiratory Rate 13 Blood Pressure 132/68 Pulse Oximetry 99 99 02/04/18 03:33 02/04/18 04:00 02/04/18 06:00 Temperature 97.9 F Pulse Rate 69 73 Respiratory Rate 16 Blood Pressure 138/68 Pulse Oximetry 99 100 02/04/18 07:58 02/04/18 08:00 02/04/18 10:00 Temperature 97.7 F Pulse Rate 68 68 Respiratory Rate 12 Blood Pressure 132/70 Pulse Oximetry 96 93 L 02/04/18 12:00 Temperature Pulse Rate 69 Respiratory Rate Blood Pressure Pulse Oximetry Intake & Output 02/03/18 02/04/18 02/04/18 18:59 06:59 18:59 Intake Total 1300 / 1300 240 / 240 Output Total 2 / 2 4500 / 4500 Balance 1298 / 1298 240 / 240 -4500 / -4500 Weight 77 kg Intake: IV 500 / 500 D10W Inj 1,000 ML @ 42 mls/hr 500 / 500 IV.CONT .[id number] ARIANA Rx#: [id number] Oral 800 / 800 240 / 240 Output: Stool 2 / 2 Hemodialysis Amount 0 / 0 4500 / 4500 Urine Amount (Catheter) 0 / 0 Indwelling Urethral Catheter 0 / 0 Other: # Incontinent Voids 1 Date of Last Bowel Movement 02/02/18 02/02/18 02/02/18 # Bowel Movements 1 1 - Urinary Catheter Management Indwelling Urethral Catheter Cath placed during this visit: no <Shin Ahmadi - Last Filed: 02/04/18 13:36> Assessment and Plan - Assessment (1) Acute on chronic kidney failure Code(s): N17.9 - Acute kidney failure, unspecified; N18.9 - Chronic kidney disease, unspecified Status: Acute Plan: 1 Acute kidney injury The patient has proteinuria and most likely she has chronic kidney disease because of diabetic nephropathy. Baseline creatinine of 1.4-1.5 12/[address] scan report,showing the kidneys are normal in size. Creatinine stable at 2.46 -> 2.45 ->2.45 Anuric with 50cc/24 hours Follow Urine out put and BMP. Avoid nephrotoxins. Epogen with dialysis Hemodialysis started on 01/31 Hemodialysis tomorrow will remove fluid as tolerated . (2) HTN (hypertension) Code(s): I10 - Essential (primary) hypertension Status: Acute Plan: will monitor (3) Hyperkalemia Code(s): E87.5 - Hyperkalemia Status: Acute Plan: Resolved (4) Hypoglycemia Code(s): E16.2 - Hypoglycemia, unspecified Status: Acute Plan: Per CC on D10 gtt <Sabrina Keller - Last Filed: 02/03/18 13:51> - Assessment (1) Acute on chronic kidney failure Code(s): N17.9 - Acute kidney failure, unspecified; N18.9 - Chronic kidney disease, unspecified Status: Acute (2) HTN (hypertension) Code(s): I10 - Essential (primary) hypertension Status: Acute (3) Hyperkalemia Code(s): E87.5 - Hyperkalemia Status: Acute (4) Hypoglycemia Code(s): E16.2 - Hypoglycemia, unspecified Status: Acute - Attending Attestation Patient seen and examined, agree with above. Still has more edema, HD to continue and remove fluid as tolerated. <Shin Ahmadi - Last Filed: 02/04/18 13:36>
[2018-02-03] MEDS: metOLazone 5 MG Tablet PO SCH ×2 (15:00→18:28)
[2018-02-03] MEDS: Ferrous Sulfate 325 MG Tablet PO SCH ×2 (15:00→18:28)
[2018-02-04] MEDS: Insulin NovoLOG Aspart Correctional Sugar Inj SQ SCH ×4 (03:05→18:21)
[2018-02-04] MEDS: Dextrose 10% in Water Inj 1,000 ML IV.CONT SCH (06:13)
[2018-02-04 06:25] LABS: Hematocrit 22.1 % (35.0-46.0); Mean Corpuscular HGB Conc 31.5 % (32.0-36.0); Mean Corpuscular Hemoglobin 27.4 pg (27.0-34.0); Mean Corpuscular Volume 87.1 fL (80.0-100.0); Mean Platelet Volume 8.5 fL (7.0-11.0); Platelet Count 344 th/mm3 (150-450); Red Blood Count 2.53 mil/mm3 (4.00-5.30); Red Cell Distribution Width 16.2 % (11.6-17.2); White Blood Count 6.5 th/mm3 (4.0-11.0)
[2018-02-04 07:06] LABS: Alanine Aminotransferase 29 U/L (10-53); Albumin 3.6 g/dL (3.4-5.0); Alkaline Phosphatase 527 U/L (45-117); Anion Gap 12 meq/L (5-15); Aspartate Aminotransferase 21 U/L (15-37); Blood Urea Nitrogen 51 mg/dL (7-18); Calcium 9.1 mg/dL (8.5-10.1); Chloride 96 meq/L (98-107); Glomerular Filtration Rate 20 mL/min (>89); Glucose,Random 282 mg/dL (74-106); Phosphorus 4.7 mg/dL (2.5-4.9); Potassium 4.1 meq/L (3.5-5.1); Sodium 136 meq/L (136-145)
[2018-02-04] MEDS: Heparin 10,000 UNITS/10 ML Vial (for IV use) OTHER PRN (08:52)
--- NOTE | 2018-02-04 10:43 | P.PNCC ---
Subjective Subjective Remarks/Hospital Course: I have been asked to see this 53-year-old woman with end-stage systolic heart failure and massive fluid retention. Attempts at diuresis is resulted in azotemia. She has woody edema involving the lower legs and abdomen. The extent and nature of the edema is not the pattern typically found an end-stage heart failure including severe right ventricular dysfunction. But her neck veins clearly demonstrated venous hypertension and without a doubt she needs fluid removed from her intravascular space. I am not certain how well she will mobilize extravascular water thereafter but I concur that at this point extracorporeal fluid removal is necessary. The hospitalist service has transferred her to the intensive care unit where I met her on her arrival. A dialysis catheter has been placed and we are instituting hemodialysis now. I have discussed the situation in detail with the dialysis team and agree that the removal of 3-4 L initially should be feasible. Ultimately, recovery of her renal function will be required for long-term survival. Hopefully reduction of venous hypertension will allow this. In the meantime we will stop her diuretics and hold her albumin replacement. 02/01: Removed 4 L of fluid with hemodialysis yesterday. She is still floridly overloaded with tensely distended jugular veins up to the ear. Her lower abdomen and legs woody with fluid engorgement. Spontaneous urine has not picked up. 02/02: Gas exchange remains severely impaired and patient still requires BiPAP noninvasive ventilation. Neck veins remain tensely distended and we are still waiting ahead on intravascular volume. So far the daily hemodialysis has successfully ultrafiltrating 7 L without impairing hemodynamics. Hopefully we can continue this course of treatment. 02/03: no improvements despite aggressive therapy. on high flow NC. JVD still above the level of the mandible. abdomen is still severely distended. CT abd/ pelvis yesterday with moderate ascites and hepatomegaly. hypoglycemic overnight. I had a long discussion with the patient about her prognosis. She kept repeating "I don't want to hear that I'm dying. tell me something different." I explained that without transplant or mechanical support, end- stage HF is fatal. she is hospice appropriate. 02/04: Patient remains lethargic but wakes up easily protecting airway. Remains on high flow nasal cannula. Getting hemodialysis again today. Echo reviewed- Ejection fraction of 45-50%. No WMA. Objective Vital Signs / I&O: Vital Signs 02/03/18 12:00 02/03/18 14:00 02/03/18 16:00 Temperature 95.2 F L 97.3 F L Pulse Rate 64 62 67 Respiratory Rate 24 19 Blood Pressure 119/70 133/69 Pulse Oximetry 95 97 02/03/18 18:00 02/03/18 19:52 02/03/18 20:00 Temperature 97.0 F L Pulse Rate 67 66 Respiratory Rate 16 Blood Pressure 148/73 H Pulse Oximetry 98 99 02/03/18 22:00 02/03/18 23:59 02/04/18 00:00 Temperature 97.2 F L Pulse Rate 73 66 Respiratory Rate 13 Blood Pressure 132/68 Pulse Oximetry 99 99 02/04/18 02:00 02/04/18 03:33 02/04/18 04:00 Temperature 97.9 F Pulse Rate 68 69 Respiratory Rate 16 Blood Pressure 138/68 Pulse Oximetry 99 100 02/04/18 06:00 02/04/18 07:58 02/04/18 08:00 Temperature 97.7 F Pulse Rate 73 68 Respiratory Rate 12 Blood Pressure 132/70 Pulse Oximetry 96 93 L 02/04/18 10:00 Temperature Pulse Rate 68 Respiratory Rate Blood Pressure Pulse Oximetry Intake & Output 02/03/18 02/04/18 02/04/18 18:59 06:59 18:59 Intake Total 1500 / 1500 240 / 240 Output Total 8102 / 8102 Balance -6602 / -6602 240 / 240 Weight 77 kg Intake: IV 500 / 500 D10W Inj 1,000 ML @ 42 mls/hr 500 / [id number] [facility] Rx#: [id number] Oral 1000 / 1000 240 / 240 Output: Urine 100 / 100 Stool 2 / 2 Hemodialysis Amount 8000 / 8000 Urine Amount (Catheter) 0 / 0 Indwelling Urethral Catheter 0 / 0 Other: # Voids 500 # Incontinent Voids 6 1 Date of Last Bowel Movement 02/02/18 02/02/18 02/02/18 # Bowel Movements 1 1 Result Diagrams: 02/04/18 05:45 02/04/18 05:45 Objective Remarks: Head: Mild generalized edema, atraumatic Neck: Supple, airway widely patent, high flow NC in place. Lungs: Few diffuse crackles, decreased breath sounds both bases. Mild labored respiratory pattern. Heart: Rate controlled. Distended jugular veins. Abdomen: Generalized woody edema in the lower abdominal soft tissue, quiet, no peritoneal irritation. Extremities: Tense woody edema involving both lower extremities. Marginal distal perfusion. Neuro: Lethargic but wakes up easily follows commands. No focal deficits Assessment and Plan - Assessment and Plan Plan: Assessment and Plan - Assessment (1) Nonischemic cardiomyopathy, Chronic systolic CHF with EF 15-20% s/p AICD Code(s): I42.8 - Other cardiomyopathies Status: Chronic After her most recent admission from 12/02/17 to 01/08/18 was for CHF and was transferred to [facility] to be evaluated for possible heart transplant vs. LVAD. During that admission she had an acute CVA with resulting left sided weakness and felt that she was not a good candidate for advanced heart failure treatment. Pt was discharged to [facility] on 01/08/18. - Pt was given a dose of IV Lasix in the ED - CXR in the ED noted Cardiomegaly with prominent main pulmonary artery. - Pt was continued on PO Lasix 40mg BID due to worsening renal function - Pt was given a dose of Lasix 80mg IV with Albumin IV given prior to the Lasix on 01/19 - BNP is elevated from at admission from 1368--> 1852 - Pt was reportedly evaluated at [facility] recently for Heart transplant vs. LVAD but had a stroke during that admission and was not felt to be a good candidate after the CVA. - CXR (01/20/18) --> Cardiomegaly with trace positive fluid balance - Pt is typically on 2L of supplemental O2 - Discussed code status with the pt and she wishes to be a full code. - Appreciate input from Palliative Service - 2D echo (01/21/18): - Estimated ejection fraction of 45-50%. No segmental wall motion abnormalities. - Possible mild right ventricular enlargement with normal systolic function. - A pacemaker wire is noted. Mild mitral valve regurgitation. Mild tricuspid valve regurgitation. - Estimated pulmonary arterial pressure is 35 mmHg - Cardiology concerned for IVC thrombus. 01/30 radionucleotide venogram performed and no evidence of thrombus right groin catheter placed at that time. - Pt was previous on Lasix to 80mg IV TID during admission . - continue IV albumin - The IV lasix was changed to Bumex gtt (01/26/18) - Zaroxolyn increased to 5mg BID on 01/28 - DVT prophylaxis with Eliquis - supportive care - Lonnieicat called today 01/31 for hypoxia and sob. Pt moved to ICU. only 200cc u.o overnight with Bumex gtt Hemodialysis [id number], 4 L removed first day. has been net negative 2-4 L/day for 3 days now. 8L fluid removed 02/04 Patient wants to continue aggressive treatment continue daily HD for volume removal. (2) hypoxemic respiratory failure, acute -continue HF NC. Will need intubation if she decompensates. (3) Abdominal pain Nausea/vomiting Constipation, improved - Pt had a small BM on 01/17 but has been refusing the Lactulose BID - Pt was given Mag Citrate and Colace BID on 01/18 but no significant stooling - Pt had Gastrografin enema on 01/20 with large volume of stool output - Zofran PRN - Protonix 40mg IV daily - high concern for acute liver dysfunction in the setting of decompensated biventricular heart failure. - send LFTs. (3) Diabetes mellitus, poorly controlled Hgb A1C 14.4 on 08/31/17 Hypoglycemia - cont basal/bolus insulin. (4)Hyperkalemia, Acute on chronic renal disease, stage 3 - Outpt labs from 11/2017 noted Cr around 1.4-1.5 - Labs in the ED noted a potassium of 6.1. - Pt was given Kayexalate and Calcium Gluconate in the ED her repeat potassium this morning was 5.5 and second repeat was 5.7 on 01/17 - Pt was given a second dose of Kayexalate on 01/17 but pt has not moved her bowels. - (01/26) BUN 49m creatinine 2.22, estimated GFR 28 - (01/27) BUN 53, creatinine 2.20, estimated GFR 28 - (01/28) BUN 55, Creatinine 2.15, estimated GFR 29 - 01/31 -hemodialysis instituted today, name is to remove at least 3-4 L. - 02/01 - HD removed 4 liters continue daily HD. (5)HTN (hypertension) - Cont. home meds - BP is poorly controlled on multiple medications: Coreg 12.5mg BID, Clonidine 0.2mg Q8H, Hydralazine 100mg Q8H, Minoxidil 5mg po daily, Procardia XL 30mg po BID - Clonidine PRN - Monitor closely (6)Elevated LFTs, Congestive hepatopathy, Ascites - Review of outpt records show the pts AlkPhos has been elevated since 10/2016 - AlkPhos Isoenzyme in 10/2017 noted 72% liver, 20% bone, 8% intestine - Transjugular liver bx (12/20/17) --> Findings suggestive of congestive hepatopathy. CT abd/pelvis with hepatomegaly and new hypoglycemia concerning for worsening acute liver dysfunction. (5)Anemia - patient's hgb has been trending down on admission hgb 10.4 - iron 17, TIBC 176, % saturation 9.6 - reticulocyte count 0.9 - occult stool requested - Ferrous sulfate PO BID Hypoglycemia - continue d10w - hold insulin. - frequent glucose checks. Overall impression: This woman remains critically ill with hypoxemic respiratory failure due to advanced pulmonary edema produced by severe fluid overload. The etiology is cardiac decompensation associated with advancing renal failure. The sudden worsening of renal failure appears to be related to cardiorenal syndrome. By physical exam the central venous pressure is at least 30 mmHg. Attempts at aggressive diuretic therapy have been unsuccessful. Continue hemodialysis with fluid removal. Critical care 35 minutes aside from procedures.
[2018-02-04] MEDS: Pantoprazole Inj 40 MG Vial IV.PUSH SCH (12:18)
[2018-02-04] MEDS: Mupirocin 2% Nasal Oint Topical Syringe EACH NARE SCH ×2 (12:18→22:00)
[2018-02-04] MEDS: Lactobacillus Acidophilus/L. Spores Tablet PO SCH ×2 (12:19→22:17)
[2018-02-04] MEDS: Folic Acid 1 MG Tablet PO SCH (12:21)
[2018-02-04] MEDS: Carvedilol 12.5 MG Tablet PO SCH ×3 (12:21→22:17)
[2018-02-04] MEDS: Docusate Sodium 100 MG Capsule PO SCH ×2 (12:21→22:15)
[2018-02-04] MEDS: Ferrous Sulfate 325 MG Tablet PO SCH ×2 (12:21→17:38)
[2018-02-04] MEDS: metOLazone 5 MG Tablet PO SCH ×2 (12:23→17:38)
--- NOTE | 2018-02-04 14:35 | P.PNNP ---
Subjective Interval history: Hemodialysis today with removal of 4.5 liters tolerated well. Denies any shortness of breath. Edema is improving. <Sabrina Keller - Last Filed: 02/04/18 14:27> Physical Exam Vital signs: Vital Signs 02/03/18 16:00 02/03/18 18:00 02/03/18 19:52 Temperature 97.3 F L Pulse Rate 67 67 Respiratory Rate 19 Blood Pressure 133/69 Pulse Oximetry 97 98 02/03/18 20:00 02/03/18 22:00 02/03/18 23:59 Temperature 97.0 F L Pulse Rate 66 73 Respiratory Rate 16 Blood Pressure 148/73 H Pulse Oximetry 99 99 02/04/18 00:00 02/04/18 02:00 02/04/18 03:33 Temperature 97.2 F L Pulse Rate 66 68 Respiratory Rate 13 Blood Pressure 132/68 Pulse Oximetry 99 99 02/04/18 04:00 02/04/18 06:00 02/04/18 07:58 Temperature 97.9 F Pulse Rate 69 73 Respiratory Rate 16 Blood Pressure 138/68 Pulse Oximetry 100 96 02/04/18 08:00 02/04/18 10:00 02/04/18 12:00 Temperature 97.7 F Pulse Rate 68 68 69 Respiratory Rate 12 Blood Pressure 132/70 Pulse Oximetry 93 L Intake & Output 02/03/18 02/04/18 02/04/18 18:59 06:59 18:59 Intake Total 1300 / 1300 240 / 240 Output Total 2 / 2 4500 / 4500 Balance 1298 / 1298 240 / 240 -4500 / -4500 Weight 77 kg Intake: IV 500 / 500 D10W Inj 1,000 ML @ 42 mls/hr 500 / 500 IV.CONT .[id number] [facility] Rx#: [id number] Oral 800 / 800 240 / 240 Output: Stool 2 / 2 Hemodialysis Amount 0 / 0 4500 / 4500 Urine Amount (Catheter) 0 / 0 Indwelling Urethral Catheter 0 / 0 Other: # Incontinent Voids 1 Date of Last Bowel Movement 02/02/18 02/02/18 02/02/18 # Bowel Movements 1 1 - Constitutional no acute distress - Routine HEENT Exam Head: Present: normocephalic ENT: Present: mucous membranes moist - Routine Neck Exam Present: supple, JVD - Routine Respiratory Exam Present: decreased breath sounds. Absent: rales, rhonchi - Routine Cardiovascular Exam Present: RRR, murmur - Routine Abdominal Exam Present: soft, normoactive bowel sounds - Routine Extremities Exam Present: edema, vascular access - Routine Skin Exam Present: dry, warm - Routine Neurological Exam Present: alert, oriented X3 - Routine Psychiatric Exam Present: cooperative - Urinary Catheter Management Indwelling Urethral Catheter Cath placed during this visit: yes, but has since been removed by the nurse Urethral indwelling: Yes Reason for continuing: Terminally ill/Comfort care Insertion date: 01/21/18 Insertion time: 12:40 Removal date: 02/03/18 Removal time: 07:00 <Sabrina Keller - Last Filed: 02/04/18 14:27> Vital signs: Vital Signs 02/05/18 12:00 02/05/18 14:00 02/05/18 16:00 Temperature 97.7 F 98.3 F Pulse Rate 70 71 70 Respiratory Rate 13 21 Blood Pressure 140/77 133/73 Pulse Oximetry 100 100 02/05/18 16:04 02/05/18 18:00 02/05/18 19:05 Temperature 98.2 F Pulse Rate 71 72 78 Respiratory Rate 15 22 Blood Pressure 146/68 H Pulse Oximetry 97 95 02/05/18 19:15 02/05/18 20:00 02/05/18 20:25 Temperature 98.8 F 98.6 F Pulse Rate 75 110 H 75 Respiratory Rate 20 24 20 Blood Pressure 130/70 136/92 H Pulse Oximetry 99 91 L 99 02/05/18 21:21 02/05/18 22:00 02/06/18 00:00 Temperature 98.0 F 98.4 F Pulse Rate 101 H 108 H 104 H Respiratory Rate 20 20 Blood Pressure 128/81 132/64 Pulse Oximetry 95 98 02/06/18 02:00 02/06/18 04:00 02/06/18 04:13 Temperature 98.0 F Pulse Rate 78 78 78 Respiratory Rate 32 H 20 Blood Pressure 159/81 H Pulse Oximetry 98 02/06/18 06:00 02/06/18 07:48 02/06/18 08:00 Temperature 97.7 F Pulse Rate 72 76 92 H Respiratory Rate 24 17 Blood Pressure 154/68 H Pulse Oximetry 99 94 L 02/06/18 10:00 Temperature Pulse Rate 78 Respiratory Rate Blood Pressure Pulse Oximetry Intake & Output 02/05/18 02/06/18 02/06/18 18:59 06:59 18:59 Intake Total 580 / 580 500 / 500 Output Total 44899 / 45766 Balance -9420 / -9420 500 / 500 Weight 71.3 kg Intake: IV 100 / 100 Flexbumin 25% Inj 100 ML @ 60 100 / 100 mls/hr IV.SIG WITH DIALYSIS PRN Rx#:[id number] Oral 480 / 480 Other 100 / 100 Rbc As-3 Leukoreduced Unit 100 / 100 [id number] Intake (Blood Product) Amt 400 / 400 Rbc As-3 Leukoreduced Unit 400 / 400 [id number] Output: Urine 0 / 0 Hemodialysis Amount 87826 / 47539 Other: Other Intake Source Rbc As-3 Leukoreduced Unit Saline Solution [id number] Date of Last Bowel Movement 02/05/18 02/06/18 02/05/18 # Bowel Movements 2 - Urinary Catheter Management Indwelling Urethral Catheter Cath placed during this visit: no <Shin Ahmadi - Last Filed: 02/06/18 11:36> Assessment and Plan - Assessment (1) Acute on chronic kidney failure Code(s): N17.9 - Acute kidney failure, unspecified; N18.9 - Chronic kidney disease, unspecified Status: Acute Plan: 1 Acute kidney injury The patient has proteinuria and most likely she has chronic kidney disease because of diabetic nephropathy. Baseline creatinine of 1.4-1.5 12/[address] scan report,showing the kidneys are normal in size. Creatinine stable at 2.46 -> 2.45 ->2.45 ->2.93 Anuric Follow Urine out put and BMP. Avoid nephrotoxins. Epogen with dialysis Hemodialysis started on 01/31 Hemodialysis today with removal of 4.5 liters Will plan on hemodialysis for tomorrow and . . (2) HTN (hypertension) Code(s): I10 - Essential (primary) hypertension Status: Acute Plan: will monitor (3) Hyperkalemia Code(s): E87.5 - Hyperkalemia Status: Acute Plan: Resolved (4) Hypoglycemia Code(s): E16.2 - Hypoglycemia, unspecified Status: Acute Plan: Per CC on D10 gtt Blood sugars improving <Sabrina Keller - Last Filed: 02/04/18 14:27> - Assessment (1) Acute on chronic kidney failure Code(s): N17.9 - Acute kidney failure, unspecified; N18.9 - Chronic kidney disease, unspecified Status: Acute (2) HTN (hypertension) Code(s): I10 - Essential (primary) hypertension Status: Acute (3) Hyperkalemia Code(s): E87.5 - Hyperkalemia Status: Acute (4) Hypoglycemia Code(s): E16.2 - Hypoglycemia, unspecified Status: Acute - Attending Attestation Patient seen and examined, agree with above. Daily HD for next 3 days, to remove more fluid. Follow the urine out put and BMP. <Shin Ahmadi - Last Filed: 02/06/18 11:36>
[2018-02-04] MEDS: Minoxidil 2.5 MG Tablet PO SCH (14:50)
[2018-02-04] MEDS: Isosorbide Mononitrate 20 MG Tablet PO SCH ×2 (14:50→22:16)
[2018-02-05] MEDS: Dextrose 10% in Water Inj 1,000 ML IV.CONT SCH (03:15)
--- NOTE | 2018-02-05 05:44 | XR ---
EXAM DATE: 02/05/2018 5:08 AM EDT AGE/SEX: 53 years / Female INDICATIONS: . Shortness of breath. CLINICAL DATA: This is the patient's subsequent encounter. Patient reports that signs and symptoms h ave been present for 2 weeks and indicates a pain score of 0/10. MEDICAL/SURGICAL HISTORY: . Diabetes mellitus type II. Congestive heart failure. Pacemaker. COMPARISON: C, CHEST 1V SINGLE AP, 02/03/2018. . FINDINGS: Heart size enlarged. Minimal basilar atelectasis. No effusion. Right central line in superior vena ca va. No pneumothorax. CONCLUSION: Cardiomegaly with minimal basilar density, probably atelectasis. No significant change from February 03. Electronically signed by: Jerardo Burgos MD 02/05/2018 5:43 AM EDT
[2018-02-05] MEDS: Insulin NovoLOG Aspart Correctional Sugar Inj SQ SCH ×4 (06:12→18:44)
[2018-02-05 07:00] LABS: Mean Corpuscular HGB Conc 32.3 % (32.0-36.0); Mean Corpuscular Hemoglobin 28.7 pg (27.0-34.0); Mean Corpuscular Volume 88.9 fL (80.0-100.0); Mean Platelet Volume 8.4 fL (7.0-11.0); Platelet Count 296 th/mm3 (150-450); Red Blood Count 2.37 mil/mm3 (4.00-5.30); Red Cell Distribution Width 15.9 % (11.6-17.2); White Blood Count 5.6 th/mm3 (4.0-11.0)
[2018-02-05 07:17] LABS: Hematocrit 21.1 % (35.0-46.0); Hemoglobin 6.8 gm/dL (11.6-15.3)
[2018-02-05 07:34] LABS: Alanine Aminotransferase 29 U/L (10-53); Albumin 3.6 g/dL (3.4-5.0); Alkaline Phosphatase 571 U/L (45-117); Anion Gap 14 meq/L (5-15); Aspartate Aminotransferase 19 U/L (15-37); Blood Urea Nitrogen 40 mg/dL (7-18); Calcium 9.3 mg/dL (8.5-10.1); Carbon Dioxide 25.6 meq/L (21.0-32.0); Chloride 95 meq/L (98-107); Glomerular Filtration Rate 22 mL/min (>89); Glucose,Random 395 mg/dL (74-106); Phosphorus 3.1 mg/dL (2.5-4.9); Potassium 3.7 meq/L (3.5-5.1); Sodium 135 meq/L (136-145)
[2018-02-05] MEDS: Mupirocin 2% Nasal Oint Topical Syringe EACH NARE SCH ×2 (08:41→22:02)
[2018-02-05] MEDS: Docusate Sodium 100 MG Capsule PO SCH ×2 (08:42→22:02)
[2018-02-05] MEDS: Carvedilol 12.5 MG Tablet PO SCH ×2 (08:43→22:02)
[2018-02-05] MEDS: Folic Acid 1 MG Tablet PO SCH (08:43)
[2018-02-05] MEDS: Isosorbide Mononitrate 20 MG Tablet PO SCH ×2 (08:43→22:03)
[2018-02-05] MEDS: Minoxidil 2.5 MG Tablet PO SCH (08:44)
[2018-02-05] MEDS: Lactobacillus Acidophilus/L. Spores Tablet PO SCH ×2 (08:44→22:03)
[2018-02-05] MEDS: metOLazone 5 MG Tablet PO SCH ×2 (08:52→18:30)
[2018-02-05] MEDS: Pantoprazole Inj 40 MG Vial IV.PUSH SCH (09:05)
--- NOTE | 2018-02-05 09:37 | P.PNCC ---
Subjective Subjective Remarks/Hospital Course: I have been asked to see this 53-year-old woman with end-stage systolic heart failure and massive fluid retention. Attempts at diuresis is resulted in azotemia. She has woody edema involving the lower legs and abdomen. The extent and nature of the edema is not the pattern typically found an end-stage heart failure including severe right ventricular dysfunction. But her neck veins clearly demonstrated venous hypertension and without a doubt she needs fluid removed from her intravascular space. I am not certain how well she will mobilize extravascular water thereafter but I concur that at this point extracorporeal fluid removal is necessary. The hospitalist service has transferred her to the intensive care unit where I met her on her arrival. A dialysis catheter has been placed and we are instituting hemodialysis now. I have discussed the situation in detail with the dialysis team and agree that the removal of 3-4 L initially should be feasible. Ultimately, recovery of her renal function will be required for long-term survival. Hopefully reduction of venous hypertension will allow this. In the meantime we will stop her diuretics and hold her albumin replacement. 02/01: Removed 4 L of fluid with hemodialysis yesterday. She is still floridly overloaded with tensely distended jugular veins up to the ear. Her lower abdomen and legs woody with fluid engorgement. Spontaneous urine has not picked up. 02/02: Gas exchange remains severely impaired and patient still requires BiPAP noninvasive ventilation. Neck veins remain tensely distended and we are still waiting ahead on intravascular volume. So far the daily hemodialysis has successfully ultrafiltrating 7 L without impairing hemodynamics. Hopefully we can continue this course of treatment. 02/03: no improvements despite aggressive therapy. on high flow NC. JVD still above the level of the mandible. abdomen is still severely distended. CT abd/ pelvis yesterday with moderate ascites and hepatomegaly. hypoglycemic overnight. I had a long discussion with the patient about her prognosis. She kept repeating "I don't want to hear that I'm dying. tell me something different." I explained that without transplant or mechanical support, end- stage HF is fatal. she is hospice appropriate. 02/04: Patient remains lethargic but wakes up easily protecting airway. Remains on high flow nasal cannula. Getting hemodialysis again today. Echo reviewed- Ejection fraction of 45-50%. No WMA. 02/05: More awake alert today more conversant, hemoglobin of 6.8 will transfuse 1 unit PRBC. Chest x-ray improving infiltrates on my review. Had hemodialysis yesterday with 4.5 L removed. Objective Vital Signs / I&O: Vital Signs 02/04/18 10:00 02/04/18 12:00 02/04/18 14:00 Temperature 97.4 F L Pulse Rate 68 69 70 Respiratory Rate 15 Blood Pressure 148/78 H Pulse Oximetry 96 02/04/18 16:00 02/04/18 18:00 02/04/18 19:45 Temperature 97.7 F Pulse Rate 66 74 Respiratory Rate 24 Blood Pressure 115/55 L Pulse Oximetry 97 95 02/04/18 20:00 02/04/18 22:00 02/05/18 00:00 Temperature 97.9 F 98.4 F Pulse Rate 70 69 104 H Respiratory Rate 21 28 H Blood Pressure 115/57 L 110/64 Pulse Oximetry 95 98 02/05/18 02:00 02/05/18 04:00 Temperature 98.0 F Pulse Rate 72 72 Respiratory Rate 20 Blood Pressure 158/72 H Pulse Oximetry 98 Intake & Output 02/04/18 02/05/18 02/05/18 18:59 06:59 18:59 Intake Total 840 / 840 Output Total 4500 / 4500 Balance -3660 / -3660 Intake: IV 600 / 600 D10W Inj 1,000 ML @ 42 mls/hr 600 / 600 IV.CONT .[id number] [facility] Rx#: [id number] Oral 240 / 240 Output: Urine 0 / 0 Hemodialysis Amount 4500 / 4500 Other: Date of Last Bowel Movement 02/02/18 02/05/18 Result Diagrams: 02/05/18 05:34 02/05/18 05:34 Objective Remarks: Head: Mild generalized edema, atraumatic. Neck: Supple, airway widely patent, high flow NC in place. Lungs: Few crackles, decreased breath sounds both bases. Good oxygen saturation on high flow nasal cannula Heart: Rate controlled. Distended jugular veins improved. Abdomen: Generalized woody edema in the lower abdominal soft tissue. Extremities: edema involving both lower extremities. Marginal distal perfusion. Neuro: Alert awake more conversant today. No focal deficits Assessment and Plan - Assessment and Plan Plan: Assessment and Plan - Assessment (1) Nonischemic cardiomyopathy, Chronic systolic CHF with EF 15-20% s/p AICD Code(s): I42.8 - Other cardiomyopathies Status: Chronic After her most recent admission from 12/02/17 to 01/08/18 was for CHF and was transferred to [facility] to be evaluated for possible heart transplant vs. LVAD. During that admission she had an acute CVA with resulting left sided weakness and felt that she was not a good candidate for advanced heart failure treatment. Pt was discharged to [facility] on 01/08/18. - Pt was given a dose of IV Lasix in the ED - CXR in the ED noted Cardiomegaly with prominent main pulmonary artery. - Pt was continued on PO Lasix 40mg BID due to worsening renal function - Pt was given a dose of Lasix 80mg IV with Albumin IV given prior to the Lasix on 01/19 - BNP is elevated from at admission from 1368--> 1852 - CXR (01/20/18) --> Cardiomegaly with trace positive fluid balance - Pt is typically on 2L of supplemental O2 -- Appreciate input from Palliative Service - 2D echo (01/21/18): - Estimated ejection fraction of 45-50%. No segmental wall motion abnormalities. - A pacemaker wire is noted. Mild mitral valve regurgitation. Mild tricuspid valve regurgitation. - Estimated pulmonary arterial pressure is 35 mmHg - Cardiology concerned for IVC thrombus. 01/30 radionucleotide venogram performed and no evidence of thrombus right groin catheter placed at that time. - Pt was previous on Lasix to 80mg IV TID during admission . - continue IV albumin - The IV lasix was changed to Bumex gtt (01/26/18) - Zaroxolyn increased to 5mg BID on 01/28 - Now on HD with fluid removal - DVT prophylaxis with Eliquis - Halicat called 01/31 for hypoxia and sob. Pt moved to ICU. only 200cc u.o overnight with Bumex gtt Hemodialysis lendpxc27/13, 4 L removed first day. 4.5 L removed 02/04 has been net negative 2-4 L/day for 3 days now. Patient wants to continue aggressive treatment continue daily HD for volume removal. (2) hypoxemic respiratory failure, acute -continue HF NC. Respiratory status slowly improving -Wean FiO2 to keep saturation above 90% -Continue breathing treatments (3) Abdominal pain Nausea/vomiting Constipation, improved - Pt had Gastrografin enema on 01/20 with large volume of stool output - Zofran PRN - Protonix 40mg IV daily (3) Diabetes mellitus, poorly controlled Hgb A1C 14.4 on 08/31/17 Hypoglycemia - cont basal/bolus insulin. (4)Hyperkalemia, Acute on chronic renal disease, stage 3 - Outpt labs from 11/2017 noted Cr around 1.4-1.5 - Labs in the ED noted a potassium of 6.1. - Pt was given Kayexalate and Calcium Gluconate in the ED her repeat potassium this morning was 5.5 and second repeat was 5.7 on 01/17 - Pt was given a second dose of Kayexalate on 01/17 but pt has not moved her bowels. - (01/26) BUN 49m creatinine 2.22, estimated GFR 28 - (01/27) BUN 53, creatinine 2.20, estimated GFR 28 - (01/28) BUN 55, Creatinine 2.15, estimated GFR 29 - 01/31 -hemodialysis instituted today, name is to remove at least 3-4 L. - 02/01 - HD removed 4 liters continue daily HD. (5)HTN (hypertension) - Cont. home meds - BP is poorly controlled on multiple medications: Coreg 12.5mg BID, Clonidine 0.2mg Q8H, Hydralazine 100mg Q8H, Minoxidil 5mg po daily, Procardia XL 30mg po BID - Clonidine PRN - Monitor closely (6)Elevated LFTs, Congestive hepatopathy, Ascites - Review of outpt records show the pts AlkPhos has been elevated since 10/2016 - AlkPhos Isoenzyme in 10/2017 noted 72% liver, 20% bone, 8% intestine - Transjugular liver bx (12/20/17) --> Findings suggestive of congestive hepatopathy. CT abd/pelvis with hepatomegaly and new hypoglycemia concerning for worsening acute liver dysfunction. (5)Anemia - patient's hgb has been trending down on admission hgb 10.4 - iron 17, TIBC 176, % saturation 9.6 - reticulocyte count 0.9 - occult stool requested - Ferrous sulfate PO BID Hypoglycemia - holding insulin due to hypoglycemia - frequent glucose checks. Overall impression: This woman remains ill with hypoxemic respiratory failure due to advanced pulmonary edema produced by severe fluid overload. The etiology is cardiac decompensation associated with advancing renal failure. The sudden worsening of renal failure appears to be related to cardiorenal syndrome. Continue hemodialysis with fluid removal. Level 3 Consult Hospitalist to assume care in am Code Status: full
[2018-02-05] MEDS: Albumin Human 25% Inj 100 ML IV.SIG PRN (10:54)
[2018-02-05] MEDS: Heparin 10,000 UNITS/10 ML Vial (for IV use) OTHER PRN (10:55)
[2018-02-05] MEDS: Ferrous Sulfate 325 MG Tablet PO SCH ×2 (11:56→18:29)
--- NOTE | 2018-02-05 15:25 | P.PNNP ---
Subjective Interval history: Seen during hemodialysis. HGB low at 6.8 plan for transfusion of PRBC's <Sabrina Keller - Last Filed: 02/05/18 15:21> Physical Exam Vital signs: Vital Signs 02/04/18 16:00 02/04/18 18:00 02/04/18 19:45 Temperature 97.7 F Pulse Rate 66 74 Respiratory Rate 24 Blood Pressure 115/55 L Pulse Oximetry 97 95 02/04/18 20:00 02/04/18 22:00 02/05/18 00:00 Temperature 97.9 F 98.4 F Pulse Rate 70 69 104 H Respiratory Rate 21 28 H Blood Pressure 115/57 L 110/64 Pulse Oximetry 95 98 02/05/18 02:00 02/05/18 04:00 02/05/18 08:00 Temperature 98.0 F 97.8 F Pulse Rate 72 72 69 Respiratory Rate 20 22 Blood Pressure 158/72 H 153/70 H Pulse Oximetry 98 99 02/05/18 10:00 02/05/18 12:00 02/05/18 14:00 Temperature 97.7 F Pulse Rate 72 70 71 Respiratory Rate 13 Blood Pressure 140/77 Pulse Oximetry 100 Intake & Output 02/04/18 02/05/18 02/05/18 18:59 06:59 18:59 Intake Total 840 / 840 100 / 100 Output Total 4500 / 4500 5000 / 5000 Balance -3660 / -3660 -4900 / -4900 Intake: IV 600 / 600 100 / 100 D10W Inj 1,000 ML @ 42 mls/hr 600 / 600 IV.CONT .[id number] [facility] Rx#: [id number] Flexbumin 25% Inj 100 ML @ 60 100 / 100 mls/hr IV.SIG WITH DIALYSIS PRN Rx#:[id number] Oral 240 / 240 Output: Urine 0 / 0 Hemodialysis Amount 4500 / 4500 5000 / 5000 Other: Date of Last Bowel Movement 02/02/18 02/05/18 02/05/18 - Constitutional no acute distress - Routine HEENT Exam Head: Present: normocephalic ENT: Present: mucous membranes moist - Routine Neck Exam Present: supple, JVD - Routine Respiratory Exam Present: decreased breath sounds. Absent: rales, rhonchi - Routine Cardiovascular Exam Present: RRR - Routine Abdominal Exam Present: soft, normoactive bowel sounds, distended. Absent: tenderness - Routine Extremities Exam Present: edema, vascular access - Routine Skin Exam Present: dry, warm - Routine Neurological Exam sleeping - Routine Psychiatric Exam Present: cooperative - Urinary Catheter Management Indwelling Urethral Catheter Cath placed during this visit: yes, but has since been removed by the nurse Urethral indwelling: Yes Reason for continuing: Terminally ill/Comfort care Insertion date: 01/21/18 Insertion time: 12:40 Removal date: 02/03/18 Removal time: 07:00 <Sabrina Keller - Last Filed: 02/05/18 15:21> Vital signs: Vital Signs 02/05/18 12:00 02/05/18 14:00 02/05/18 16:00 Temperature 97.7 F 98.3 F Pulse Rate 70 71 70 Respiratory Rate 13 21 Blood Pressure 140/77 133/73 Pulse Oximetry 100 100 02/05/18 16:04 02/05/18 18:00 02/05/18 19:05 Temperature 98.2 F Pulse Rate 71 72 78 Respiratory Rate 15 22 Blood Pressure 146/68 H Pulse Oximetry 97 95 02/05/18 19:15 02/05/18 20:00 02/05/18 20:25 Temperature 98.8 F 98.6 F Pulse Rate 75 110 H 75 Respiratory Rate 20 24 20 Blood Pressure 130/70 136/92 H Pulse Oximetry 99 91 L 99 02/05/18 21:21 02/05/18 22:00 02/06/18 00:00 Temperature 98.0 F 98.4 F Pulse Rate 101 H 108 H 104 H Respiratory Rate 20 20 Blood Pressure 128/81 132/64 Pulse Oximetry 95 98 02/06/18 02:00 02/06/18 04:00 02/06/18 04:13 Temperature 98.0 F Pulse Rate 78 78 78 Respiratory Rate 32 H 20 Blood Pressure 159/81 H Pulse Oximetry 98 02/06/18 06:00 02/06/18 07:48 02/06/18 08:00 Temperature 97.7 F Pulse Rate 72 76 92 H Respiratory Rate 24 17 Blood Pressure 154/68 H Pulse Oximetry 99 94 L 02/06/18 10:00 Temperature Pulse Rate 78 Respiratory Rate Blood Pressure Pulse Oximetry Intake & Output 07/18/18 07/19/18 07/19/18 18:59 06:59 18:59 Intake Total 580 / 580 500 / 500 Output Total 43436 / 49413 Balance -9420 / -9420 500 / 500 Weight 71.3 kg Intake: IV 100 / 100 Flexbumin 25% Inj 100 ML @ 60 100 / 100 mls/hr IV.SIG WITH DIALYSIS PRN Rx#:[id number] Oral 480 / 480 Other 100 / 100 Rbc As-3 Leukoreduced Unit 100 / 100 [id number] Intake (Blood Product) Amt 400 / 400 Rbc As-3 Leukoreduced Unit 400 / 400 [id number] Output: Urine 0 / 0 Hemodialysis Amount 98937 / 93494 Other: Other Intake Source Rbc As-3 Leukoreduced Unit Saline Solution [id number] Date of Last Bowel Movement 02/05/18 02/06/18 02/05/18 # Bowel Movements 2 - Urinary Catheter Management Indwelling Urethral Catheter Cath placed during this visit: no <Shin Ahmadi - Last Filed: 02/06/18 11:50> Assessment and Plan - Assessment (1) Acute on chronic kidney failure Code(s): N17.9 - Acute kidney failure, unspecified; N18.9 - Chronic kidney disease, unspecified Status: Acute Plan: 1 Acute kidney injury The patient has proteinuria and most likely she has chronic kidney disease because of diabetic nephropathy. Baseline creatinine of 1.4-1.5 12/[address] scan report,showing the kidneys are normal in size. Creatinine stable at 2.46 -> 2.45 ->2.45 ->2.93 ->2.8 Anuric Follow Urine out put and BMP. Avoid nephrotoxins. Epogen with dialysis Hemodialysis started on 01/31 Hemodialysis yesterday with removal of 4.5 liters Hemodialysis today with UF of 5 liters Plan for hemodialysis tomorrow then Saturday. Labs in AM . (2) HTN (hypertension) Code(s): I10 - Essential (primary) hypertension Status: Acute Plan: will monitor (3) Hyperkalemia Code(s): E87.5 - Hyperkalemia Status: Acute Plan: Resolved (4) Hypoglycemia Code(s): E16.2 - Hypoglycemia, unspecified Status: Acute Plan: Per CC Blood sugars labile <Sabrina Keller - Last Filed: 02/05/18 15:21> - Assessment (1) Acute on chronic kidney failure Code(s): N17.9 - Acute kidney failure, unspecified; N18.9 - Chronic kidney disease, unspecified Status: Acute (2) HTN (hypertension) Code(s): I10 - Essential (primary) hypertension Status: Acute (3) Hyperkalemia Code(s): E87.5 - Hyperkalemia Status: Acute (4) Hypoglycemia Code(s): E16.2 - Hypoglycemia, unspecified Status: Acute - Attending Attestation Patient seen and examined, agree with above. Continue HD, remove fluid as tolerated. <Shin Ahmadi - Last Filed: 02/06/18 11:50>
--- NOTE | 2018-02-05 18:32 | MB ---
cc: Ankur Lomas MD DATE: 02/05/2018 REASON FOR CONSULTATION: Respiratory insufficiency and history of pulmonary edema and acute renal failure. HISTORY OF PRESENT ILLNESS: This is a 53-year-old lady with a past history of congestive heart failure, cardiomyopathy with ischemic heart disease and a prior history of CVA and ascites and hypertension and chronic kidney disease with diabetes mellitus, who was admitted with abdominal pain and hyperkalemia. The patient does not give any proper history and seems to be somewhat lethargic and is being dialyzed. The patient apparently was in acute renal failure in addition to chronic kidney disease and had to be treated for hyperkalemia and subsequently on hemodialysis since admission. She has also had vomiting and diarrhea in addition to her abdominal pain and had anasarca with severe ascites. Since her admission, the patient was seen by the critical care service and was treated for fluid overload. A dialysis catheter was placed and dialysis was started on 02/01/2018. Over the past 4 days, she has lost more than 8 kilos and breathing better. She was quite severely hypoxic initially and was on BiPAP noninvasive ventilation and now she has been switched over to a high flow nasal cannula at 40% FiO2 and seems to be doing much better and breathing easier and less tachypneic. The chest x-ray did demonstrate evidence of fluid overload and showed prominent pulmonary arteries. The 2-D echo showed an ejection fraction of 45-50% with right ventricular enlargement and a pacemaker lead was noted. There was mitral valve regurgitation noted as well. Estimated PA pressure was 35 mm. PAST MEDICAL AND SURGICAL HISTORY: Significant for hypertension, chronic kidney disease, diabetes mellitus and history of AICD placement and a liver biopsy. The patient also has had a history of chronic liver disease. HABITS: The patient does not smoke. She does have a history for drinking alcohol excessively. ALLERGIES: 1. LISINOPRIL. 2. TRAMADOL. 3. OSELTAMIVIR. MEDICATIONS: 1. Hydralazine 100 mg q.8 hours. 2. Aspirin 325 mg a day, 3. Eliquis 5 mg b.i.d. 4. Amiodarone 100 mg a day. 5. Procardia-XL 30 mg b.i.d. 6. Protonix 40 mg a day. 7. Levemir insulin 50 units subcutaneous every 12 hours. 8. Esmolol 20 mg b.i.d. 9. Folic acid 1 mg a day. 10. Lasix 80 mg t.i.d. 11. Zebeta 2.5 mg daily. 12. Catapres 0.1 mg as needed. REVIEW OF SYSTEMS: Unable to obtain, as the patient is somewhat lethargic, does not volunteer any information, but she is awake and responds to some questions by nodding her head and is being dialyzed at this time. PHYSICAL EXAMINATION: GENERAL: This averagely built, middle-aged, female who is awake, pale and mildly dyspneic. VITAL SIGNS: Blood pressure is 148/70, pulse is 90, respirations 22, temperature 97.5. HEENT: Head is normocephalic. Pupils are reactive. Sclerae were clear. Tongue was moist. Throat is injected. Nasal mucosa is clear. NECK: Supple. No bruits. There is mild venous distention sitting upright. A vascath was noted in the neck. CHEST: Equal movements with coarse wheezes throughout both lung arreaga with basilar crackles. HEART: The heart sounds were regular, S1 and S2. No murmur. ABDOMEN: Soft, protuberant with the liver just felt below the costal margin. The bowel sounds are active. EXTREMITIES: No lesions, 1+ edema, decreased peripheral pulses. Reflexes are 1+. NEUROLOGIC: The patient does move all her extremities with no gross motor deficits. SKIN: Dry and cool. IMPRESSION: 1. Pulmonary edema with hypoxemia. 2. Congestive heart failure with cardiomyopathy. 3. Chronic kidney disease with acute renal failure. 4. Hypertension. 5. Diabetes mellitus type 2. 6. Generalized anasarca and ascites. PLAN: The patient will be maintained on O2 via nasal cannula at 5 liters and weaned down to 4 liters to keep sats greater than 92. Nebulized DuoNeb solution added q.i.d. and p.r.n. Continue with dialysis to clear some fluid and a repeat chest x-ray in the a.m. Incentive spirometry every 3 hours to clear of the atelectasis and the patient will have a blood gas study performed in the a.m. We will get a pulmonary function study. When she is clinically stable, she could be transferred to the telemetry unit and I will follow the case with you, Dr. Anderson. Thank you for this consultation. V. Angie Lomas MD VJD/KD , 05:39 PM , 06:30 PM
[2018-02-06] MEDS: Insulin NovoLOG Aspart Correctional Sugar Inj SQ SCH ×4 (02:41→17:33)
[2018-02-06 06:03] LABS: Albumin 3.7 g/dL (3.4-5.0); Anion Gap 14 meq/L (5-15); Aspartate Aminotransferase 12 U/L (15-37); Blood Urea Nitrogen 34 mg/dL (7-18); Calcium 9.1 mg/dL (8.5-10.1); Carbon Dioxide 26.1 meq/L (21.0-32.0); Chloride 96 meq/L (98-107); Glomerular Filtration Rate 22 mL/min (>89); Glucose,Random 375 mg/dL (74-106); Potassium 3.5 meq/L (3.5-5.1); Sodium 136 meq/L (136-145)
[2018-02-06 06:04] LABS: Alanine Aminotransferase 27 U/L (10-53); Phosphorus 2.4 mg/dL (2.5-4.9)
[2018-02-06 06:06] LABS: Alkaline Phosphatase 575 U/L (45-117); Total Protein 8.3 g/dL (6.4-8.2)
[2018-02-06 06:22] LABS: Hematocrit 25.5 % (35.0-46.0); Hemoglobin 8.2 gm/dL (11.6-15.3); Mean Corpuscular HGB Conc 32.3 % (32.0-36.0); Mean Corpuscular Hemoglobin 28.6 pg (27.0-34.0); Mean Corpuscular Volume 88.4 fL (80.0-100.0); Mean Platelet Volume 8.6 fL (7.0-11.0); Platelet Count 297 th/mm3 (150-450); Red Blood Count 2.88 mil/mm3 (4.00-5.30); Red Cell Distribution Width 16.3 % (11.6-17.2); White Blood Count 7.8 th/mm3 (4.0-11.0)
[2018-02-06] MEDS: Dextrose 10% in Water Inj 1,000 ML IV.CONT SCH (08:44)
[2018-02-06] MEDS: Docusate Sodium 100 MG Capsule PO SCH ×2 (08:45→21:51)
[2018-02-06] MEDS: Isosorbide Mononitrate 20 MG Tablet PO SCH ×2 (08:45→21:54)
[2018-02-06] MEDS: metOLazone 5 MG Tablet PO SCH ×2 (08:45→17:32)
[2018-02-06] MEDS: Mupirocin 2% Nasal Oint Topical Syringe EACH NARE SCH ×2 (08:45→21:50)
[2018-02-06] MEDS: Lactobacillus Acidophilus/L. Spores Tablet PO SCH ×2 (08:46→21:52)
[2018-02-06] MEDS: Carvedilol 12.5 MG Tablet PO SCH ×2 (08:47→21:51)
[2018-02-06] MEDS: Minoxidil 2.5 MG Tablet PO SCH (08:47)
[2018-02-06] MEDS: Folic Acid 1 MG Tablet PO SCH (08:47)
[2018-02-06] MEDS: Pantoprazole Inj 40 MG Vial IV.PUSH SCH (09:53)
--- NOTE | 2018-02-06 10:37 | P.PNNP ---
Subjective Interval history: OOB in chair. Swelling is improving. Hemodialysis yesterday with UF of 5 liters <Sabrina Keller - Last Filed: 02/06/18 10:34> Physical Exam Vital signs: Vital Signs 02/05/18 12:00 02/05/18 14:00 02/05/18 16:00 Temperature 97.7 F 98.3 F Pulse Rate 70 71 70 Respiratory Rate 13 21 Blood Pressure 140/77 133/73 Pulse Oximetry 100 100 02/05/18 16:04 02/05/18 18:00 02/05/18 19:05 Temperature 98.2 F Pulse Rate 71 72 78 Respiratory Rate 15 22 Blood Pressure 146/68 H Pulse Oximetry 97 95 02/05/18 19:15 02/05/18 20:00 02/05/18 20:25 Temperature 98.8 F 98.6 F Pulse Rate 75 110 H 75 Respiratory Rate 20 24 20 Blood Pressure 130/70 136/92 H Pulse Oximetry 99 91 L 99 02/05/18 21:21 02/05/18 22:00 02/06/18 00:00 Temperature 98.0 F 98.4 F Pulse Rate 101 H 108 H 104 H Respiratory Rate 20 20 Blood Pressure 128/81 132/64 Pulse Oximetry 95 98 02/06/18 02:00 02/06/18 04:00 02/06/18 04:13 Temperature 98.0 F Pulse Rate 78 78 78 Respiratory Rate 32 H 20 Blood Pressure 159/81 H Pulse Oximetry 98 02/06/18 06:00 02/06/18 07:48 02/06/18 08:00 Temperature 97.7 F Pulse Rate 72 76 92 H Respiratory Rate 24 17 Blood Pressure 154/68 H Pulse Oximetry 99 94 L Intake & Output 02/05/18 02/06/18 02/06/18 18:59 06:59 18:59 Intake Total 580 / 580 500 / 500 Output Total 76227 / 16464 Balance -9420 / -9420 500 / 500 Weight 71.3 kg Intake: IV 100 / 100 Flexbumin 25% Inj 100 ML @ 60 100 / 100 mls/hr IV.SIG WITH DIALYSIS PRN Rx#:[id number] Oral 480 / 480 Other 100 / 100 Rbc As-3 Leukoreduced Unit 100 / 100 [id number] Intake (Blood Product) Amt 400 / 400 Rbc As-3 Leukoreduced Unit 400 / 400 [id number] Output: Urine 0 / 0 Hemodialysis Amount 52739 / 78464 Other: Other Intake Source Rbc As-3 Leukoreduced Unit Saline Solution [id number] Date of Last Bowel Movement 02/05/18 02/06/18 02/05/18 # Bowel Movements 2 - Constitutional no acute distress - Routine HEENT Exam Head: Present: normocephalic ENT: Present: mucous membranes moist - Routine Neck Exam Present: supple, JVD - Routine Respiratory Exam Present: decreased breath sounds. Absent: rales, rhonchi - Routine Cardiovascular Exam Present: RRR - Routine Abdominal Exam Present: soft, normoactive bowel sounds, distended - Routine Extremities Exam Present: edema, vascular access - Routine Skin Exam Present: dry, warm - Routine Neurological Exam Present: alert - Routine Psychiatric Exam Present: cooperative - Urinary Catheter Management Indwelling Urethral Catheter Cath placed during this visit: yes, but has since been removed by the nurse Urethral indwelling: Yes Reason for continuing: Terminally ill/Comfort care Insertion date: 01/21/18 Insertion time: 12:40 Removal date: 02/03/18 Removal time: 07:00 <Sabrina Keller - Last Filed: 02/06/18 10:34> - Urinary Catheter Management Indwelling Urethral Catheter Cath placed during this visit: no <Shin Ahmadi - Last Filed: 02/27/18 23:33> Assessment and Plan - Assessment (1) Acute on chronic kidney failure Code(s): N17.9 - Acute kidney failure, unspecified; N18.9 - Chronic kidney disease, unspecified Status: Acute Plan: 1 Acute kidney injury The patient has proteinuria and most likely she has chronic kidney disease because of diabetic nephropathy. Baseline creatinine of 1.4-1.5 12/[address] scan report,showing the kidneys are normal in size. Creatinine stable at 2.46 -> 2.45 ->2.45 ->2.93 ->2.8 ->2.70 Anuric now Follow Urine out put and BMP. Avoid nephrotoxins. Epogen with dialysis Hemodialysis started on 01/31 Hemodialysis yesterday with removal of 5 liters Hemodialysis today will continue to remove fluid as tolerated. . (2) HTN (hypertension) Code(s): I10 - Essential (primary) hypertension Status: Acute Plan: will monitor (3) Hyperkalemia Code(s): E87.5 - Hyperkalemia Status: Acute Plan: Resolved (4) Hypoglycemia Code(s): E16.2 - Hypoglycemia, unspecified Status: Acute Plan: Per CC Blood sugars labile <Sabrina Keller - Last Filed: 02/06/18 10:34> - Assessment (1) Acute on chronic kidney failure Code(s): N17.9 - Acute kidney failure, unspecified; N18.9 - Chronic kidney disease, unspecified Status: Acute Qualifiers: Chronic kidney disease stage: on chronic dialysis (2) Nonischemic cardiomyopathy Code(s): I42.8 - Other cardiomyopathies Status: Chronic (3) Diabetes Code(s): E11.9 - Type 2 diabetes mellitus without complications Status: Chronic Qualifiers: Diabetes mellitus type: type 2 Diabetes mellitus laborer marine terminal insulin use: with laborer marine terminal use Diabetes mellitus complication status: with unspecified complications Qualified Code(s): E11.8 - Type 2 diabetes mellitus with unspecified complications; Z79.4 - joint terminal attack controller (current) use of insulin (4) Anemia Code(s): D64.9 - Anemia, unspecified Status: Acute - Plan Patient seen and examined, agree with above. Urine out put is minimal. HD to continue, watch for renal recovery. <Shin Ahmadi - Last Filed: 02/27/18 23:33>
[2018-02-06] MEDS: Ferrous Sulfate 325 MG Tablet PO SCH ×2 (12:22→17:32)
[2018-02-06] MEDS: Heparin 10,000 UNITS/10 ML Vial (for IV use) OTHER PRN (16:17)
--- NOTE | 2018-02-06 17:40 | P.PNIM ---
Subjective Interval history: No new complaints. Physical Exam Vital signs: Vital Signs 02/06/18 12:00 02/06/18 14:42 Temperature 98.7 F Pulse Rate 73 76 Respiratory Rate 14 20 Blood Pressure 136/67 Pulse Oximetry 94 L Narrative: GENERAL: Thin mid aged A/A female Patient is alert, and not dyspneic,on nasal cannula. HEENT: Throat clear. CARDIOVASCULAR: Regular rate and rhythm RESPIRATORY: Occ Basal crackles. Breath sounds equal bilaterally. GASTROINTESTINAL: Abdomen soft, non-tender, nondistended. Normal active bowel sounds MUSCULOSKELETAL: Moderate edema bilateral LE . NEURO: Alert & Oriented. No focal deficits. - Urinary Catheter Management Indwelling Urethral Catheter Cath placed during this visit: yes, but has since been removed by the nurse Urethral indwelling: Yes Reason for continuing: Terminally ill/Comfort care Insertion date: 01/21/18 Insertion time: 12:40 Removal date: 02/03/18 Removal time: 07:00 Results - Labs CBC & Chem 7: 02/08/18 03:45 02/08/18 03:45 Assessment and Plan - Assessment (1) Nonischemic cardiomyopathy Code(s): I42.8 - Other cardiomyopathies Status: Chronic Plan: Abdominal pain Nausea/vomiting Constipation, improved - Pt is a 52 y/o AAF with chronic systolic CHF, nonischemic cardiomyopathy with EF 15-20% s/p AICD, hx of CVA in 12/2017 (Bilateral acute to subacute posterior cerebral artery infarcts on Head CT on 12/22/17), congestive hepatopathy, ascites , HTN, CKD, stage 3, and type 2 diabetes mellitus, insulin dependent. Pt has had multiple hospitalizations at [facility] in [place] and [facility] in the last several month for various issues related to her CHF /Cardiomyopathy, DKA, Acute on chronic renal failure, CVA. After her most recent admission from 12/02/17 to 01/08/18 was for CHF and was transferred to [facility] to be evaluated for possible heart transplant vs. LVAD. During that admission she had an acute CVA with resulting left sided weakness and felt that she was not a good candidate for advanced heart failure treatment. Pt was discharged to [facility] on 01/08/18. - She was brought to the ED from a local rehab center for hyperkalemia and N/V. She has noted issues with constipation more recently. Over the last two days she has had nausea/vomiting and has not been eating much. She has not passed any stool in the last two days either. - CT abd/pelvis in the ED which noted moderate ascites and anasarca, cardiomegaly with pacer lead tip in right ventricle, and small fat-containing umbilical hernia. No bowel obstruction. In reviewing the images she has a significant amount of stool throughout the colon and in the rectum. - Pt had a small BM on 01/17 but has been refusing the Lactulose BID - Pt was given Mag Citrate and Colace BID on 01/18 but no significant stooling - Pt had Gastrografin enema on 01/20 with large volume of stool output - Zofran PRN - Protonix 40mg IV daily Nonischemic cardiomyopathy Chronic systolic CHF with EF 15-20% s/p AICD - Pt was given a dose of IV Lasix in the ED - CXR in the ED noted Cardiomegaly with prominent main pulmonary artery. Pacer lead overlies right ventricle. No focal consolidation or effusion. - Pt was continued on PO Lasix 40mg BID due to worsening renal function - Pt was given a dose of Lasix 80mg IV with Albumin IV given prior to the Lasix on 01/19 BNP is elevated from at admission from 1368--> 1852 - Pt was reportedly evaluated at [facility] recently for Heart transplant vs. LVAD but had a stroke during that admission and was not felt to be a good candidate after the CVA. - CXR (01/20/18) --> Cardiomegaly with trace positive fluid balance - Pt is typically on 2L of supplemental O2 - Discussed code status with the pt and she wishes to be a full code. - Appreciate input from Palliative Service - 2D echo (01/21/18): - Estimated ejection fraction of 45-50%. No segmental wall motion abnormalities. - Possible mild right ventricular enlargement with normal systolic function. - A pacemaker wire is noted. - Mild mitral valve regurgitation. - Mild tricuspid valve regurgitation. - Estimated pulmonary arterial pressure is 35 mmHg - Cardiology concerned for IVC thrombus. 01/30 radionucleotide venogram performed and no evidence of thrombus right groin catheter placed at that time. - HD per nephrology - PO Zaroxolyn Diabetes mellitus, poorly controlled Hgb A1C 14.4 on 08/31/17 Hypoglycemia - cont basal/bolus insulin. Hyperkalemia Acute on chronic renal disease, stage 3 - Outpt labs from 11/2017 noted Cr around 1.4-1.5 - Labs in the ED noted a potassium of 6.1. - Pt was given Kayexalate and Calcium Gluconate in the ED her repeat potassium this morning was 5.5 and second repeat was 5.7 on 01/17 - Pt refusing Lab draws on 01/18, but we discussed with the pt the importance of getting er labs drawn to monitor her electrolytes and kidney function and was agreed - Pt was given a second dose of Kayexalate on 01/17 but pt has not moved her bowels. - (01/26) BUN 49m creatinine 2.22, estimated GFR 28 - (01/27) BUN 53, creatinine 2.20, estimated GFR 28 - (01/28) BUN 55, Creatinine 2.15, estimated GFR 29 HTN (hypertension) - Cont. home meds - BP is poorly controlled on multiple medications: Coreg 12.5mg BID, Clonidine 0.2mg Q8H, Hydralazine 100mg Q8H, Minoxidil 5mg po daily, Procardia XL 30mg po BID - Clonidine PRN - Monitor closely Elevated LFTs Congestive hepatopathy Ascites - Review of outpt records show the pts AlkPhos has been elevated since 10/2016 - AlkPhos Isoenzyme in 10/2017 noted 72% liver, 20% bone, 8% intestine - Transjugular liver bx (12/20/17) --> Findings suggestive of congestive hepatopathy. Anemia - patient's hgb has been trending down on admission hgb 10.4 - iron 17, TIBC 176, % saturation 9.6 - reticulocyte count 0.9 - occult stool requested - Ferrous sulfate PO BID
--- NOTE | 2018-02-06 18:32 | P.PN ---
Subjective Interval history: Awake and now being dialyzed. Off O2 today and Sats are 95. Much better overall. No cough or wheezing Physical Exam Vital signs: Vital Signs 02/05/18 19:05 02/05/18 19:15 02/05/18 20:00 Temperature 98.2 F 98.8 F 98.6 F Pulse Rate 78 75 110 H Respiratory Rate 22 20 24 Blood Pressure 146/68 H 130/70 136/92 H Pulse Oximetry 95 99 91 L 02/05/18 20:25 02/05/18 21:21 02/05/18 22:00 Temperature 98.0 F Pulse Rate 75 101 H 108 H Respiratory Rate 20 20 Blood Pressure 128/81 Pulse Oximetry 99 95 02/06/18 00:00 02/06/18 02:00 02/06/18 04:00 Temperature 98.4 F 98.0 F Pulse Rate 104 H 78 78 Respiratory Rate 20 32 H Blood Pressure 132/64 159/81 H Pulse Oximetry 98 98 02/06/18 04:13 02/06/18 06:00 02/06/18 07:48 Temperature Pulse Rate 78 72 76 Respiratory Rate 20 24 Blood Pressure Pulse Oximetry 99 02/06/18 08:00 02/06/18 10:00 02/06/18 12:00 Temperature 97.7 F 98.7 F Pulse Rate 92 H 78 73 Respiratory Rate 17 14 Blood Pressure 154/68 H 136/67 Pulse Oximetry 94 L 94 L 02/06/18 14:00 02/06/18 14:42 02/06/18 16:00 Temperature 97.7 F Pulse Rate 74 76 76 Respiratory Rate 20 22 Blood Pressure 119/64 Pulse Oximetry 94 L Intake & Output 02/05/18 02/06/18 02/06/18 18:59 06:59 18:59 Intake Total 580 / 580 500 / 500 Output Total 92528 / 14734 5000 / 5000 Balance -9420 / -9420 500 / 500 -5000 / -5000 Weight 71.3 kg Intake: IV 100 / 100 Flexbumin 25% Inj 100 ML @ 60 100 / 100 mls/hr IV.SIG WITH DIALYSIS PRN Rx#:[id number] Oral 480 / 480 Other 100 / 100 Rbc As-3 Leukoreduced Unit 100 / 100 [id number] Intake (Blood Product) Amt 400 / 400 Rbc As-3 Leukoreduced Unit 400 / 400 [id number] Output: Urine 0 / 0 Hemodialysis Amount 66589 / 34578 5000 / 5000 Other: Other Intake Source Rbc As-3 Leukoreduced Unit Saline Solution [id number] Date of Last Bowel Movement 02/05/18 02/06/18 02/05/18 # Bowel Movements 2 Narrative: GENERAL: Patient is alert, and not dyspneic, with nasal cannula. CARDIOVASCULAR: Regular rate and rhythm RESPIRATORY: Occ Basal crackles. Breath sounds equal bilaterally. GASTROINTESTINAL: Abdomen soft, non-tender, nondistended. Normal active bowel sounds MUSCULOSKELETAL: tense/firm edema bilateral LE at posterior aspect of pt's thighs, tense edema abdomen and LUE NEURO: Alert & Oriented. No focal deficits. - Urinary Catheter Management Indwelling Urethral Catheter Cath placed during this visit: yes, but has since been removed by the nurse Urethral indwelling: Yes Reason for continuing: Terminally ill/Comfort care Insertion date: 01/21/18 Insertion time: 12:40 Removal date: 02/03/18 Removal time: 07:00 Results - Labs CBC & Chem 7: 02/06/18 04:32 02/06/18 04:32 Laboratory Results - last 24 hr 02/05/18 02/06/18 02/06/18 10:15 00:35 04:32 WBC RBC Hgb Hct MCV MCH MCHC RDW Plt Count MPV Sodium 136 Potassium 3.5 Chloride 96 L Carbon Dioxide 26.1 Anion Gap 14 BUN 34 H Creatinine 2.70 H Estimated GFR 22 L POC Glucose 374 H Random Glucose 375 H Calcium 9.1 Phosphorus 2.4 L Total Bilirubin 0.7 AST 12 L ALT 27 Alkaline Phosphatase 575 H Total Protein 8.3 H Albumin 3.7 Blood Type O Positive Antibody Screen Negative MTS Gel Crossmatch See Detail 02/06/18 02/06/18 02/06/18 04:32 06:10 12:11 WBC 7.8 RBC 2.88 L Hgb 8.2 L Hct 25.5 L MCV 88.4 MCH 28.6 MCHC 32.3 RDW 16.3 Plt Count 297 MPV 8.6 Sodium Potassium Chloride Carbon Dioxide Anion Gap BUN Creatinine Estimated GFR POC Glucose 389 H 425 H Random Glucose Calcium Phosphorus Total Bilirubin AST ALT Alkaline Phosphatase Total Protein Albumin Blood Type Antibody Screen MTS Gel Crossmatch 02/06/18 17:23 WBC RBC Hgb Hct MCV MCH MCHC RDW Plt Count MPV Sodium Potassium Chloride Carbon Dioxide Anion Gap BUN Creatinine Estimated GFR POC Glucose 242 H Random Glucose Calcium Phosphorus Total Bilirubin AST ALT Alkaline Phosphatase Total Protein Albumin Blood Type Antibody Screen MTS Gel Crossmatch Assessment and Plan - Assessment (1) Respiratory failure Code(s): J96.90 - Respiratory failure, unspecified, unspecified whether with hypoxia or hypercapnia Status: Acute Plan: O2 at 2L PRN Duonebs qid , PRN (2) Pulmonary edema Code(s): J81.1 - Chronic pulmonary edema Status: Acute Plan: Dialysis today (3) Constipation Code(s): K59.00 - Constipation, unspecified Status: Acute (4) Nonischemic cardiomyopathy Code(s): I42.8 - Other cardiomyopathies Status: Chronic (5) Diabetes Code(s): E11.9 - Type 2 diabetes mellitus without complications Status: Chronic Plan: Continue Insulin as ordered (6) Acute on chronic kidney failure Code(s): N17.9 - Acute kidney failure, unspecified; N18.9 - Chronic kidney disease, unspecified Status: Acute (7) Hyperkalemia Code(s): E87.5 - Hyperkalemia Status: Acute (8) HTN (hypertension) Code(s): I10 - Essential (primary) hypertension Status: Acute (9) Elevated LFTs Code(s): R94.5 - Abnormal results of liver function studies Status: Acute (10) Ascites Code(s): R18.8 - Other ascites Status: Acute - Plan 1. O2 at 2 L N/C 2. Nebs qid , Duoneb 3. Continue Dialysis per renal 4. Chest Xray in am. 5. Continue Insulin per protocol (5) Diabetes Qualifiers: Diabetes mellitus type: type 2 Diabetes mellitus bed bug exterminator insulin use: with bed bug exterminator use Diabetes mellitus complication status: with unspecified complications Qualified Code(s): E11.8 - Type 2 diabetes mellitus with unspecified complications; Z79.4 - buttermaker continuous churn (current) use of insulin
[2018-02-06] MEDS: Insulin Detemir Inj 1,000 UNIT/10 ML Vial SQ SCH (21:52)
[2018-02-07] MEDS: Dextrose 10% in Water Inj 1,000 ML IV.CONT SCH (01:23)
[2018-02-07] MEDS: Insulin NovoLOG Aspart Correctional Sugar Inj SQ SCH ×4 (01:37→17:34)
--- NOTE | 2018-02-07 05:10 | XR ---
EXAM DATE: 02/07/2018 4:56 AM EDT AGE/SEX: 53 years / Female INDICATIONS: Edema. CLINICAL DATA: This is the patient's subsequent encounter. Patient reports that signs and symptoms h ave been present for 2 weeks and indicates a pain score of Nonresponsive. MEDICAL/SURGICAL HISTORY: . Diabetes mellitus type II. Congestive heart failure. . Pacemaker . COMPARISON: [facility] [place], CHEST 1V SINGLE AP, 02/05/2018. . FINDINGS: Trace bibasilar atelectasis, improved. No effusions seen. No pneumothorax. Heart size stable, within normal limits. Cardiac pacer again seen. There is a right internal jugular tunneled catheter with tip at the atriocaval junction again seen. CONCLUSION: Trace bibasilar atelectasis, improved. Electronically signed by: Justin Bashir MD 02/07/2018 5:09 AM EDT
[2018-02-07 06:14] LABS: Hematocrit 25.6 % (35.0-46.0); Hemoglobin 8.3 gm/dL (11.6-15.3); Mean Corpuscular HGB Conc 32.4 % (32.0-36.0); Mean Corpuscular Hemoglobin 28.7 pg (27.0-34.0); Mean Corpuscular Volume 88.5 fL (80.0-100.0); Mean Platelet Volume 8.6 fL (7.0-11.0); Platelet Count 275 th/mm3 (150-450); Red Cell Distribution Width 15.9 % (11.6-17.2); White Blood Count 8.2 th/mm3 (4.0-11.0)
[2018-02-07 06:40] LABS: Alanine Aminotransferase 24 U/L (10-53); Albumin 3.7 g/dL (3.4-5.0); Anion Gap 9 meq/L (5-15); Aspartate Aminotransferase 12 U/L (15-37); Blood Urea Nitrogen 25 mg/dL (7-18); Calcium 8.8 mg/dL (8.5-10.1); Carbon Dioxide 29.5 meq/L (21.0-32.0); Chloride 97 meq/L (98-107); Glomerular Filtration Rate 27 mL/min (>89); Glucose,Random 331 mg/dL (74-106); Phosphorus 1.9 mg/dL (2.5-4.9); Potassium 3.6 meq/L (3.5-5.1); Sodium 135 meq/L (136-145)
[2018-02-07 06:42] LABS: Alkaline Phosphatase 518 U/L (45-117); Total Protein 8.1 g/dL (6.4-8.2)
[2018-02-07] MEDS: Folic Acid 1 MG Tablet PO SCH (08:51)
[2018-02-07] MEDS: Mupirocin 2% Nasal Oint Topical Syringe EACH NARE SCH ×2 (08:51→22:23)
[2018-02-07] MEDS: Isosorbide Mononitrate 20 MG Tablet PO SCH ×2 (08:51→22:21)
[2018-02-07] MEDS: metOLazone 5 MG Tablet PO SCH ×2 (08:52→17:35)
[2018-02-07] MEDS: Minoxidil 2.5 MG Tablet PO SCH (08:52)
[2018-02-07] MEDS: Insulin Detemir Inj 1,000 UNIT/10 ML Vial SQ SCH ×2 (08:52→22:19)
[2018-02-07] MEDS: Docusate Sodium 100 MG Capsule PO SCH ×2 (08:53→22:21)
[2018-02-07] MEDS: Carvedilol 12.5 MG Tablet PO SCH ×2 (08:53→22:22)
[2018-02-07] MEDS: Lactobacillus Acidophilus/L. Spores Tablet PO SCH ×2 (08:54→22:20)
[2018-02-07] MEDS: Pantoprazole Inj 40 MG Vial IV.PUSH SCH (10:49)
[2018-02-07] MEDS: Ferrous Sulfate 325 MG Tablet PO SCH ×2 (11:55→17:35)
--- NOTE | 2018-02-07 16:11 | P.PN ---
Subjective Interval history: Better today and on O2 3L. Was dialyzed last PM. CXR is improving Physical Exam Vital signs: Vital Signs 02/06/18 18:00 02/06/18 20:00 02/06/18 21:02 Temperature 98.6 F Pulse Rate 75 78 80 Respiratory Rate 18 18 Blood Pressure 134/67 Pulse Oximetry 95 99 02/06/18 22:00 02/07/18 00:00 02/07/18 02:00 Temperature 98.6 F Pulse Rate 84 78 80 Respiratory Rate 14 Blood Pressure 128/68 Pulse Oximetry 97 02/07/18 03:51 02/07/18 04:00 02/07/18 06:00 Temperature 98.6 F Pulse Rate 75 73 70 Respiratory Rate 20 20 Blood Pressure 140/75 Pulse Oximetry 98 02/07/18 07:40 02/07/18 08:00 02/07/18 10:00 Temperature 98.7 F Pulse Rate 70 69 69 Respiratory Rate 20 12 Blood Pressure 132/75 Pulse Oximetry 100 99 02/07/18 12:00 02/07/18 14:00 02/07/18 15:04 Temperature 98.9 F Pulse Rate 69 70 72 Respiratory Rate 12 22 Blood Pressure 119/77 Pulse Oximetry 99 Intake & Output 02/06/18 02/07/18 02/07/18 18:59 06:59 18:59 Intake Total 480 / 480 600 / 600 Output Total 66862 / 57503 0 / 0 Balance -9540 / -9540 600 / 600 Weight 67.9 kg Intake: Oral 480 / 480 600 / 600 Output: Urine / 20 0 / 0 Hemodialysis Amount 64298 / [id number] Other: Date of Last Bowel Movement 02/05/18 02/05/18 02/05/18 # Bowel Movements 0 Narrative: GENERAL: Thin mid aged A/A female Patient is alert, and not dyspneic,on nasal cannula. HEENT: Throat clear. CARDIOVASCULAR: Regular rate and rhythm RESPIRATORY: Occ Basal crackles. Breath sounds equal bilaterally. GASTROINTESTINAL: Abdomen soft, non-tender, nondistended. Normal active bowel sounds MUSCULOSKELETAL: Mild edema bilateral LE . NEURO: Alert & Oriented. No focal deficits. - Urinary Catheter Management Indwelling Urethral Catheter Cath placed during this visit: yes, but has since been removed by the nurse Urethral indwelling: Yes Reason for continuing: Terminally ill/Comfort care Insertion date: 01/21/18 Insertion time: 12:40 Removal date: 02/03/18 Removal time: 07:00 Results - Labs CBC & Chem 7: 02/07/18 04:12 02/07/18 04:12 Laboratory Results - last 24 hr 02/06/18 02/07/18 02/07/18 17:23 01:28 01:32 WBC RBC Hgb Hct MCV MCH MCHC RDW Plt Count MPV Sodium Potassium Chloride Carbon Dioxide Anion Gap BUN Creatinine Estimated GFR POC Glucose 242 H 509 H* 471 H* Random Glucose Calcium Phosphorus Total Bilirubin AST ALT Alkaline Phosphatase Total Protein Albumin 02/07/18 02/07/18 02/07/18 04:12 04:12 06:22 WBC 8.2 RBC 2.90 L Hgb 8.3 L Hct 25.6 L MCV 88.5 MCH 28.7 MCHC 32.4 RDW 15.9 Plt Count 275 MPV 8.6 Sodium 135 L Potassium 3.6 Chloride 97 L Carbon Dioxide 29.5 Anion Gap 9 BUN 25 H Creatinine 2.33 H Estimated GFR 27 L POC Glucose 281 H Random Glucose 331 H Calcium 8.8 Phosphorus 1.9 L Total Bilirubin 0.5 AST 12 L ALT 24 Alkaline Phosphatase 518 H Total Protein 8.1 Albumin 3.7 02/07/18 11:23 WBC RBC Hgb Hct MCV MCH MCHC RDW Plt Count MPV Sodium Potassium Chloride Carbon Dioxide Anion Gap BUN Creatinine Estimated GFR POC Glucose 192 H Random Glucose Calcium Phosphorus Total Bilirubin AST ALT Alkaline Phosphatase Total Protein Albumin - Imaging Impressions Chest X-Ray 02/07/18 00:00 CONCLUSION: Trace bibasilar atelectasis, improved. Assessment and Plan - Assessment (1) Respiratory failure Code(s): J96.90 - Respiratory failure, unspecified, unspecified whether with hypoxia or hypercapnia Status: Acute (2) Pulmonary edema Code(s): J81.1 - Chronic pulmonary edema Status: Acute (3) Constipation Code(s): K59.00 - Constipation, unspecified Status: Acute (4) Nonischemic cardiomyopathy Code(s): I42.8 - Other cardiomyopathies Status: Chronic (5) Diabetes Code(s): E11.9 - Type 2 diabetes mellitus without complications Status: Chronic (6) Acute on chronic kidney failure Code(s): N17.9 - Acute kidney failure, unspecified; N18.9 - Chronic kidney disease, unspecified Status: Acute (7) Hyperkalemia Code(s): E87.5 - Hyperkalemia Status: Acute (8) HTN (hypertension) Code(s): I10 - Essential (primary) hypertension Status: Acute (9) Elevated LFTs Code(s): R94.5 - Abnormal results of liver function studies Status: Acute (10) Ascites Code(s): R18.8 - Other ascites Status: Acute - Plan 1. Wean to O2 at 2 L N/C 2. Nebs qid , Duoneb 3. Continue Dialysis per renal in am 4. CBC BMP in am. 5. Continue Insulin per protocol 6. Transfer to tele floor (5) Diabetes Qualifiers: Diabetes mellitus type: type 2 Diabetes mellitus senior care insulin use: with termite control servicer use Diabetes mellitus complication status: with unspecified complications Qualified Code(s): E11.8 - Type 2 diabetes mellitus with unspecified complications; Z79.4 - adjunct faculty for medical terminology (current) use of insulin
--- NOTE | 2018-02-07 17:21 | P.PNNP ---
Subjective Interval history: Patient seen in AM, alert, with nasal cannula, in mild resp. distress. Physical Exam Vital signs: Vital Signs 02/06/18 18:00 02/06/18 20:00 02/06/18 21:02 Temperature 98.6 F Pulse Rate 75 78 80 Respiratory Rate 18 18 Blood Pressure 134/67 Pulse Oximetry 95 99 02/06/18 22:00 02/07/18 00:00 02/07/18 02:00 Temperature 98.6 F Pulse Rate 84 78 80 Respiratory Rate 14 Blood Pressure 128/68 Pulse Oximetry 97 02/07/18 03:51 02/07/18 04:00 02/07/18 06:00 Temperature 98.6 F Pulse Rate 75 73 70 Respiratory Rate 20 20 Blood Pressure 140/75 Pulse Oximetry 98 02/07/18 07:40 02/07/18 08:00 02/07/18 10:00 Temperature 98.7 F Pulse Rate 70 69 69 Respiratory Rate 20 12 Blood Pressure 132/75 Pulse Oximetry 100 99 02/07/18 12:00 02/07/18 14:00 02/07/18 15:04 Temperature 98.9 F Pulse Rate 69 70 72 Respiratory Rate 12 22 Blood Pressure 119/77 Pulse Oximetry 99 02/07/18 16:00 Temperature 97.7 F Pulse Rate 71 Respiratory Rate 12 Blood Pressure 119/64 Pulse Oximetry 99 Intake & Output 02/06/18 02/07/18 02/07/18 18:59 06:59 18:59 Intake Total 480 / 480 600 / 600 Output Total 11734 / 04952 0 / 0 Balance -9540 / -9540 600 / 600 Weight 67.9 kg Intake: Oral 480 / 480 600 / 600 Output: Urine 0 / 0 Hemodialysis Amount [id number] / [id number] Other: Date of Last Bowel Movement 02/05/18 02/05/18 02/05/18 # Bowel Movements 0 Narrative: GENERAL: Thin mid aged A/A female Patient is alert, and not dyspneic,on nasal cannula. HEENT: Throat clear. CARDIOVASCULAR: Regular rate and rhythm RESPIRATORY: Occ Basal crackles. Breath sounds equal bilaterally. GASTROINTESTINAL: Abdomen soft, non-tender, nondistended. Normal active bowel sounds MUSCULOSKELETAL: Moderate edema bilateral LE . NEURO: Alert & Oriented. No focal deficits. - Urinary Catheter Management Indwelling Urethral Catheter Cath placed during this visit: yes, but has since been removed by the nurse Urethral indwelling: Yes Reason for continuing: Terminally ill/Comfort care Insertion date: 01/21/18 Insertion time: 12:40 Removal date: 02/03/18 Removal time: 07:00 Assessment and Plan - Assessment (1) Acute on chronic kidney failure Code(s): N17.9 - Acute kidney failure, unspecified; N18.9 - Chronic kidney disease, unspecified Status: Acute Plan: 1 Acute kidney injury The patient has proteinuria and most likely she has chronic kidney disease because of diabetic nephropathy. Baseline creatinine of 1.4-1.5 12/[address] scan report,showing the kidneys are normal in size. Creatinine stable at 2.46 -> 2.45 ->2.45 ->2.93 ->2.8 ->2.70 Anuric now Follow Urine out put and BMP. Avoid nephrotoxins. Epogen with dialysis Hemodialysis started on 01/31 Hemodialysis yesterday , fluid removed, tolerated well. HD again in AM, remove fluid. . (2) HTN (hypertension) Code(s): I10 - Essential (primary) hypertension Status: Acute Plan: will monitor (3) Hyperkalemia Code(s): E87.5 - Hyperkalemia Status: Acute Plan: Resolved (4) Hypoglycemia Code(s): E16.2 - Hypoglycemia, unspecified Status: Acute Plan: Per CC Blood sugars labile
--- NOTE | 2018-02-07 20:49 | P.PNIM ---
Subjective Interval history: No new complaints. Physical Exam Vital signs: 02/07/18 15:04 02/07/18 16:00 02/07/18 18:00 Temperature 97.7 F Pulse Rate 72 71 71 Respiratory Rate 22 12 Blood Pressure 119/64 Pulse Oximetry 99 Narrative: GENERAL: Thin mid aged A/A female Patient is alert, and not dyspneic,on nasal cannula. HEENT: Throat clear. CARDIOVASCULAR: Regular rate and rhythm RESPIRATORY: Occ Basal crackles. Breath sounds equal bilaterally. GASTROINTESTINAL: Abdomen soft, non-tender, nondistended. Normal active bowel sounds MUSCULOSKELETAL: Moderate edema bilateral LE . NEURO: Alert & Oriented. No focal deficits. - Urinary Catheter Management Indwelling Urethral Catheter Cath placed during this visit: yes, but has since been removed by the nurse Urethral indwelling: Yes Reason for continuing: Terminally ill/Comfort care Insertion date: 01/21/18 Insertion time: 12:40 Removal date: 02/03/18 Removal time: 07:00 Results - Labs CBC & Chem 7: 02/07/18 04:12 02/07/18 04:12 - Imaging Chest X-Ray 01/20/18 06:00 CONCLUSION: 1. Cardiomegaly with trace positive fluid balance. Enema w/Water Soluble 01/20/18 08:00 CONCLUSION: Status post therapeutic Gastrografin enema. Chest X-Ray 01/29/18 00:00 CONCLUSION: Left lower lobe atelectasis or consolidation. Central Venous Line 01/30/18 00:00 CONCLUSION: 1. Uncomplicated line placement as above. Pulmonary Perfusion Imaging 01/30/18 00:00 CONCLUSION: 1. Low probability for pulmonary embolus. 2. There is a triple matched defect at the left lower lobe likely related to consolidation, atelectasis and/or effusion. Venogram Nuclear Medicine 01/30/18 14:33 CONCLUSION: The IVC is patent. Chest X-Ray 01/31/18 07:44 CONCLUSION: 1. Cardiomegaly with pulmonary vascular engorgement. 2. Right lower lobe consolidation is new and could either relate to an infectious etiology or focal edema. 3. Left lower lobe consolidation from the prior study has resolved. Central Venous Line 01/31/18 08:29 CONCLUSION: 1. Uncomplicated line placement as above. Abdomen/Pelvis CT 02/02/18 00:00 CONCLUSION: 1. At least moderate ascites. 2. Atherosclerotic calcifications. 3. Suspected gallstones or milk of calcium in the gallbladder. Chest X-Ray 02/03/18 04:00 CONCLUSION: Mild improvement in basilar airspace disease since January 31. Chest X-Ray 02/05/18 06:00 CONCLUSION: Cardiomegaly with minimal basilar density, probably atelectasis. No significant change from February 03. Chest X-Ray 02/07/18 00:00 CONCLUSION: Trace bibasilar atelectasis, improved. Assessment and Plan - Assessment (1) Nonischemic cardiomyopathy Code(s): I42.8 - Other cardiomyopathies Status: Chronic Plan: Nonischemic cardiomyopathy Chronic systolic CHF with EF 15-20% s/p AICD - comgmt with Palliative Medicine, Cardiology - Pt was reportedly evaluated at [facility] recently for Heart transplant vs. LVAD but had a stroke during that admission and was not felt to be a good candidate after the CVA. - 2D echo (01/21/18): - Estimated ejection fraction of 45-50%. No segmental wall motion abnormalities. - Possible mild right ventricular enlargement with normal systolic function. - A pacemaker wire is noted. - Mild mitral valve regurgitation. - Mild tricuspid valve regurgitation. - Estimated pulmonary arterial pressure is 35 mmHg - 01/30 radionucleotide venogram no evidence of thrombus - Pt developed Respiratory failure. Pt transferred to ICU 01/31 - HD started 01/31 - continued HD per Nephrology, next session 02/08/18 - Zaroxolyn 5mg BID - DVT prophylaxis with Eliquis - supportive care Abdominal pain Nausea/vomiting Constipation, improved - Pt is a 52 y/o AAF with chronic systolic CHF, nonischemic cardiomyopathy with EF 15-20% s/p AICD, hx of CVA in 12/2017 (Bilateral acute to subacute posterior cerebral artery infarcts on Head CT on 12/22/17), congestive hepatopathy, ascites , HTN, CKD, stage 3, and type 2 diabetes mellitus, insulin dependent. Pt has had multiple hospitalizations at [facility] in [place] and [facility] in the last several month for various issues related to her CHF /Cardiomyopathy, DKA, Acute on chronic renal failure, CVA. After her most recent admission from 12/02/17 to 01/08/18 was for CHF and was transferred to [facility] to be evaluated for possible heart transplant vs. LVAD. During that admission she had an acute CVA with resulting left sided weakness and felt that she was not a good candidate for advanced heart failure treatment. Pt was discharged to [facility] on 01/08/18. - She was brought to the ED from a local rehab center for hyperkalemia and N/V. She has noted issues with constipation more recently. Over the last two days she has had nausea/vomiting and has not been eating much. She has not passed any stool in the last two days either. - CT abd/pelvis in the ED which noted moderate ascites and anasarca, cardiomegaly with pacer lead tip in right ventricle, and small fat-containing umbilical hernia. No bowel obstruction. In reviewing the images she has a significant amount of stool throughout the colon and in the rectum. - Pt had a small BM on 01/17 but has been refusing the Lactulose BID - Pt was given Mag Citrate and Colace BID on 01/18 but no significant stooling - Pt had Gastrografin enema on 01/20 with large volume of stool output - Zofran PRN - Protonix 40mg IV daily Diabetes mellitus, poorly controlled Hgb A1C 14.4 on 08/31/17 Hypoglycemia - levemir 10 units BID - SSI Hyperkalemia Acute on chronic renal disease, stage 3 - see above HTN (hypertension) - Cont. home meds - BP is poorly controlled on multiple medications: Coreg 12.5mg BID, Clonidine 0.2mg Q8H, Hydralazine 100mg Q8H, Minoxidil 5mg po daily, Procardia XL 30mg po BID - Clonidine PRN - Monitor closely Elevated LFTs Congestive hepatopathy Ascites - Review of outpt records show the pts AlkPhos has been elevated since 10/2016 - AlkPhos Isoenzyme in 10/2017 noted 72% liver, 20% bone, 8% intestine - Transjugular liver bx (12/20/17) --> Findings suggestive of congestive hepatopathy. Anemia - patient's hgb has been trending down on admission hgb 10.4 - iron 17, TIBC 176, % saturation 9.6 - reticulocyte count 0.9 - occult stool requested - Ferrous sulfate PO BID
[2018-02-08] MEDS: Dextrose 10% in Water Inj 1,000 ML IV.CONT SCH (01:58)
[2018-02-08] MEDS: Insulin NovoLOG Aspart Correctional Sugar Inj SQ SCH ×4 (02:12→19:02)
[2018-02-08 04:45] LABS: Hematocrit 26.6 % (35.0-46.0); Hemoglobin 8.6 gm/dL (11.6-15.3); Mean Corpuscular HGB Conc 32.1 % (32.0-36.0); Mean Corpuscular Hemoglobin 28.3 pg (27.0-34.0); Mean Platelet Volume 8.3 fL (7.0-11.0); Platelet Count 291 th/mm3 (150-450); Red Blood Count 3.03 mil/mm3 (4.00-5.30); Red Cell Distribution Width 16.1 % (11.6-17.2); White Blood Count 9.4 th/mm3 (4.0-11.0)
[2018-02-08 05:12] LABS: Alanine Aminotransferase 23 U/L (10-53); Albumin 3.6 g/dL (3.4-5.0); Alkaline Phosphatase 560 U/L (45-117); Anion Gap 13 meq/L (5-15); Aspartate Aminotransferase 17 U/L (15-37); Blood Urea Nitrogen 36 mg/dL (7-18); Calcium 9.3 mg/dL (8.5-10.1); Carbon Dioxide 27.3 meq/L (21.0-32.0); Chloride 96 meq/L (98-107); Glomerular Filtration Rate 21 mL/min (>89); Glucose,Random 176 mg/dL (74-106); Phosphorus 2.7 mg/dL (2.5-4.9); Potassium 4.2 meq/L (3.5-5.1); Sodium 136 meq/L (136-145); Total Protein 8.5 g/dL (6.4-8.2)
--- NOTE | 2018-02-08 11:48 | P.PNNP ---
Subjective Interval history: Patient seen during hemodialysis Physical Exam Vital signs: Vital Signs 02/07/18 12:00 02/07/18 14:00 02/07/18 15:04 Temperature 98.9 F Pulse Rate 69 70 72 Respiratory Rate 12 22 Blood Pressure 119/77 Pulse Oximetry 99 02/07/18 16:00 02/07/18 18:00 02/07/18 20:00 Temperature 97.7 F 97.5 F L Pulse Rate 71 71 69 Respiratory Rate 12 18 Blood Pressure 119/64 144/65 H Pulse Oximetry 99 97 02/07/18 23:59 02/08/18 00:00 02/08/18 03:56 Temperature 97.9 F Pulse Rate 72 75 84 Respiratory Rate 18 18 Blood Pressure 123/68 Pulse Oximetry 95 02/08/18 04:00 02/08/18 08:00 Temperature 97.5 F L 97.9 F Pulse Rate 85 80 Respiratory Rate 18 19 Blood Pressure 138/67 148/72 H Pulse Oximetry 97 94 L Intake & Output 02/07/18 02/08/18 02/08/18 18:59 06:59 18:59 Intake Total 480 / 480 600 / 600 Output Total 20 / 20 0 / 0 5000 / 5000 Balance 460 / 460 600 / 600 -5000 / -5000 Weight 69.5 kg Intake: Oral 480 / 480 600 / 600 Output: Urine 20 / 20 0 / 0 Hemodialysis Amount 5000 / 5000 Other: Date of Last Bowel Movement 02/05/18 02/06/18 # Bowel Movements 0 - Constitutional no acute distress - Routine HEENT Exam Head: Present: normocephalic - Routine Neck Exam Present: supple - Routine Respiratory Exam Present: decreased breath sounds (At bases) - Routine Cardiovascular Exam Present: RRR - Routine Abdominal Exam Present: soft, normoactive bowel sounds - Routine Extremities Exam Present: edema - Routine Neurological Exam Present: alert - Urinary Catheter Management Indwelling Urethral Catheter Cath placed during this visit: yes, but has since been removed by the nurse Urethral indwelling: Yes Reason for continuing: Terminally ill/Comfort care Insertion date: 01/21/18 Insertion time: 12:40 Removal date: 02/03/18 Removal time: 07:00 Assessment and Plan - Assessment (1) Acute on chronic kidney failure Code(s): N17.9 - Acute kidney failure, unspecified; N18.9 - Chronic kidney disease, unspecified Status: Acute Qualifiers: Chronic kidney disease stage: on chronic dialysis Plan: Patient seen during hemodialysis 4.5 L removed tolerating it Continue current hemodialysis regimen Dr. Ahmadi to follow on Saturday (2) Nonischemic cardiomyopathy Code(s): I42.8 - Other cardiomyopathies Status: Chronic (3) Diabetes Code(s): E11.9 - Type 2 diabetes mellitus without complications Status: Chronic Qualifiers: Diabetes mellitus type: type 2 Diabetes mellitus usp insulin use: with termination clerk use Diabetes mellitus complication status: with unspecified complications Qualified Code(s): E11.8 - Type 2 diabetes mellitus with unspecified complications; Z79.4 - penitentiary (current) use of insulin - Plan Patient seen during hemodialysis tolerating dialysis well ultrafiltration of 4.5 L Continue supportive care Fluid removal with dialysis Patient has underlying diabetes
[2018-02-08] MEDS: Isosorbide Mononitrate 20 MG Tablet PO SCH (12:59)
[2018-02-08] MEDS: Folic Acid 1 MG Tablet PO SCH (12:59)
[2018-02-08] MEDS: Ferrous Sulfate 325 MG Tablet PO SCH ×2 (13:00→17:16)
[2018-02-08] MEDS: Lactobacillus Acidophilus/L. Spores Tablet PO SCH ×2 (13:00→21:10)
[2018-02-08] MEDS: Insulin Detemir Inj 1,000 UNIT/10 ML Vial SQ SCH (13:03)
[2018-02-08] MEDS: metOLazone 5 MG Tablet PO SCH ×2 (13:03→17:17)
[2018-02-08] MEDS: Docusate Sodium 100 MG Capsule PO SCH ×2 (13:03→21:09)
[2018-02-08] MEDS: Pantoprazole Inj 40 MG Vial IV.PUSH SCH (13:04)
[2018-02-08] MEDS: Mupirocin 2% Nasal Oint Topical Syringe EACH NARE SCH ×2 (13:05→21:10)
--- NOTE | 2018-02-08 14:48 | P.PNIM ---
Subjective Interval history: Pt c/o abdominal cramping and constipation Physical Exam Vital signs: Vital Signs 02/08/18 12:00 Temperature 97.5 F L Pulse Rate 75 Respiratory Rate 19 Blood Pressure 163/73 H Pulse Oximetry 97 Narrative: GENERAL: Thin mid aged A/A female Patient is alert, and not dyspneic,on nasal cannula. HEENT: Throat clear. CARDIOVASCULAR: Regular rate and rhythm RESPIRATORY: Occ Basal crackles. Breath sounds equal bilaterally. GASTROINTESTINAL: Abdomen soft, non-tender, nondistended. Normal active bowel sounds MUSCULOSKELETAL: Moderate edema bilateral LE . NEURO: Alert & Orientedx3, No focal deficits. - Urinary Catheter Management Indwelling Urethral Catheter Cath placed during this visit: yes, but has since been removed by the nurse Urethral indwelling: Yes Reason for continuing: Terminally ill/Comfort care Insertion date: 01/21/18 Insertion time: 12:40 Removal date: 02/03/18 Removal time: 07:00 Results - Labs CBC & Chem 7: 02/08/18 03:45 02/08/18 03:45 - Imaging Chest X-Ray 01/20/18 06:00 CONCLUSION: 1. Cardiomegaly with trace positive fluid balance. Enema w/Water Soluble 01/20/18 08:00 CONCLUSION: Status post therapeutic Gastrografin enema. Pulmonary Perfusion Imaging 01/30/18 00:00 CONCLUSION: 1. Low probability for pulmonary embolus. 2. There is a triple matched defect at the left lower lobe likely related to consolidation, atelectasis and/or effusion. Venogram Nuclear Medicine 01/30/18 14:33 CONCLUSION: The IVC is patent. Abdomen/Pelvis CT 02/02/18 00:00 CONCLUSION: 1. At least moderate ascites. 2. Atherosclerotic calcifications. 3. Suspected gallstones or milk of calcium in the gallbladder. Chest X-Ray 02/07/18 00:00 CONCLUSION: Trace bibasilar atelectasis, improved. Assessment and Plan - Assessment (1) Nonischemic cardiomyopathy Code(s): I42.8 - Other cardiomyopathies Status: Chronic Plan: Nonischemic cardiomyopathy Chronic systolic CHF with EF 15-20% s/p AICD - comgmt with Palliative Medicine, Cardiology - Pt was reportedly evaluated at [facility] recently for Heart transplant vs. LVAD but had a stroke during that admission and was not felt to be a good candidate after the CVA. - 2D echo (01/21/18): - Estimated ejection fraction of 45-50%. No segmental wall motion abnormalities. - Possible mild right ventricular enlargement with normal systolic function. - A pacemaker wire is noted. - Mild mitral valve regurgitation. - Mild tricuspid valve regurgitation. - Estimated pulmonary arterial pressure is 35 mmHg - 01/30 radionucleotide venogram no evidence of thrombus - Pt developed Respiratory failure. Pt transferred to ICU 01/31 - HD started 01/31 - 4.5L removed with HD (02/08) - Zaroxolyn 5mg BID - DVT prophylaxis with Eliquis - supportive care - Will review case with Nephrology 02/10/18 - Pt will need outpt HD center arranged - Attempted to discuss code status with pt (02/07). Pt became tearful & refused to discuss topic. - Pt's prognosis is poor & pt is at high risk for readmission - will d/w Palliative 02/10/18 - anticipate d/c to SNF in 3-4 days - constipation - kub - Dulcolax suppository - observe results Abdominal pain Nausea/vomiting Constipation, improved - Pt is a 52 y/o AAF with chronic systolic CHF, nonischemic cardiomyopathy with EF 15-20% s/p AICD, hx of CVA in 12/2017 (Bilateral acute to subacute posterior cerebral artery infarcts on Head CT on 12/22/17), congestive hepatopathy, ascites , HTN, CKD, stage 3, and type 2 diabetes mellitus, insulin dependent. Pt has had multiple hospitalizations at [facility] in [place] and [facility] in the last several month for various issues related to her CHF /Cardiomyopathy, DKA, Acute on chronic renal failure, CVA. After her most recent admission from 12/02/17 to 01/08/18 was for CHF and was transferred to [facility] to be evaluated for possible heart transplant vs. LVAD. During that admission she had an acute CVA with resulting left sided weakness and felt that she was not a good candidate for advanced heart failure treatment. Pt was discharged to [facility] on 01/08/18. - She was brought to the ED from a local rehab center for hyperkalemia and N/V. She has noted issues with constipation more recently. Over the last two days she has had nausea/vomiting and has not been eating much. She has not passed any stool in the last two days either. - CT abd/pelvis in the ED which noted moderate ascites and anasarca, cardiomegaly with pacer lead tip in right ventricle, and small fat-containing umbilical hernia. No bowel obstruction. In reviewing the images she has a significant amount of stool throughout the colon and in the rectum. - Pt had a small BM on 01/17 but has been refusing the Lactulose BID - Pt was given Mag Citrate and Colace BID on 01/18 but no significant stooling - Pt had Gastrografin enema on 01/20 with large volume of stool output - Zofran PRN - Protonix 40mg Diabetes mellitus, poorly controlled Hgb A1C 14.4 on 08/31/17 Hypoglycemia - levemir 10 units BID - SSI Hyperkalemia Acute on chronic renal disease, stage 3 - see above HTN (hypertension) - Cont. home meds - BP is poorly controlled on multiple medications: Coreg 12.5mg BID, Clonidine 0.2mg Q8H, Hydralazine 100mg Q8H, Minoxidil 5mg po daily, Procardia XL 30mg po BID - Clonidine PRN - Monitor closely Elevated LFTs Congestive hepatopathy Ascites - Review of outpt records show the pts AlkPhos has been elevated since 10/2016 - AlkPhos Isoenzyme in 10/2017 noted 72% liver, 20% bone, 8% intestine - Transjugular liver bx (12/20/17) --> Findings suggestive of congestive hepatopathy. Anemia - patient's hgb has been trending down on admission hgb 10.4 - iron 17, TIBC 176, % saturation 9.6 - reticulocyte count 0.9 - occult stool requested - Ferrous sulfate PO BID
--- NOTE | 2018-02-08 15:28 | P.PN ---
Subjective Interval history: She is doing better. Still on o2 at 3 L. Dialysis done and leg edema is down. Physical Exam Vital signs: Vital Signs 02/07/18 16:00 02/07/18 18:00 02/07/18 20:00 Temperature 97.7 F 97.5 F L Pulse Rate 71 71 69 Respiratory Rate 12 18 Blood Pressure 119/64 144/65 H Pulse Oximetry 99 97 02/07/18 23:59 02/08/18 00:00 02/08/18 03:56 Temperature 97.9 F Pulse Rate 72 75 84 Respiratory Rate 18 18 Blood Pressure 123/68 Pulse Oximetry 95 02/08/18 04:00 02/08/18 08:00 02/08/18 12:00 Temperature 97.5 F L 97.9 F 97.5 F L Pulse Rate 85 80 75 Respiratory Rate 18 19 19 Blood Pressure 138/67 148/72 H 163/73 H Pulse Oximetry 97 94 L 97 Intake & Output 02/07/18 02/08/18 02/08/18 18:59 06:59 18:59 Intake Total 480 / 480 600 / 600 Output Total 20 / 20 0 / 0 5000 / 5000 Balance 460 / 460 600 / 600 -5000 / -5000 Weight 69.5 kg Intake: Oral 480 / 480 600 / 600 Output: Urine 20 / 20 0 / 0 Hemodialysis Amount 5000 / 5000 Other: Date of Last Bowel Movement 02/05/18 02/06/18 # Bowel Movements 0 Narrative: GENERAL: Thin mid aged A/A female Patient is alert, and not dyspneic. HEENT: Throat clear. CARDIOVASCULAR: Regular rate and rhythm No Murmur RESPIRATORY: Occ Basal crackles. Breath sounds equal bilaterally. GASTROINTESTINAL: Abdomen soft, non-tender, nondistended. Normal active bowel sounds MUSCULOSKELETAL: Moderate edema bilateral LE . NEURO: Alert & Orientedx3, No focal deficits. - Urinary Catheter Management Indwelling Urethral Catheter Cath placed during this visit: yes, but has since been removed by the nurse Urethral indwelling: Yes Reason for continuing: Terminally ill/Comfort care Insertion date: 01/21/18 Insertion time: 12:40 Removal date: 02/03/18 Removal time: 07:00 Results - Labs CBC & Chem 7: 02/08/18 03:45 02/08/18 03:45 Laboratory Results - last 24 hr 02/07/18 02/07/18 02/08/18 17:27 20:29 02:05 WBC RBC Hgb Hct MCV MCH MCHC RDW Plt Count MPV Sodium Potassium Chloride Carbon Dioxide Anion Gap BUN Creatinine Estimated GFR POC Glucose 231 H 138 H 237 H Random Glucose Calcium Phosphorus Total Bilirubin AST ALT Alkaline Phosphatase Total Protein Albumin 02/08/18 02/08/18 02/08/18 03:45 03:45 06:31 WBC 9.4 RBC 3.03 L Hgb 8.6 L Hct 26.6 L MCV 88.0 MCH 28.3 MCHC 32.1 RDW 16.1 Plt Count 291 MPV 8.3 Sodium 136 Potassium 4.2 Chloride 96 L Carbon Dioxide 27.3 Anion Gap 13 BUN 36 H Creatinine 2.92 H Estimated GFR 21 L POC Glucose 172 H Random Glucose 176 H D Calcium 9.3 Phosphorus 2.7 Total Bilirubin 0.4 AST 17 ALT 23 Alkaline Phosphatase 560 H Total Protein 8.5 H Albumin 3.6 02/08/18 08:19 WBC RBC Hgb Hct MCV MCH MCHC RDW Plt Count MPV Sodium Potassium Chloride Carbon Dioxide Anion Gap BUN Creatinine Estimated GFR POC Glucose 129 H Random Glucose Calcium Phosphorus Total Bilirubin AST ALT Alkaline Phosphatase Total Protein Albumin Assessment and Plan - Assessment (1) Respiratory failure Code(s): J96.90 - Respiratory failure, unspecified, unspecified whether with hypoxia or hypercapnia Status: Acute (2) Pulmonary edema Code(s): J81.1 - Chronic pulmonary edema Status: Acute (3) Constipation Code(s): K59.00 - Constipation, unspecified Status: Acute (4) Nonischemic cardiomyopathy Code(s): I42.8 - Other cardiomyopathies Status: Chronic (5) Diabetes Code(s): E11.9 - Type 2 diabetes mellitus without complications Status: Chronic (6) Acute on chronic kidney failure Code(s): N17.9 - Acute kidney failure, unspecified; N18.9 - Chronic kidney disease, unspecified Status: Acute (7) Hyperkalemia Code(s): E87.5 - Hyperkalemia Status: Acute (8) HTN (hypertension) Code(s): I10 - Essential (primary) hypertension Status: Acute (9) Elevated LFTs Code(s): R94.5 - Abnormal results of liver function studies Status: Acute (10) Ascites Code(s): R18.8 - Other ascites Status: Acute - Plan 1. Cont to Wean to O2 at 2 L N/C 2. Nebs qid , Duoneb 3. Continue Dialysis per renal Saturday 4. CBC BMP in am. 5. Continue Insulin per protocol 6. PT evaluation (5) Diabetes Qualifiers: Diabetes mellitus type: type 2 Diabetes mellitus assisted insulin use: with assisted use Diabetes mellitus complication status: with unspecified complications Qualified Code(s): E11.8 - Type 2 diabetes mellitus with unspecified complications; Z79.4 - termite treater (current) use of insulin (6) Acute on chronic kidney failure Qualifiers: Chronic kidney disease stage: on chronic dialysis
--- NOTE | 2018-02-08 15:48 | XR ---
EXAM DATE: 02/08/2018 3:38 PM EDT AGE/SEX: 53 years / Female INDICATIONS: Abdomen pain. CLINICAL DATA: This is the patient's subsequent encounter. Patient reports that signs and symptoms h ave been present for 2 days and indicates a pain score of 5/10. MEDICAL/SURGICAL HISTORY: . Diabetes mellitus type II. Congestive heart failure.. Pacemaker. COMPARISON: C, [place] enema w gastrografin, 01/20/2018. . FINDINGS: Hazy opacity about the abdomen suggests ascites. No dilated loops of small or large bowel. There is elevation of the right hemidiaphragm. The visualized left lower lung is clear. CONCLUSION: No dilated loops of small or large bowel. Electronically signed by: Tano Jett MD 02/08/2018 3:46 PM EDT
[2018-02-08] MEDS: Bisacodyl 10 MG Supp RECTAL PRN (17:17)
[2018-02-08] MEDS: Minoxidil 2.5 MG Tablet PO SCH (17:24)
[2018-02-08] MEDS: Carvedilol 12.5 MG Tablet PO SCH ×2 (17:24→21:09)
[2018-02-09] MEDS: Insulin Detemir Inj 1,000 UNIT/10 ML Vial SQ SCH ×3 (00:37→21:12)
[2018-02-09] MEDS: Isosorbide Mononitrate 20 MG Tablet PO SCH ×3 (00:37→21:20)
[2018-02-09] MEDS: Insulin NovoLOG Aspart Correctional Sugar Inj SQ SCH ×4 (01:01→18:42)
[2018-02-09 07:35] LABS: Albumin 3.4 g/dL (3.4-5.0); Anion Gap 10 meq/L (5-15); Aspartate Aminotransferase 23 U/L (15-37); Blood Urea Nitrogen 33 mg/dL (7-18); Chloride 96 meq/L (98-107); Glomerular Filtration Rate 22 mL/min (>89); Glucose,Random 181 mg/dL (74-106); Potassium 3.8 meq/L (3.5-5.1); Sodium 136 meq/L (136-145)
[2018-02-09 07:36] LABS: Alanine Aminotransferase 27 U/L (10-53); Phosphorus 2.2 mg/dL (2.5-4.9)
[2018-02-09 07:39] LABS: Alkaline Phosphatase 552 U/L (45-117); Total Protein 8.2 g/dL (6.4-8.2)
[2018-02-09] MEDS: Mupirocin 2% Nasal Oint Topical Syringe EACH NARE SCH ×2 (09:33→21:11)
[2018-02-09] MEDS: Docusate Sodium 100 MG Capsule PO SCH ×2 (09:33→21:11)
[2018-02-09] MEDS: Carvedilol 12.5 MG Tablet PO SCH ×2 (09:33→21:10)
[2018-02-09] MEDS: Folic Acid 1 MG Tablet PO SCH (09:33)
[2018-02-09] MEDS: Minoxidil 2.5 MG Tablet PO SCH (09:34)
[2018-02-09] MEDS: Lactobacillus Acidophilus/L. Spores Tablet PO SCH ×2 (09:34→21:11)
[2018-02-09] MEDS: metOLazone 5 MG Tablet PO SCH ×2 (09:43→17:38)
--- NOTE | 2018-02-09 10:06 | P.PNIM ---
Subjective Interval history: No new complaints overnight Pt is on 2L of supplemental O2 Pt had HD yesterday with removal of 5L of fluid Physical Exam Vital signs: Vital Signs 02/08/18 11:35 02/08/18 12:00 02/08/18 15:55 Temperature 97.5 F L Pulse Rate 75 75 79 Respiratory Rate 19 Blood Pressure 163/73 H Pulse Oximetry 97 02/08/18 16:00 02/08/18 16:10 02/08/18 20:00 Temperature 97.5 F L 98.2 F Pulse Rate 77 75 84 Respiratory Rate 19 18 18 Blood Pressure 164/71 H 138/65 Pulse Oximetry 99 93 L 02/09/18 04:00 02/09/18 08:00 02/09/18 08:43 Temperature 97.2 F L 98.8 F Pulse Rate 83 83 Respiratory Rate 18 20 Blood Pressure 151/72 H 160/83 H Pulse Oximetry 96 96 96 Intake & Output 02/08/18 02/09/18 02/09/18 18:59 06:59 18:59 Intake Total 380 / 380 Output Total 5000 / 5000 Balance -4620 / -4620 Weight 66.8 kg Intake: Oral 380 / 380 Output: Hemodialysis Amount 5000 / 5000 Other: # Voids 1 # Bowel Movements 1 Narrative: GENERAL: Thin mid aged A/A female Patient is alert, and not dyspneic. CARDIO: Regular RESP: Breath sounds equal bilaterally. ABD: Abdomen soft, non-tender, nondistended. Normal active bowel sounds MUSCULOSKELETAL: Moderate edema bilateral LE . NEURO: Alert & Orientedx3, No focal deficits. - Urinary Catheter Management Indwelling Urethral Catheter Cath placed during this visit: yes, but has since been removed by the nurse Urethral indwelling: Yes Reason for continuing: Terminally ill/Comfort care Insertion date: 01/21/18 Insertion time: 12:40 Removal date: 02/03/18 Removal time: 07:00 Results - Labs CBC & Chem 7: 02/08/18 03:45 02/09/18 06:19 Laboratory Results - last 24 hr 02/08/18 02/08/18 02/09/18 17:22 21:12 01:00 Sodium Potassium Chloride Carbon Dioxide Anion Gap BUN Creatinine Estimated GFR POC Glucose 326 H 306 H 281 H Random Glucose Calcium Phosphorus Total Bilirubin AST ALT Alkaline Phosphatase Total Protein Albumin 02/09/18 02/09/18 02/09/18 05:42 06:19 08:14 Sodium 136 Potassium 3.8 Chloride 96 L Carbon Dioxide 30.0 Anion Gap 10 BUN 33 H Creatinine 2.72 H Estimated GFR 22 L POC Glucose 175 H 177 H Random Glucose 181 H Calcium 9.0 Phosphorus 2.2 L Total Bilirubin 0.5 AST 23 ALT 27 Alkaline Phosphatase 552 H Total Protein 8.2 Albumin 3.4 - Imaging Impressions Abdomen X-Ray 02/08/18 00:00 CONCLUSION: No dilated loops of small or large bowel. Assessment and Plan - Assessment (1) Nonischemic cardiomyopathy Code(s): I42.8 - Other cardiomyopathies Status: Chronic Plan: Nonischemic cardiomyopathy Chronic systolic CHF with EF 15-20% s/p AICD - comgmt with Palliative Medicine, Cardiology - Pt was reportedly evaluated at [facility] recently for Heart transplant vs. LVAD but had a stroke during that admission and was not felt to be a good candidate after the CVA. - 2D echo (01/21/18): - Estimated ejection fraction of 45-50%. No segmental wall motion abnormalities. - Possible mild right ventricular enlargement with normal systolic function. - A pacemaker wire is noted. - Mild mitral valve regurgitation. - Mild tricuspid valve regurgitation. - Estimated pulmonary arterial pressure is 35 mmHg - 01/30 radionucleotide venogram no evidence of thrombus - Pt developed Respiratory failure. Pt transferred to ICU 01/31 - HD started 01/31 - 4.5L removed with HD (02/08) - Zaroxolyn 5mg BID - DVT prophylaxis with Eliquis - supportive care - Will review case with Nephrology 02/10/18 - Pt will need outpt HD center arranged - Attempted to discuss code status with pt (02/07). Pt became tearful & refused to discuss topic. - Pt's prognosis is poor & pt is at high risk for readmission - will d/w Palliative 02/10/18 - anticipate d/c to SNF in 3-4 days - constipation - kub - Dulcolax suppository - observe results Abdominal pain Nausea/vomiting Constipation, improved - Pt is a 52 y/o AAF with chronic systolic CHF, nonischemic cardiomyopathy with EF 15-20% s/p AICD, hx of CVA in 12/2017 (Bilateral acute to subacute posterior cerebral artery infarcts on Head CT on 12/22/17), congestive hepatopathy, ascites , HTN, CKD, stage 3, and type 2 diabetes mellitus, insulin dependent. Pt has had multiple hospitalizations at [facility] in [place] and [facility] in the last several month for various issues related to her CHF /Cardiomyopathy, DKA, Acute on chronic renal failure, CVA. After her most recent admission from 12/02/17 to 01/08/18 was for CHF and was transferred to [facility] to be evaluated for possible heart transplant vs. LVAD. During that admission she had an acute CVA with resulting left sided weakness and felt that she was not a good candidate for advanced heart failure treatment. Pt was discharged to [facility] on 01/08/18. - She was brought to the ED from a local rehab center for hyperkalemia and N/V. She has noted issues with constipation more recently. Over the last two days she has had nausea/vomiting and has not been eating much. She has not passed any stool in the last two days either. - CT abd/pelvis in the ED which noted moderate ascites and anasarca, cardiomegaly with pacer lead tip in right ventricle, and small fat-containing umbilical hernia. No bowel obstruction. In reviewing the images she has a significant amount of stool throughout the colon and in the rectum. - Pt had a small BM on 01/17 but has been refusing the Lactulose BID - Pt was given Mag Citrate and Colace BID on 01/18 but no significant stooling - Pt had Gastrografin enema on 01/20 with large volume of stool output - Zofran PRN - Protonix 40mg Diabetes mellitus, poorly controlled Hgb A1C 14.4 on 08/31/17 Hypoglycemia - levemir 10 units BID - SSI Hyperkalemia Acute on chronic renal disease, stage 3 - see above HTN (hypertension) - Cont. home meds - BP is poorly controlled on multiple medications: Coreg 12.5mg BID, Clonidine 0.2mg Q8H, Hydralazine 100mg Q8H, Minoxidil 5mg po daily, Procardia XL 30mg po BID - Clonidine PRN - Monitor closely Elevated LFTs Congestive hepatopathy Ascites - Review of outpt records show the pts AlkPhos has been elevated since 10/2016 - AlkPhos Isoenzyme in 10/2017 noted 72% liver, 20% bone, 8% intestine - Transjugular liver bx (12/20/17) --> Findings suggestive of congestive hepatopathy. Anemia - patient's hgb has been trending down on admission hgb 10.4 - iron 17, TIBC 176, % saturation 9.6 - reticulocyte count 0.9 - occult stool requested - Ferrous sulfate PO BID - Attending Attestation Patient examined. Assessment and plan formulated with Margaux Caceres PA-C. I agree with the above. Anticipate discharge to SNF in 2-3 days. Pt will need VasCath converted to Permcath. Pt will need arrangements for outpt HD. Reconsult Palliative.
[2018-02-09 12:34] LABS: Hematocrit 27.2 % (35.0-46.0); Hemoglobin 8.8 gm/dL (11.6-15.3); Mean Corpuscular HGB Conc 32.3 % (32.0-36.0); Mean Corpuscular Hemoglobin 28.6 pg (27.0-34.0); Mean Corpuscular Volume 88.6 fL (80.0-100.0); Mean Platelet Volume 8.4 fL (7.0-11.0); Platelet Count 283 th/mm3 (150-450); Red Blood Count 3.06 mil/mm3 (4.00-5.30); Red Cell Distribution Width 16.3 % (11.6-17.2); White Blood Count 10.6 th/mm3 (4.0-11.0)
[2018-02-09] MEDS: Ferrous Sulfate 325 MG Tablet PO SCH ×2 (13:27→17:38)
--- NOTE | 2018-02-09 15:43 | P.PN ---
Subjective Interval history: On o2 2 L. C/O SOB with exertion. No chest pain. No leg swelling. Will have dialysis in am. Physical Exam Vital signs: Vital Signs 02/08/18 15:55 02/08/18 16:00 02/08/18 16:10 Temperature 97.5 F L Pulse Rate 79 77 75 Respiratory Rate 19 18 Blood Pressure 164/71 H Pulse Oximetry 99 02/08/18 20:00 02/09/18 04:00 02/09/18 08:00 Temperature 98.2 F 97.2 F L 98.8 F Pulse Rate 84 83 83 Respiratory Rate 18 18 20 Blood Pressure 138/65 151/72 H 160/83 H Pulse Oximetry 93 L 96 96 02/09/18 08:43 02/09/18 12:00 02/09/18 15:16 Temperature 98.9 F Pulse Rate 83 Respiratory Rate 19 Blood Pressure 128/63 Pulse Oximetry 96 94 L 94 L 02/09/18 15:17 Temperature Pulse Rate 83 Respiratory Rate 20 Blood Pressure Pulse Oximetry Intake & Output 02/08/18 02/09/18 02/09/18 18:59 06:59 18:59 Intake Total 380 / 380 Output Total 5000 / 5000 Balance -4620 / -4620 Weight 66.8 kg Intake: Oral 380 / 380 Output: Hemodialysis Amount 5000 / 5000 Other: # Voids 1 Date of Last Bowel Movement 02/06/18 # Bowel Movements 1 Narrative: GENERAL: Thin mid aged A/A female Patient is alert, Pale and not dyspneic. CARDIO: Regular No murmur or S3 RESP: Breath sounds equal bilaterally. Occ basal crackles ABD: Abdomen soft, non-tender, nondistended. Normal active bowel sounds MUSCULOSKELETAL: Mild edema bilateral LE . NEURO: Alert & Orientedx3, No focal deficits. - Urinary Catheter Management Indwelling Urethral Catheter Cath placed during this visit: yes, but has since been removed by the nurse Urethral indwelling: Yes Reason for continuing: Terminally ill/Comfort care Insertion date: 01/21/18 Insertion time: 12:40 Removal date: 02/03/18 Removal time: 07:00 Results - Labs CBC & Chem 7: 02/09/18 12:00 02/09/18 06:19 Laboratory Results - last 24 hr 02/08/18 02/08/18 02/09/18 17:22 21:12 01:00 WBC RBC Hgb Hct MCV MCH MCHC RDW Plt Count MPV Sodium Potassium Chloride Carbon Dioxide Anion Gap BUN Creatinine Estimated GFR POC Glucose 326 H 306 H 281 H Random Glucose Calcium Phosphorus Total Bilirubin AST ALT Alkaline Phosphatase Total Protein Albumin 02/09/18 02/09/18 02/09/18 05:42 06:19 08:14 WBC RBC Hgb Hct MCV MCH MCHC RDW Plt Count MPV Sodium 136 Potassium 3.8 Chloride 96 L Carbon Dioxide 30.0 Anion Gap 10 BUN 33 H Creatinine 2.72 H Estimated GFR 22 L POC Glucose 175 H 177 H Random Glucose 181 H Calcium 9.0 Phosphorus 2.2 L Total Bilirubin 0.5 AST 23 ALT 27 Alkaline Phosphatase 552 H Total Protein 8.2 Albumin 3.4 02/09/18 02/09/18 12:00 12:26 WBC 10.6 RBC 3.06 L Hgb 8.8 L Hct 27.2 L MCV 88.6 MCH 28.6 MCHC 32.3 RDW 16.3 Plt Count 283 MPV 8.4 Sodium Potassium Chloride Carbon Dioxide Anion Gap BUN Creatinine Estimated GFR POC Glucose 263 H Random Glucose Calcium Phosphorus Total Bilirubin AST ALT Alkaline Phosphatase Total Protein Albumin - Imaging Impressions Abdomen X-Ray 02/08/18 00:00 CONCLUSION: No dilated loops of small or large bowel. Assessment and Plan - Assessment (1) Respiratory failure Code(s): J96.90 - Respiratory failure, unspecified, unspecified whether with hypoxia or hypercapnia Status: Acute (2) Pulmonary edema Code(s): J81.1 - Chronic pulmonary edema Status: Acute (3) Constipation Code(s): K59.00 - Constipation, unspecified Status: Acute (4) Nonischemic cardiomyopathy Code(s): I42.8 - Other cardiomyopathies Status: Chronic (5) Diabetes Code(s): E11.9 - Type 2 diabetes mellitus without complications Status: Chronic (6) Acute on chronic kidney failure Code(s): N17.9 - Acute kidney failure, unspecified; N18.9 - Chronic kidney disease, unspecified Status: Acute (7) Hyperkalemia Code(s): E87.5 - Hyperkalemia Status: Acute (8) HTN (hypertension) Code(s): I10 - Essential (primary) hypertension Status: Acute (9) Elevated LFTs Code(s): R94.5 - Abnormal results of liver function studies Status: Acute (10) Ascites Code(s): R18.8 - Other ascites Status: Acute - Plan 1. Wean to O2 at 1 L N/C 2. Nebs qid , Duoneb 3. Continue Dialysis per renal Saturday 4. CBC BMP in am. 5. Continue Insulin per protocol 6. 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
--- NOTE | 2018-02-09 16:29 | P.PNNP ---
Subjective Interval history: Patient feels tired Physical Exam Vital signs: Vital Signs 02/08/18 20:00 02/09/18 04:00 02/09/18 08:00 Temperature 98.2 F 97.2 F L 98.8 F Pulse Rate 84 83 83 Respiratory Rate 18 18 20 Blood Pressure 138/65 151/72 H 160/83 H Pulse Oximetry 93 L 96 96 02/09/18 08:43 02/09/18 12:00 02/09/18 15:16 Temperature 98.9 F Pulse Rate 83 Respiratory Rate 19 Blood Pressure 128/63 Pulse Oximetry 96 94 L 94 L 02/09/18 15:17 Temperature Pulse Rate 83 Respiratory Rate 20 Blood Pressure Pulse Oximetry Intake & Output 02/08/18 02/09/18 02/09/18 18:59 06:59 18:59 Intake Total 380 / 380 Output Total 5000 / 5000 Balance -4620 / -4620 Weight 66.8 kg Intake: Oral 380 / 380 Output: Hemodialysis Amount 5000 / 5000 Other: # Voids 1 Date of Last Bowel Movement 02/06/18 # Bowel Movements 1 - Constitutional no acute distress - Routine HEENT Exam Head: Present: normocephalic Eye: Present: EOMI - Routine Respiratory Exam Present: decreased breath sounds - Routine Cardiovascular Exam Present: RRR - Routine Abdominal Exam Present: soft, normoactive bowel sounds - Routine Neurological Exam Present: alert, oriented X3 - Urinary Catheter Management Indwelling Urethral Catheter Cath placed during this visit: yes, but has since been removed by the nurse Urethral indwelling: Yes Reason for continuing: Terminally ill/Comfort care Insertion date: 01/21/18 Insertion time: 12:40 Removal date: 02/03/18 Removal time: 07:00 Assessment and Plan - Assessment (1) Acute on chronic kidney failure Code(s): N17.9 - Acute kidney failure, unspecified; N18.9 - Chronic kidney disease, unspecified Status: Acute Qualifiers: Chronic kidney disease stage: on chronic dialysis (2) Nonischemic cardiomyopathy Code(s): I42.8 - Other cardiomyopathies Status: Chronic (3) Diabetes Code(s): E11.9 - Type 2 diabetes mellitus without complications Status: Chronic Qualifiers: Diabetes mellitus type: type 2 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 Ahmadi
[2018-02-10] MEDS: Insulin NovoLOG Aspart Correctional Sugar Inj SQ SCH ×5 (00:22→22:25)
[2018-02-10 07:09] LABS: Hematocrit 25.7 % (35.0-46.0); Hemoglobin 8.4 gm/dL (11.6-15.3); Mean Corpuscular HGB Conc 32.7 % (32.0-36.0); Mean Corpuscular Hemoglobin 28.6 pg (27.0-34.0); Mean Corpuscular Volume 87.4 fL (80.0-100.0); Mean Platelet Volume 8.3 fL (7.0-11.0); Platelet Count 275 th/mm3 (150-450); Red Blood Count 2.94 mil/mm3 (4.00-5.30); Red Cell Distribution Width 15.8 % (11.6-17.2); White Blood Count 8.8 th/mm3 (4.0-11.0)
[2018-02-10 07:46] LABS: Alanine Aminotransferase 24 U/L (10-53); Albumin 3.3 g/dL (3.4-5.0); Alkaline Phosphatase 558 U/L (45-117); Anion Gap 12 meq/L (5-15); Aspartate Aminotransferase 19 U/L (15-37); Blood Urea Nitrogen 52 mg/dL (7-18); Calcium 9.4 mg/dL (8.5-10.1); Carbon Dioxide 26.7 meq/L (21.0-32.0); Chloride 95 meq/L (98-107); Glomerular Filtration Rate 17 mL/min (>89); Glucose,Random 140 mg/dL (74-106); Phosphorus 3.1 mg/dL (2.5-4.9); Potassium 4.3 meq/L (3.5-5.1); Sodium 134 meq/L (136-145); Total Protein 8.2 g/dL (6.4-8.2)
[2018-02-10] MEDS: Minoxidil 2.5 MG Tablet PO SCH (09:28)
[2018-02-10] MEDS: Insulin Detemir Inj 1,000 UNIT/10 ML Vial SQ SCH ×2 (09:28→22:24)
[2018-02-10] MEDS: Isosorbide Mononitrate 20 MG Tablet PO SCH ×2 (09:28→22:23)
[2018-02-10] MEDS: Lactobacillus Acidophilus/L. Spores Tablet PO SCH ×2 (09:29→22:23)
[2018-02-10] MEDS: Docusate Sodium 100 MG Capsule PO SCH ×2 (09:29→22:24)
[2018-02-10] MEDS: Folic Acid 1 MG Tablet PO SCH (09:29)
[2018-02-10] MEDS: Mupirocin 2% Nasal Oint Topical Syringe EACH NARE SCH ×2 (09:30→22:26)
[2018-02-10] MEDS: Carvedilol 12.5 MG Tablet PO SCH ×2 (09:30→22:23)
[2018-02-10] MEDS: metOLazone 5 MG Tablet PO SCH ×2 (09:36→18:39)
--- NOTE | 2018-02-10 10:27 | P.PNIM ---
Subjective Interval history: doing ok no complaints Physical Exam Vital signs: Vital Signs 02/09/18 12:00 02/09/18 15:16 02/09/18 15:17 Temperature 98.9 F Pulse Rate 78 83 Respiratory Rate 19 20 Blood Pressure 128/63 Pulse Oximetry 94 L 94 L 02/09/18 16:00 02/09/18 20:00 02/09/18 21:05 Temperature 98.2 F 98.4 F Pulse Rate 80 84 80 Respiratory Rate 19 18 18 Blood Pressure 124/77 116/61 Pulse Oximetry 94 L 93 L 02/10/18 00:00 02/10/18 04:00 02/10/18 08:00 Temperature 98.4 F 98.1 F 97.8 F Pulse Rate 84 82 77 Respiratory Rate 18 18 19 Blood Pressure 137/69 124/79 131/68 Pulse Oximetry 95 93 L 94 L Intake & Output 02/09/18 02/10/18 02/10/18 18:59 06:59 18:59 Intake Total 420 / 420 360 / 360 Balance 420 / 420 360 / 360 Intake: Oral 420 / 420 360 / 360 Other: # Voids 0 3 Date of Last Bowel Movement 02/06/18 # Bowel Movements 0 heart reg lung cta abd softer. less edema ext less swelling and induration vascath. - Urinary Catheter Management Indwelling Urethral Catheter Cath placed during this visit: yes, but has since been removed by the nurse Urethral indwelling: Yes Reason for continuing: Terminally ill/Comfort care Insertion date: 01/21/18 Insertion time: 12:40 Removal date: 02/03/18 Removal time: 07:00 Results - Labs CBC & Chem 7: 02/10/18 06:21 02/10/18 06:21 Laboratory Results - last 24 hr 02/09/18 02/09/18 02/09/18 12:00 12:26 17:37 WBC 10.6 RBC 3.06 L Hgb 8.8 L Hct 27.2 L MCV 88.6 MCH 28.6 MCHC 32.3 RDW 16.3 Plt Count 283 MPV 8.4 Sodium Potassium Chloride Carbon Dioxide Anion Gap BUN Creatinine Estimated GFR POC Glucose 263 H 295 H Random Glucose Calcium Phosphorus Total Bilirubin AST ALT Alkaline Phosphatase Total Protein Albumin 02/09/18 02/10/18 02/10/18 21:10 00:23 06:21 WBC RBC Hgb Hct MCV MCH MCHC RDW Plt Count MPV Sodium 134 L Potassium 4.3 Chloride 95 L Carbon Dioxide 26.7 Anion Gap 12 BUN 52 H Creatinine 3.49 H Estimated GFR 17 L POC Glucose 329 H 324 H Random Glucose 140 H Calcium 9.4 Phosphorus 3.1 Total Bilirubin 0.5 AST 19 ALT 24 Alkaline Phosphatase 558 H Total Protein 8.2 Albumin 3.3 L 02/10/18 06:21 WBC 8.8 RBC 2.94 L Hgb 8.4 L Hct 25.7 L MCV 87.4 MCH 28.6 MCHC 32.7 RDW 15.8 Plt Count 275 MPV 8.3 Sodium Potassium Chloride Carbon Dioxide Anion Gap BUN Creatinine Estimated GFR POC Glucose Random Glucose Calcium Phosphorus Total Bilirubin AST ALT Alkaline Phosphatase Total Protein Albumin Assessment and Plan - Assessment (1) Nonischemic cardiomyopathy Code(s): I42.8 - Other cardiomyopathies Status: Chronic Plan: Nonischemic cardiomyopathy Chronic systolic CHF with EF 15-20% s/p AICD - comgmt with Palliative Medicine, Cardiology - Pt was reportedly evaluated at [facility] recently for Heart transplant vs. LVAD but had a stroke during that admission and was not felt to be a good candidate after the CVA. - 2D echo (01/21/18): - Estimated ejection fraction of 45-50%. No segmental wall motion abnormalities. - Possible mild right ventricular enlargement with normal systolic function. - A pacemaker wire is noted. - Mild mitral valve regurgitation. - Mild tricuspid valve regurgitation. - Estimated pulmonary arterial pressure is 35 mmHg - 01/30 radionucleotide venogram no evidence of thrombus - Pt developed Respiratory failure. Pt transferred to ICU 01/31 - HD started 01/31 - 4.5L removed with HD (02/08) - Zaroxolyn 5mg BID - DVT prophylaxis with Eliquis - supportive care - Will review case with Nephrology 02/10/18 - Pt will need outpt HD center arranged - Attempted to discuss code status with pt (02/07). Pt became tearful & refused to discuss topic. - Pt's prognosis is poor & pt is at high risk for readmission - will d/w Palliative 02/10/18 discuss dc HD plans today with renal. will need permcath and outpt HD setup before dc to snf. Abdominal pain Nausea/vomiting Constipation, improved - Pt is a 52 y/o AAF with chronic systolic CHF, nonischemic cardiomyopathy with EF 15-20% s/p AICD, hx of CVA in 12/2017 (Bilateral acute to subacute posterior cerebral artery infarcts on Head CT on 12/22/17), congestive hepatopathy, ascites , HTN, CKD, stage 3, and type 2 diabetes mellitus, insulin dependent. Pt has had multiple hospitalizations at [facility] in [place] and [facility] in the last several month for various issues related to her CHF /Cardiomyopathy, DKA, Acute on chronic renal failure, CVA. After her most recent admission from 12/02/17 to 01/08/18 was for CHF and was transferred to [facility] to be evaluated for possible heart transplant vs. LVAD. During that admission she had an acute CVA with resulting left sided weakness and felt that she was not a good candidate for advanced heart failure treatment. Pt was discharged to [facility] on 01/08/18. - She was brought to the ED from a local rehab center for hyperkalemia and N/V. She has noted issues with constipation more recently. Over the last two days she has had nausea/vomiting and has not been eating much. She has not passed any stool in the last two days either. - CT abd/pelvis in the ED which noted moderate ascites and anasarca, cardiomegaly with pacer lead tip in right ventricle, and small fat-containing umbilical hernia. No bowel obstruction. In reviewing the images she has a significant amount of stool throughout the colon and in the rectum. - Pt had a small BM on 01/17 but has been refusing the Lactulose BID - Pt was given Mag Citrate and Colace BID on 01/18 but no significant stooling - Pt had Gastrografin enema on 01/20 with large volume of stool output - Zofran PRN - Protonix 40mg Diabetes mellitus, poorly controlled Hgb A1C 14.4 on 08/31/17 Hypoglycemia - levemir 10 units BID - SSI Hyperkalemia Acute on chronic renal disease, stage 3 - see above HTN (hypertension) - Cont. home meds - BP is poorly controlled on multiple medications: Coreg 12.5mg BID, Clonidine 0.2mg Q8H, Hydralazine 100mg Q8H, Minoxidil 5mg po daily, Procardia XL 30mg po BID - Clonidine PRN - Monitor closely Elevated LFTs Congestive hepatopathy Ascites - Review of outpt records show the pts AlkPhos has been elevated since 10/2016 - AlkPhos Isoenzyme in 10/2017 noted 72% liver, 20% bone, 8% intestine - Transjugular liver bx (12/20/17) --> Findings suggestive of congestive hepatopathy. Anemia - patient's hgb has been trending down on admission hgb 10.4 - iron 17, TIBC 176, % saturation 9.6 - reticulocyte count 0.9 - occult stool requested - Ferrous sulfate PO BID
--- NOTE | 2018-02-10 16:52 | P.PNPAL ---
Reason for Visit Reason for visit: a. To assist with evaluation and management of symptoms including: Edema, weakness b. To assist medical decision maker(s) with: better understanding of current medical conditions; weighing benefits/burdens of medical treatment options; making medical treatment decisions. Subjective Subjective/Interval History: Patient seen today to evaluate symptom management of edema, weakness. Edema is improving with hemodialysis. She has lost over 30 pounds. Jugular veins are now soft, but she remains with moderate JVD. Upper thighs remain tight without pitting. Edema has resolved in lower legs. She remains with ascites. She states that she does feel a little better but still has some minimal dyspnea. She is able to sit up in a chair without severe pain or dyspnea at this time. She remains globally weak, unable to ambulate unassisted and dependent for ADLs except feeding. She is able to eat by herself with minimal set up. With assistance from physical therapy and strong encouragement, she was able to ambulate from bed to chair, approximately 3 feet. She states that she needs to go to rehabilitation prior to returning home, where she lives with her daughters. . Family/Friend Interactions: No family is at bedside today. In my conversation with the patient, her goal is to go home to live with her daughters after completing rehabilitation. She lives in [place] and is requesting a rehab facility closest to home for the convenience of her children. She is awaiting placement of a permacath and chair time at outpatient dialysis prior to being able to discharge. Pending nephrology's order for outpatient dialysis. Discussed with supportive employment case manager, Ruperto , who is managing. . Advance Directives Advance Directives Date on File: 01/20/18 Health Care Surrogate Name and Number: Primary: Tanvi De Paz [phone] Alternate: Randi De Paz [phone] Objective Vital Signs: Vital Signs 02/09/18 20:00 02/09/18 21:05 02/10/18 00:00 Temperature 98.4 F 98.4 F Pulse Rate 84 80 84 Respiratory Rate 18 Blood Pressure 116/61 137/69 Pulse Oximetry 93 L 95 02/10/18 04:00 02/10/18 08:00 02/10/18 12:00 Temperature 98.1 F 97.8 F 97.3 F L Pulse Rate 82 76 74 Respiratory Rate Blood Pressure 124/79 131/68 110/69 Pulse Oximetry 93 L 94 L 93 L Intake & Output 02/09/18 02/10/18 02/10/18 18:59 06:59 18:59 Intake Total 420 / 420 360 / 360 Balance 420 / 420 360 / 360 Intake: Oral 420 / 420 360 / 360 Other: # Voids 0 3 Date of Last Bowel Movement 02/06/18 02/06/18 # Bowel Movements 0 Physical Exam: CONSTITUTIONAL/GENERAL: This is a chronically ill appearing, middle aged female in no acute distress. TUBES/LINES/DRAINS: PIV x 1, right IJ Vas-Cath, nasal cannula O2. SKIN: No jaundice, rashes, or lesions. Ecchymoses on upper extremities. Skin temperature appropriate. Not diaphoretic. HEAD: Atraumatic. Normocephalic. EYES: Pupils equal and round. Extraocular motions intact. No scleral icterus. No injection or drainage. Fundi not examined. ENT: Nose without bleeding or purulent drainage. NECK: Trachea midline. Supple, nontender. No palpable thyroid enlargement or nodularity. CARDIOVASCULAR: Regular rate and rhythm without murmurs, gallops, or rubs. Moderate JVD. Peripheral pulses symmetric. RESPIRATORY/CHEST: Symmetric, unlabored respirations. Breath sounds equal bilaterally. No wheezes, rales, or rhonchi. GASTROINTESTINAL: Abdomen mildly distended, no guarding, non-tender to palpation. Hypoactive sounds present. GENITOURINARY: Without palpable bladder distension. MUSCULOSKELETAL: Extremities without clubbing or cyanosis. Tense edema in bilateral thighs, minimal edema below knees. LYMPHATICS: No palpable cervical or supraclavicular adenopathy. NEUROLOGICAL: Lethargic, not responding to vigorous stimuli. Arousable, oriented. PSYCHIATRIC: Lethargic,calm, cooperative. . Diagnostic Tests Laboratory: Laboratory Results - last 72 hr 02/07/18 02/07/18 02/08/18 17:27 20:29 02:05 WBC RBC Hgb Hct MCV MCH MCHC RDW Plt Count MPV Sodium Potassium Chloride Carbon Dioxide Anion Gap BUN Creatinine Estimated GFR POC Glucose 231 H 138 H 237 H Random Glucose Calcium Phosphorus Total Bilirubin AST ALT Alkaline Phosphatase Total Protein Albumin 02/08/18 02/08/18 02/08/18 03:45 03:45 06:31 WBC 9.4 RBC 3.03 L Hgb 8.6 L Hct 26.6 L MCV 88.0 MCH 28.3 MCHC 32.1 RDW 16.1 Plt Count 291 MPV 8.3 Sodium 136 Potassium 4.2 Chloride 96 L Carbon Dioxide 27.3 Anion Gap 13 BUN 36 H Creatinine 2.92 H Estimated GFR 21 L POC Glucose 172 H Random Glucose 176 H D Calcium 9.3 Phosphorus 2.7 Total Bilirubin 0.4 AST 17 ALT 23 Alkaline Phosphatase 560 H Total Protein 8.5 H Albumin 3.6 02/08/18 02/08/18 02/08/18 08:19 17:22 21:12 WBC RBC Hgb Hct MCV MCH MCHC RDW Plt Count MPV Sodium Potassium Chloride Carbon Dioxide Anion Gap BUN Creatinine Estimated GFR POC Glucose 129 H 326 H 306 H Random Glucose Calcium Phosphorus Total Bilirubin AST ALT Alkaline Phosphatase Total Protein Albumin 02/09/18 02/09/18 02/09/18 01:00 05:42 06:19 WBC RBC Hgb Hct MCV MCH MCHC RDW Plt Count MPV Sodium 136 Potassium 3.8 Chloride 96 L Carbon Dioxide 30.0 Anion Gap 10 BUN 33 H Creatinine 2.72 H Estimated GFR 22 L POC Glucose 281 H 175 H Random Glucose 181 H Calcium 9.0 Phosphorus 2.2 L Total Bilirubin 0.5 AST 23 ALT 27 Alkaline Phosphatase 552 H Total Protein 8.2 Albumin 3.4 02/09/18 02/09/18 02/09/18 08:14 12:00 12:26 WBC 10.6 RBC 3.06 L Hgb 8.8 L Hct 27.2 L MCV 88.6 MCH 28.6 MCHC 32.3 RDW 16.3 Plt Count 283 MPV 8.4 Sodium Potassium Chloride Carbon Dioxide Anion Gap BUN Creatinine Estimated GFR POC Glucose 177 H 263 H Random Glucose Calcium Phosphorus Total Bilirubin AST ALT Alkaline Phosphatase Total Protein Albumin 02/09/18 02/09/18 02/10/18 17:37 21:10 00:23 WBC RBC Hgb Hct MCV MCH MCHC RDW Plt Count MPV Sodium Potassium Chloride Carbon Dioxide Anion Gap BUN Creatinine Estimated GFR POC Glucose 295 H 329 H 324 H Random Glucose Calcium Phosphorus Total Bilirubin AST ALT Alkaline Phosphatase Total Protein Albumin 02/10/18 02/10/18 02/10/18 06:21 06:21 12:09 WBC 8.8 RBC 2.94 L Hgb 8.4 L Hct 25.7 L MCV 87.4 MCH 28.6 MCHC 32.7 RDW 15.8 Plt Count 275 MPV 8.3 Sodium 134 L Potassium 4.3 Chloride 95 L Carbon Dioxide 26.7 Anion Gap 12 BUN 52 H Creatinine 3.49 H Estimated GFR 17 L POC Glucose 258 H Random Glucose 140 H Calcium 9.4 Phosphorus 3.1 Total Bilirubin 0.5 AST 19 ALT 24 Alkaline Phosphatase 558 H Total Protein 8.2 Albumin 3.3 L Result Diagrams: 02/10/18 06:21 02/10/18 06:21 Imaging: Chest X-Ray 01/20/18 06:00 CONCLUSION: 1. Cardiomegaly with trace positive fluid balance. Enema w/Water Soluble 01/20/18 08:00 CONCLUSION: Status post therapeutic Gastrografin enema. Chest X-Ray 01/29/18 00:00 CONCLUSION: Left lower lobe atelectasis or consolidation. Central Venous Line 01/30/18 00:00 CONCLUSION: 1. Uncomplicated line placement as above. Pulmonary Perfusion Imaging 01/30/18 00:00 CONCLUSION: 1. Low probability for pulmonary embolus. 2. There is a triple matched defect at the left lower lobe likely related to consolidation, atelectasis and/or effusion. Venogram Nuclear Medicine 01/30/18 14:33 CONCLUSION: The IVC is patent. Chest X-Ray 01/31/18 07:44 CONCLUSION: 1. Cardiomegaly with pulmonary vascular engorgement. 2. Right lower lobe consolidation is new and could either relate to an infectious etiology or focal edema. 3. Left lower lobe consolidation from the prior study has resolved. Central Venous Line 01/31/18 08:29 CONCLUSION: 1. Uncomplicated line placement as above. Abdomen/Pelvis CT 02/02/18 00:00 CONCLUSION: 1. At least moderate ascites. 2. Atherosclerotic calcifications. 3. Suspected gallstones or milk of calcium in the gallbladder. Chest X-Ray 02/03/18 04:00 CONCLUSION: Mild improvement in basilar airspace disease since January 31. Chest X-Ray 02/05/18 06:00 CONCLUSION: Cardiomegaly with minimal basilar density, probably atelectasis. No significant change from February 03. Chest X-Ray 02/07/18 00:00 CONCLUSION: Trace bibasilar atelectasis, improved. Abdomen X-Ray 02/08/18 00:00 CONCLUSION: No dilated loops of small or large bowel. Procedures: 01/31: Right IJ Vas-Cath placement . Assessment and Plan - Disease Oriented Problem List (1) CHF exacerbation (2) Constipation (3) Diabetes (4) Acute on chronic kidney failure (5) Hyperkalemia (6) HTN (hypertension) (7) Elevated LFTs (8) Ascites Pertinent Non-Medical Issues: Psychosocial: Patient lives in [place]. Patient is legally but . She has 3 daughters (Randi, Izaebl and Tanvi). She lives with one of her daughters. Spiritual: Confucianist jung; declined door operator visits Legal: Healthcare surrogate designation form completed 01/20/2018. Daughter, Tanvi Paula, is the primary healthcare surrogate decision-maker. Another daughter, Randi Paula, is the alternate healthcare surrogate decision maker. Ethical issues impacting care: No known ethical issues impacting care at this time. . Important Contacts: Tanvi Paula, daughter: [phone] Randi Paula, daughter: [phone] Daphneyhubert Paula, daughter: [phone] . Prognosis: Patient is a 52 year old female with a complex medical history. She has multiple hospitalizations in recent months secondary to CHF, DKA, acute on chronic renal failure and CVA. Most recently the patient was admitted from 2017 through 01/08/2018 with a CHF exacerbation; she was transferred to [facility] in [place] to be evaluated for a possible heart transplant versus LVAD. During that hospitalization the patient had an acute CVA and was no longer considered a candidate for aggressive interventions. EF 15-20%. Patient is at high risk for ongoing decline and complications. She is hospice appropriate when/if her goals become comfort oriented. . Code Status: Full Code Plan: = FULL CODE = Decision making: patient currently shows insight and judgement related to her medical conditions. Healthcare surrogate designation form completed 01/20/2018. Daughter, Tanvi Paula, is the primary healthcare surrogate decision-maker. Another daughter, Randi Paula, is the alternate healthcare surrogate decision maker. = Patient has verbalized ongoing goals to go home with her family once stabilized. After discussion, she is aware that without a right-sided heart catheterization, there is little more that can be done to determine the cause of her fluid retention. In spite of continuous colloid and Bumex infusion, her I/O balance remains positive. = Symptom management: * Edema: She remains on metolazone and receives hemodialysis per nephrology. Edema is improving on HD. Her weight continues to decline from a high of 195 lbs. down to 147 lbs. today. She does remain with some ascites and upper thigh tense edema but continues to improve. Management per nephrology. * Weakness: She remains very weak, likely multifactorial secondary to severe illness, kidney failure, extensive edema, dialysis, extended bed rest. Patient wishes to attend rehabilitation in order to be able to return home with her daughters. Pending nephrology order for outpatient HD to arrange placement. = Palliative care will continue to follow this patient throughout her hospitalization to establish trust, assist with symptom management and clarification of medical treatment goals. Attestation Attestation: To help prompt me to consider important information that might be impacting today's encounter and assessment, information from prior notes written by myself or my colleagues may have been "brought forward" into today's note. My signature on this note, however, is an attestation that I personally performed the exam, history, and/or decision-making noted today, and, unless otherwise indicated, the interactions with patient, family, and staff as well as the review of records all occurred today. I also attest that the listed assessment and stated plan reflect my best clinical judgment today based on the combination of historical information, prior notes, and today's exam/ interactions. When time spent is documented, it refers only to time spent today by the signer, or if indicated, combined time spent today by collaborating physician/nurse practitioner. .
[2018-02-10] MEDS: Ferrous Sulfate 325 MG Tablet PO SCH ×2 (17:18→18:39)
--- NOTE | 2018-02-10 19:20 | P.PNNP ---
Subjective Interval history: Patient seen in the afternoon, not in distress, with nasal cannula, eating better. Physical Exam Vital signs: Vital Signs 02/09/18 20:00 02/09/18 21:05 02/10/18 00:00 Temperature 98.4 F 98.4 F Pulse Rate 84 80 84 Respiratory Rate 18 18 18 Blood Pressure 116/61 137/69 Pulse Oximetry 93 L 95 02/10/18 04:00 02/10/18 08:00 02/10/18 12:00 Temperature 98.1 F 97.8 F 97.3 F L Pulse Rate 82 76 74 Respiratory Rate 18 20 18 Blood Pressure 124/79 131/68 110/69 Pulse Oximetry 93 L 94 L 93 L 02/10/18 16:00 Temperature 97.5 F L Pulse Rate 73 Respiratory Rate 18 Blood Pressure 140/84 Pulse Oximetry 92 L Intake & Output 02/10/18 02/10/18 02/11/18 06:59 18:59 06:59 Intake Total 360 / 360 840 / 840 Balance 360 / 360 840 / 840 Intake: Oral 360 / 360 840 / 840 Other 0 / 0 Other: # Voids 3 0 Date of Last Bowel Movement 02/06/18 # Bowel Movements 0 Narrative: GENERAL: Thin mid aged A/A female Patient is alert, Pale and not dyspneic. CARDIO: Regular No murmur or S3 RESP: Breath sounds equal bilaterally. Occ basal crackles ABD: Abdomen soft, non-tender, nondistended. Normal active bowel sounds MUSCULOSKELETAL: Mild edema bilateral LE . NEURO: Alert & Orientedx3, No focal deficits. - Urinary Catheter Management Indwelling Urethral Catheter Cath placed during this visit: yes, but has since been removed by the nurse Urethral indwelling: Yes Reason for continuing: Terminally ill/Comfort care Insertion date: 01/21/18 Insertion time: 12:40 Removal date: 02/03/18 Removal time: 07:00 Assessment and Plan - Assessment (1) Acute on chronic kidney failure Code(s): N17.9 - Acute kidney failure, unspecified; N18.9 - Chronic kidney disease, unspecified Status: Acute Qualifiers: Chronic kidney disease stage: on chronic dialysis Plan: Patient has chronic kidney disease and develop VICTORINA. Urine out put is slightly better, has urine incontinence. BP is stable. Last HD done on Sat. Most likely will need to continue HD for now. Need to prepare for out patient HD. On Kate, will need to hold for 48 hrs. Also will need out patient HD in her area in [place]. 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
--- NOTE | 2018-02-10 19:43 | P.PN ---
Subjective Interval history: No complaints. On O2 2 L Was off dialysis. Taking her diet well. Physical Exam Vital signs: Vital Signs 02/09/18 20:00 02/09/18 21:05 02/10/18 00:00 Temperature 98.4 F 98.4 F Pulse Rate 84 80 84 Respiratory Rate 18 18 18 Blood Pressure 116/61 137/69 Pulse Oximetry 93 L 95 02/10/18 04:00 02/10/18 08:00 02/10/18 12:00 Temperature 98.1 F 97.8 F 97.3 F L Pulse Rate 82 76 74 Respiratory Rate 18 20 18 Blood Pressure 124/79 131/68 110/69 Pulse Oximetry 93 L 94 L 93 L 02/10/18 16:00 Temperature 97.5 F L Pulse Rate 73 Respiratory Rate 18 Blood Pressure 140/84 Pulse Oximetry 92 L Intake & Output 02/10/18 02/10/18 02/11/18 06:59 18:59 06:59 Intake Total 360 / 360 840 / 840 Balance 360 / 360 840 / 840 Intake: Oral 360 / 360 840 / 840 Other 0 / 0 Other: # Voids 3 0 Date of Last Bowel Movement 02/06/18 # Bowel Movements 0 Narrative: GENERAL: Thin mid aged A/A female Patient is alert, not dyspneic. CARDIO: Regular No murmur or S3 RESP: Breath sounds equal bilaterally. Occ basal crackles and wheeze. ABD: Abdomen soft, non-tender, nondistended. Normal active bowel sounds MUSCULOSKELETAL: Mild edema bilateral LE . NEURO: Alert & Orientedx3, No focal deficits. - Urinary Catheter Management Indwelling Urethral Catheter Cath placed during this visit: yes, but has since been removed by the nurse Urethral indwelling: Yes Reason for continuing: Terminally ill/Comfort care Insertion date: 01/21/18 Insertion time: 12:40 Removal date: 02/03/18 Removal time: 07:00 Results - Labs CBC & Chem 7: 02/10/18 06:21 02/10/18 06:21 Laboratory Results - last 24 hr 02/09/18 02/10/18 02/10/18 21:10 00:23 06:21 WBC RBC Hgb Hct MCV MCH MCHC RDW Plt Count MPV Sodium 134 L Potassium 4.3 Chloride 95 L Carbon Dioxide 26.7 Anion Gap 12 BUN 52 H Creatinine 3.49 H Estimated GFR 17 L POC Glucose 329 H 324 H Random Glucose 140 H Calcium 9.4 Phosphorus 3.1 Total Bilirubin 0.5 AST 19 ALT 24 Alkaline Phosphatase 558 H Total Protein 8.2 Albumin 3.3 L 02/10/18 02/10/18 02/10/18 06:21 12:09 17:07 WBC 8.8 RBC 2.94 L Hgb 8.4 L Hct 25.7 L MCV 87.4 MCH 28.6 MCHC 32.7 RDW 15.8 Plt Count 275 MPV 8.3 Sodium Potassium Chloride Carbon Dioxide Anion Gap BUN Creatinine Estimated GFR POC Glucose 258 H 309 H Random Glucose Calcium Phosphorus Total Bilirubin AST ALT Alkaline Phosphatase Total Protein Albumin Assessment and Plan - Assessment (1) Respiratory failure Code(s): J96.90 - Respiratory failure, unspecified, unspecified whether with hypoxia or hypercapnia Status: Acute (2) Pulmonary edema Code(s): J81.1 - Chronic pulmonary edema Status: Acute (3) Constipation Code(s): K59.00 - Constipation, unspecified Status: Acute (4) Nonischemic cardiomyopathy Code(s): I42.8 - Other cardiomyopathies Status: Chronic (5) Diabetes Code(s): E11.9 - Type 2 diabetes mellitus without complications Status: Chronic (6) Acute on chronic kidney failure Code(s): N17.9 - Acute kidney failure, unspecified; N18.9 - Chronic kidney disease, unspecified Status: Acute (7) Hyperkalemia Code(s): E87.5 - Hyperkalemia Status: Acute (8) HTN (hypertension) Code(s): I10 - Essential (primary) hypertension Status: Acute (9) Elevated LFTs Code(s): R94.5 - Abnormal results of liver function studies Status: Acute (10) Ascites Code(s): R18.8 - Other ascites Status: Acute - Plan 1. Wean to O2 room air, keep sat >92 2. Nebs qid , Duoneb 3. Continue Dialysis per renal 4. CXR BMP in am. 5. PFT with Bronchodilator 6. PT evaluation for ambulation (5) Diabetes Qualifiers: Diabetes mellitus type: type 2 Diabetes mellitus intermediate insulin use: with intermediate use Diabetes mellitus complication status: with unspecified complications Qualified Code(s): E11.8 - Type 2 diabetes mellitus with unspecified complications; Z79.4 - terminal supervisor (current) use of insulin (6) Acute on chronic kidney failure Qualifiers: Chronic kidney disease stage: on chronic dialysis
[2018-02-11] MEDS: Dextrose 50% in Water 50 ML Vial IV.PUSH PRN (09:04)
[2018-02-11] MEDS: Docusate Sodium 100 MG Capsule PO SCH ×2 (09:10→22:04)
[2018-02-11] MEDS: Lactobacillus Acidophilus/L. Spores Tablet PO SCH ×2 (09:10→22:07)
[2018-02-11] MEDS: metOLazone 5 MG Tablet PO SCH ×2 (09:10→18:08)
[2018-02-11] MEDS: Mupirocin 2% Nasal Oint Topical Syringe EACH NARE SCH ×2 (09:11→22:12)
[2018-02-11] MEDS: Isosorbide Mononitrate 20 MG Tablet PO SCH ×2 (09:11→22:04)
[2018-02-11] MEDS: Folic Acid 1 MG Tablet PO SCH (09:11)
[2018-02-11] MEDS: Minoxidil 2.5 MG Tablet PO SCH (09:11)
[2018-02-11] MEDS: Insulin NovoLOG Aspart Correctional Sugar Inj SQ SCH ×4 (09:15→22:05)
[2018-02-11] MEDS: Insulin Detemir Inj 1,000 UNIT/10 ML Vial SQ SCH ×2 (09:15→22:05)
[2018-02-11] MEDS: Carvedilol 12.5 MG Tablet PO SCH ×2 (09:15→22:03)
--- NOTE | 2018-02-11 09:46 | P.PNIM ---
Subjective Interval history: abdomen distended. pt says began yesterday she reports bm 3 days ago. no vomiting. Physical Exam Vital signs: Vital Signs 02/10/18 12:00 02/10/18 16:00 02/10/18 20:00 Temperature 97.3 F L 97.5 F L 98.5 F Pulse Rate 74 73 79 Respiratory Rate 18 18 20 Blood Pressure 110/69 140/84 136/82 Pulse Oximetry 93 L 92 L 93 L 02/11/18 00:00 02/11/18 04:00 02/11/18 08:00 Temperature 99.1 F 99.6 F Pulse Rate 88 88 88 Respiratory Rate 20 20 Blood Pressure 149/84 H 149/79 H Pulse Oximetry 95 95 Intake & Output 02/10/18 02/11/18 02/11/18 18:59 06:59 18:59 Intake Total 840 / 840 240 / 240 Balance 840 / 840 240 / 240 Weight 67.7 kg Intake: Oral 840 / 840 240 / 240 Other 0 / 0 Other: # Voids 0 1 Date of Last Bowel Movement 02/06/18 02/10/18 # Bowel Movements 0 1 heart reg lung cta abd distended. bs. no rebound ext improving anasarca - Urinary Catheter Management Indwelling Urethral Catheter Cath placed during this visit: yes, but has since been removed by the nurse Urethral indwelling: Yes Reason for continuing: Terminally ill/Comfort care Insertion date: 01/21/18 Insertion time: 12:40 Removal date: 02/03/18 Removal time: 07:00 Results - Labs CBC & Chem 7: 02/10/18 06:21 02/10/18 06:21 Laboratory Results - last 24 hr 02/10/18 02/10/18 02/10/18 12:09 17:07 20:06 POC Glucose 258 H 309 H 230 H 02/11/18 02/11/18 08:22 08:59 POC Glucose 66 L 66 L Assessment and Plan - Assessment (1) Nonischemic cardiomyopathy Code(s): I42.8 - Other cardiomyopathies Status: Chronic Plan: Nonischemic cardiomyopathy Chronic systolic CHF with EF 15-20% s/p AICD - comgmt with Palliative Medicine, Cardiology - Pt was reportedly evaluated at [facility] recently for Heart transplant vs. LVAD but had a stroke during that admission and was not felt to be a good candidate after the CVA. - 2D echo (01/21/18): - Estimated ejection fraction of 45-50%. No segmental wall motion abnormalities. - Possible mild right ventricular enlargement with normal systolic function. - A pacemaker wire is noted. - Mild mitral valve regurgitation. - Mild tricuspid valve regurgitation. - Estimated pulmonary arterial pressure is 35 mmHg - 01/30 radionucleotide venogram no evidence of thrombus - Pt developed Respiratory failure. Pt transferred to ICU 01/31 - HD started 01/31 - 4.5L removed with HD (02/08) - Zaroxolyn 5mg BID - DVT prophylaxis with Eliquis - supportive care - Attempted to discuss code status with pt (02/07). Pt became tearful & refused to discuss topic. - Pt's prognosis is poor & pt is at high risk for readmission Pt will need permcath. eliquis held starting today so hopefully can place on . needs outpt HD arrangement per renal and CM dc to snf once arranged. Abdominal pain Nausea/vomiting Constipation, improved - Pt is a 52 y/o AAF with chronic systolic CHF, nonischemic cardiomyopathy with EF 15-20% s/p AICD, hx of CVA in 12/2017 (Bilateral acute to subacute posterior cerebral artery infarcts on Head CT on 12/22/17), congestive hepatopathy, ascites , HTN, CKD, stage 3, and type 2 diabetes mellitus, insulin dependent. Pt has had multiple hospitalizations at [facility] in [place] and [facility] in the last several month for various issues related to her CHF /Cardiomyopathy, DKA, Acute on chronic renal failure, CVA. After her most recent admission from 12/02/17 to 01/08/18 was for CHF and was transferred to [facility] to be evaluated for possible heart transplant vs. LVAD. During that admission she had an acute CVA with resulting left sided weakness and felt that she was not a good candidate for advanced heart failure treatment. Pt was discharged to [facility] on 01/08/18. - She was brought to the ED from a local rehab center for hyperkalemia and N/V. She has noted issues with constipation more recently. Over the last two days she has had nausea/vomiting and has not been eating much. She has not passed any stool in the last two days either. - CT abd/pelvis in the ED which noted moderate ascites and anasarca, cardiomegaly with pacer lead tip in right ventricle, and small fat-containing umbilical hernia. No bowel obstruction. In reviewing the images she has a significant amount of stool throughout the colon and in the rectum. - Pt had a small BM on 01/17 but had been refusing the Lactulose BID - Pt was given Mag Citrate and Colace BID on 01/18 but no significant stooling - Pt had Gastrografin enema on 01/20 with large volume of stool output Pt today has more abdomen distention. will get kub and decide on rx plan. Diabetes mellitus, poorly controlled Hgb A1C 14.4 on 08/31/17 Hypoglycemia - levemir 10 units BID hypoglycemia this AM. Hyperkalemia Acute on chronic renal disease, stage 3 - see above HTN (hypertension) - Cont. home meds - BP is poorly controlled on multiple medications: Coreg 12.5mg BID, Clonidine 0.2mg Q8H, Hydralazine 100mg Q8H, Minoxidil 5mg po daily, Procardia XL 30mg po BID - Clonidine PRN - Monitor closely Elevated LFTs Congestive hepatopathy Ascites - Review of outpt records show the pts AlkPhos has been elevated since 10/2016 - AlkPhos Isoenzyme in 10/2017 noted 72% liver, 20% bone, 8% intestine - Transjugular liver bx (12/20/17) --> Findings suggestive of congestive hepatopathy. Anemia - patient's hgb has been trending down on admission hgb 10.4 - iron 17, TIBC 176, % saturation 9.6 - reticulocyte count 0.9 - occult stool requested - Ferrous sulfate PO BID
[2018-02-11 12:02] LABS: Carbon Dioxide 26.3 meq/L (21.0-32.0); Potassium 4.3 meq/L (3.5-5.1)
--- NOTE | 2018-02-11 14:11 | XR ---
EXAM DATE: 02/11/2018 2:05 PM EDT AGE/SEX: 53 years / Female INDICATIONS: Distention CLINICAL DATA: This is the patient's subsequent encounter. Patient reports that signs and symptoms h ave been present for 3 days and indicates a pain score of 5/10. MEDICAL/SURGICAL HISTORY: Diabetes mellitus type II. Congestive heart failure. Pacemaker. COMPARISON: Abdominal x-ray 02/08/2018. FINDINGS: A single supine frontal view of the abdomen shows a gas-filled structure within the left upper quadr ant that is felt to relate to a J-shaped stomach. Gas-filled loops of nondilated large bowel and smal l bowel within the midabdomen. No dilated loops of bowel. Centralization of the bowel loops consisten t with ascites. No appreciable organomegaly. Bony structures are unremarkable. CONCLUSION: 1. Ascites. 2. No dilated bowel loops. Electronically signed by: Tano Mcintosh MD 02/11/2018 2:10 PM EDT
[2018-02-11] MEDS ORDERED: Bisacodyl 10 MG Supp RECTAL ONE (14:19)
[2018-02-11] MEDS: Ferrous Sulfate 325 MG Tablet PO SCH ×2 (17:13→18:08)
--- NOTE | 2018-02-11 19:05 | P.PNNP ---
Subjective Interval history: Patient seen earlier in HD, awake, not in distress. Physical Exam Vital signs: Vital Signs 02/10/18 20:00 02/11/18 00:00 02/11/18 04:00 Temperature 98.5 F 99.1 F 99.6 F Pulse Rate 79 88 88 Respiratory Rate 20 20 20 Blood Pressure 136/82 149/84 H 149/79 H Pulse Oximetry 93 L 95 95 02/11/18 08:00 02/11/18 12:00 02/11/18 15:52 Temperature 98.0 F 97.9 F Pulse Rate 81 79 75 Respiratory Rate 18 18 Blood Pressure 152/80 H 157/76 H Pulse Oximetry 95 94 L 02/11/18 16:00 Temperature Pulse Rate 77 Respiratory Rate Blood Pressure Pulse Oximetry Intake & Output 02/11/18 02/11/18 02/12/18 06:59 18:59 06:59 Intake Total 240 / 240 240 / 240 Output Total 32697 / 65710 Balance 240 / 240 -27647 / -03825 Weight 67.7 kg Intake: Oral 240 / 240 240 / 240 Other 0 / 0 Output: Urine 0 / 0 Stool 1 / 1 Hemodialysis Amount 23537 / 98948 Urine Amount (Catheter) 0 / 0 Indwelling Urethral Catheter 0 / 0 Other: # Voids 1 1 # Incontinent Voids 1 Date of Last Bowel Movement 02/10/18 02/10/18 # Bowel Movements 1 1 Narrative: GENERAL: Thin mid aged A/A female Patient is alert, not dyspneic. CARDIO: Regular No murmur or S3 RESP: Breath sounds equal bilaterally. Occ basal crackles and wheeze. ABD: Abdomen soft, non-tender, nondistended. Normal active bowel sounds MUSCULOSKELETAL: Mild edema bilateral LE . NEURO: Alert & Orientedx3, No focal deficits. - Urinary Catheter Management Indwelling Urethral Catheter Cath placed during this visit: yes, but has since been removed by the nurse Urethral indwelling: Yes Reason for continuing: Terminally ill/Comfort care Insertion date: 01/21/18 Insertion time: 12:40 Removal date: 02/03/18 Removal time: 07:00 Assessment and Plan - Assessment (1) Acute on chronic kidney failure Code(s): N17.9 - Acute kidney failure, unspecified; N18.9 - Chronic kidney disease, unspecified Status: Acute Qualifiers: Chronic kidney disease stage: on chronic dialysis Plan: Patient has chronic kidney disease and develop VICTORINA. Urine out put is slightly better, has urine incontinence. BP is stable. Most likely will need to continue HD for now. Need to prepare for out patient HD. On Kate, will need to hold for 48 hrs. Also will need out patient HD in her area in [place]. [employer] Supervisor consulted for HD arrangement. Eliquis on hold for PermCath. HD now, remove fluid as tolerated. 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 Ahmadi
--- NOTE | 2018-02-11 19:56 | P.PN ---
Subjective Interval history: Alert a nd On O2 2 L. Had HD today. Better overall. Denies cough. Physical Exam Vital signs: Vital Signs 02/10/18 20:00 02/11/18 00:00 02/11/18 04:00 Temperature 98.5 F 99.1 F 99.6 F Pulse Rate 79 88 88 Respiratory Rate 20 20 20 Blood Pressure 136/82 149/84 H 149/79 H Pulse Oximetry 93 L 95 95 02/11/18 08:00 02/11/18 12:00 02/11/18 15:52 Temperature 98.0 F 97.9 F Pulse Rate 81 79 75 Respiratory Rate 18 18 Blood Pressure 152/80 H 157/76 H Pulse Oximetry 95 94 L 02/11/18 16:00 Temperature Pulse Rate 77 Respiratory Rate Blood Pressure Pulse Oximetry Intake & Output 02/11/18 02/11/18 02/12/18 06:59 18:59 06:59 Intake Total 240 / 240 240 / 240 Output Total 74804 / 16201 Balance 240 / 240 -12334 / -22073 Weight 67.7 kg Intake: Oral 240 / 240 240 / 240 Other 0 / 0 Output: Urine 0 / 0 Stool 1 / 1 Hemodialysis Amount 47410 / 35188 Urine Amount (Catheter) 0 / 0 Indwelling Urethral Catheter 0 / 0 Other: # Voids 1 1 # Incontinent Voids 1 Date of Last Bowel Movement 02/10/18 02/10/18 # Bowel Movements 1 1 Narrative: GENERAL: Thin mid aged A/A female Patient is alert, not dyspneic off O2. CARDIO: Regular No murmur or S3 RESP: Breath sounds equal bilaterally. Occ basal crackles and mild wheeze. ABD: Abdomen soft, non-tender, nondistended. Normal active bowel sounds MUSCULOSKELETAL: Mild edema bilateral LE . NEURO: Alert & Orientedx3, No focal deficits. - Urinary Catheter Management Indwelling Urethral Catheter Cath placed during this visit: yes, but has since been removed by the nurse Urethral indwelling: Yes Reason for continuing: Terminally ill/Comfort care Insertion date: 01/21/18 Insertion time: 12:40 Removal date: 02/03/18 Removal time: 07:00 Results - Labs CBC & Chem 7: 02/10/18 06:21 02/11/18 10:45 Laboratory Results - last 24 hr 02/10/18 02/11/18 02/11/18 20:06 08:22 08:59 Sodium Potassium Chloride Carbon Dioxide Anion Gap BUN Creatinine Estimated GFR POC Glucose 230 H 66 L 66 L Random Glucose Calcium 02/11/18 02/11/18 02/11/18 09:39 10:45 12:23 Sodium 134 L Potassium 4.3 Chloride 95 L Carbon Dioxide 26.3 Anion Gap 13 BUN 72 H Creatinine 4.38 H Estimated GFR 13 L POC Glucose 129 H 151 H Random Glucose 132 H Calcium 9.0 02/11/18 18:06 Sodium Potassium Chloride Carbon Dioxide Anion Gap BUN Creatinine Estimated GFR POC Glucose 215 H Random Glucose Calcium - Imaging Impressions Abdomen X-Ray 02/11/18 09:40 CONCLUSION: 1. Ascites. 2. No dilated bowel loops. Assessment and Plan - Assessment (1) Respiratory failure Code(s): J96.90 - Respiratory failure, unspecified, unspecified whether with hypoxia or hypercapnia Status: Acute (2) Pulmonary edema Code(s): J81.1 - Chronic pulmonary edema Status: Acute (3) Constipation Code(s): K59.00 - Constipation, unspecified Status: Acute (4) Nonischemic cardiomyopathy Code(s): I42.8 - Other cardiomyopathies Status: Chronic (5) Diabetes Code(s): E11.9 - Type 2 diabetes mellitus without complications Status: Chronic (6) Acute on chronic kidney failure Code(s): N17.9 - Acute kidney failure, unspecified; N18.9 - Chronic kidney disease, unspecified Status: Acute (7) Hyperkalemia Code(s): E87.5 - Hyperkalemia Status: Acute (8) HTN (hypertension) Code(s): I10 - Essential (primary) hypertension Status: Acute (9) Elevated LFTs Code(s): R94.5 - Abnormal results of liver function studies Status: Acute (10) Ascites Code(s): R18.8 - Other ascites Status: Acute - Plan 1. Wean to O2 to 1 L , keep sat >92 2. Nebs qid , Duoneb 3. Continue Dialysis per renal 4. CBC BMP in am. 5. IS at Bedside Q3H 6. PT evaluation for ambulation (5) Diabetes Qualifiers: Diabetes mellitus type: type 2 Diabetes mellitus long-term insulin use: with intermediate project manager use Diabetes mellitus complication status: with unspecified complications Qualified Code(s): E11.8 - Type 2 diabetes mellitus with unspecified complications; Z79.4 - extermination supervisor (current) use of insulin (6) Acute on chronic kidney failure Qualifiers: Chronic kidney disease stage: on chronic dialysis
--- NOTE | 2018-02-11 20:40 | US ---
EXAM DATE: 02/11/2018 8:21 PM EDT AGE/SEX: 53 years / Female INDICATIONS: Extended abdomen. Abdominal discomfort. CLINICAL DATA: This is the patient's initial encounter. Patient reports that signs and symptoms have been present for 1 week and indicates a pain score of 0/10. MEDICAL/SURGICAL HISTORY: Anemia. Gastroesophageal reflux disease. A-fib. CAD. DVT. High trigl ycerides. . Cardiac catheterization. AICD. Liver biopsy. COMPARISON: [facility] [place] ABDOMEN & PELVIS W/O CONTRAST, 02/02/2018. . FINDINGS: Masses: None Fluid Collections: There is moderate ascites seen in all 4 quadrants. Other: The liver appears heterogeneous. CONCLUSION: Moderate ascites. Electronically signed by: Justin Post MD 02/11/2018 8:38 PM EDT
[2018-02-11] MEDS: Butalbital/APAP/Caff 50/325/40 MG Tablet PO SCH (22:03)
--- NOTE | 2018-02-12 07:08 | XR ---
EXAM DATE: 02/12/2018 6:55 AM EDT AGE/SEX: 53 years / Female INDICATIONS: Short of breath. CLINICAL DATA: This is the patient's subsequent encounter. Patient reports that signs and symptoms h ave been present for 2 weeks and indicates a pain score of Nonresponsive. MEDICAL/SURGICAL HISTORY: . Diabetes mellitus type II. Congestive heart failure. Pacemaker. COMPARISON: [facility], CHEST 1V SINGLE AP, 02/07/2018. . FINDINGS: Right IJ line is present with tip overlapping the expected region of the SVC. Left subclavian line tr ansvenous pacer wires present with tip in the right ventricle. Slight cardiomegaly is present with mild haziness to the lung arreaga may represent mild case of pulmo nary venous congestion and pulmonary edema. Focal consolidation is not seen. CONCLUSION: Probable mild CHF. Electronically signed by: Donaldo Early MD 02/12/2018 7:06 AM EDT
[2018-02-12] MEDS: Insulin NovoLOG Aspart Correctional Sugar Inj SQ SCH ×4 (08:17→22:20)
[2018-02-12] MEDS: Lactobacillus Acidophilus/L. Spores Tablet PO SCH ×2 (08:18→22:19)
[2018-02-12] MEDS: Folic Acid 1 MG Tablet PO SCH (08:19)
[2018-02-12] MEDS: Butalbital/APAP/Caff 50/325/40 MG Tablet PO SCH (08:19)
[2018-02-12] MEDS: Isosorbide Mononitrate 20 MG Tablet PO SCH ×2 (08:20→22:18)
[2018-02-12] MEDS: Docusate Sodium 100 MG Capsule PO SCH ×2 (08:22→22:17)
[2018-02-12] MEDS: Carvedilol 12.5 MG Tablet PO SCH ×2 (08:22→22:18)
[2018-02-12] MEDS: Mupirocin 2% Nasal Oint Topical Syringe EACH NARE SCH ×2 (08:22→22:17)
[2018-02-12] MEDS: Insulin Detemir Inj 1,000 UNIT/10 ML Vial SQ SCH ×2 (08:24→22:19)
[2018-02-12] MEDS: Minoxidil 2.5 MG Tablet PO SCH (08:25)
[2018-02-12] MEDS: metOLazone 5 MG Tablet PO SCH ×2 (08:33→17:46)
--- NOTE | 2018-02-12 10:06 | P.PNIM ---
Subjective Interval history: had "hard bm yesterday" eating breakfast. nad Physical Exam Vital signs: Vital Signs 02/11/18 12:00 02/11/18 15:52 02/11/18 16:00 Temperature 97.9 F Pulse Rate 79 75 77 Respiratory Rate 18 Blood Pressure 157/76 H Pulse Oximetry 94 L 02/11/18 20:00 02/12/18 00:00 02/12/18 04:00 Temperature 99.1 F 100.9 F H 97.8 F Pulse Rate 89 90 74 Respiratory Rate 20 20 20 Blood Pressure 114/57 L 119/58 L 105/56 L Pulse Oximetry 95 97 97 Intake & Output 02/11/18 02/12/18 02/12/18 18:59 06:59 18:59 Intake Total 240 / 240 240 / 240 Output Total 14364 / 09912 Balance -95975 / -41464 240 / 240 Weight 62.8 kg Intake: Oral 240 / 240 240 / 240 Other 0 / 0 Output: Urine 0 / 0 Stool 1 / 1 Hemodialysis Amount 79386 / 50360 Urine Amount (Catheter) 0 / 0 Indwelling Urethral Catheter 0 / 0 Other: # Voids 1 1 # Incontinent Voids 1 Date of Last Bowel Movement 02/10/18 02/11/18 # Bowel Movements 1 # Incontinent Bowel Movements 1 heart reg lung cta abd distended. a little softer. bs ext anasarca improving. - Urinary Catheter Management Indwelling Urethral Catheter Cath placed during this visit: yes, but has since been removed by the nurse Urethral indwelling: Yes Reason for continuing: Terminally ill/Comfort care Insertion date: 01/21/18 Insertion time: 12:40 Removal date: 02/03/18 Removal time: 07:00 Results - Labs CBC & Chem 7: 02/10/18 06:21 02/11/18 10:45 Laboratory Results - last 24 hr 02/11/18 02/11/18 02/11/18 10:45 12:23 18:06 Sodium 134 L Potassium 4.3 Chloride 95 L Carbon Dioxide 26.3 Anion Gap 13 BUN 72 H Creatinine 4.38 H Estimated GFR 13 L POC Glucose 151 H 215 H Random Glucose 132 H Calcium 9.0 02/11/18 02/12/18 20:44 07:47 Sodium Potassium Chloride Carbon Dioxide Anion Gap BUN Creatinine Estimated GFR POC Glucose 223 H 112 H Random Glucose Calcium - Imaging Impressions Abdomen Ultrasound 02/11/18 00:00 CONCLUSION: Moderate ascites. Abdomen X-Ray 02/11/18 09:40 CONCLUSION: 1. Ascites. 2. No dilated bowel loops. Chest X-Ray 02/12/18 00:00 CONCLUSION: Probable mild CHF. Assessment and Plan - Assessment (1) Nonischemic cardiomyopathy Code(s): I42.8 - Other cardiomyopathies Status: Chronic Plan: Nonischemic cardiomyopathy Chronic systolic CHF with EF 15-20% s/p AICD - comgmt with Palliative Medicine, Cardiology - Pt was reportedly evaluated at [facility] recently for Heart transplant vs. LVAD but had a stroke during that admission and was not felt to be a good candidate after the CVA. - 2D echo (01/21/18): - Estimated ejection fraction of 45-50%. No segmental wall motion abnormalities. - Possible mild right ventricular enlargement with normal systolic function. - A pacemaker wire is noted. - Mild mitral valve regurgitation. - Mild tricuspid valve regurgitation. - Estimated pulmonary arterial pressure is 35 mmHg - 01/30 radionucleotide venogram no evidence of thrombus - Pt developed Respiratory failure. Pt transferred to ICU 01/31 - HD started 01/31 - 4.5L removed with HD (02/08) - Zaroxolyn 5mg BID - DVT prophylaxis with Eliquis - supportive care - Attempted to discuss code status with pt (02/07). Pt became tearful & refused to discuss topic. - Pt's prognosis is poor & pt is at high risk for readmission Pt will need permcath. eliquis held starting today so hopefully can place on . needs outpt HD arrangement per renal and CM dc to snf once arranged. Abdominal pain Nausea/vomiting Constipation, improved - Pt is a 52 y/o AAF with chronic systolic CHF, nonischemic cardiomyopathy with EF 15-20% s/p AICD, hx of CVA in 12/2017 (Bilateral acute to subacute posterior cerebral artery infarcts on Head CT on 12/22/17), congestive hepatopathy, ascites , HTN, CKD, stage 3, and type 2 diabetes mellitus, insulin dependent. Pt has had multiple hospitalizations at [facility] in [place] and [facility] in the last several month for various issues related to her CHF /Cardiomyopathy, DKA, Acute on chronic renal failure, CVA. After her most recent admission from 12/02/17 to 01/08/18 was for CHF and was transferred to [facility] to be evaluated for possible heart transplant vs. LVAD. During that admission she had an acute CVA with resulting left sided weakness and felt that she was not a good candidate for advanced heart failure treatment. Pt was discharged to [facility] on 01/08/18. - She was brought to the ED from a local rehab center for hyperkalemia and N/V. She has noted issues with constipation more recently. Over the last two days she has had nausea/vomiting and has not been eating much. She has not passed any stool in the last two days either. - CT abd/pelvis in the ED which noted moderate ascites and anasarca, cardiomegaly with pacer lead tip in right ventricle, and small fat-containing umbilical hernia. No bowel obstruction. In reviewing the images she has a significant amount of stool throughout the colon and in the rectum. - Pt had a small BM on 01/17 but had been refusing the Lactulose BID - Pt was given Mag Citrate and Colace BID on 01/18 but no significant stooling - Pt had Gastrografin enema on 01/20 with large volume of stool output abdomen distention. constipation and stool noted on kub. laxatives ordered. u/s abdomen mod ascites. anticoagulation on hold and consider therapeutic paracentesis tommorrow plan for permcath tomorrow. then resume anticoagulation Diabetes mellitus, poorly controlled Hgb A1C 14.4 on 08/31/17 Hypoglycemia - levemir 10 units BID Hyperkalemia Acute on chronic renal disease, stage 3 - see above HTN (hypertension) - Cont. home meds - BP is poorly controlled on multiple medications: Coreg 12.5mg BID, Clonidine 0.2mg Q8H, Hydralazine 100mg Q8H, Minoxidil 5mg po daily, Procardia XL 30mg po BID - Clonidine PRN - Monitor closely Elevated LFTs Congestive hepatopathy Ascites - Review of outpt records show the pts AlkPhos has been elevated since 10/2016 - AlkPhos Isoenzyme in 10/2017 noted 72% liver, 20% bone, 8% intestine - Transjugular liver bx (12/20/17) --> Findings suggestive of congestive hepatopathy. Anemia - patient's hgb has been trending down on admission hgb 10.4 - iron 17, TIBC 176, % saturation 9.6 - reticulocyte count 0.9 - occult stool requested - Ferrous sulfate PO BID
[2018-02-12] MEDS: Ferrous Sulfate 325 MG Tablet PO SCH ×2 (12:49→17:45)
[2018-02-12 13:01] LABS: Carbon Dioxide 29.4 meq/L (21.0-32.0)
[2018-02-12 13:02] LABS: Calcium 9.1 mg/dL (8.5-10.1)
--- NOTE | 2018-02-12 18:58 | P.PNNP ---
Subjective Interval history: Patient with mild SOB, with nasal cannula, not in distress. Physical Exam Vital signs: Vital Signs 02/11/18 20:00 02/12/18 00:00 02/12/18 04:00 Temperature 99.1 F 100.9 F H 97.8 F Pulse Rate 89 90 74 Respiratory Rate 20 20 20 Blood Pressure 114/57 L 119/58 L 105/56 L Pulse Oximetry 95 97 97 02/12/18 08:00 02/12/18 12:00 02/12/18 16:00 Temperature 97.6 F 97.6 F 97.4 F L Pulse Rate 73 74 72 Respiratory Rate 20 20 20 Blood Pressure 109/57 L 113/58 L 106/60 Pulse Oximetry 94 L 94 L 94 L Intake & Output 02/11/18 02/12/18 02/12/18 18:59 06:59 18:59 Intake Total 240 / 240 240 / 240 Output Total 14674 / 03575 Balance -94982 / -46806 240 / 240 Weight 62.8 kg Intake: Oral 240 / 240 240 / 240 Other 0 / 0 Output: Urine 0 / 0 Stool 1 / 1 Hemodialysis Amount 35473 / 37681 Urine Amount (Catheter) 0 / 0 Indwelling Urethral Catheter 0 / 0 Other: # Voids 1 1 # Incontinent Voids 1 Date of Last Bowel Movement 02/10/18 02/11/18 02/11/18 # Bowel Movements 1 # Incontinent Bowel Movements 1 Narrative: GENERAL: Thin mid aged A/A female Patient is alert, not dyspneic off O2. CARDIO: Regular No murmur or S3 RESP: Breath sounds equal bilaterally. Occ basal crackles and mild wheeze. ABD: Abdomen soft, non-tender, nondistended. Normal active bowel sounds MUSCULOSKELETAL: Mild edema bilateral LE . NEURO: Alert & Orientedx3, No focal deficits. - Urinary Catheter Management Indwelling Urethral Catheter Cath placed during this visit: yes, but has since been removed by the nurse Urethral indwelling: Yes Reason for continuing: Terminally ill/Comfort care Insertion date: 01/21/18 Insertion time: 12:40 Removal date: 02/03/18 Removal time: 07:00 Assessment and Plan - Assessment (1) Acute on chronic kidney failure Code(s): N17.9 - Acute kidney failure, unspecified; N18.9 - Chronic kidney disease, unspecified Status: Acute Qualifiers: Chronic kidney disease stage: on chronic dialysis Plan: Patient has chronic kidney disease and develop VICTORINA. Urine out put is slightly better, has urine incontinence. BP is stable. Most likely will need to continue HD for now. Need to prepare for out patient HD. On Eliquis, will need to hold for 48 hrs. Also will need out patient HD in her area in [place]. Structural Draftsman consulted for HD arrangement. Eliquis on hold for PermCath. HD done yesterday, for out patient HD. To get PermCath. (2) Nonischemic cardiomyopathy Code(s): I42.8 - Other cardiomyopathies Status: Chronic (3) Diabetes Code(s): E11.9 - Type 2 diabetes mellitus without complications Status: Chronic Qualifiers: Diabetes mellitus type: type 2 Diabetes mellitus fci insulin use: with fci use Diabetes mellitus complication status: with unspecified complications Qualified Code(s): E11.8 - Type 2 diabetes mellitus with unspecified complications; Z79.4 - buttermilk drier operator (current) use of insulin - Plan Patient had hemodialysis yesterday tolerating dialysis well ultrafiltration of 5 L Continue supportive care Fluid removal with dialysis Patient has underlying diabetes Follow-up with Dr. Ahmadi
--- NOTE | 2018-02-12 19:31 | P.PN ---
Subjective Interval history: Feels OK. Now on O2 2l. Was dialyzed yesterday Physical Exam Vital signs: Vital Signs 02/11/18 20:00 02/12/18 00:00 02/12/18 04:00 Temperature 99.1 F 100.9 F H 97.8 F Pulse Rate 89 90 74 Respiratory Rate 20 20 20 Blood Pressure 114/57 L 119/58 L 105/56 L Pulse Oximetry 95 97 97 02/12/18 08:00 02/12/18 12:00 02/12/18 16:00 Temperature 97.6 F 97.6 F 97.4 F L Pulse Rate 73 74 72 Respiratory Rate 20 20 20 Blood Pressure 109/57 L 113/58 L 106/60 Pulse Oximetry 94 L 94 L 94 L Intake & Output 02/12/18 02/12/18 02/13/18 06:59 18:59 06:59 Intake Total 240 / 240 720 / 720 Balance 240 / 240 720 / 720 Weight 62.8 kg Intake: Oral 240 / 240 720 / 720 Other: # Voids 1 Date of Last Bowel Movement 02/11/18 02/11/18 # Incontinent Bowel Movements 1 Narrative: GENERAL: Thin mid aged A/A female Patient is alert, On o2 CARDIO: Regular No murmur or S3 RESP: Occ basal crackles and mild wheeze. upper chest ABD: Abdomen soft, non-tender, nondistended. Normal active bowel sounds MUSCULOSKELETAL: Mild edema bilateral LE . NEURO: Alert & Orientedx3, No focal deficits. - Urinary Catheter Management Indwelling Urethral Catheter Cath placed during this visit: yes, but has since been removed by the nurse Urethral indwelling: Yes Reason for continuing: Terminally ill/Comfort care Insertion date: 01/21/18 Insertion time: 12:40 Removal date: 02/03/18 Removal time: 07:00 Results - Labs CBC & Chem 7: 02/10/18 06:21 02/12/18 11:07 Laboratory Results - last 24 hr 02/11/18 02/12/18 02/12/18 20:44 07:47 11:07 Sodium 139 Potassium 4.0 Chloride 99 Carbon Dioxide 29.4 Anion Gap 11 BUN 50 H Creatinine 3.47 H Estimated GFR 17 L POC Glucose 223 H 112 H Random Glucose 140 H Calcium 9.1 02/12/18 02/12/18 12:00 16:46 Sodium Potassium Chloride Carbon Dioxide Anion Gap BUN Creatinine Estimated GFR POC Glucose 191 H 174 H Random Glucose Calcium - Imaging Impressions Abdomen Ultrasound 02/11/18 00:00 CONCLUSION: Moderate ascites. Chest X-Ray 02/12/18 00:00 CONCLUSION: Probable mild CHF. Assessment and Plan - Assessment (1) Respiratory failure Code(s): J96.90 - Respiratory failure, unspecified, unspecified whether with hypoxia or hypercapnia Status: Acute (2) Pulmonary edema Code(s): J81.1 - Chronic pulmonary edema Status: Acute (3) Constipation Code(s): K59.00 - Constipation, unspecified Status: Acute (4) Nonischemic cardiomyopathy Code(s): I42.8 - Other cardiomyopathies Status: Chronic (5) Diabetes Code(s): E11.9 - Type 2 diabetes mellitus without complications Status: Chronic (6) Acute on chronic kidney failure Code(s): N17.9 - Acute kidney failure, unspecified; N18.9 - Chronic kidney disease, unspecified Status: Acute (7) Hyperkalemia Code(s): E87.5 - Hyperkalemia Status: Acute (8) HTN (hypertension) Code(s): I10 - Essential (primary) hypertension Status: Acute (9) Elevated LFTs Code(s): R94.5 - Abnormal results of liver function studies Status: Acute (10) Ascites Code(s): R18.8 - Other ascites Status: Acute - Plan 1. Wean to O2 to Room air 2. Nebs qid , Duoneb 3. Continue Dialysis per renal 4. CXR in am. 5. IS at Bedside Q3H 6. PT evaluation for ambulation (5) Diabetes Qualifiers: Diabetes mellitus type: type 2 Diabetes mellitus long term care social worker insulin use: with fci use Diabetes mellitus complication status: with unspecified complications Qualified Code(s): E11.8 - Type 2 diabetes mellitus with unspecified complications; Z79.4 - intermediate project manager (current) use of insulin (6) Acute on chronic kidney failure Qualifiers: Chronic kidney disease stage: on chronic dialysis
--- NOTE | 2018-02-13 07:29 | XR ---
EXAM DATE: 02/13/2018 7:17 AM EDT AGE/SEX: 53 years / Female INDICATIONS: Short of breath, evaluate pulmonary edema CLINICAL DATA: This is the patient's subsequent encounter. Patient reports that signs and symptoms h ave been present for 2 weeks and indicates a pain score of Nonresponsive. MEDICAL/SURGICAL HISTORY: . pulmonary edema, CHF Pacemaker. COMPARISON: [facility], CHEST 1V SINGLE AP, 02/12/2018. . FINDINGS: Right IJ line is present with tip overlapping the expected region of the SVC. Left subclavian transve nous pacer wire is again seen not changed. No definite pneumothorax is seen for technique. Lungs are clear. CONCLUSION: Stable cardiomegaly. Electronically signed by: Donaldo Early MD 02/13/2018 7:28 AM EDT
--- NOTE | 2018-02-13 09:07 | P.PNIM ---
Subjective Interval history: no complaints Physical Exam Vital signs: Vital Signs 02/12/18 12:00 02/12/18 16:00 02/12/18 20:00 Temperature 97.6 F 97.4 F L 98 F Pulse Rate 74 72 84 Respiratory Rate 20 20 16 Blood Pressure 113/58 L 106/60 106/55 L Pulse Oximetry 94 L 94 L 94 L 02/12/18 23:58 02/13/18 04:00 02/13/18 05:44 Temperature 98.5 F 98.2 F Pulse Rate 84 85 Respiratory Rate 16 16 Blood Pressure 111/62 132/67 108/62 Pulse Oximetry 94 L 945 H Intake & Output 02/12/18 02/13/18 02/13/18 18:59 06:59 18:59 Intake Total 720 / 720 120 / 120 Balance 720 / 720 120 / 120 Weight 61.6 kg Intake: Oral 720 / 720 120 / 120 Other: Date of Last Bowel Movement 02/11/18 02/11/18 # Bowel Movements 1 nad vascath heart reg lung cta abd nt ext anasarca improved - Urinary Catheter Management Indwelling Urethral Catheter Cath placed during this visit: yes, but has since been removed by the nurse Urethral indwelling: Yes Reason for continuing: Terminally ill/Comfort care Insertion date: 01/21/18 Insertion time: 12:40 Removal date: 02/03/18 Removal time: 07:00 Results - Labs CBC & Chem 7: 02/10/18 06:21 02/12/18 11:07 Laboratory Results - last 24 hr 02/12/18 02/12/18 02/12/18 11:07 12:00 16:46 Sodium 139 Potassium 4.0 Chloride 99 Carbon Dioxide 29.4 Anion Gap 11 BUN 50 H Creatinine 3.47 H Estimated GFR 17 L POC Glucose 191 H 174 H Random Glucose 140 H Calcium 9.1 02/12/18 02/13/18 20:18 07:55 Sodium Potassium Chloride Carbon Dioxide Anion Gap BUN Creatinine Estimated GFR POC Glucose 119 H 90 Random Glucose Calcium - Imaging Impressions Chest X-Ray 02/13/18 00:00 CONCLUSION: Assessment and Plan - Assessment (1) Nonischemic cardiomyopathy Code(s): I42.8 - Other cardiomyopathies Status: Chronic Plan: Nonischemic cardiomyopathy Chronic systolic CHF with EF 15-20% s/p AICD - comgmt with Palliative Medicine, Cardiology - Pt was reportedly evaluated at [facility] recently for Heart transplant vs. LVAD but had a stroke during that admission and was not felt to be a good candidate after the CVA. - 2D echo (01/21/18): - Estimated ejection fraction of 45-50%. No segmental wall motion abnormalities. - Possible mild right ventricular enlargement with normal systolic function. - A pacemaker wire is noted. - Mild mitral valve regurgitation. - Mild tricuspid valve regurgitation. - Estimated pulmonary arterial pressure is 35 mmHg - 01/30 radionucleotide venogram no evidence of thrombus - Pt developed Respiratory failure. Pt transferred to ICU 01/31 - HD started 01/31 - 4.5L removed with HD (02/08) - Zaroxolyn 5mg BID - DVT prophylaxis with Eliquis - supportive care - Attempted to discuss code status with pt (02/07). Pt became tearful & refused to discuss topic. - Pt's prognosis is poor & pt is at high risk for readmission Pt will need permcath. eliquis held starting today so hopefully can place on . needs outpt HD arrangement per renal and CM dc to snf once arranged. Abdominal pain Nausea/vomiting Constipation, improved - Pt is a 52 y/o AAF with chronic systolic CHF, nonischemic cardiomyopathy with EF 15-20% s/p AICD, hx of CVA in 12/2017 (Bilateral acute to subacute posterior cerebral artery infarcts on Head CT on 12/22/17), congestive hepatopathy, ascites , HTN, CKD, stage 3, and type 2 diabetes mellitus, insulin dependent. Pt has had multiple hospitalizations at [facility] in [place] and [facility] in the last several month for various issues related to her CHF /Cardiomyopathy, DKA, Acute on chronic renal failure, CVA. After her most recent admission from 12/02/17 to 01/08/18 was for CHF and was transferred to [facility] to be evaluated for possible heart transplant vs. LVAD. During that admission she had an acute CVA with resulting left sided weakness and felt that she was not a good candidate for advanced heart failure treatment. Pt was discharged to [facility] on 01/08/18. - She was brought to the ED from a local rehab center for hyperkalemia and N/V. She has noted issues with constipation more recently. Over the last two days she has had nausea/vomiting and has not been eating much. She has not passed any stool in the last two days either. - CT abd/pelvis in the ED which noted moderate ascites and anasarca, cardiomegaly with pacer lead tip in right ventricle, and small fat-containing umbilical hernia. No bowel obstruction. In reviewing the images she has a significant amount of stool throughout the colon and in the rectum. - Pt had a small BM on 01/17 but had been refusing the Lactulose BID - Pt was given Mag Citrate and Colace BID on 01/18 but no significant stooling - Pt had Gastrografin enema on 01/20 with large volume of stool output abdomen distention. constipation and stool noted on kub. laxatives ordered. u/s abdomen mod ascites. anticoagulation on hold and consider therapeutic paracentesis. today abdomen softer. plan for permcath today. discussed with dr Ahmadi. then resume anticoagulation Diabetes mellitus, poorly controlled Hgb A1C 14.4 on 08/31/17 Hypoglycemia - levemir 10 units BID Hyperkalemia Acute on chronic renal disease, stage 3 - see above HTN (hypertension) - Cont. home meds - BP is poorly controlled on multiple medications: Coreg 12.5mg BID, Clonidine 0.2mg Q8H, Hydralazine 100mg Q8H, Minoxidil 5mg po daily, Procardia XL 30mg po BID - Clonidine PRN - Monitor closely Elevated LFTs Congestive hepatopathy Ascites - Review of outpt records show the pts AlkPhos has been elevated since 10/2016 - AlkPhos Isoenzyme in 10/2017 noted 72% liver, 20% bone, 8% intestine - Transjugular liver bx (12/20/17) --> Findings suggestive of congestive hepatopathy. Anemia - patient's hgb has been trending down on admission hgb 10.4 - iron 17, TIBC 176, % saturation 9.6 - reticulocyte count 0.9 - occult stool requested - Ferrous sulfate PO BID
[2018-02-13 10:24] LABS: Calcium 8.9 mg/dL (8.5-10.1); Carbon Dioxide 27.5 meq/L (21.0-32.0); Potassium 4.2 meq/L (3.5-5.1)
[2018-02-13] MEDS ORDERED: fentaNYL Citrate Inj 100 MCG/2 ML Ampul ONE ×2 (13:33→14:12)
[2018-02-13] MEDS ORDERED: Lidocaine 1%/Epinephrine 1:100,000 Inj 30 ML Vial ONE (13:59)
[2018-02-13] MEDS ORDERED: *Heparin 10,000 UNITS/10 ML Vial Periprocedural ONLY ONE (13:59)
[2018-02-13] MEDS ORDERED: ceFAZolin 2 GM Premix Inj 2 GM/50 ML PIGGYBACK IV.SIG ONE (14:07)
[2018-02-13] MEDS ORDERED: Sodium Chlor 0.9% Inj 250 ML ONE (14:07)
[2018-02-13] MEDS: Insulin NovoLOG Aspart Correctional Sugar Inj SQ SCH ×4 (14:56→23:20)
[2018-02-13] MEDS: Insulin Detemir Inj 1,000 UNIT/10 ML Vial SQ SCH ×2 (14:57→23:23)
[2018-02-13] MEDS: Ferrous Sulfate 325 MG Tablet PO SCH ×2 (14:59→17:15)
--- NOTE | 2018-02-13 15:17 | IR ---
EXAM DATE: 02/13/2018 2:48 PM EDT AGE/SEX: 53 years / Female INDICATIONS: Patient on dialysis ,has a vas cath. Needs to be exchanged for a perm cath. CLINICAL DATA: This is the patient's subsequent encounter. Patient reports that signs and symptoms h ave been present for 1 week and indicates a pain score of 3/10. MEDICAL/SURGICAL HISTORY: Congestive heart failure. Cerebrovascular disease. Hypertension. C AD, DM, ascites, cardiomyopathy . AICD placement, vas cath, liver bx COMPARISON: No prior exams available for comparison. FLUORO TIME (min): 0.3 IMAGE SERIES: 1 ACCESS SITE: SEDATION TIME (min): 30 MEDICATION(S): 3 mg midazolam (Versed) IV 150 fentanyl (Sublimaze) IV Intra-procedural antibiotics were given as prescribed above. DEVICE(S): 15 fr 19 cm bowie cath . . PROCEDURE : 1. Fluoroscopically-guided venipuncture. 2. PermaCath placement. 3. Conscious sedation with continuous EKG and oximetry monitoring. The risks, benefits and alternatives to the procedure were explained and verbal and written consent w as obtained. The site was prepped in sterile fashion. Full sterile technique was used, including ca p, mask, sterile gloves and gown and a large sterile sheet. Hand hygiene and 2% chlorhexidine Betadi ne was utilized per protocol for cutaneous antisepsis with appropriate dry time for site. The skin a nd subcutaneous tissues were infiltrated with local anesthetic solution. Utilizing fluoroscopic guidance a dermatotomy was created over the prescribed vein. A micropuncture set was used to access the targeted vein and serial dilatation was performed to accept the prescribed length Bowie catheter. A subcutaneous tunnel was created in a retrograde fashion the Bowie cathet er was pulled through the tunnel. The catheter was flushed and assembled and locked with heparin. T he catheter was sutured in place. Conscious sedation was performed with the prescribed dosages and duration as above in the presence of an independent trained radiology nurse to assist in the monitoring of the patient. EKG and oximetry remained stable throughout the procedure. The patient tolerated the procedure well and there were n o complications. The patient was sent to post anesthesia recovery in stable condition. 1. Uncomplicated PermaCath placement as above. Electronically signed by: Romulo Hines MD 02/13/2018 3:15 PM EDT
--- NOTE | 2018-02-13 15:21 | P.RAD ---
Post Procedure Progress Note - Pre Procedure Diagnosis (1) Acute on chronic kidney failure - Post Procedure Diagnosis (1) Acute on chronic kidney failure - Procedure Information Supervising Radiologist: Romulo Hines MD Anesthesia: Conscious Sedation - Plan of Activity Patient to Unit: Nursing Unit Patient Condition: Fair See PACS Report for procedural detail/treatment. CVAD Radiology Procedures right Internal Jugular Hemodialysis Catheter Tunneled Placement Device: dual lumen
[2018-02-13] MEDS: metOLazone 5 MG Tablet PO SCH ×2 (16:31→17:12)
[2018-02-13] MEDS: Mupirocin 2% Nasal Oint Topical Syringe EACH NARE SCH ×2 (17:01→23:19)
[2018-02-13] MEDS: Lactobacillus Acidophilus/L. Spores Tablet PO SCH ×2 (17:01→23:19)
[2018-02-13] MEDS: Docusate Sodium 100 MG Capsule PO SCH ×2 (17:01→23:19)
[2018-02-13] MEDS: Isosorbide Mononitrate 20 MG Tablet PO SCH ×2 (17:01→23:19)
[2018-02-13] MEDS: Carvedilol 12.5 MG Tablet PO SCH ×2 (17:02→23:19)
[2018-02-13] MEDS: Minoxidil 2.5 MG Tablet PO SCH (17:04)
[2018-02-13] MEDS: Folic Acid 1 MG Tablet PO SCH (17:05)
[2018-02-13] MEDS: Acetaminophen 325 MG Tablet PO PRN (17:12)
--- NOTE | 2018-02-13 18:41 | P.PNNP ---
Subjective Interval history: Patient seen in AM during HD, alert, feeling better, not in distress. Physical Exam Vital signs: Vital Signs 02/12/18 20:00 02/12/18 23:58 02/13/18 04:00 Temperature 98 F 98.5 F 98.2 F Pulse Rate 84 84 85 Respiratory Rate 16 16 16 Blood Pressure 106/55 L 111/62 132/67 Pulse Oximetry 94 L 94 L 945 H 02/13/18 05:44 02/13/18 08:00 02/13/18 12:00 Temperature 98.0 F Pulse Rate 80 77 Respiratory Rate 20 Blood Pressure 108/62 125/70 Pulse Oximetry 93 L 02/13/18 14:03 02/13/18 14:30 02/13/18 14:45 Temperature 97.9 F 97.9 F Pulse Rate 79 79 84 Respiratory Rate 18 18 18 Blood Pressure 145/76 H 145/76 H 169/91 H Pulse Oximetry 92 L 79 L 96 02/13/18 15:15 02/13/18 15:45 02/13/18 16:15 Temperature Pulse Rate 89 89 Respiratory Rate 18 16 16 Blood Pressure 179/84 H 179/92 H Pulse Oximetry 94 L 95 02/13/18 16:41 02/13/18 16:58 Temperature 98.4 F Pulse Rate 90 92 H Respiratory Rate 16 20 Blood Pressure 167/74 H 141/96 H Pulse Oximetry 92 L 94 L Intake & Output 02/12/18 02/13/18 02/13/18 18:59 06:59 18:59 Intake Total 720 / 720 120 / 120 250 / 250 Output Total 4000 / 4000 Balance 720 / 720 120 / 120 -3750 / -3750 Weight 61.6 kg Intake: IV 250 / 250 NS Inj 250 ML @ 0 mls/hr .ROUTE 250 / 250 .STK-MED ONE Rx#:[id number] Oral 720 / 720 120 / 120 Output: Hemodialysis Amount 4000 / 4000 Other: Date of Last Bowel Movement 02/11/18 02/11/18 # Bowel Movements 1 Narrative: GENERAL: Thin mid aged A/A female Patient is alert, On o2 CARDIO: Regular No murmur or S3 RESP: Occ basal crackles and mild wheeze. upper chest ABD: Abdomen soft, non-tender, nondistended. Normal active bowel sounds MUSCULOSKELETAL: Mild edema bilateral LE . NEURO: Alert & Orientedx3, No focal deficits. - Urinary Catheter Management Indwelling Urethral Catheter Cath placed during this visit: yes, but has since been removed by the nurse Urethral indwelling: Yes Reason for continuing: Terminally ill/Comfort care Insertion date: 01/21/18 Insertion time: 12:40 Removal date: 02/03/18 Removal time: 07:00 Assessment and Plan - Assessment (1) Acute on chronic kidney failure Code(s): N17.9 - Acute kidney failure, unspecified; N18.9 - Chronic kidney disease, unspecified Status: Acute Qualifiers: Chronic kidney disease stage: on chronic dialysis Plan: Patient has chronic kidney disease and develop VICTORINA. Urine out put is slightly better, has urine incontinence. BP is stable. Most likely will need to continue HD for now. Need to prepare for out patient HD. On Eliquis, will need to hold for 48 hrs. HD done in AM and 4 liters removed. PermCath today. Out patient HD arrangement in progress. (2) Nonischemic cardiomyopathy Code(s): I42.8 - Other cardiomyopathies Status: Chronic (3) Diabetes Code(s): E11.9 - Type 2 diabetes mellitus without complications Status: Chronic Qualifiers: Diabetes mellitus type: type 2 Diabetes mellitus residential insulin use: with terminal system operator use Diabetes mellitus complication status: with unspecified complications Qualified Code(s): E11.8 - Type 2 diabetes mellitus with unspecified complications; Z79.4 - intermodal dispatcher (current) use of insulin - Plan Patient had hemodialysis yesterday tolerating dialysis well ultrafiltration of 5 L Continue supportive care Fluid removal with dialysis Patient has underlying diabetes Follow-up with Dr. Ahmadi
--- NOTE | 2018-02-13 19:35 | P.PN ---
Subjective Interval history: She is on O2 2 L. C/O pains in back. No SOB. Physical Exam Vital signs: Vital Signs 02/12/18 20:00 02/12/18 23:58 02/13/18 04:00 Temperature 98 F 98.5 F 98.2 F Pulse Rate 84 84 85 Respiratory Rate 16 16 16 Blood Pressure 106/55 L 111/62 132/67 Pulse Oximetry 94 L 94 L 945 H 02/13/18 05:44 02/13/18 08:00 02/13/18 12:00 Temperature 98.0 F Pulse Rate 80 77 Respiratory Rate 20 Blood Pressure 108/62 125/70 Pulse Oximetry 93 L 02/13/18 14:03 02/13/18 14:30 02/13/18 14:45 Temperature 97.9 F 97.9 F Pulse Rate 79 79 84 Respiratory Rate 18 18 18 Blood Pressure 145/76 H 145/76 H 169/91 H Pulse Oximetry 92 L 79 L 96 02/13/18 15:15 02/13/18 15:45 02/13/18 16:00 Temperature Pulse Rate 89 89 89 Respiratory Rate 18 16 Blood Pressure 179/84 H 179/92 H Pulse Oximetry 94 L 95 02/13/18 16:15 02/13/18 16:41 02/13/18 16:58 Temperature 98.4 F Pulse Rate 90 92 H Respiratory Rate 16 16 20 Blood Pressure 167/74 H 141/96 H Pulse Oximetry 92 L 94 L Intake & Output 02/13/18 02/13/18 02/14/18 06:59 18:59 06:59 Intake Total 120 / 120 250 / 250 Output Total 4000 / 4000 Balance 120 / 120 -3750 / -3750 Weight 61.6 kg Intake: IV 250 / 250 NS Inj 250 ML @ 0 mls/hr .ROUTE 250 / 250 .STK-MED ONE Rx#:[id number] Oral 120 / 120 Output: Hemodialysis Amount 4000 / 4000 Other: Date of Last Bowel Movement 02/11/18 # Bowel Movements 1 Narrative: GENERAL: Thin mid aged A/A female Patient is alert, no distress CARDIO: Regular No murmur or S3 RESP: Bi basal crackles and mild wheeze. upper chest ABD: Abdomen soft, non-tender, nondistended. Normal active bowel sounds MUSCULOSKELETAL: Mild edema bilateral LE . NEURO: Alert & Orientedx3, No focal deficits. - Urinary Catheter Management Indwelling Urethral Catheter Cath placed during this visit: yes, but has since been removed by the nurse Urethral indwelling: Yes Reason for continuing: Terminally ill/Comfort care Insertion date: 01/21/18 Insertion time: 12:40 Removal date: 02/03/18 Removal time: 07:00 Results - Labs CBC & Chem 7: 02/10/18 06:21 02/13/18 08:15 Laboratory Results - last 24 hr 02/12/18 02/13/18 02/13/18 20:18 07:55 08:15 Sodium 136 Potassium 4.2 Chloride 97 L Carbon Dioxide 27.5 Anion Gap 12 BUN 59 H Creatinine 4.00 H Estimated GFR 14 L POC Glucose 119 H 90 Random Glucose 71 L Calcium 8.9 02/13/18 02/13/18 14:57 17:18 Sodium Potassium Chloride Carbon Dioxide Anion Gap BUN Creatinine Estimated GFR POC Glucose 149 H 199 H Random Glucose Calcium - Imaging Impressions Central Venous Line 02/13/18 00:00 CONCLUSION: Chest X-Ray 02/13/18 00:00 CONCLUSION: Assessment and Plan - Assessment (1) Respiratory failure Code(s): J96.90 - Respiratory failure, unspecified, unspecified whether with hypoxia or hypercapnia Status: Acute (2) Pulmonary edema Code(s): J81.1 - Chronic pulmonary edema Status: Acute (3) Constipation Code(s): K59.00 - Constipation, unspecified Status: Acute (4) Nonischemic cardiomyopathy Code(s): I42.8 - Other cardiomyopathies Status: Chronic (5) Diabetes Code(s): E11.9 - Type 2 diabetes mellitus without complications Status: Chronic (6) Acute on chronic kidney failure Code(s): N17.9 - Acute kidney failure, unspecified; N18.9 - Chronic kidney disease, unspecified Status: Acute (7) Hyperkalemia Code(s): E87.5 - Hyperkalemia Status: Acute (8) HTN (hypertension) Code(s): I10 - Essential (primary) hypertension Status: Acute (9) Elevated LFTs Code(s): R94.5 - Abnormal results of liver function studies Status: Acute (10) Ascites Code(s): R18.8 - Other ascites Status: Acute - Plan 1. O2 2 L PRN 2. Nebs TID , Duoneb 3. Continue Dialysis per renal 4. CBC,BMP 5. IS at Bedside Q3H 6. PT evaluation for ambulation (5) Diabetes Qualifiers: Diabetes mellitus type: type 2 Diabetes mellitus long-term insulin use: with long term care administrator use Diabetes mellitus complication status: with unspecified complications Qualified Code(s): E11.8 - Type 2 diabetes mellitus with unspecified complications; Z79.4 - long-term (current) use of insulin (6) Acute on chronic kidney failure Qualifiers: Chronic kidney disease stage: on chronic dialysis
[2018-02-14] MEDS: Docusate Sodium 100 MG Capsule PO SCH ×2 (09:12→21:56)
[2018-02-14] MEDS: Folic Acid 1 MG Tablet PO SCH (09:13)
[2018-02-14] MEDS: Isosorbide Mononitrate 20 MG Tablet PO SCH ×2 (09:13→21:51)
[2018-02-14] MEDS: Mupirocin 2% Nasal Oint Topical Syringe EACH NARE SCH ×2 (09:13→21:56)
[2018-02-14] MEDS: Minoxidil 2.5 MG Tablet PO SCH (09:13)
[2018-02-14] MEDS: Lactobacillus Acidophilus/L. Spores Tablet PO SCH ×2 (09:13→21:51)
[2018-02-14] MEDS: Insulin Detemir Inj 1,000 UNIT/10 ML Vial SQ SCH ×2 (09:14→21:51)
[2018-02-14] MEDS: Insulin NovoLOG Aspart Correctional Sugar Inj SQ SCH ×4 (09:14→23:32)
[2018-02-14] MEDS: Carvedilol 12.5 MG Tablet PO SCH ×2 (09:16→21:51)
[2018-02-14] MEDS: metOLazone 5 MG Tablet PO SCH ×2 (09:24→17:17)
--- NOTE | 2018-02-14 09:58 | P.PNIM ---
Subjective Interval history: no new complaints. hungry. Physical Exam Vital signs: Vital Signs 02/13/18 12:00 02/13/18 14:03 02/13/18 14:30 Temperature 97.9 F 97.9 F Pulse Rate 77 79 79 Respiratory Rate 18 18 Blood Pressure 145/76 H 145/76 H Pulse Oximetry 92 L 79 L 02/13/18 14:45 02/13/18 15:15 02/13/18 15:45 Temperature Pulse Rate 84 89 89 Respiratory Rate 18 18 16 Blood Pressure 169/91 H 179/84 H 179/92 H Pulse Oximetry 96 94 L 95 02/13/18 16:00 02/13/18 16:15 02/13/18 16:41 Temperature Pulse Rate 89 90 Respiratory Rate 16 16 Blood Pressure 167/74 H Pulse Oximetry 92 L 02/13/18 16:58 02/13/18 20:00 02/14/18 00:00 Temperature 98.4 F 98.4 F 98.6 F Pulse Rate 92 H 67 77 Respiratory Rate 20 18 18 Blood Pressure 141/96 H 124/58 L 127/60 Pulse Oximetry 94 L 94 L 93 L 02/14/18 04:00 02/14/18 08:00 Temperature 97.6 F 97.6 F Pulse Rate 67 70 Respiratory Rate 18 17 Blood Pressure 129/61 116/56 L Pulse Oximetry 96 95 Intake & Output 02/13/18 02/14/18 02/14/18 18:59 06:59 18:59 Intake Total 250 / 250 480 / 480 Output Total 4000 / 4000 Balance -3750 / -3750 480 / 480 Weight 62.9 kg Intake: IV 250 / 250 NS Inj 250 ML @ 0 mls/hr .ROUTE 250 / 250 .[facility] Rx#:[id number] Oral 480 / 480 Output: Hemodialysis Amount 4000 / 4000 Other: # Voids 1 Date of Last Bowel Movement 02/14/18 # Bowel Movements 2 nad. right permcath.dried blood around it. heart reg lung cta abd s/nt hard edema abdomen/arm/legs improved. - Urinary Catheter Management Indwelling Urethral Catheter Cath placed during this visit: yes, but has since been removed by the nurse Urethral indwelling: Yes Reason for continuing: Terminally ill/Comfort care Insertion date: 01/21/18 Insertion time: 12:40 Removal date: 02/03/18 Removal time: 07:00 Results - Labs CBC & Chem 7: 02/10/18 06:21 02/13/18 08:15 Laboratory Results - last 24 hr 02/13/18 02/13/18 02/13/18 08:15 14:57 17:18 Sodium 136 Potassium 4.2 Chloride 97 L Carbon Dioxide 27.5 Anion Gap 12 BUN 59 H Creatinine 4.00 H Estimated GFR 14 L POC Glucose 149 H 199 H Random Glucose 71 L Calcium 8.9 02/13/18 02/14/18 20:51 09:12 Sodium Potassium Chloride Carbon Dioxide Anion Gap BUN Creatinine Estimated GFR POC Glucose 208 H 180 H Random Glucose Calcium - Imaging Impressions Central Venous Line 02/13/18 00:00 CONCLUSION: Assessment and Plan - Assessment (1) Nonischemic cardiomyopathy Code(s): I42.8 - Other cardiomyopathies Status: Chronic Plan: Nonischemic cardiomyopathy Chronic systolic CHF with EF 15-20% s/p AICD - comgmt with Palliative Medicine, Cardiology - Pt was reportedly evaluated at [facility] recently for Heart transplant vs. LVAD but had a stroke during that admission and was not felt to be a good candidate after the CVA. - 2D echo (01/21/18): - Estimated ejection fraction of 45-50%. No segmental wall motion abnormalities. - Possible mild right ventricular enlargement with normal systolic function. - A pacemaker wire is noted. - Mild mitral valve regurgitation. - Mild tricuspid valve regurgitation. - Estimated pulmonary arterial pressure is 35 mmHg - 01/30 radionucleotide venogram no evidence of thrombus - Pt developed Respiratory failure. Pt transferred to ICU 01/31 - HD started 01/31 - 4.5L removed with HD (02/08) - Zaroxolyn 5mg BID - DVT prophylaxis with Eliquis - supportive care - Attempted to discuss code status with pt (02/07). Pt became tearful & refused to discuss topic. - Pt's prognosis is poor & pt is at high risk for readmission Pt will need permcath. eliquis held starting today so hopefully can place on . needs outpt HD arrangement per renal and CM dc to snf once arranged. Abdominal pain Nausea/vomiting Constipation, improved - Pt is a 52 y/o AAF with chronic systolic CHF, nonischemic cardiomyopathy with EF 15-20% s/p AICD, hx of CVA in 12/2017 (Bilateral acute to subacute posterior cerebral artery infarcts on Head CT on 12/22/17), congestive hepatopathy, ascites , HTN, CKD, stage 3, and type 2 diabetes mellitus, insulin dependent. Pt has had multiple hospitalizations at [facility] in [place] and [facility] in the last several month for various issues related to her CHF /Cardiomyopathy, DKA, Acute on chronic renal failure, CVA. After her most recent admission from 12/02/17 to 01/08/18 was for CHF and was transferred to [facility] to be evaluated for possible heart transplant vs. LVAD. During that admission she had an acute CVA with resulting left sided weakness and felt that she was not a good candidate for advanced heart failure treatment. Pt was discharged to [facility] on 01/08/18. - She was brought to the ED from a local rehab center for hyperkalemia and N/V. She has noted issues with constipation more recently. Over the last two days she has had nausea/vomiting and has not been eating much. She has not passed any stool in the last two days either. - CT abd/pelvis in the ED which noted moderate ascites and anasarca, cardiomegaly with pacer lead tip in right ventricle, and small fat-containing umbilical hernia. No bowel obstruction. In reviewing the images she has a significant amount of stool throughout the colon and in the rectum. - Pt had a small BM on 01/17 but had been refusing the Lactulose BID - Pt was given Mag Citrate and Colace BID on 01/18 but no significant stooling - Pt had Gastrografin enema on 01/20 with large volume of stool output abdomen distention. constipation and stool noted on kub. laxatives ordered. bowels moving u/s abdomen mod ascites. anticoagulation on hold and consider therapeutic paracentesis. today abdomen softer. Permcath placed on 02/13. resume anticoagulation tomorrow dc to snf over weekend once HD arranged if ok with Renal. Diabetes mellitus, poorly controlled Hgb A1C 14.4 on 08/31/17 Hypoglycemia - levemir 10 units BID Hyperkalemia Acute on chronic renal disease, stage 3 - see above HTN (hypertension) - Cont. home meds - BP is poorly controlled on multiple medications: Coreg 12.5mg BID, Clonidine 0.2mg Q8H, Hydralazine 100mg Q8H, Minoxidil 5mg po daily, Procardia XL 30mg po BID - Clonidine PRN - Monitor closely Elevated LFTs Congestive hepatopathy Ascites - Review of outpt records show the pts AlkPhos has been elevated since 10/2016 - AlkPhos Isoenzyme in 10/2017 noted 72% liver, 20% bone, 8% intestine - Transjugular liver bx (12/20/17) --> Findings suggestive of congestive hepatopathy. Anemia - patient's hgb has been trending down on admission hgb 10.4 - iron 17, TIBC 176, % saturation 9.6 - reticulocyte count 0.9 - occult stool requested - Ferrous sulfate PO BID
[2018-02-14] MEDS: Bisacodyl 10 MG Supp RECTAL PRN (11:11)
--- NOTE | 2018-02-14 12:14 | P.DIET ---
Nutritional Evaluation Type of nutrition evaluation: initial Nutrition consult regarding: Diet Evaluation (MDC for Poor PO Intake) Subjective Subjective Comments: Pt denied N/V/D. Complains of constipation and was currently in the process of trying to pass a BM during my visit. Pt acceptable to Nepro BID. Objective - Diagnosis Abdominal Pain, GE, Hyperkalemia, Acute Exac CHF - Objective % IBW: 115 (AON=675#) Body Weight Used for Calculations: Actual (62.9kg) Energy Needs - Lower Range (kCal/kg): 25 Energy Needs - Upper Range (kCal/kg): 30 Lower Limit kCal/kg (kCals): 1,573 Upper Limit kCal/kg (kCals): 1,887 Lower Limit Protein Factor (Grams per Kg): 1.2 Lower Protein Needs (Protein): 75 Dietitian Reviewed in Medical Record: Current diet, Curent medications, Intake & Output, Labs, Medical history Diet Order: Oral Diet Intake Amount: Good 75-90% Objective Comments: Meds: Ferrous Sulfate, Folic Acid, Lactinex, Lactulose, Thiamine LBM 02/14 +MRSA Feeding - Current PO Supplement Current Supplement: Nepro Current Frequency of Supplement: Twice daily Current kCals Provided by Supplement: 425 Current Protein Provided by Supplement: 19 Assessment Assessment: Pt admitted for abdominal pain, GE, hyperkalemia, and acute exacerbation of CHF. Pt is at 115% of her IBW. Current wt resembles pt's near dry wt. Pt has no complaints regarding appetite and states she was already hungry for lunch. Estimates that she eats 75-100% of her meals. Acceptable to Nepro BID while on HD. Currently on a 2000ADA diet, recommend an 1800ADA diet to better meet pts nutritional needs. Dietitian following. Recommendations: 1. Recommend 1800ADA diet to better meet nutritional requirements. 2. Nepro BID while on HD. Dietitian to Monitor: Lab values, Renal labs, Glucose level, Supplement acceptance, Intake & Output, Diet tolerance, Weight change, PO Intake, Medical course
[2018-02-14] MEDS: Ferrous Sulfate 325 MG Tablet PO SCH ×2 (12:18→17:17)
--- NOTE | 2018-02-14 18:51 | P.PNNP ---
Subjective Interval history: Patient seen in AM, breathing is better, not in distress. Physical Exam Vital signs: Vital Signs 02/13/18 20:00 02/14/18 00:00 02/14/18 04:00 Temperature 98.4 F 98.6 F 97.6 F Pulse Rate 67 77 67 Respiratory Rate 18 18 18 Blood Pressure 124/58 L 127/60 129/61 Pulse Oximetry 94 L 93 L 96 02/14/18 08:00 02/14/18 12:00 02/14/18 16:00 Temperature 97.6 F 97.3 F L 97.8 F Pulse Rate 69 70 72 Respiratory Rate 17 17 17 Blood Pressure 116/56 L 92/53 L 130/77 Pulse Oximetry 95 91 L 96 Intake & Output 02/13/18 02/14/18 02/14/18 18:59 06:59 18:59 Intake Total 250 / 250 480 / 480 600 / 600 Output Total 4000 / 4000 Balance -3750 / -3750 480 / 480 600 / 600 Weight 62.9 kg Intake: IV 250 / 250 NS Inj 250 ML @ 0 mls/hr .ROUTE 250 / 250 .[facility] Rx#:[id number] Oral 480 / 480 600 / 600 Output: Hemodialysis Amount 4000 / 4000 Other: # Voids 1 0 Date of Last Bowel Movement 02/14/18 02/14/18 # Bowel Movements 2 1 Narrative: GENERAL: Thin mid aged A/A female Patient is alert, no distress CARDIO: Regular No murmur or S3 RESP: Bi basal crackles and mild wheeze. upper chest ABD: Abdomen soft, non-tender, nondistended. Normal active bowel sounds MUSCULOSKELETAL: Mild edema bilateral LE . NEURO: Alert & Orientedx3, No focal deficits. - Urinary Catheter Management Indwelling Urethral Catheter Cath placed during this visit: yes, but has since been removed by the nurse Urethral indwelling: Yes Reason for continuing: Terminally ill/Comfort care Insertion date: 01/21/18 Insertion time: 12:40 Removal date: 02/03/18 Removal time: 07:00 Assessment and Plan - Assessment (1) Acute on chronic kidney failure Code(s): N17.9 - Acute kidney failure, unspecified; N18.9 - Chronic kidney disease, unspecified Status: Acute Qualifiers: Chronic kidney disease stage: on chronic dialysis Plan: Patient has chronic kidney disease and develop VICTORINA. Urine out put is slightly better, has urine incontinence. BP is stable. Most likely will need to continue HD for now. Need to prepare for out patient HD. PermCath done, HD to continue 3 times a week. Out patient HD arrangement in progress. (2) Nonischemic cardiomyopathy Code(s): I42.8 - Other cardiomyopathies Status: Chronic (3) Diabetes Code(s): E11.9 - Type 2 diabetes mellitus without complications Status: Chronic Qualifiers: Diabetes mellitus type: type 2 Diabetes mellitus senior living insulin use: with terminal superintendent use Diabetes mellitus complication status: with unspecified complications Qualified Code(s): E11.8 - Type 2 diabetes mellitus with unspecified complications; Z79.4 - long-term (current) use of insulin - Plan Patient had hemodialysis yesterday tolerating dialysis well ultrafiltration of 5 L Continue supportive care Fluid removal with dialysis Patient has underlying diabetes Follow-up with Dr. Ahmadi
--- NOTE | 2018-02-14 18:55 | P.PN ---
Subjective Interval history: Alert and on o2 3 L. No chest pains or SOB. Physical Exam Vital signs: Vital Signs 02/13/18 20:00 02/14/18 00:00 02/14/18 04:00 Temperature 98.4 F 98.6 F 97.6 F Pulse Rate 67 77 67 Respiratory Rate 18 18 18 Blood Pressure 124/58 L 127/60 129/61 Pulse Oximetry 94 L 93 L 96 02/14/18 08:00 02/14/18 12:00 02/14/18 16:00 Temperature 97.6 F 97.3 F L 97.8 F Pulse Rate 69 70 72 Respiratory Rate 17 17 17 Blood Pressure 116/56 L 92/53 L 130/77 Pulse Oximetry 95 91 L 96 Intake & Output 02/13/18 02/14/18 02/14/18 18:59 06:59 18:59 Intake Total 250 / 250 480 / 480 600 / 600 Output Total 4000 / 4000 Balance -3750 / -3750 480 / 480 600 / 600 Weight 62.9 kg Intake: IV 250 / 250 NS Inj 250 ML @ 0 mls/hr .ROUTE 250 / 250 .[facility] Rx#:[id number] Oral 480 / 480 600 / 600 Output: Hemodialysis Amount 4000 / 4000 Other: # Voids 1 0 Date of Last Bowel Movement 02/14/18 02/14/18 # Bowel Movements 2 1 Narrative: GENERAL: Thin mid aged A/A female Patient is alert, pale in no distress CARDIO: Regular No murmur or S3 RESP: Occ basal crackles and mild wheeze. upper chest ABD: Abdomen soft, non-tender, nondistended. Normal active bowel sounds MUSCULOSKELETAL: Mild edema bilateral LE . NEURO: Alert & Orientedx3, No focal deficits. - Urinary Catheter Management Indwelling Urethral Catheter Cath placed during this visit: yes, but has since been removed by the nurse Urethral indwelling: Yes Reason for continuing: Terminally ill/Comfort care Insertion date: 01/21/18 Insertion time: 12:40 Removal date: 02/03/18 Removal time: 07:00 Results - Labs CBC & Chem 7: 02/10/18 06:21 02/13/18 08:15 Laboratory Results - last 24 hr 02/13/18 02/14/18 02/14/18 20:51 09:12 12:18 POC Glucose 208 H 180 H 174 H 02/14/18 17:17 POC Glucose 88 - Imaging Impressions Chest X-Ray 02/13/18 00:00 CONCLUSION: Stable cardiomegaly. Assessment and Plan - Assessment (1) Respiratory failure Code(s): J96.90 - Respiratory failure, unspecified, unspecified whether with hypoxia or hypercapnia Status: Acute (2) Pulmonary edema Code(s): J81.1 - Chronic pulmonary edema Status: Acute (3) Constipation Code(s): K59.00 - Constipation, unspecified Status: Acute (4) Nonischemic cardiomyopathy Code(s): I42.8 - Other cardiomyopathies Status: Chronic (5) Diabetes Code(s): E11.9 - Type 2 diabetes mellitus without complications Status: Chronic (6) Acute on chronic kidney failure Code(s): N17.9 - Acute kidney failure, unspecified; N18.9 - Chronic kidney disease, unspecified Status: Acute (7) Hyperkalemia Code(s): E87.5 - Hyperkalemia Status: Acute (8) HTN (hypertension) Code(s): I10 - Essential (primary) hypertension Status: Acute (9) Elevated LFTs Code(s): R94.5 - Abnormal results of liver function studies Status: Acute (10) Ascites Code(s): R18.8 - Other ascites Status: Acute - Plan 1. O2 2 L PRN 2. Nebs TID , Duoneb 3. Continue Dialysis per renal 4. Check Room air sats 5. 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
--- NOTE | 2018-02-15 10:15 | P.PNNP ---
Subjective Interval history: Patient seen during HD, alert, no SOB, feeling better. Physical Exam Vital signs: Vital Signs 02/14/18 12:00 02/14/18 16:00 02/14/18 20:00 Temperature 97.3 F L 97.8 F 98 F Pulse Rate 70 72 75 Respiratory Rate 17 17 17 Blood Pressure 92/53 L 130/77 107/55 L Pulse Oximetry 91 L 96 98 02/15/18 00:00 02/15/18 04:00 02/15/18 08:00 Temperature 97.8 F 97.8 F 97.3 F L Pulse Rate 79 78 70 Respiratory Rate 18 20 18 Blood Pressure 121/58 L 116/56 L 125/65 Pulse Oximetry 94 L 95 94 L Intake & Output 02/14/18 02/15/18 02/15/18 18:59 06:59 18:59 Intake Total 600 / 600 440 / 440 Balance 600 / 600 440 / 440 Weight 61.8 kg Intake: Oral 600 / 600 440 / 440 Other: # Voids 0 1 Date of Last Bowel Movement 02/14/18 # Bowel Movements 1 1 # Incontinent Bowel Movements 3 Narrative: GENERAL: Thin mid aged A/A female Patient is alert, pale in no distress CARDIO: Regular No murmur or S3 RESP: Occ basal crackles and mild wheeze. upper chest ABD: Abdomen soft, non-tender, nondistended. Normal active bowel sounds MUSCULOSKELETAL: Mild edema bilateral LE . NEURO: Alert & Orientedx3, No focal deficits. - Urinary Catheter Management Indwelling Urethral Catheter Cath placed during this visit: yes, but has since been removed by the nurse Urethral indwelling: Yes Reason for continuing: Terminally ill/Comfort care Insertion date: 01/21/18 Insertion time: 12:40 Removal date: 02/03/18 Removal time: 07:00 Assessment and Plan - Assessment (1) Acute on chronic kidney failure Code(s): N17.9 - Acute kidney failure, unspecified; N18.9 - Chronic kidney disease, unspecified Status: Acute Qualifiers: Chronic kidney disease stage: on chronic dialysis Plan: Patient has chronic kidney disease and develop VICTORINA. Urine out put is slightly better, has urine incontinence. BP is stable. Most likely will need to continue HD for now. Need to prepare for out patient HD. PermCath done, HD to continue 3 times a week. Out patient HD arrangement in progress. HD now, removing fluid as tolerated. 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 Ahmadi
--- NOTE | 2018-02-15 10:22 | P.PNIM ---
Subjective Interval history: no new events. Physical Exam Vital signs: Vital Signs 02/14/18 12:00 02/14/18 16:00 02/14/18 20:00 Temperature 97.3 F L 97.8 F 98 F Pulse Rate 70 72 75 Respiratory Rate 17 17 17 Blood Pressure 92/53 L 130/77 107/55 L Pulse Oximetry 91 L 96 98 02/15/18 00:00 02/15/18 04:00 02/15/18 08:00 Temperature 97.8 F 97.8 F 97.3 F L Pulse Rate 79 78 70 Respiratory Rate 18 20 18 Blood Pressure 121/58 L 116/56 L 125/65 Pulse Oximetry 94 L 95 94 L Intake & Output 02/14/18 02/15/18 02/15/18 18:59 06:59 18:59 Intake Total 600 / 600 440 / 440 Balance 600 / 600 440 / 440 Weight 61.8 kg Intake: Oral 600 / 600 440 / 440 Other: # Voids 0 1 Date of Last Bowel Movement 02/14/18 # Bowel Movements 1 1 # Incontinent Bowel Movements 3 heent neg heart reg lung cta abd s/nt ext anasarca better. right permcath. - Urinary Catheter Management Indwelling Urethral Catheter Cath placed during this visit: yes, but has since been removed by the nurse Urethral indwelling: Yes Reason for continuing: Terminally ill/Comfort care Insertion date: 01/21/18 Insertion time: 12:40 Removal date: 02/03/18 Removal time: 07:00 Results - Labs CBC & Chem 7: 02/10/18 06:21 02/13/18 08:15 Laboratory Results - last 24 hr 02/14/18 02/14/18 02/14/18 12:18 17:17 20:10 POC Glucose 174 H 88 98 02/15/18 07:40 POC Glucose 325 H - Imaging Impressions Chest X-Ray 02/13/18 00:00 CONCLUSION: Stable cardiomegaly. Assessment and Plan - Assessment (1) Nonischemic cardiomyopathy Code(s): I42.8 - Other cardiomyopathies Status: Chronic Plan: Nonischemic cardiomyopathy Chronic systolic CHF with EF 15-20% s/p AICD - comgmt with Palliative Medicine, Cardiology - Pt was reportedly evaluated at [facility] recently for Heart transplant vs. LVAD but had a stroke during that admission and was not felt to be a good candidate after the CVA. - 2D echo (01/21/18): - Estimated ejection fraction of 45-50%. No segmental wall motion abnormalities. - Possible mild right ventricular enlargement with normal systolic function. - A pacemaker wire is noted. - Mild mitral valve regurgitation. - Mild tricuspid valve regurgitation. - Estimated pulmonary arterial pressure is 35 mmHg - 01/30 radionucleotide venogram no evidence of thrombus - Pt developed Respiratory failure. Pt transferred to ICU 01/31 - HD started 01/31 - 4.5L removed with HD (02/08) - Zaroxolyn 5mg BID - DVT prophylaxis with Eliquis - supportive care - Attempted to discuss code status with pt (02/07). Pt became tearful & refused to discuss topic. - Pt's prognosis is poor & pt is at high risk for readmission Pt will need permcath. eliquis held starting today so hopefully can place on . needs outpt HD arrangement per renal and CM dc to snf once arranged. Abdominal pain Nausea/vomiting Constipation, improved - Pt is a 52 y/o AAF with chronic systolic CHF, nonischemic cardiomyopathy with EF 15-20% s/p AICD, hx of CVA in 12/2017 (Bilateral acute to subacute posterior cerebral artery infarcts on Head CT on 12/22/17), congestive hepatopathy, ascites , HTN, CKD, stage 3, and type 2 diabetes mellitus, insulin dependent. Pt has had multiple hospitalizations at [facility] in [place] and [facility] in the last several month for various issues related to her CHF /Cardiomyopathy, DKA, Acute on chronic renal failure, CVA. After her most recent admission from 12/02/17 to 01/08/18 was for CHF and was transferred to [facility] to be evaluated for possible heart transplant vs. LVAD. During that admission she had an acute CVA with resulting left sided weakness and felt that she was not a good candidate for advanced heart failure treatment. Pt was discharged to [facility] on 01/08/18. - She was brought to the ED from a local rehab center for hyperkalemia and N/V. She has noted issues with constipation more recently. Over the last two days she has had nausea/vomiting and has not been eating much. She has not passed any stool in the last two days either. - CT abd/pelvis in the ED which noted moderate ascites and anasarca, cardiomegaly with pacer lead tip in right ventricle, and small fat-containing umbilical hernia. No bowel obstruction. In reviewing the images she has a significant amount of stool throughout the colon and in the rectum. - Pt had a small BM on 01/17 but had been refusing the Lactulose BID - Pt was given Mag Citrate and Colace BID on 01/18 but no significant stooling - Pt had Gastrografin enema on 01/20 with large volume of stool output abdomen distention. constipation and stool noted on kub. laxatives ordered. bowels moving u/s abdomen mod ascites. anticoagulation on hold and consider therapeutic paracentesis. today abdomen softer. Permcath placed on 02/13. resume anticoagulation tomorrow dc to snf once snf and HD arranged. pt medically stable. getting HD today. Diabetes mellitus, poorly controlled Hgb A1C 14.4 on 08/31/17 Hypoglycemia - levemir 10 units BID Hyperkalemia Acute on chronic renal disease, stage 3 - see above HTN (hypertension) - Cont. home meds - BP is poorly controlled on multiple medications: Coreg 12.5mg BID, Clonidine 0.2mg Q8H, Hydralazine 100mg Q8H, Minoxidil 5mg po daily, Procardia XL 30mg po BID - Clonidine PRN - Monitor closely Elevated LFTs Congestive hepatopathy Ascites - Review of outpt records show the pts AlkPhos has been elevated since 10/2016 - AlkPhos Isoenzyme in 10/2017 noted 72% liver, 20% bone, 8% intestine - Transjugular liver bx (12/20/17) --> Findings suggestive of congestive hepatopathy. Anemia - patient's hgb has been trending down on admission hgb 10.4 - iron 17, TIBC 176, % saturation 9.6 - reticulocyte count 0.9 - occult stool requested - Ferrous sulfate PO BID
[2018-02-15] MEDS: Insulin NovoLOG Aspart Correctional Sugar Inj SQ SCH ×4 (13:41→21:11)
[2018-02-15] MEDS: Carvedilol 12.5 MG Tablet PO SCH ×2 (13:42→20:39)
[2018-02-15] MEDS: Isosorbide Mononitrate 20 MG Tablet PO SCH ×2 (13:42→20:39)
[2018-02-15] MEDS: Docusate Sodium 100 MG Capsule PO SCH ×2 (13:43→20:42)
[2018-02-15] MEDS: metOLazone 5 MG Tablet PO SCH ×2 (13:43→17:54)
[2018-02-15] MEDS: Minoxidil 2.5 MG Tablet PO SCH (13:43)
[2018-02-15] MEDS: Folic Acid 1 MG Tablet PO SCH (13:43)
[2018-02-15] MEDS: Lactobacillus Acidophilus/L. Spores Tablet PO SCH ×2 (13:43→20:38)
[2018-02-15] MEDS: Mupirocin 2% Nasal Oint Topical Syringe EACH NARE SCH ×2 (13:44→20:39)
[2018-02-15] MEDS: Insulin Detemir Inj 1,000 UNIT/10 ML Vial SQ SCH ×2 (13:45→20:39)
[2018-02-15] MEDS: Ferrous Sulfate 325 MG Tablet PO SCH ×2 (16:10→17:50)
[2018-02-16] MEDS: Lactobacillus Acidophilus/L. Spores Tablet PO SCH ×2 (09:11→21:02)
[2018-02-16] MEDS: Mupirocin 2% Nasal Oint Topical Syringe EACH NARE SCH ×2 (09:11→21:03)
[2018-02-16] MEDS: Folic Acid 1 MG Tablet PO SCH (09:12)
[2018-02-16] MEDS: Minoxidil 2.5 MG Tablet PO SCH (09:12)
[2018-02-16] MEDS: Isosorbide Mononitrate 20 MG Tablet PO SCH ×2 (09:12→21:07)
[2018-02-16] MEDS: Carvedilol 12.5 MG Tablet PO SCH ×2 (09:12→21:03)
[2018-02-16] MEDS: Docusate Sodium 100 MG Capsule PO SCH ×2 (09:13→21:02)
--- NOTE | 2018-02-16 09:33 | P.PNIM ---
Subjective Interval history: doing well no events overnight. Physical Exam Vital signs: Vital Signs 02/15/18 12:00 02/15/18 16:00 02/15/18 20:00 Temperature 97.8 F 97.4 F L 97.1 F L Pulse Rate 72 73 77 Respiratory Rate 18 18 18 Blood Pressure 163/77 H 159/77 H 138/75 Pulse Oximetry 95 96 99 02/15/18 22:17 02/16/18 00:00 02/16/18 04:00 Temperature 97.8 F 97.9 F Pulse Rate 79 77 Respiratory Rate 18 18 Blood Pressure 110/64 126/75 Pulse Oximetry 95 94 L 98 Intake & Output 02/15/18 02/16/18 02/16/18 18:59 06:59 18:59 Intake Total 360 / 360 462 / 462 Balance 360 / 360 462 / 462 Weight 62.1 kg Intake: Oral 360 / 360 462 / 462 Other: # Voids 1 1 # Bowel Movements 0 heart reg lung cta abd s/nt ext hard edema ue/le/abdomen improving right permcath. - Urinary Catheter Management Indwelling Urethral Catheter Cath placed during this visit: yes, but has since been removed by the nurse Urethral indwelling: Yes Reason for continuing: Terminally ill/Comfort care Insertion date: 01/21/18 Insertion time: 12:40 Removal date: 02/03/18 Removal time: 07:00 Results - Labs CBC & Chem 7: 02/10/18 06:21 02/13/18 08:15 Laboratory Results - last 24 hr 02/15/18 02/15/18 02/15/18 11:36 17:50 20:38 POC Glucose 190 H 171 H 237 H Assessment and Plan - Assessment (1) Nonischemic cardiomyopathy Code(s): I42.8 - Other cardiomyopathies Status: Chronic Plan: Nonischemic cardiomyopathy Chronic systolic CHF with EF 15-20% s/p AICD - comgmt with Palliative Medicine, Cardiology - Pt was reportedly evaluated at [facility] recently for Heart transplant vs. LVAD but had a stroke during that admission and was not felt to be a good candidate after the CVA. - 2D echo (01/21/18): - Estimated ejection fraction of 45-50%. No segmental wall motion abnormalities. - Possible mild right ventricular enlargement with normal systolic function. - A pacemaker wire is noted. - Mild mitral valve regurgitation. - Mild tricuspid valve regurgitation. - Estimated pulmonary arterial pressure is 35 mmHg - 01/30 radionucleotide venogram no evidence of thrombus - Pt developed Respiratory failure. Pt transferred to ICU 01/31 - HD started 01/31 - 4.5L removed with HD (02/08) - Zaroxolyn 5mg BID - DVT prophylaxis with Eliquis - supportive care - Attempted to discuss code status with pt (02/07). Pt became tearful & refused to discuss topic. - Pt's prognosis is poor & pt is at high risk for readmission Permcath placed. functioning ok. HD yesterday. resume eliquis. dc orders written . awaiting snf and HD arrangement. Abdominal pain Nausea/vomiting Constipation, improved - Pt is a 52 y/o AAF with chronic systolic CHF, nonischemic cardiomyopathy with EF 15-20% s/p AICD, hx of CVA in 12/2017 (Bilateral acute to subacute posterior cerebral artery infarcts on Head CT on 12/22/17), congestive hepatopathy, ascites , HTN, CKD, stage 3, and type 2 diabetes mellitus, insulin dependent. Pt has had multiple hospitalizations at [facility] in [place] and [facility] in the last several month for various issues related to her CHF /Cardiomyopathy, DKA, Acute on chronic renal failure, CVA. After her most recent admission from 12/02/17 to 01/08/18 was for CHF and was transferred to [facility] to be evaluated for possible heart transplant vs. LVAD. During that admission she had an acute CVA with resulting left sided weakness and felt that she was not a good candidate for advanced heart failure treatment. Pt was discharged to [facility] on 01/08/18. - She was brought to the ED from a local rehab center for hyperkalemia and N/V. She has noted issues with constipation more recently. Over the last two days she has had nausea/vomiting and has not been eating much. She has not passed any stool in the last two days either. - CT abd/pelvis in the ED which noted moderate ascites and anasarca, cardiomegaly with pacer lead tip in right ventricle, and small fat-containing umbilical hernia. No bowel obstruction. In reviewing the images she has a significant amount of stool throughout the colon and in the rectum. - Pt had a small BM on 01/17 but had been refusing the Lactulose BID - Pt was given Mag Citrate and Colace BID on 01/18 but no significant stooling - Pt had Gastrografin enema on 01/20 with large volume of stool output abdomen distention. constipation and stool noted on kub. laxatives ordered. bowels moving u/s abdomen mod ascites. anticoagulation on hold and consider therapeutic paracentesis. today abdomen softer. Permcath placed on 02/13. resume anticoagulation tomorrow dc to snf once snf and HD arranged. pt medically stable. getting HD today. Diabetes mellitus, poorly controlled Hgb A1C 14.4 on 08/31/17 Hypoglycemia - levemir 10 units BID Hyperkalemia Acute on chronic renal disease, stage 3 - see above HTN (hypertension) - Cont. home meds - BP is poorly controlled on multiple medications: Coreg 12.5mg BID, Clonidine 0.2mg Q8H, Hydralazine 100mg Q8H, Minoxidil 5mg po daily, Procardia XL 30mg po BID - Clonidine PRN - Monitor closely Elevated LFTs Congestive hepatopathy Ascites - Review of outpt records show the pts AlkPhos has been elevated since 10/2016 - AlkPhos Isoenzyme in 10/2017 noted 72% liver, 20% bone, 8% intestine - Transjugular liver bx (12/20/17) --> Findings suggestive of congestive hepatopathy. Anemia - patient's hgb has been trending down on admission hgb 10.4 - iron 17, TIBC 176, % saturation 9.6 - reticulocyte count 0.9 - occult stool requested - Ferrous sulfate PO BID
[2018-02-16] MEDS: metOLazone 5 MG Tablet PO SCH ×2 (11:18→21:07)
[2018-02-16] MEDS: Insulin Detemir Inj 1,000 UNIT/10 ML Vial SQ SCH ×2 (11:18→21:03)
[2018-02-16] MEDS: Insulin NovoLOG Aspart Correctional Sugar Inj SQ SCH ×4 (11:18→21:03)
--- NOTE | 2018-02-16 11:50 | P.PNNP ---
Subjective Interval history: Patient is sitting on the chair,. mild SOB, not in distress. Physical Exam Vital signs: Vital Signs 02/15/18 12:00 02/15/18 16:00 02/15/18 20:00 Temperature 97.8 F 97.4 F L 97.1 F L Pulse Rate 72 73 77 Respiratory Rate 18 18 18 Blood Pressure 163/77 H 159/77 H 138/75 Pulse Oximetry 95 96 99 02/15/18 22:17 02/16/18 00:00 02/16/18 04:00 Temperature 97.8 F 97.9 F Pulse Rate 79 77 Respiratory Rate 18 18 Blood Pressure 110/64 126/75 Pulse Oximetry 95 94 L 98 02/16/18 08:00 Temperature 98.1 F Pulse Rate 78 Respiratory Rate 18 Blood Pressure 121/72 Pulse Oximetry 98 Intake & Output 02/15/18 02/16/18 02/16/18 18:59 06:59 18:59 Intake Total 360 / 360 462 / 462 Balance 360 / 360 462 / 462 Weight 62.1 kg Intake: Oral 360 / 360 462 / 462 Other: # Voids 1 1 # Bowel Movements 0 Narrative: GENERAL: Thin mid aged A/A female Patient is alert, pale in no distress CARDIO: Regular No murmur or S3 RESP: Occ basal crackles and mild wheeze. upper chest ABD: Abdomen soft, non-tender, nondistended. Normal active bowel sounds MUSCULOSKELETAL: Mild edema bilateral LE . NEURO: Alert & Orientedx3, No focal deficits. - Urinary Catheter Management Indwelling Urethral Catheter Cath placed during this visit: yes, but has since been removed by the nurse Urethral indwelling: Yes Reason for continuing: Terminally ill/Comfort care Insertion date: 01/21/18 Insertion time: 12:40 Removal date: 02/03/18 Removal time: 07:00 Assessment and Plan - Assessment (1) Acute on chronic kidney failure Code(s): N17.9 - Acute kidney failure, unspecified; N18.9 - Chronic kidney disease, unspecified Status: Acute Qualifiers: Chronic kidney disease stage: on chronic dialysis Plan: Patient has chronic kidney disease and develop VICTORINA. Urine out put is slightly better, has urine incontinence. BP is stable. Most likely will need to continue HD for now. Need to prepare for out patient HD. PermCath done, HD to continue 3 times a week. Out patient HD arrangement in progress. HD done yesterday. Urine out put is low. For D/C once placement and HD arranged. (2) Nonischemic cardiomyopathy Code(s): I42.8 - Other cardiomyopathies Status: Chronic (3) Diabetes Code(s): E11.9 - Type 2 diabetes mellitus without complications Status: Chronic Qualifiers: Diabetes mellitus type: type 2 Diabetes mellitus detention insulin use: with emt intermediate use Diabetes mellitus complication status: with unspecified complications Qualified Code(s): E11.8 - Type 2 diabetes mellitus with unspecified complications; Z79.4 - halfway (current) use of insulin - Plan Patient had hemodialysis yesterday tolerating dialysis well ultrafiltration of 5 L Continue supportive care Fluid removal with dialysis Patient has underlying diabetes Follow-up with Dr. Ahmadi
[2018-02-16] MEDS: Ferrous Sulfate 325 MG Tablet PO SCH ×2 (15:28→17:22)
[2018-02-17] MEDS: Insulin NovoLOG Aspart Correctional Sugar Inj SQ SCH ×4 (08:37→21:03)
[2018-02-17] MEDS: Insulin Detemir Inj 1,000 UNIT/10 ML Vial SQ SCH ×2 (08:37→21:02)
[2018-02-17] MEDS: Folic Acid 1 MG Tablet PO SCH (11:04)
[2018-02-17] MEDS: Minoxidil 2.5 MG Tablet PO SCH (11:04)
[2018-02-17] MEDS: Docusate Sodium 100 MG Capsule PO SCH ×2 (11:04→21:00)
[2018-02-17] MEDS: Lactobacillus Acidophilus/L. Spores Tablet PO SCH ×2 (11:05→21:00)
[2018-02-17] MEDS: Carvedilol 12.5 MG Tablet PO SCH ×2 (11:05→21:01)
[2018-02-17] MEDS: Isosorbide Mononitrate 20 MG Tablet PO SCH ×2 (11:06→21:01)
[2018-02-17] MEDS: Mupirocin 2% Nasal Oint Topical Syringe EACH NARE SCH ×2 (11:14→21:01)
[2018-02-17] MEDS ORDERED: Sod Chloride 0.9% Inj 1,000 ML IV.CONT SCH (11:45)
[2018-02-17] MEDS: Ferrous Sulfate 325 MG Tablet PO SCH ×2 (12:42→16:09)
[2018-02-17] MEDS: metOLazone 5 MG Tablet PO SCH ×2 (12:42→17:57)
--- NOTE | 2018-02-17 16:58 | P.PNIM ---
Subjective Interval history: No new complaints. Physical Exam Vital signs: Vital Signs 02/17/18 04:00 02/17/18 08:00 02/17/18 12:00 Temperature 97.9 F 98.1 F 98.1 F Pulse Rate 77 97 H 76 Respiratory Rate 17 17 17 Blood Pressure 141/66 H 147/74 H 162/72 H Pulse Oximetry 95 96 99 Narrative: GENERAL: Thin mid aged A/A female Patient is alert, pale in no distress CARDIO: Regular No murmur or S3 RESP: clear x b/l ABD: Abdomen soft, non-tender, nondistended. Normal active bowel sounds MUSCULOSKELETAL: edema markedly improved from admission, but still with b/l LE woody edema, especially at posterior aspects of lower extremities. NEURO: Alert & Orientedx3, No focal deficits. - Urinary Catheter Management Indwelling Urethral Catheter Cath placed during this visit: yes, but has since been removed by the nurse Urethral indwelling: Yes Reason for continuing: Terminally ill/Comfort care Insertion date: 01/21/18 Insertion time: 12:40 Removal date: 02/03/18 Removal time: 07:00 Results - Labs CBC & Chem 7: 02/10/18 06:21 02/13/18 08:15 Laboratory Results - last 24 hr 02/16/18 02/17/18 02/17/18 19:40 00:23 07:19 POC Glucose 116 H 197 H 493 H* 02/17/18 02/17/18 02/17/18 11:17 14:38 16:08 POC Glucose 525 H* 247 H 143 H Assessment and Plan - Assessment (1) Nonischemic cardiomyopathy Code(s): I42.8 - Other cardiomyopathies Status: Chronic Plan: Nonischemic cardiomyopathy Chronic systolic CHF with EF 15-20% s/p AICD - comgmt with Palliative Medicine, Cardiology - Pt was reportedly evaluated at [facility] recently for Heart transplant vs. LVAD but had a stroke during that admission and was not felt to be a good candidate after the CVA. - 2D echo (01/21/18): - Estimated ejection fraction of 45-50%. No segmental wall motion abnormalities. - Possible mild right ventricular enlargement with normal systolic function. - A pacemaker wire is noted. - Mild mitral valve regurgitation. - Mild tricuspid valve regurgitation. - Estimated pulmonary arterial pressure is 35 mmHg - 01/30 radionucleotide venogram no evidence of thrombus - Pt developed Respiratory failure. Pt transferred to ICU 01/31 - HD started 01/31 - 4.5L removed with HD (02/08) - Zaroxolyn 5mg BID - DVT prophylaxis with Eliquis - supportive care - Attempted to discuss code status with pt (02/07). Pt became tearful & refused to discuss topic. - Pt's prognosis is poor & pt is at high risk for readmission Permcath placed. functioning ok. HD yesterday. resume eliquis. dc orders written . awaiting snf and HD arrangement. 02/17/18 - d/c orders previously written - awaiting outpt HD arrangements - pt had difficulties with hyperglycemia today requiring supplemental novolog - pt to undergo HD at [place] 02/18 Abdominal pain Nausea/vomiting Constipation, improved - Pt is a 52 y/o AAF with chronic systolic CHF, nonischemic cardiomyopathy with EF 15-20% s/p AICD, hx of CVA in 12/2017 (Bilateral acute to subacute posterior cerebral artery infarcts on Head CT on 12/22/17), congestive hepatopathy, ascites , HTN, CKD, stage 3, and type 2 diabetes mellitus, insulin dependent. Pt has had multiple hospitalizations at [facility] in [place] and [facility] in the last several month for various issues related to her CHF /Cardiomyopathy, DKA, Acute on chronic renal failure, CVA. After her most recent admission from 12/02/17 to 01/08/18 was for CHF and was transferred to [facility] to be evaluated for possible heart transplant vs. LVAD. During that admission she had an acute CVA with resulting left sided weakness and felt that she was not a good candidate for advanced heart failure treatment. Pt was discharged to [facility] on 01/08/18. - She was brought to the ED from a local rehab center for hyperkalemia and N/V. She has noted issues with constipation more recently. Over the last two days she has had nausea/vomiting and has not been eating much. She has not passed any stool in the last two days either. - CT abd/pelvis in the ED which noted moderate ascites and anasarca, cardiomegaly with pacer lead tip in right ventricle, and small fat-containing umbilical hernia. No bowel obstruction. In reviewing the images she has a significant amount of stool throughout the colon and in the rectum. - Pt had a small BM on 01/17 but had been refusing the Lactulose BID - Pt was given Mag Citrate and Colace BID on 01/18 but no significant stooling - Pt had Gastrografin enema on 01/20 with large volume of stool output abdomen distention. constipation and stool noted on kub. laxatives ordered. bowels moving u/s abdomen mod ascites. anticoagulation on hold and consider therapeutic paracentesis. today abdomen softer. Permcath placed on 02/13. resume anticoagulation tomorrow dc to snf once snf and HD arranged. pt medically stable. getting HD today. Diabetes mellitus, poorly controlled Hgb A1C 14.4 on 08/31/17 Hypoglycemia - levemir 10 units BID Hyperkalemia Acute on chronic renal disease, stage 3 - see above HTN (hypertension) - Cont. home meds - BP is poorly controlled on multiple medications: Coreg 12.5mg BID, Clonidine 0.2mg Q8H, Hydralazine 100mg Q8H, Minoxidil 5mg po daily, Procardia XL 30mg po BID - Clonidine PRN - Monitor closely Elevated LFTs Congestive hepatopathy Ascites - Review of outpt records show the pts AlkPhos has been elevated since 10/2016 - AlkPhos Isoenzyme in 10/2017 noted 72% liver, 20% bone, 8% intestine - Transjugular liver bx (12/20/17) --> Findings suggestive of congestive hepatopathy. Anemia - patient's hgb has been trending down on admission hgb 10.4 - iron 17, TIBC 176, % saturation 9.6 - reticulocyte count 0.9 - occult stool requested - Ferrous sulfate PO BID - Plan (2) Nonischemic cardiomyopathy Code(s): I42.8 - Other cardiomyopathies Status: Chronic Plan: Nonischemic cardiomyopathy Chronic systolic CHF with EF 15-20% s/p AICD - comgmt with Palliative Medicine - Pt was reportedly evaluated at [facility] recently for Heart transplant vs. LVAD but had a stroke during that admission and was not felt to be a good candidate after the CVA. - CXR (01/20/18) --> Cardiomegaly with trace positive fluid balance - Pt failed to adequate diurese with IV lasix/IV albumin - Pt's respiratory status declined and pt was emergently transferred to the ICU 01/31 - Monitor clinical status closely - Pt is typically on 2L of supplemental O2 - Discussed code status with the pt and she wishes to be a full code. - appreciate input from Palliative Service - increased lasix to 80mg IV TID. - Pt's Creatinine has improved with IV lasix but there is no clinical improvement yet. - Pt's prognosis is poor. - Hospice would be appropriate. - Consult Nephrology to see if pt might benefit from hemodialysis (1) Constipation Code(s): K59.00 - Constipation, unspecified Status: Acute Plan: Abdominal pain Nausea/vomiting Constipation, improved - Pt is a 52 y/o AAF with chronic systolic CHF, nonischemic cardiomyopathy with EF 15-20% s/p AICD, hx of CVA in 12/2017 (Bilateral acute to subacute posterior cerebral artery infarcts on Head CT on 12/22/17), congestive hepatopathy, ascites , HTN, CKD, stage 3, and type 2 diabetes mellitus, insulin dependent. Pt has had multiple hospitalizations at [facility] in [place] and [facility] in the last several month for various issues related to her CHF /Cardiomyopathy, DKA, Acute on chronic renal failure, CVA. After her most recent admission from 12/02/17 to 01/08/18 was for CHF and was transferred to [facility] to be evaluated for possible heart transplant vs. LVAD. During that admission she had an acute CVA with resulting left sided weakness and felt that she was not a good candidate for advanced heart failure treatment. Pt was discharged to [facility] on 01/08/18. - She was brought to the ED from a local rehab center for hyperkalemia and N/V. She has noted issues with constipation more recently. Over the last two days she has had nausea/vomiting and has not been eating much. She has not passed any stool in the last two days either. - CT abd/pelvis in the ED which noted moderate ascites and anasarca, cardiomegaly with pacer lead tip in right ventricle, and small fat-containing umbilical hernia. No bowel obstruction. In reviewing the images she has a significant amount of stool throughout the colon and in the rectum. - Pt had a small BM on 01/17 but has been refusing the Lactulose BID - Pt was given Mag Citrate and Colace BID on 01/18 but no significant stooling - Pt had Gastrografin enema on 01/20 with large volume of stool output - Zofran PRN - Protonix 40mg IV daily (3) Diabetes Code(s): E11.9 - Type 2 diabetes mellitus without complications Status: Chronic Plan: Diabetes mellitus, poorly controlled Hgb A1C 14.4 on 08/31/17 Hypoglycemia - Pt was also given Novolin 10 units and Dextrose overnight and was hypoglycemic with BS 34 on 01/17. Pt was given orange juice twice this morning and her BS improved to 158. - Today her BS are in the 200s. - Pt is normally on Novolin 10 units BID and NovoLog SSI - Basal insulin with Levemir 5 units BID started on 01/18 and titrate up to 10 units BID today, BS on 01/18 were still quite elevated in the 200-300s but valentine morning glucose on 01/19 was 95 so the insulin scheduled was kept the same - Her blood sugars last night and this morning are in the 200s - Consider increasing Levemir to 10 units BID but BS are rather labile, continue to monitor closely for now - NovoLog SSI - Accu checks - Monitor BS closely (4) Acute on chronic kidney failure Code(s): N17.9 - Acute kidney failure, unspecified; N18.9 - Chronic kidney disease, unspecified Status: Acute Plan: Hyperkalemia Acute on chronic renal disease, stage 3 - Outpt labs from 11/2017 noted Cr around 1.4-1.5 - Labs in the ED noted a potassium of 6.1. - Pt was given Kayexalate and Calcium Gluconate in the ED her repeat potassium this morning was 5.5 and second repeat was 5.7 on 01/17 - Pt refusing Lab draws on 01/18, but we discussed with the pt the importance of getting er labs drawn to monitor her electrolytes and kidney function and was agreed - Pt was given a second dose of Kayexalate on 01/17 but pt has not moved her bowels. - Repeat K+ down to 5.0 but renal function is worse on 01/18 with Cr around 2.49 - renal function improving - see above (5) Hyperkalemia Code(s): E87.5 - Hyperkalemia Status: Acute Plan: - See above (6) HTN (hypertension) Code(s): I10 - Essential (primary) hypertension Status: Acute Plan: HTN - Cont. home meds - BP is poorly controlled on multiple medications - Monitor with change to IV Lasix - Clonidine PRN - Monitor closely (7) Elevated LFTs Code(s): R94.5 - Abnormal results of liver function studies Status: Acute Plan: Elevated LFTS Congestive hepatopathy Ascites - Review of outpt records show the pts AlkPhos has been elevated since 10/2016 - AlkPhos Isoenzyme in 10/2017 noted 72% liver, 20% bone, 8% intestine - Transjugular liver bx (12/20/17) --> Findings suggestive of congestive hepatopathy. (8) Ascites Code(s): R18.8 - Other ascites Status: Acute Plan: - See above (9) CVA - recent CVA - holding oral anticoagulant d/t continued oozing from forming peripheral IV site. - pt at risk for developing anemia d/t blood loss.
[2018-02-17] MEDS ORDERED: Bisacodyl 10 MG Supp RECTAL ONE (17:21)
--- NOTE | 2018-02-17 18:21 | P.PN ---
Subjective Interval history: Awake and still on O2 2 L. No chest pain.No fever. Dialysis pending Physical Exam Vital signs: Vital Signs 02/16/18 20:00 02/16/18 20:30 02/17/18 00:00 Temperature 97.6 F 97.6 F Pulse Rate 76 75 71 Respiratory Rate 18 18 Blood Pressure 156/74 H 114/57 L Pulse Oximetry 98 95 02/17/18 04:00 02/17/18 08:00 02/17/18 12:00 Temperature 97.9 F 98.1 F 98.1 F Pulse Rate 77 97 H 76 Respiratory Rate 17 17 17 Blood Pressure 141/66 H 147/74 H 162/72 H Pulse Oximetry 95 96 99 Intake & Output 02/16/18 02/17/18 02/17/18 18:59 06:59 18:59 Intake Total 150 / 150 Balance 150 / 150 Weight 66.4 kg Intake: Oral 150 / 150 Other: # Voids 0 Date of Last Bowel Movement 02/14/18 Narrative: GENERAL: Thin mid aged A/A female Patient is alert, pale in no distress CARDIO: Regular No murmur or S3 RESP: No wheeze but has mild crackles at Bases ABD: Abdomen soft, non-tender, nondistended. Normal active bowel sounds MUSCULOSKELETAL: edema 1 + b/l LE woody edema, especially at posterior aspects of lower extremities. NEURO: Alert & Orientedx3, No focal deficits. - Urinary Catheter Management Indwelling Urethral Catheter Cath placed during this visit: yes, but has since been removed by the nurse Urethral indwelling: Yes Reason for continuing: Terminally ill/Comfort care Insertion date: 01/21/18 Insertion time: 12:40 Removal date: 02/03/18 Removal time: 07:00 Results - Labs CBC & Chem 7: 02/10/18 06:21 02/13/18 08:15 Laboratory Results - last 24 hr 02/16/18 02/17/18 02/17/18 19:40 00:23 07:19 POC Glucose 116 H 197 H 493 H* 02/17/18 02/17/18 02/17/18 11:17 14:38 16:08 POC Glucose 525 H* 247 H 143 H Assessment and Plan - Assessment (1) Respiratory failure Code(s): J96.90 - Respiratory failure, unspecified, unspecified whether with hypoxia or hypercapnia Status: Acute (2) Pulmonary edema Code(s): J81.1 - Chronic pulmonary edema Status: Acute (3) Constipation Code(s): K59.00 - Constipation, unspecified Status: Acute (4) Nonischemic cardiomyopathy Code(s): I42.8 - Other cardiomyopathies Status: Chronic (5) Diabetes Code(s): E11.9 - Type 2 diabetes mellitus without complications Status: Chronic (6) Acute on chronic kidney failure Code(s): N17.9 - Acute kidney failure, unspecified; N18.9 - Chronic kidney disease, unspecified Status: Acute (7) Hyperkalemia Code(s): E87.5 - Hyperkalemia Status: Acute (8) HTN (hypertension) Code(s): I10 - Essential (primary) hypertension Status: Acute (9) Elevated LFTs Code(s): R94.5 - Abnormal results of liver function studies Status: Acute (10) Ascites Code(s): R18.8 - Other ascites Status: Acute - Plan 1. Check RA O2 sat. 2. Nebs TID , Duoneb 3. Continue Dialysis per renal 4. Get 6 min walk test and get home o2 if sat <89 5. IS at Bedside Q3H 6. Labs in am. (5) Diabetes Qualifiers: Diabetes mellitus type: type 2 Diabetes mellitus custodial insulin use: with fbi sharpshooter use Diabetes mellitus complication status: with unspecified complications Qualified Code(s): E11.8 - Type 2 diabetes mellitus with unspecified complications; Z79.4 - MCC (current) use of insulin (6) Acute on chronic kidney failure Qualifiers: Chronic kidney disease stage: on chronic dialysis
--- NOTE | 2018-02-17 20:12 | XR ---
EXAM DATE: 02/17/2018 7:46 PM EDT AGE/SEX: 53 years / Female INDICATIONS: Constipation, abdomen pain CLINICAL DATA: This is the patient's initial encounter. Patient reports that signs and symptoms have been present for 4 - 6 days and indicates a pain score of 8/10. MEDICAL/SURGICAL HISTORY: . Congestive heart failure. Cerebrovascular disease. Hypertension. CA D, DM, ascites, cardiomyopathy . . AICD placement, vas cath, liver bx COMPARISON: . FINDINGS: The abdominal bowel gas pattern is mild constipation. No abnormal masses, calcifications, or organom egaly is seen. The osseous structures are unremarkable. CONCLUSION: Mild constipation. Abdomen relatively gasless. No free air. Electronically signed by: Jerardo Burgos MD 02/17/2018 8:11 PM EDT
--- NOTE | 2018-02-17 23:42 | P.PNNP ---
Subjective Interval history: Patient seen in AM, has mild SOB, not eating well. Physical Exam Vital signs: Vital Signs 02/17/18 00:00 02/17/18 04:00 02/17/18 08:00 Temperature 97.6 F 97.9 F 98.1 F Pulse Rate 71 77 77 Respiratory Rate 18 17 17 Blood Pressure 114/57 L 141/66 H 147/74 H Pulse Oximetry 95 95 96 02/17/18 12:00 02/17/18 16:00 02/17/18 20:00 Temperature 98.1 F 97.3 F L 97 F L Pulse Rate 76 73 77 Respiratory Rate 17 18 18 Blood Pressure 162/72 H 171/79 H 124/78 Pulse Oximetry 99 95 92 L Intake & Output 02/17/18 02/17/18 02/18/18 06:59 18:59 06:59 Intake Total 150 / 150 380 / 380 Balance 150 / 150 380 / 380 Weight 66.4 kg Intake: Oral 150 / 150 380 / 380 Other: # Voids 0 2 Date of Last Bowel Movement 02/14/18 # Bowel Movements 0 Narrative: GENERAL: Thin mid aged A/A female Patient is alert, pale in no distress CARDIO: Regular No murmur or S3 RESP: No wheeze but has mild crackles at Bases ABD: Abdomen soft, non-tender, nondistended. Normal active bowel sounds MUSCULOSKELETAL: edema 1 + b/l LE woody edema, especially at posterior aspects of lower extremities. NEURO: Alert & Orientedx3, No focal deficits. - Urinary Catheter Management Indwelling Urethral Catheter Cath placed during this visit: yes, but has since been removed by the nurse Urethral indwelling: Yes Reason for continuing: Terminally ill/Comfort care Insertion date: 01/21/18 Insertion time: 12:40 Removal date: 02/03/18 Removal time: 07:00 Assessment and Plan - Assessment (1) Acute on chronic kidney failure Code(s): N17.9 - Acute kidney failure, unspecified; N18.9 - Chronic kidney disease, unspecified Status: Acute Qualifiers: Chronic kidney disease stage: on chronic dialysis Plan: Patient has chronic kidney disease and develop VICTORINA. Urine out put is slightly better, has urine incontinence. BP is stable. Most likely will need to continue HD for now. Need to prepare for out patient HD. PermCath done, HD to continue 3 times a week. Out patient HD arrangement in progress. Urine out put is low. For D/C once placement and HD arranged. HD will be in AM, remove fluid as tolerated. 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 Ahmadi
[2018-02-18] MEDS: Insulin NovoLOG Aspart Correctional Sugar Inj SQ SCH ×4 (07:38→23:02)
--- NOTE | 2018-02-18 12:15 | P.PNNP ---
Subjective Interval history: Seen during hemodialysis. Tolerating well. Denies any shortness of breath. Edema has improved. <Sabrina Keller - Last Filed: 02/18/18 12:06> Physical Exam Vital signs: Vital Signs 02/17/18 16:00 02/17/18 20:00 02/18/18 00:00 Temperature 97.3 F L 97 F L 98.4 F Pulse Rate 73 72 66 Respiratory Rate 18 18 18 Blood Pressure 171/79 H 124/78 126/65 Pulse Oximetry 95 92 L 95 02/18/18 03:32 02/18/18 04:00 02/18/18 05:04 Temperature 98.3 F Pulse Rate 68 70 Respiratory Rate 18 19 Blood Pressure 120/62 Pulse Oximetry 02/18/18 05:13 02/18/18 08:00 Temperature 98.0 F Pulse Rate 70 Respiratory Rate 18 Blood Pressure 132/66 Pulse Oximetry 94 L 95 Intake & Output 02/17/18 02/18/18 02/18/18 18:59 06:59 18:59 Intake Total 380 / 380 240 / 240 Balance 380 / 380 240 / 240 Weight 65.1 kg Intake: Oral 380 / 380 240 / 240 Other: # Voids 2 # Incontinent Voids 1 Date of Last Bowel Movement 02/14/18 # Bowel Movements 0 # Incontinent Bowel Movements 1 - Constitutional no acute distress, somnolent - Routine HEENT Exam Head: Present: normocephalic ENT: Present: mucous membranes moist - Routine Neck Exam Present: supple - Routine Respiratory Exam Present: decreased breath sounds. Absent: rales, rhonchi, wheezes - Routine Cardiovascular Exam Present: RRR, murmur - Routine Abdominal Exam Present: soft, normoactive bowel sounds. Absent: tenderness - Routine Extremities Exam Present: edema, vascular access Comments: Right IJ - Routine Skin Exam Present: dry, warm - Routine Neurological Exam Present: alert - Routine Psychiatric Exam Present: cooperative - Urinary Catheter Management Indwelling Urethral Catheter Cath placed during this visit: yes, but has since been removed by the nurse Urethral indwelling: Yes Reason for continuing: Terminally ill/Comfort care Insertion date: 01/21/18 Insertion time: 12:40 Removal date: 02/03/18 Removal time: 07:00 <Sabrina Keller - Last Filed: 02/18/18 12:06> Vital signs: Vital Signs 02/17/18 20:00 02/18/18 00:00 02/18/18 03:32 Temperature 97 F L 98.4 F Pulse Rate 72 66 Respiratory Rate 18 18 18 Blood Pressure 124/78 126/65 Pulse Oximetry 92 L 95 02/18/18 04:00 02/18/18 05:04 02/18/18 05:13 Temperature 98.3 F Pulse Rate 68 70 Respiratory Rate 19 Blood Pressure 120/62 Pulse Oximetry 94 L 02/18/18 08:00 Temperature 98.0 F Pulse Rate 70 Respiratory Rate 18 Blood Pressure 132/66 Pulse Oximetry 95 Intake & Output 02/17/18 02/18/18 02/18/18 18:59 06:59 18:59 Intake Total 380 / 380 1240 / 1240 Balance 380 / 380 1240 / 1240 Weight 65.1 kg Intake: IV 1000 / 1000 NS Inj 1,000 ML @ 84 mls/hr IV. 1000 / 1000 CONT .[id number] [facility] Rx#:[id number] Oral 380 / 380 240 / 240 Other: # Voids 2 # Incontinent Voids 1 Date of Last Bowel Movement 02/14/18 # Bowel Movements 0 # Incontinent Bowel Movements 1 - Urinary Catheter Management Indwelling Urethral Catheter Cath placed during this visit: no <Karen Ahmadi Q - Last Filed: 02/18/18 18:06> Assessment and Plan - Assessment (1) Acute on chronic kidney failure Code(s): N17.9 - Acute kidney failure, unspecified; N18.9 - Chronic kidney disease, unspecified Status: Acute Qualifiers: Chronic kidney disease stage: on chronic dialysis Plan: Patient has chronic kidney disease and develop VICTORINA. PermCath done, HD to continue 3 times a week. Out patient HD arrangement in progress. Urine out put is low continues to be low For D/C once placement and HD arranged. Seen during hemodialysis 3 k bath plan to remove 3-4 liters. 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 of insulin <Sabrina Keller - Last Filed: 02/18/18 12:06> - Assessment (1) Acute on chronic kidney failure Code(s): N17.9 - Acute kidney failure, unspecified; N18.9 - Chronic kidney disease, unspecified Status: Acute Qualifiers: Chronic kidney disease stage: on chronic dialysis (2) Nonischemic cardiomyopathy Code(s): I42.8 - Other cardiomyopathies Status: Chronic (3) Diabetes Code(s): E11.9 - Type 2 diabetes mellitus without complications Status: Chronic Qualifiers: Diabetes mellitus type: type 2 Diabetes mellitus nursing home insulin use: with oil heaterman use Diabetes mellitus complication status: with unspecified complications Qualified Code(s): E11.8 - Type 2 diabetes mellitus with unspecified complications; Z79.4 - long-term (current) use of insulin - Attending Attestation Patient seen and examined, agree with above. Seen after HD, awaiting out patient HD arrangement. <Shin Ahmadi - Last Filed: 02/18/18 18:06>
[2018-02-18] MEDS: Minoxidil 2.5 MG Tablet PO SCH (13:31)
[2018-02-18] MEDS: Docusate Sodium 100 MG Capsule PO SCH ×2 (13:31→23:01)
[2018-02-18] MEDS: Ferrous Sulfate 325 MG Tablet PO SCH ×2 (13:31→17:21)
[2018-02-18] MEDS: Lactobacillus Acidophilus/L. Spores Tablet PO SCH ×2 (13:32→23:01)
[2018-02-18] MEDS: Carvedilol 12.5 MG Tablet PO SCH ×2 (13:32→23:01)
[2018-02-18] MEDS: Isosorbide Mononitrate 20 MG Tablet PO SCH ×2 (13:32→23:01)
[2018-02-18] MEDS: Insulin Detemir Inj 1,000 UNIT/10 ML Vial SQ SCH ×2 (13:33→23:01)
[2018-02-18] MEDS: metOLazone 5 MG Tablet PO SCH ×2 (13:33→17:21)
[2018-02-18] MEDS: Folic Acid 1 MG Tablet PO SCH (13:34)
[2018-02-18] MEDS: Mupirocin 2% Nasal Oint Topical Syringe EACH NARE SCH ×2 (13:42→23:01)
--- NOTE | 2018-02-18 17:34 | P.PNIM ---
Subjective Interval history: No new complaints. Physical Exam Vital signs: Vital Signs 02/17/18 20:00 02/18/18 00:00 02/18/18 03:32 Temperature 97 F L 98.4 F Pulse Rate 72 66 Respiratory Rate 18 18 18 Blood Pressure 124/78 126/65 Pulse Oximetry 92 L 95 02/18/18 04:00 02/18/18 05:04 02/18/18 05:13 Temperature 98.3 F Pulse Rate 68 70 Respiratory Rate 19 Blood Pressure 120/62 Pulse Oximetry 94 L 02/18/18 08:00 Temperature 98.0 F Pulse Rate 70 Respiratory Rate 18 Blood Pressure 132/66 Pulse Oximetry 95 Intake & Output 02/17/18 02/18/18 02/18/18 18:59 06:59 18:59 Intake Total 380 / 380 1240 / 1240 Balance 380 / 380 1240 / 1240 Weight 65.1 kg Intake: IV 1000 / 1000 NS Inj 1,000 ML @ 84 mls/hr IV. 1000 / 1000 CONT .[id number] Rx#:[id number] Oral 380 / 380 240 / 240 Other: # Voids 2 # Incontinent Voids 1 Date of Last Bowel Movement 02/14/18 # Bowel Movements 0 # Incontinent Bowel Movements 1 Narrative: GENERAL: Thin mid aged A/A female Patient is alert, pale in no distress CARDIO: Regular No murmur or S3 RESP: clear x b/l ABD: Abdomen soft, non-tender, nondistended. Normal active bowel sounds MUSCULOSKELETAL: woody edema, much improved from admission. NEURO: Alert & Orientedx3, No focal deficits. - Urinary Catheter Management Indwelling Urethral Catheter Cath placed during this visit: yes, but has since been removed by the nurse Urethral indwelling: Yes Reason for continuing: Terminally ill/Comfort care Insertion date: 01/21/18 Insertion time: 12:40 Removal date: 02/03/18 Removal time: 07:00 Results - Labs CBC & Chem 7: 02/10/18 06:21 02/13/18 08:15 - Imaging Impressions Abdomen X-Ray 02/17/18 00:00 CONCLUSION: Mild constipation. Abdomen relatively gasless. No free air. Chest X-Ray 01/20/18 06:00 CONCLUSION: 1. Cardiomegaly with trace positive fluid balance. Enema w/Water Soluble 01/20/18 08:00 CONCLUSION: Status post therapeutic Gastrografin enema. Chest X-Ray 01/29/18 00:00 CONCLUSION: Left lower lobe atelectasis or consolidation. Central Venous Line 01/30/18 00:00 CONCLUSION: 1. Uncomplicated line placement as above. Pulmonary Perfusion Imaging 01/30/18 00:00 CONCLUSION: 1. Low probability for pulmonary embolus. 2. There is a triple matched defect at the left lower lobe likely related to consolidation, atelectasis and/or effusion. Venogram Nuclear Medicine 01/30/18 14:33 CONCLUSION: The IVC is patent. Chest X-Ray 01/31/18 07:44 CONCLUSION: 1. Cardiomegaly with pulmonary vascular engorgement. 2. Right lower lobe consolidation is new and could either relate to an infectious etiology or focal edema. 3. Left lower lobe consolidation from the prior study has resolved. Central Venous Line 01/31/18 08:29 CONCLUSION: 1. Uncomplicated line placement as above. Abdomen/Pelvis CT 02/02/18 00:00 CONCLUSION: 1. At least moderate ascites. 2. Atherosclerotic calcifications. 3. Suspected gallstones or milk of calcium in the gallbladder. Chest X-Ray 02/03/18 04:00 CONCLUSION: Mild improvement in basilar airspace disease since January 31. Chest X-Ray 02/05/18 06:00 CONCLUSION: Cardiomegaly with minimal basilar density, probably atelectasis. No significant change from February 03. Chest X-Ray 02/07/18 00:00 CONCLUSION: Trace bibasilar atelectasis, improved. Abdomen X-Ray 02/08/18 00:00 CONCLUSION: No dilated loops of small or large bowel. Abdomen Ultrasound 02/11/18 00:00 CONCLUSION: Moderate ascites. Abdomen X-Ray 02/11/18 09:40 CONCLUSION: 1. Ascites. 2. No dilated bowel loops. Chest X-Ray 02/12/18 00:00 CONCLUSION: Probable mild CHF. Central Venous Line 02/13/18 00:00 CONCLUSION: Chest X-Ray 02/13/18 00:00 CONCLUSION: Stable cardiomegaly. Abdomen X-Ray 02/17/18 00:00 CONCLUSION: Mild constipation. Abdomen relatively gasless. No free air. Assessment and Plan - Assessment (1) Nonischemic cardiomyopathy Code(s): I42.8 - Other cardiomyopathies Status: Chronic Plan: Nonischemic cardiomyopathy Chronic systolic CHF with EF 15-20% s/p AICD - comgmt with Palliative Medicine, Cardiology - Pt was reportedly evaluated at [facility] recently for Heart transplant vs. LVAD but had a stroke during that admission and was not felt to be a good candidate after the CVA. - 2D echo (01/21/18): - Estimated ejection fraction of 45-50%. No segmental wall motion abnormalities. - Possible mild right ventricular enlargement with normal systolic function. - A pacemaker wire is noted. - Mild mitral valve regurgitation. - Mild tricuspid valve regurgitation. - Estimated pulmonary arterial pressure is 35 mmHg - 01/30 radionucleotide venogram no evidence of thrombus - Pt developed Respiratory failure. Pt transferred to ICU 01/31 - HD started 01/31 - 4.5L removed with HD (02/08) - Zaroxolyn 5mg BID - DVT prophylaxis with Eliquis - supportive care - Attempted to discuss code status with pt (02/07). Pt became tearful & refused to discuss topic. - Pt's prognosis is poor & pt is at high risk for readmission Permcath placed. functioning ok. HD yesterday. resume eliquis. dc orders written . awaiting snf and HD arrangement. 02/18/18 - d/c orders previously written - awaiting outpt HD arrangements - pt had brief run of asymptomatic VT. - d/w cardiology, Dr. Barreto. - will repeat BMP/Mag level - pt already on BB. Coreg 12.5mg BID - anticipate d/c to SNF once arrangements made for SNF & outpt HD clinic. Abdominal pain Nausea/vomiting Constipation, improved - Pt is a 52 y/o AAF with chronic systolic CHF, nonischemic cardiomyopathy with EF 15-20% s/p AICD, hx of CVA in 12/2017 (Bilateral acute to subacute posterior cerebral artery infarcts on Head CT on 12/22/17), congestive hepatopathy, ascites , HTN, CKD, stage 3, and type 2 diabetes mellitus, insulin dependent. Pt has had multiple hospitalizations at [facility] in [place] and [facility] in the last several month for various issues related to her CHF /Cardiomyopathy, DKA, Acute on chronic renal failure, CVA. After her most recent admission from 12/02/17 to 01/08/18 was for CHF and was transferred to [facility] to be evaluated for possible heart transplant vs. LVAD. During that admission she had an acute CVA with resulting left sided weakness and felt that she was not a good candidate for advanced heart failure treatment. Pt was discharged to [facility] on 01/08/18. - She was brought to the ED from a local rehab center for hyperkalemia and N/V. She has noted issues with constipation more recently. Over the last two days she has had nausea/vomiting and has not been eating much. She has not passed any stool in the last two days either. - CT abd/pelvis in the ED which noted moderate ascites and anasarca, cardiomegaly with pacer lead tip in right ventricle, and small fat-containing umbilical hernia. No bowel obstruction. In reviewing the images she has a significant amount of stool throughout the colon and in the rectum. - Pt had a small BM on 01/17 but had been refusing the Lactulose BID - Pt was given Mag Citrate and Colace BID on 01/18 but no significant stooling - Pt had Gastrografin enema on 01/20 with large volume of stool output abdomen distention. constipation and stool noted on kub. laxatives ordered. bowels moving u/s abdomen mod ascites. anticoagulation on hold and consider therapeutic paracentesis. today abdomen softer. Permcath placed on 02/13. Diabetes mellitus, poorly controlled Hgb A1C 14.4 on 08/31/17 Hypoglycemia - levemir 10 units BID Hyperkalemia Acute on chronic renal disease, stage 3 - see above HTN (hypertension) - Cont. home meds - BP is poorly controlled on multiple medications: Coreg 12.5mg BID, Clonidine 0.2mg Q8H, Hydralazine 100mg Q8H, Minoxidil 5mg po daily, Procardia XL 30mg po BID - Clonidine PRN - Monitor closely Elevated LFTs Congestive hepatopathy Ascites - Review of outpt records show the pts AlkPhos has been elevated since 10/2016 - AlkPhos Isoenzyme in 10/2017 noted 72% liver, 20% bone, 8% intestine - Transjugular liver bx (12/20/17) --> Findings suggestive of congestive hepatopathy. Anemia - patient's hgb has been trending down on admission hgb 10.4 - iron 17, TIBC 176, % saturation 9.6 - reticulocyte count 0.9 - occult stool requested - Ferrous sulfate PO BID
--- NOTE | 2018-02-18 18:58 | P.PN ---
Subjective Interval history: Remains on o2 2 L. Being dialyzed today. No chest pain. Has some cough. Physical Exam Vital signs: Vital Signs 02/17/18 20:00 02/18/18 00:00 02/18/18 03:32 Temperature 97 F L 98.4 F Pulse Rate 72 66 Respiratory Rate 18 18 18 Blood Pressure 124/78 126/65 Pulse Oximetry 92 L 95 02/18/18 04:00 02/18/18 05:04 02/18/18 05:13 Temperature 98.3 F Pulse Rate 68 70 Respiratory Rate 19 Blood Pressure 120/62 Pulse Oximetry 94 L 02/18/18 08:00 02/18/18 12:00 02/18/18 16:00 Temperature 98.0 F 97.8 F Pulse Rate 74 67 70 Respiratory Rate 18 18 Blood Pressure 132/66 160/89 H Pulse Oximetry 95 99 Intake & Output 02/17/18 02/18/18 02/18/18 18:59 06:59 18:59 Intake Total 380 / 380 1240 / 1240 320 / 320 Balance 380 / 380 1240 / 1240 320 / 320 Weight 65.1 kg Intake: IV 1000 / 1000 NS Inj 1,000 ML @ 84 mls/hr IV. 1000 / 1000 CONT .[id number] [facility] Rx#:[id number] Oral 380 / 380 240 / 240 320 / 320 Other: # Voids 2 2 # Incontinent Voids 1 Date of Last Bowel Movement 02/14/18 # Bowel Movements 0 0 # Incontinent Bowel Movements 1 Narrative: GENERAL: Thin mid aged A/A female Patient is alert, pale and in no distress CARDIO: Regular S1,S2 No murmur or S3 RESP: clear x b/l ABD: Abdomen soft, non-tender, nondistended. Normal active bowel sounds MUSCULOSKELETAL: Mild leg edema. NEURO: Alert & Orientedx3, No focal deficits. - Urinary Catheter Management Indwelling Urethral Catheter Cath placed during this visit: yes, but has since been removed by the nurse Urethral indwelling: Yes Reason for continuing: Terminally ill/Comfort care Insertion date: 01/21/18 Insertion time: 12:40 Removal date: 02/03/18 Removal time: 07:00 Results - Labs CBC & Chem 7: 02/10/18 06:21 02/13/18 08:15 Laboratory Results - last 24 hr 02/17/18 02/18/1818 20:59 07:36 12:07 POC Glucose 107 120 H 120 H 02/18/18 17:20 POC Glucose 220 H - Imaging Impressions Abdomen X-Ray 02/17/18 00:00 CONCLUSION: Mild constipation. Abdomen relatively gasless. No free air. Assessment and Plan - Assessment (1) Respiratory failure Code(s): J96.90 - Respiratory failure, unspecified, unspecified whether with hypoxia or hypercapnia Status: Acute (2) Pulmonary edema Code(s): J81.1 - Chronic pulmonary edema Status: Acute (3) Constipation Code(s): K59.00 - Constipation, unspecified Status: Acute (4) Nonischemic cardiomyopathy Code(s): I42.8 - Other cardiomyopathies Status: Chronic (5) Diabetes Code(s): E11.9 - Type 2 diabetes mellitus without complications Status: Chronic (6) Acute on chronic kidney failure Code(s): N17.9 - Acute kidney failure, unspecified; N18.9 - Chronic kidney disease, unspecified Status: Acute (7) Hyperkalemia Code(s): E87.5 - Hyperkalemia Status: Acute (8) HTN (hypertension) Code(s): I10 - Essential (primary) hypertension Status: Acute (9) Elevated LFTs Code(s): R94.5 - Abnormal results of liver function studies Status: Acute (10) Ascites Code(s): R18.8 - Other ascites Status: Acute - Plan 1. Arrange home O2 2 L. 2. Nebs TID , Duoneb 3. Continue Dialysis per renal 4. Chest Xray in am 5. IS at Bedside Q3H 6. BMP in am (5) Diabetes Qualifiers: Diabetes mellitus type: type 2 Diabetes mellitus correctional treatment specialist insulin use: with shelter use Diabetes mellitus complication status: with unspecified complications Qualified Code(s): E11.8 - Type 2 diabetes mellitus with unspecified complications; Z79.4 - residential (current) use of insulin (6) Acute on chronic kidney failure Qualifiers: Chronic kidney disease stage: on chronic dialysis
[2018-02-18 21:37] LABS: Calcium 8.8 mg/dL (8.5-10.1); Carbon Dioxide 29.9 meq/L (21.0-32.0); Magnesium 2.2 mg/dL (1.5-2.5); Potassium 3.4 meq/L (3.5-5.1)
--- NOTE | 2018-02-19 07:28 | XR ---
EXAM DATE: 02/19/2018 7:10 AM EDT AGE/SEX: 53 years / Female INDICATIONS: Short of breath. CLINICAL DATA: This is the patient's subsequent encounter. Patient reports that signs and symptoms h ave been present for 4 - 6 days and indicates a pain score of Nonresponsive. MEDICAL/SURGICAL HISTORY: Congestive heart failure. Hypertension. Cerebrovascular disease. CA D, DM, ascites, cardiomyopathy. . AICD placement, vas cath, liver bx. COMPARISON: [facility], CHEST 1V SINGLE AP, 02/13/2018. . FINDINGS: A single AP view of the chest was obtained. Interval exchange of a right IJ central venous catheter, now dual lumen, with distal tip projecting over the expected region of the mid SVC. No appreciable pn eumothorax. Left-sided AICD remains in place. Stable enlargement of the cardiomediastinal silhouette. No new focal consolidation or significant pleural effusion is identified. CONCLUSION: Interval exchange of a right IJ central venous catheter with distal tip projecting over the expected region of the mid SVC. No appreciable pneumothorax. Otherwise stable exam. Electronically signed by: Lucero Dao MD 02/19/2018 7:26 AM EDT
[2018-02-19] MEDS: Insulin NovoLOG Aspart Correctional Sugar Inj SQ SCH ×4 (08:02→21:35)
[2018-02-19] MEDS: Mupirocin 2% Nasal Oint Topical Syringe EACH NARE SCH ×2 (08:26→21:35)
[2018-02-19] MEDS: Isosorbide Mononitrate 20 MG Tablet PO SCH ×2 (08:27→21:35)
[2018-02-19] MEDS: metOLazone 5 MG Tablet PO SCH ×2 (08:27→17:52)
[2018-02-19] MEDS: Carvedilol 12.5 MG Tablet PO SCH ×2 (08:27→21:34)
[2018-02-19] MEDS: Docusate Sodium 100 MG Capsule PO SCH ×2 (08:27→21:35)
[2018-02-19] MEDS: Insulin Detemir Inj 1,000 UNIT/10 ML Vial SQ SCH ×2 (08:27→21:35)
[2018-02-19] MEDS: Minoxidil 2.5 MG Tablet PO SCH (08:27)
[2018-02-19] MEDS: Lactobacillus Acidophilus/L. Spores Tablet PO SCH ×2 (08:27→21:34)
[2018-02-19] MEDS: Folic Acid 1 MG Tablet PO SCH (08:27)
[2018-02-19 09:44] LABS: Baso % (Auto) 0.9 % (0.0-2.0); Eos # (Auto) 0.2 th/mm3 (0.0-0.4); Eos % (Auto) 4.4 % (0.0-4.0); Hematocrit 23.7 % (35.0-46.0); Hemoglobin 7.9 gm/dL (11.6-15.3); Lymph # (Auto) 0.6 th/mm3 (1.0-4.8); Lymph % (Auto) 11.8 % (9.0-44.0); Mean Corpuscular HGB Conc 33.1 % (32.0-36.0); Mean Corpuscular Hemoglobin 28.8 pg (27.0-34.0); Mean Platelet Volume 7.6 fL (7.0-11.0); Mono # (Auto) 0.5 th/mm3 (0.0-0.9); Mono % (Auto) 9.8 % (0.0-8.0); Neut # (Auto) 3.8 th/mm3 (1.8-7.7); Neut % (Auto) 73.1 % (16.0-70.0); Platelet Count 432 th/mm3 (150-450); Red Blood Count 2.73 mil/mm3 (4.00-5.30); Red Cell Distribution Width 16.1 % (11.6-17.2); White Blood Count 5.2 th/mm3 (4.0-11.0)
[2018-02-19 10:05] LABS: Albumin 3.1 g/dL (3.4-5.0); Calcium 8.9 mg/dL (8.5-10.1); Magnesium 2.2 mg/dL (1.5-2.5); Phosphorus 3.9 mg/dL (2.5-4.9); Potassium 3.5 meq/L (3.5-5.1)
[2018-02-19] MEDS: Ferrous Sulfate 325 MG Tablet PO SCH ×2 (13:16→17:52)
--- NOTE | 2018-02-19 15:49 | P.PNIM ---
Subjective Interval history: No new complaints. Physical Exam Vital signs: 02/19/18 04:00 02/19/18 08:00 02/19/18 12:00 Temperature 98.1 F 97.8 F 94.5 F L Pulse Rate 67 68 68 Respiratory Rate 16 18 17 Blood Pressure 152/82 H 128/71 152/81 H Pulse Oximetry 99 98 98 Narrative: GENERAL: Thin mid aged A/A female Patient is alert, pale in no distress CARDIO: Regular No murmur or S3 RESP: clear x b/l ABD: Abdomen soft, non-tender, nondistended. Normal active bowel sounds MUSCULOSKELETAL: woody edema, much improved from admission. NEURO: Alert & Orientedx3, No focal deficits. - Urinary Catheter Management Indwelling Urethral Catheter Cath placed during this visit: yes, but has since been removed by the nurse Urethral indwelling: Yes Reason for continuing: Terminally ill/Comfort care Insertion date: 01/21/18 Insertion time: 12:40 Removal date: 02/03/18 Removal time: 07:00 Results - Labs CBC & Chem 7: 02/20/18 07:03 02/19/18 08:52 - Imaging Impressions Chest X-Ray 02/19/18 00:00 CONCLUSION: Interval exchange of a right IJ central venous catheter with distal tip projecting over the expected region of the mid SVC. No appreciable pneumothorax. Otherwise stable exam. Assessment and Plan - Assessment (1) Nonischemic cardiomyopathy Code(s): I42.8 - Other cardiomyopathies Status: Chronic Plan: Nonischemic cardiomyopathy Chronic systolic CHF with EF 15-20% s/p AICD - comgmt with Palliative Medicine, Cardiology - Pt was reportedly evaluated at [facility], [place] recently for Heart transplant vs. LVAD but had a stroke during that admission and was not felt to be a good candidate after the CVA. - 2D echo (01/21/18): - Estimated ejection fraction of 45-50%. No segmental wall motion abnormalities. - Possible mild right ventricular enlargement with normal systolic function. - A pacemaker wire is noted. - Mild mitral valve regurgitation. - Mild tricuspid valve regurgitation. - Estimated pulmonary arterial pressure is 35 mmHg - 01/30 radionucleotide venogram no evidence of thrombus - Pt developed Respiratory failure. Pt transferred to ICU 01/31 - HD started 01/31 - 4.5L removed with HD (02/08) - Zaroxolyn 5mg BID - DVT prophylaxis with Eliquis - supportive care - Attempted to discuss code status with pt (02/07). Pt became tearful & refused to discuss topic. - Pt's prognosis is poor & pt is at high risk for readmission Permcath placed. functioning ok. HD yesterday. resume eliquis. dc orders written . awaiting snf and HD arrangement. 02/19/18 - d/c orders previously written - awaiting outpt HD arrangements - pt had brief run of asymptomatic VT (02/18) - d/w cardiology, Dr. Barreto. - electrolytes WNF - pt already on BB. Coreg 12.5mg BID - Hg down to 7.9. Likely d/t anemia of chronic disease - transfuse 2 units PRBCs - anticipate d/c to SNF 02/20/18 Abdominal pain Nausea/vomiting Constipation, improved - Pt is a 52 y/o AAF with chronic systolic CHF, nonischemic cardiomyopathy with EF 15-20% s/p AICD, hx of CVA in 12/2017 (Bilateral acute to subacute posterior cerebral artery infarcts on Head CT on 12/22/17), congestive hepatopathy, ascites , HTN, CKD, stage 3, and type 2 diabetes mellitus, insulin dependent. Pt has had multiple hospitalizations at [facility] in [place] and [facility], [place] in the last several month for various issues related to her CHF /Cardiomyopathy, DKA, Acute on chronic renal failure, CVA. After her most recent admission from 12/02/17 to 01/08/18 was for CHF and was transferred to [facility], [place] to be evaluated for possible heart transplant vs. LVAD. During that admission she had an acute CVA with resulting left sided weakness and felt that she was not a good candidate for advanced heart failure treatment. Pt was discharged to [facility] on 01/08/18. - She was brought to the ED from a local rehab center for hyperkalemia and N/V. She has noted issues with constipation more recently. Over the last two days she has had nausea/vomiting and has not been eating much. She has not passed any stool in the last two days either. - CT abd/pelvis in the ED which noted moderate ascites and anasarca, cardiomegaly with pacer lead tip in right ventricle, and small fat-containing umbilical hernia. No bowel obstruction. In reviewing the images she has a significant amount of stool throughout the colon and in the rectum. - Pt had a small BM on 01/17 but had been refusing the Lactulose BID - Pt was given Mag Citrate and Colace BID on 01/18 but no significant stooling - Pt had Gastrografin enema on 01/20 with large volume of stool output abdomen distention. constipation and stool noted on kub. laxatives ordered. bowels moving u/s abdomen mod ascites. anticoagulation on hold and consider therapeutic paracentesis. today abdomen softer. Permcath placed on 02/13. Diabetes mellitus, poorly controlled Hgb A1C 14.4 on 08/31/17 Hypoglycemia - levemir 10 units BID Hyperkalemia Acute on chronic renal disease, stage 3 - see above HTN (hypertension) - Cont. home meds - BP is poorly controlled on multiple medications: Coreg 12.5mg BID, Clonidine 0.2mg Q8H, Hydralazine 100mg Q8H, Minoxidil 5mg po daily, Procardia XL 30mg po BID - Clonidine PRN - Monitor closely Elevated LFTs Congestive hepatopathy Ascites - Review of outpt records show the pts AlkPhos has been elevated since 10/2016 - AlkPhos Isoenzyme in 10/2017 noted 72% liver, 20% bone, 8% intestine - Transjugular liver bx (12/20/17) --> Findings suggestive of congestive hepatopathy. Anemia - patient's hgb has been trending down on admission hgb 10.4 - iron 17, TIBC 176, % saturation 9.6 - reticulocyte count 0.9 - occult stool requested - Ferrous sulfate PO BID
[2018-02-19] MEDS ORDERED: Sodium Chlor 0.9% Inj 250 ML IV.SIG SCH (16:00)
--- NOTE | 2018-02-19 16:49 | P.PNNP ---
Subjective Interval history: Sitting up in chair. Denies any shortness of breath. Continues to have edema. HGB at 7.8 plan for transfusion today. <Sabrina Keller - Last Filed: 02/19/18 16:41> Physical Exam Vital signs: Vital Signs 02/18/18 20:00 02/19/18 00:00 02/19/18 04:00 Temperature 97.9 F 97.4 F L 98.1 F Pulse Rate 73 70 67 Respiratory Rate 18 17 16 Blood Pressure 134/72 121/70 152/82 H Pulse Oximetry 98 98 99 02/19/18 08:00 02/19/18 12:00 02/19/18 16:00 Temperature 97.8 F 94.5 F L 97.8 F Pulse Rate 68 68 68 Respiratory Rate 18 17 18 Blood Pressure 128/71 152/81 H 113/64 Pulse Oximetry 98 98 68 L Intake & Output 02/18/18 02/19/18 02/19/18 18:59 06:59 18:59 Intake Total 320 / 320 480 / 480 Balance 320 / 320 480 / 480 Weight 62.9 kg Intake: Oral 320 / 320 480 / 480 Other: # Voids 2 # Bowel Movements 0 # Incontinent Bowel Movements 1 - Constitutional no acute distress - Routine HEENT Exam Head: Present: normocephalic ENT: Present: mucous membranes moist - Routine Neck Exam Present: supple - Routine Respiratory Exam Present: CTA bilaterally. Absent: rales, rhonchi, stridor - Routine Cardiovascular Exam Present: RRR - Routine Abdominal Exam Present: soft, normoactive bowel sounds, distended. Absent: tenderness - Routine Extremities Exam Present: edema, vascular access - Routine Skin Exam Present: dry, warm - Routine Neurological Exam Present: alert - Routine Psychiatric Exam Present: cooperative - Urinary Catheter Management Indwelling Urethral Catheter Cath placed during this visit: yes, but has since been removed by the nurse Urethral indwelling: Yes Reason for continuing: Terminally ill/Comfort care Insertion date: 01/21/18 Insertion time: 12:40 Removal date: 02/03/18 Removal time: 07:00 <Sabrina Keller - Last Filed: 02/19/18 16:41> Vital signs: Vital Signs 02/18/18 20:00 02/19/18 00:00 02/19/18 04:00 Temperature 97.9 F 97.4 F L 98.1 F Pulse Rate 73 70 67 Respiratory Rate 18 17 16 Blood Pressure 134/72 121/70 152/82 H Pulse Oximetry 98 98 99 02/19/18 08:00 02/19/18 12:00 02/19/18 16:00 Temperature 97.8 F 94.5 F L 97.8 F Pulse Rate 68 68 68 Respiratory Rate 18 17 18 Blood Pressure 128/71 152/81 H 113/64 Pulse Oximetry 98 98 68 L 02/19/18 17:21 Temperature Pulse Rate Respiratory Rate Blood Pressure Pulse Oximetry 98 Intake & Output 02/18/18 02/19/18 02/19/18 18:59 06:59 18:59 Intake Total 320 / 320 480 / 480 880 / 880 Balance 320 / 320 480 / 480 880 / 880 Weight 62.9 kg Intake: Oral 320 / 320 480 / 480 780 / 780 Oral Supplement 100 / 100 Other: # Voids 2 # Bowel Movements 0 # Incontinent Bowel Movements 1 - Urinary Catheter Management Indwelling Urethral Catheter Cath placed during this visit: no <Shin Ahmadi - Last Filed: 02/19/18 18:20> Assessment and Plan - Assessment (1) Acute on chronic kidney failure Code(s): N17.9 - Acute kidney failure, unspecified; N18.9 - Chronic kidney disease, unspecified Status: Acute Qualifiers: Chronic kidney disease stage: on chronic dialysis Plan: Patient has chronic kidney disease and develop VICTORINA. PermCath done, HD to continue 3 times a week. Out patient HD arrangement in progress Urine out put with continued edema. For D/C once placement and HD arranged. Hemodialysis yesterday tolerated well UF of 5 liters Hemodialysis planned for tomorrow. (2) Nonischemic cardiomyopathy Code(s): I42.8 - Other cardiomyopathies Status: Chronic (3) Diabetes Code(s): E11.9 - Type 2 diabetes mellitus without complications Status: Chronic Qualifiers: Diabetes mellitus type: type 2 Diabetes mellitus nursing home insulin use: with emergency man use Diabetes mellitus complication status: with unspecified complications Qualified Code(s): E11.8 - Type 2 diabetes mellitus with unspecified complications; Z79.4 - intermediate (current) use of insulin Plan: Maintain blood sugar between 140 mg /dl to 180 mg/dl (4) Anemia Code(s): D64.9 - Anemia, unspecified Status: Acute Plan: HGB 7.9, plan to transfuse 2 units of PRBC Will monitor <Sabrina Keller - Last Filed: 02/19/18 16:41> - Assessment (1) Acute on chronic kidney failure Code(s): N17.9 - Acute kidney failure, unspecified; N18.9 - Chronic kidney disease, unspecified Status: Acute Qualifiers: Chronic kidney disease stage: on chronic dialysis Plan: Patient seen and examined, agree with above. HD tomorrow, to arrange out patient HD. Patient has Chronic kidney disease and develop VICTORINA. (2) Nonischemic cardiomyopathy Code(s): I42.8 - Other cardiomyopathies Status: Chronic (3) Diabetes Code(s): E11.9 - Type 2 diabetes mellitus without complications Status: Chronic Qualifiers: Diabetes mellitus type: type 2 Diabetes mellitus emergency man insulin use: with nursing home use Diabetes mellitus complication status: with unspecified complications Qualified Code(s): E11.8 - Type 2 diabetes mellitus with unspecified complications; Z79.4 - intermediate (current) use of insulin (4) Anemia Code(s): D64.9 - Anemia, unspecified Status: Acute <Shin Ahmadi - Last Filed: 02/19/18 18:20>
[2018-02-19] MEDS ORDERED: Tuberculin PPD 5 UNITS/0.1 ML Syringe I-DERMAL ONE (18:00)
--- NOTE | 2018-02-19 18:29 | P.PN ---
Subjective Interval history: Up in a chair and on O2 2 L. States she is SOB.. Was dialyzed Physical Exam Vital signs: Vital Signs 02/18/18 20:00 02/19/18 00:00 02/19/18 04:00 Temperature 97.9 F 97.4 F L 98.1 F Pulse Rate 73 70 67 Respiratory Rate 18 17 16 Blood Pressure 134/72 121/70 152/82 H Pulse Oximetry 98 98 99 02/19/18 08:00 02/19/18 12:00 02/19/18 16:00 Temperature 97.8 F 94.5 F L 97.8 F Pulse Rate 68 68 68 Respiratory Rate 18 17 18 Blood Pressure 128/71 152/81 H 113/64 Pulse Oximetry 98 98 68 L 02/19/18 17:21 Temperature Pulse Rate Respiratory Rate Blood Pressure Pulse Oximetry 98 Intake & Output 02/18/18 02/19/18 02/19/18 18:59 06:59 18:59 Intake Total 320 / 320 480 / 480 880 / 880 Balance 320 / 320 480 / 480 880 / 880 Weight 62.9 kg Intake: Oral 320 / 320 480 / 480 780 / 780 Oral Supplement 100 / 100 Other: # Voids 2 # Bowel Movements 0 # Incontinent Bowel Movements 1 Narrative: GENERAL: Thin mid aged A/A female Patient is alert, pale in no distress HEENT: CRYS. Throat clear. CARDIO: Regular No murmur or S3 RESP: clear x b/l ABD: Abdomen soft, non-tender, nondistended. Normal active bowel sounds MUSCULOSKELETAL: Mild edema, much improved . NEURO: Alert & Orientedx3, No focal deficits. - Urinary Catheter Management Indwelling Urethral Catheter Cath placed during this visit: yes, but has since been removed by the nurse Urethral indwelling: Yes Reason for continuing: Terminally ill/Comfort care Insertion date: 01/21/18 Insertion time: 12:40 Removal date: 02/03/18 Removal time: 07:00 Results - Labs CBC & Chem 7: 02/19/18 08:52 02/19/18 08:52 Laboratory Results - last 24 hr 02/18/18 02/18/18 02/19/18 20:28 21:45 07:54 WBC RBC Hgb Hct MCV MCH MCHC RDW Plt Count MPV Neut % (Auto) Lymph % (Auto) [place] % (Auto) Eos % (Auto) Baso % (Auto) Neut # (Auto) Lymph # (Auto) [place] # (Auto) Eos # (Auto) Baso # (Auto) WBC Differential Differential Comment Sodium 137 Potassium 3.4 L Chloride 98 Carbon Dioxide 29.9 Anion Gap 9 BUN 31 H Creatinine 2.90 H Estimated GFR 21 L POC Glucose 152 H 109 Random Glucose 154 H Calcium 8.8 Phosphorus Magnesium 2.2 Albumin 02/19/18 02/19/18 02/19/18 08:52 08:52 12:33 WBC 5.2 RBC 2.73 L Hgb 7.9 L Hct 23.7 L MCV 87.0 MCH 28.8 MCHC 33.1 RDW 16.1 Plt Count 432 D MPV 7.6 Neut % (Auto) 73.1 H Lymph % (Auto) 11.8 [place] % (Auto) 9.8 H Eos % (Auto) 4.4 H Baso % (Auto) 0.9 Neut # (Auto) 3.8 Lymph # (Auto) 0.6 L [place] # (Auto) 0.5 Eos # (Auto) 0.2 Baso # (Auto) 0.0 WBC Differential . Differential Comment Auto diff final Sodium 137 Potassium 3.5 Chloride 97 L Carbon Dioxide 29.0 Anion Gap 11 BUN 38 H Creatinine 3.17 H Estimated GFR 19 L POC Glucose 134 H Random Glucose 100 Calcium 8.9 Phosphorus 3.9 Magnesium 2.2 Albumin 3.1 L 02/19/18 17:07 WBC RBC Hgb Hct MCV MCH MCHC RDW Plt Count MPV Neut % (Auto) Lymph % (Auto) [place] % (Auto) Eos % (Auto) Baso % (Auto) Neut # (Auto) Lymph # (Auto) [place] # (Auto) Eos # (Auto) Baso # (Auto) WBC Differential Differential Comment Sodium Potassium Chloride Carbon Dioxide Anion Gap BUN Creatinine Estimated GFR POC Glucose 287 H Random Glucose Calcium Phosphorus Magnesium Albumin - Imaging Impressions Chest X-Ray 02/19/18 00:00 CONCLUSION: Interval exchange of a right IJ central venous catheter with distal tip projecting over the expected region of the mid SVC. No appreciable pneumothorax. Otherwise stable exam. Assessment and Plan - Assessment (1) Respiratory failure Code(s): J96.90 - Respiratory failure, unspecified, unspecified whether with hypoxia or hypercapnia Status: Acute (2) Pulmonary edema Code(s): J81.1 - Chronic pulmonary edema Status: Acute (3) Constipation Code(s): K59.00 - Constipation, unspecified Status: Acute (4) Nonischemic cardiomyopathy Code(s): I42.8 - Other cardiomyopathies Status: Chronic (5) Diabetes Code(s): E11.9 - Type 2 diabetes mellitus without complications Status: Chronic (6) Acute on chronic kidney failure Code(s): N17.9 - Acute kidney failure, unspecified; N18.9 - Chronic kidney disease, unspecified Status: Acute (7) Hyperkalemia Code(s): E87.5 - Hyperkalemia Status: Acute (8) HTN (hypertension) Code(s): I10 - Essential (primary) hypertension Status: Acute (9) Elevated LFTs Code(s): R94.5 - Abnormal results of liver function studies Status: Acute (10) Ascites Code(s): R18.8 - Other ascites Status: Acute - Plan 1. Arrange home O2 2 L. 2. Nebs TID , Duoneb 3. Continue Dialysis per renal 4. Will try to D/C O2 daytime 5. IS at Bedside Q3H 6. PT Evaluation. (5) Diabetes Qualifiers: Diabetes mellitus type: type 2 Diabetes mellitus usp insulin use: with terminal superintendent use Diabetes mellitus complication status: with unspecified complications Qualified Code(s): E11.8 - Type 2 diabetes mellitus with unspecified complications; Z79.4 - terminal superintendent (current) use of insulin (6) Acute on chronic kidney failure Qualifiers: Chronic kidney disease stage: on chronic dialysis
[2018-02-20 07:45] LABS: Baso # (Auto) 0.1 th/mm3 (0.0-0.2); Eos # (Auto) 0.2 th/mm3 (0.0-0.4); Eos % (Auto) 3.8 % (0.0-4.0); Hematocrit 29.5 % (35.0-46.0); Hemoglobin 9.5 gm/dL (11.6-15.3); Lymph # (Auto) 0.6 th/mm3 (1.0-4.8); Lymph % (Auto) 11.4 % (9.0-44.0); Mean Corpuscular HGB Conc 32.2 % (32.0-36.0); Mean Corpuscular Hemoglobin 27.9 pg (27.0-34.0); Mean Corpuscular Volume 86.6 fL (80.0-100.0); Mean Platelet Volume 7.7 fL (7.0-11.0); Mono # (Auto) 0.4 th/mm3 (0.0-0.9); Mono % (Auto) 7.3 % (0.0-8.0); Neut % (Auto) 76.5 % (16.0-70.0); Platelet Count 426 th/mm3 (150-450); Red Blood Count 3.41 mil/mm3 (4.00-5.30); Red Cell Distribution Width 16.2 % (11.6-17.2); White Blood Count 5.3 th/mm3 (4.0-11.0)
[2018-02-20] MEDS: Insulin NovoLOG Aspart Correctional Sugar Inj SQ SCH ×2 (08:30→13:06)
[2018-02-20] MEDS: Insulin Detemir Inj 1,000 UNIT/10 ML Vial SQ SCH (08:30)
--- NOTE | 2018-02-20 09:52 | P.PNNP ---
Subjective Interval history: Patient seen during hemodialysis. Does not have any complaints this morning. Continues to have dependent edema. <Sabrina Keller - Last Filed: 02/20/18 09:46> Physical Exam Vital signs: Vital Signs 02/19/18 12:00 02/19/18 16:00 02/19/18 17:21 Temperature 94.5 F L 97.8 F Pulse Rate 71 67 Respiratory Rate 17 18 Blood Pressure 152/81 H 113/64 Pulse Oximetry 98 68 L 98 02/19/18 20:00 02/20/18 00:00 02/20/18 00:04 Temperature 97.4 F L 97.4 F L Pulse Rate 71 75 75 Respiratory Rate 18 18 Blood Pressure 127/62 132/61 Pulse Oximetry 92 L 02/20/18 00:17 02/20/18 02:50 02/20/18 02:53 Temperature 97.4 F L 97.8 F 97.8 F Pulse Rate 84 75 74 Respiratory Rate 18 18 18 Blood Pressure 128/60 149/70 H 149/70 H Pulse Oximetry 92 L 96 96 02/20/18 03:08 02/20/18 04:00 02/20/18 08:00 Temperature 97.6 F 97.6 F Pulse Rate 76 75 72 Respiratory Rate 18 17 Blood Pressure 138/69 150/73 H Pulse Oximetry 96 95 Intake & Output 02/19/18 02/20/18 02/20/18 18:59 06:59 18:59 Intake Total 880 / 880 0 / 0 Balance 880 / 880 0 / 0 Intake: Oral 780 / 780 Oral Supplement 100 / 100 Intake (Blood Product) Amt 0 / 0 Rbc As-3 Leukoreduced Unit 0 / 0 [id number] Rbc As-3 Leukoreduced Unit 0 / 0 [id number] - Constitutional no acute distress - Routine Neck Exam Present: supple. Absent: JVD - Routine Respiratory Exam Present: CTA bilaterally. Absent: rales, rhonchi - Routine Cardiovascular Exam Present: RRR - Routine Abdominal Exam Present: soft, normoactive bowel sounds, distended. Absent: tenderness - Routine Extremities Exam Present: edema, vascular access - Routine Skin Exam Present: dry, warm - Routine Neurological Exam Present: alert, oriented X3 - Routine Psychiatric Exam Present: cooperative - Urinary Catheter Management Indwelling Urethral Catheter Cath placed during this visit: yes, but has since been removed by the nurse Urethral indwelling: Yes Reason for continuing: Terminally ill/Comfort care Insertion date: 01/21/18 Insertion time: 12:40 Removal date: 02/03/18 Removal time: 07:00 <Sabrina Keller - Last Filed: 02/20/18 09:46> Vital signs: Vital Signs 02/19/18 20:00 02/20/18 00:00 02/20/18 00:04 Temperature 97.4 F L 97.4 F L Pulse Rate 71 75 75 Respiratory Rate 18 18 Blood Pressure 127/62 132/61 Pulse Oximetry 92 L 02/20/18 00:17 02/20/18 02:50 02/20/18 02:53 Temperature 97.4 F L 97.8 F 97.8 F Pulse Rate 84 75 74 Respiratory Rate 18 18 18 Blood Pressure 128/60 149/70 H 149/70 H Pulse Oximetry 92 L 96 96 02/20/18 03:08 02/20/18 04:00 02/20/18 08:00 Temperature 97.6 F 97.6 F Pulse Rate 76 75 71 Respiratory Rate 18 17 Blood Pressure 138/69 150/73 H Pulse Oximetry 96 95 02/20/18 12:00 02/20/18 14:27 Temperature 97.4 F L Pulse Rate 85 73 Respiratory Rate 18 Blood Pressure 163/76 H Pulse Oximetry 98 Intake & Output 02/19/18 02/20/18 02/20/18 18:59 06:59 18:59 Intake Total 880 / 880 0 / 0 740 / 740 Output Total 3000 / 3000 Balance 880 / 880 0 / 0 -2260 / -2260 Intake: Oral 780 / 780 740 / 740 Oral Supplement 100 / 100 Intake (Blood Product) Amt 0 / 0 Rbc As-3 Leukoreduced Unit 0 / 0 [id number] Rbc As-3 Leukoreduced Unit 0 / 0 [id number] Output: Hemodialysis Amount 3000 / 3000 - Urinary Catheter Management Indwelling Urethral Catheter Cath placed during this visit: no <Shin Ahmadi - Last Filed: 02/20/18 19:00> Assessment and Plan - Assessment (1) Acute on chronic kidney failure Code(s): N17.9 - Acute kidney failure, unspecified; N18.9 - Chronic kidney disease, unspecified Status: Acute Qualifiers: Chronic kidney disease stage: on chronic dialysis Plan: Has chronic kidney disease and develop VICTORINA requiring hemodialysis PermCath done, HD to continue 3 times a week Saturday, , Saturday Urine out put low with continued dependent edema. For D/C once placement and HD arranged. Seen during hemodialysis today will remove fluid as tolerated. Labs in AM (2) Nonischemic cardiomyopathy Code(s): I42.8 - Other cardiomyopathies Status: Chronic (3) Diabetes Code(s): E11.9 - Type 2 diabetes mellitus without complications Status: Chronic Qualifiers: Diabetes mellitus type: type 2 Diabetes mellitus manager intermediate insulin use: with mcc use Diabetes mellitus complication status: with unspecified complications Qualified Code(s): E11.8 - Type 2 diabetes mellitus with unspecified complications; Z79.4 - residential (current) use of insulin Plan: Maintain blood sugar between 140 mg /dl to 180 mg/dl (4) Anemia Code(s): D64.9 - Anemia, unspecified Status: Acute Plan: HGB 9.5 after transfusion. Will monitor - Plan Patient had hemodialysis yesterday tolerating dialysis well ultrafiltration of 5 L Continue supportive care Fluid removal with dialysis Patient has underlying diabetes Follow-up with Dr. Ahmadi <Sabrina Keller - Last Filed: 02/20/18 09:46> - Assessment (1) Acute on chronic kidney failure Code(s): N17.9 - Acute kidney failure, unspecified; N18.9 - Chronic kidney disease, unspecified Status: Acute Qualifiers: Chronic kidney disease stage: on chronic dialysis (2) Nonischemic cardiomyopathy Code(s): I42.8 - Other cardiomyopathies Status: Chronic (3) Diabetes Code(s): E11.9 - Type 2 diabetes mellitus without complications Status: Chronic Qualifiers: Diabetes mellitus type: type 2 Diabetes mellitus mcc insulin use: with manager intermediate use Diabetes mellitus complication status: with unspecified complications Qualified Code(s): E11.8 - Type 2 diabetes mellitus with unspecified complications; Z79.4 - residential (current) use of insulin (4) Anemia Code(s): D64.9 - Anemia, unspecified Status: Acute - Attending Attestation Patient seen and examine, agree with above. HD today, remove fluid as tolerated. BP is stable, continue HD and watch for renal recovery. <Shin Ahmadi - Last Filed: 02/20/18 19:00>
[2018-02-20] MEDS: Mupirocin 2% Nasal Oint Topical Syringe EACH NARE SCH (13:00)
[2018-02-20] MEDS: Carvedilol 12.5 MG Tablet PO SCH (13:01)
[2018-02-20] MEDS: Docusate Sodium 100 MG Capsule PO SCH (13:01)
[2018-02-20] MEDS: Isosorbide Mononitrate 20 MG Tablet PO SCH (13:02)
[2018-02-20] MEDS: Lactobacillus Acidophilus/L. Spores Tablet PO SCH (13:02)
[2018-02-20] MEDS: Folic Acid 1 MG Tablet PO SCH (13:02)
[2018-02-20] MEDS: Minoxidil 2.5 MG Tablet PO SCH (13:03)
[2018-02-20] MEDS: Ferrous Sulfate 325 MG Tablet PO SCH (13:05)
[2018-02-20] MEDS: metOLazone 5 MG Tablet PO SCH (13:05)
--- NOTE | 2018-02-20 13:57 | P.DS ---
<Missy Beauchamp W - Last Filed: 02/20/18 13:58> Date of admission: 01/18/18 14:22 Primary care physician: Te Ramirez MD Attending physician on discharge: Steve Womack Anticipated date of discharge: 02/20/18 Brief History from admission: Mrs. Horn is a pleasant 52 y/o AAF with chronic systolic CHF, nonischemic cardiomyopathy with EF 15-20% s/p AICD, hx of CVA in 12/2017 (Bilateral acute to subacute posterior cerebral artery infarcts on Head CT on 12/22/17), congestive hepatopathy, ascites, HTN, CKD, stage 3, and type 2 diabetes mellitus, insulin dependent. She was brought to the ED from a local rehab center for hyperkalemia and N/V. Pt has had multiple hospitalizations at [facility] in [place] and [facility] in the last several month for various issues related to her CHF/Cardiomyopathy, DKA, Acute on chronic renal failure, CVA. After her most recent admission from 12/02/17 to 01/08/18 was for CHF and was transferred to [facility] to be evaluated for possible heart transplant vs. LVAD. During that admission she had an acute CVA with resulting left sided weakness and felt that she was not a good candidate for advanced heart failure treatment. Pt was discharged to [facility] on 01/08/18. Pt reports that she had been doing fairly well but has felt that she has had some LE edema over the last week. Pt has been on Lasix 40mg po BID at the rehab. She has noted issues with constipation more recently. Over the last two days she has had nausea/vomiting and has not been eating much. She has not passed any stool in the last two days either. Pt reports that she was given Lactulose for the first time yesterday at the rehab but has not been on any stool softeners or laxatives prior to that. Labs in the ED noted a potassium of 6.1. Pt was given Kayexalate and Calcium Gluconate. Pt was also given Novolin 10 units, Lasix 40mg IV and Dextrose. Her BS this morning was 34. Pt was given orange juice twice this morning and her BS improved to 158. She is alert and oriented at the time of my exam and trying to have a BM but she feels that she is very constipated and possibly impacted. She had a CT abd/pelvis in the ED which noted moderate ascites and anasarca, cardiomegaly with pacer lead tip in right ventricle, and small fat-containing umbilical hernia. No bowel obstruction. In reviewing the images she has a significant amount of stool throughout the colon and in the rectum. She denies any chest pain, palpitations, reflux, dysphagia, melena, BRBPR, dizziness or weakness currently. DS: Diagnosis - Discharge Diagnosis (1) Nonischemic cardiomyopathy Status: Chronic DS: Medications - Discharge Medications Prescriptions: carvedilol [Coreg] 12.5 mg PO BID 30 Days #60 tab clonidine HCl [Catapres] 0.2 mg PO Q8HR 30 Days tab ferrous sulfate [FeroSul] 325 mg PO BID@1200,1700 30 Days tab minoxidil 5 mg PO DAILY 30 Days #60 tab nifedipine 90 mg PO DAILY 30 Days #30 tab DS: Summary Hospital Course: Nonischemic cardiomyopathy Chronic systolic CHF with EF 15-20% s/p AICD - comgmt with Palliative Medicine, Cardiology - Pt was reportedly evaluated at [facility] recently for Heart transplant vs. LVAD but had a stroke during that admission and was not felt to be a good candidate after the CVA. - 2D echo (01/21/18): - Estimated ejection fraction of 45-50%. No segmental wall motion abnormalities. - Possible mild right ventricular enlargement with normal systolic function. - A pacemaker wire is noted. - Mild mitral valve regurgitation. - Mild tricuspid valve regurgitation. - Estimated pulmonary arterial pressure is 35 mmHg - 01/30 radionucleotide venogram no evidence of thrombus - Pt developed Respiratory failure. Pt transferred to ICU 01/31 - HD started 01/31 - 4.5L removed with HD (02/08) - Zaroxolyn 5mg BID - DVT prophylaxis with Eliquis - supportive care - Attempted to discuss code status with pt (02/07). Pt became tearful & refused to discuss topic. - Pt's prognosis is poor & pt is at high risk for readmission Permcath placed. functioning ok. HD yesterday. resume eliquis. dc orders written . awaiting snf and HD arrangement. 02/19/18 - d/c orders previously written - awaiting outpt HD arrangements - pt had brief run of asymptomatic VT (02/18) - d/w cardiology, Dr. Barreto. - electrolytes WNF - pt already on BB. Coreg 12.5mg BID - Hg down to 7.9. Likely d/t anemia of chronic disease - transfuse 2 units PRBCs - anticipate d/c to SNF 02/20/18 Abdominal pain Nausea/vomiting Constipation, improved - Pt is a 52 y/o AAF with chronic systolic CHF, nonischemic cardiomyopathy with EF 15-20% s/p AICD, hx of CVA in 12/2017 (Bilateral acute to subacute posterior cerebral artery infarcts on Head CT on 12/22/17), congestive hepatopathy, ascites , HTN, CKD, stage 3, and type 2 diabetes mellitus, insulin dependent. Pt has had multiple hospitalizations at [facility] in [place] and [facility] in the last several month for various issues related to her CHF /Cardiomyopathy, DKA, Acute on chronic renal failure, CVA. After her most recent admission from 12/02/17 to 01/08/18 was for CHF and was transferred to [facility] to be evaluated for possible heart transplant vs. LVAD. During that admission she had an acute CVA with resulting left sided weakness and felt that she was not a good candidate for advanced heart failure treatment. Pt was discharged to [facility] on 01/08/18. - She was brought to the ED from a local rehab center for hyperkalemia and N/V. She has noted issues with constipation more recently. Over the last two days she has had nausea/vomiting and has not been eating much. She has not passed any stool in the last two days either. - CT abd/pelvis in the ED which noted moderate ascites and anasarca, cardiomegaly with pacer lead tip in right ventricle, and small fat-containing umbilical hernia. No bowel obstruction. In reviewing the images she has a significant amount of stool throughout the colon and in the rectum. - Pt had a small BM on 01/17 but had been refusing the Lactulose BID - Pt was given Mag Citrate and Colace BID on 01/18 but no significant stooling - Pt had Gastrografin enema on 01/20 with large volume of stool output abdomen distention. constipation and stool noted on kub. laxatives ordered. bowels moving u/s abdomen mod ascites. anticoagulation on hold and consider therapeutic paracentesis. today abdomen softer. Permcath placed on 02/13. Diabetes mellitus, poorly controlled Hgb A1C 14.4 on 08/31/17 Hypoglycemia - levemir 10 units BID Hyperkalemia Acute on chronic renal disease, stage 3 - see above HTN (hypertension) - Cont. home meds - BP is poorly controlled on multiple medications: Coreg 12.5mg BID, Clonidine 0.2mg Q8H, Hydralazine 100mg Q8H, Minoxidil 5mg po daily, Procardia XL 30mg po BID - Clonidine PRN - Monitor closely Elevated LFTs Congestive hepatopathy Ascites - Review of outpt records show the pts AlkPhos has been elevated since 10/2016 - AlkPhos Isoenzyme in 10/2017 noted 72% liver, 20% bone, 8% intestine - Transjugular liver bx (12/20/17) --> Findings suggestive of congestive hepatopathy. Anemia - patient's hgb has been trending down on admission hgb 10.4 - iron 17, TIBC 176, % saturation 9.6 - reticulocyte count 0.9 - occult stool requested - Ferrous sulfate PO BID - hgb (02/19) 7.9 two units PRBCs given -> hgb (02/20) 9.5 - Time Spent with Patient Total time spent providing and/or coordinating discharge services: Greater than 30 minutes - Quality: VTE Deep Vein Thrombosis/Pulmonary Embolism Present on Admission: No Exam Vital signs: Vital Signs 02/19/18 16:00 02/19/18 17:21 02/19/18 20:00 Temperature 97.8 F 97.4 F L Pulse Rate 67 71 Respiratory Rate 18 18 Blood Pressure 113/64 127/62 Pulse Oximetry 68 L 98 92 L 02/20/18 00:00 02/20/18 00:04 02/20/18 00:17 Temperature 97.4 F L 97.4 F L Pulse Rate 75 75 84 Respiratory Rate 18 18 Blood Pressure 132/61 128/60 Pulse Oximetry 92 L 02/20/18 02:50 02/20/18 02:53 02/20/18 03:08 Temperature 97.8 F 97.8 F 97.6 F Pulse Rate 75 74 76 Respiratory Rate 18 18 18 Blood Pressure 149/70 H 149/70 H 138/69 Pulse Oximetry 96 96 96 02/20/18 04:00 02/20/18 08:00 Temperature 97.6 F Pulse Rate 75 72 Respiratory Rate 17 Blood Pressure 150/73 H Pulse Oximetry 95 Intake & Output 02/19/18 02/20/18 02/20/18 18:59 06:59 18:59 Intake Total 880 / 880 0 / 0 Output Total 3000 / 3000 Balance 880 / 880 0 / 0 -3000 / -3000 Intake: Oral 780 / 780 Oral Supplement 100 / 100 Intake (Blood Product) Amt 0 / 0 Rbc As-3 Leukoreduced Unit 0 / 0 [id number] Rbc As-3 Leukoreduced Unit 0 / 0 [id number] Output: Hemodialysis Amount 3000 / 3000 Narrative: GENERAL: Thin mid aged A/A female Patient is alert, pale in no distress CARDIO: Regular No murmur or S3 RESP: clear x b/l ABD: Abdomen soft, non-tender, nondistended. Normal active bowel sounds MUSCULOSKELETAL: woody edema, much improved from admission. NEURO: Alert & Orientedx3, No focal deficits. Results Procedures completed during hospitalization: Permcath placed on 02/13. Transjugular liver bx (12/20/17) --> Findings suggestive of congestive hepatopathy. Labs on day of discharge: Labs from last 24 hours 02/20/18 02/20/18 02/20/18 11:37 07:41 07:03 WBC 5.3 RBC 3.41 L Hgb 9.5 L Hct 29.5 L MCV 86.6 MCH 27.9 MCHC 32.2 RDW 16.2 Plt Count 426 MPV 7.7 Neut % (Auto) 76.5 H Lymph % (Auto) 11.4 [place] % (Auto) 7.3 Eos % (Auto) 3.8 Baso % (Auto) 1.0 Neut # (Auto) 4.0 Lymph # (Auto) 0.6 L [place] # (Auto) 0.4 Eos # (Auto) 0.2 Baso # (Auto) 0.1 WBC Differential . Differential Comment Auto diff final POC Glucose 171 H 296 H Blood Type Antibody Screen MTS Gel Crossmatch 02/19/18 02/19/18 02/19/18 21:06 20:15 17:07 WBC RBC Hgb Hct MCV MCH MCHC RDW Plt Count MPV Neut % (Auto) Lymph % (Auto) [place] % (Auto) Eos % (Auto) Baso % (Auto) Neut # (Auto) Lymph # (Auto) [place] # (Auto) Eos # (Auto) Baso # (Auto) WBC Differential Differential Comment POC Glucose 260 H 287 H Blood Type O Positive Antibody Screen Negative MTS Gel Crossmatch See Detail - Impressions ITS Impressions Enema w/Water Soluble 01/20/18 08:00 CONCLUSION: Status post therapeutic Gastrografin enema. Pulmonary Perfusion Imaging 01/30/18 00:00 CONCLUSION: 1. Low probability for pulmonary embolus. 2. There is a triple matched defect at the left lower lobe likely related to consolidation, atelectasis and/or effusion. Venogram Nuclear Medicine 01/30/18 14:33 CONCLUSION: The IVC is patent. Abdomen/Pelvis CT 02/02/18 00:00 CONCLUSION: 1. At least moderate ascites. 2. Atherosclerotic calcifications. 3. Suspected gallstones or milk of calcium in the gallbladder. Abdomen Ultrasound 02/11/18 00:00 CONCLUSION: Moderate ascites. Central Venous Line 02/13/18 00:00 CONCLUSION: Abdomen X-Ray 02/17/18 00:00 CONCLUSION: Mild constipation. Abdomen relatively gasless. No free air. Chest X-Ray 02/19/18 00:00 CONCLUSION: Interval exchange of a right IJ central venous catheter with distal tip projecting over the expected region of the mid SVC. No appreciable pneumothorax. Otherwise stable exam. <Steve Womack - Last Filed: 03/11/18 09:22> Date of admission: 01/18/18 14:22 Primary care physician: Te Ramirez MD DS: Diagnosis - Discharge Diagnosis (1) Nonischemic cardiomyopathy Status: Chronic DS: Summary Hospital Course: Patient examined. Assessment and plan formulated with Missy Beauchamp PA-C. I agree with the above. - Time Spent with Patient Total time spent providing and/or coordinating discharge services: Greater than 30 minutes Results - Impressions ITS Impressions Enema w/Water Soluble 01/20/18 08:00 CONCLUSION: Status post therapeutic Gastrografin enema. Pulmonary Perfusion Imaging 01/30/18 00:00 CONCLUSION: 1. Low probability for pulmonary embolus. 2. There is a triple matched defect at the left lower lobe likely related to consolidation, atelectasis and/or effusion. Venogram Nuclear Medicine 01/30/18 14:33 CONCLUSION: The IVC is patent. Abdomen/Pelvis CT 02/02/18 00:00 CONCLUSION: 1. At least moderate ascites. 2. Atherosclerotic calcifications. 3. Suspected gallstones or milk of calcium in the gallbladder. Abdomen Ultrasound 02/11/18 00:00 CONCLUSION: Moderate ascites. Central Venous Line 02/13/18 00:00 CONCLUSION: Abdomen X-Ray 02/17/18 00:00 CONCLUSION: Mild constipation. Abdomen relatively gasless. No free air. Chest X-Ray 02/19/18 00:00 CONCLUSION: Interval exchange of a right IJ central venous catheter with distal tip projecting over the expected region of the mid SVC. No appreciable pneumothorax. Otherwise stable exam. Discharge Plan - Discharge Order Discharge Orders: Discharge Order (Routine); Ordered 02/16/18 Ordered By: Uday Loaiza - Discharge Details Anticipated Discharge Date: 02/20/18 Discharge Comment: dc pt to snf when snf and outpatient hemodialysis arrangements made. - Physicians Team Primary Care Provider: Te Ramirez Attending Provider: Uday Loaiza Other Providers: Marshal Brown MD ; Shin Ahmadi MD ; Ahmet Solitario MD ; Steve Womack DO ; Justin Lay MD ; Wes Smith MD ; [facility], [facility] ; [facility],Agency ; [facility] - Rxs /Orders / Referrals /Forms Prescriptions: New carvedilol [Coreg] 12.5 mg Tablet 12.5 mg PO BID 30 Days Qty: 60 RF: 0 clonidine HCl [Catapres] 0.2 mg Tablet 0.2 mg PO Q8HR 30 Days RF: 0 ferrous sulfate [FeroSul] 325 mg (65 mg iron) Tablet 325 mg PO BID@1200,1700 30 Days RF: 0 insulin aspart U-100 [Novolog U-100 Insulin aspart] 100 unit/mL Solution 0 unit Sub-Q ACHS RF: 0 ipratropium-albuterol 0.5 mg-3 mg(2.5 mg base)/3 mL Solution For Nebulization 1 amp NEB Q6HR NEB PRN (Reason: Shortness Of Breath/Wheezing) RF: 0 meclizine 25 mg Tablet 25 mg PO Q6HR RF: 0 metolazone 5 mg Tablet 5 mg PO BID@0900,1800 RF: 0 minoxidil 2.5 mg Tablet 5 mg PO DAILY 30 Days Qty: 60 RF: 0 nifedipine 90 mg Tablet Extended Release 90 mg PO DAILY 30 Days Qty: 30 RF: 0 pantoprazole 40 mg Tablet,Delayed Release (Dr/Ec) 40 mg PO DAILY RF: 0 Continue amiodarone 100 mg Tablet 100 mg PO DAILY apixaban 5 mg Tablet 5 mg PO BID ascorbic acid (vitamin C) 250 mg Tablet 250 mg PO DAILY famotidine 20 mg Tablet 20 mg PO DAILY folic acid 1 mg Tablet 1 mg PO DAILY hydralazine 100 mg Tablet 100 mg PO Q8HR insulin glargine 100 unit/mL Solution 10 unit SUB-Q BID isosorbide mononitrate 20 mg Tablet 20 mg PO BID lactulose 10 gram/15 mL Solution 20 g PO BID ondansetron 4 mg Tablet,Disintegrating 4 mg PO Q6HR PRN (Reason: Nausea) Saccharomyces boulardii 250 mg Capsule 250 mg PO DAILY thiamine HCl (vitamin B1) 50 mg Tablet 50 mg PO DAILY Discontinued amlodipine 5 mg Tablet 5 mg PO DAILY aspirin 325 mg Tablet 325 mg PO DAILY bisoprolol fumarate 5 mg Tablet 2.5 mg PO DAILY clonidine HCl 0.2 mg Tablet 0.2 mg PO BID furosemide 40 mg Tablet 40 mg PO BID insulin aspart U-100 100 unit/mL Solution 1 sliding scale dose SUB-Q UD Referrals: [facility] [Outside] - See Instructions Shin Ahmadi MD [Physician] - See Instructions (f/u dr ahmadi 1-2 weeks.) Te Ramirez MD [Primary Care Provider] - See Instructions (f/u pcp 2 weeks.) - Discharge Instructions Patient Printed Instructions: Iron Supplements (By mouth), Nifedipine (By mouth ), Clonidine (By mouth), Minoxidil (By mouth), Carvedilol (By mouth), Ipratropium/Albuterol (By breathing), Heart Failure (DC), Heart Catheterization (DC) - Post Discharge Care Plan Care Plan Goals: Your Health Problems: Goals to Promote Your Health: * To prevent worsening of your condition * To maintain your health at the optimal level Directions to Meet Your Goals: * Take your medications as prescribed * Follow your dietary instruction * Follow activity as directed * Keep your appointments as scheduled * Take your immunizations and boosters as scheduled * If your symptoms worsen call your PCP * If no PCP go to Urgent Care or Emergency Room Smoking is dangerous to your health. Avoid second hand smoke. You may reach the 24-hour crisis hotline for domestic abuse at .* * Discharge Care Plan Goals for Congestive Heart Failure Directions to Meet your Goals: 1. Diet: Limit your salt by doing the following: * Limit canned, dried, packaged, and fast foods. * Don't add salt to your food. * Season foods with herbs instead of salt. * Watch how much liquids you drink. Drinking too much can make heart failure worse. Talk with your health care provider about how much you should drink each day. * Limit the amount of alcohol you drink. It may harm your heart. Women should have no more than 1 drink a day and men should have no more than 2. * When you eat out, request that your meals have no added salt. 2. Activity: * You can benefit from simple activities such as walking or gardening. * Exercising most days of the week can make you feel better. * Don't be discouraged if your progress is slow at first. * Rest as needed. * Stop activity if you develop symptoms such as chest pain, lightheadedness, or significant shortness of breath. * Find activities that you enjoy, such as brisk walking, dancing, swimming, or gardening. These will help you stay active and strengthen your heart. 3. Medicine: * Take your medicines exactly as prescribed. * Learn the names and purpose of each of your medicines. * Keep an accurate medicine list and current dosages with you at all times. Don' t skip doses. * If you miss a dose of your medicine, take it as soon as you remember. * If you miss a dose and it's almost time for your next dose, just wait and take your next dose at the normal time. Don't take a double dose. * If you are unsure, call your doctor's office. Make sure not to mix up your medicines or forget what you've taken the same day. 4. Weight Monitoring: * Weigh yourself every day. A sudden weight gain can mean your heart failure is getting worse. * Weigh yourself at the same time of day and in the same kind of clothes. * Ideally, weigh yourself first thing in the morning after you empty your bladder, but before you eat breakfast. * If your weight goes up by more than 2 pounds in 1 day, 5 pounds in 1 week, or whatever weight gain you were told by your doctor, this is a sign that you are retaining more fluid than you should be. * Clues to weight gain include checking your ankles for swelling, or noticing you are short of breath when you lie down. 5. When to call your doctor: Call your doctor right away if you have any of these signs of worsening heart failure: Sudden weight gain (more than 2 pounds in 1 day or 5 pounds in 1 week, or whatever weight gain you were told to report by your doctor) Trouble breathing not related to being active New or increased swelling of your legs or ankles Swelling or pain in your abdomen Breathing trouble at night (waking up short of breath, needing more pillows to breathe) Frequent coughing that doesn't go away Feeling much more tired than usual 6. Follow up: Do Not miss your follow-up appointment. Keep up with all your appointments and yearly check ups Call 911 right away if you have: Severe shortness of breath, such that you can't catch your breath even while resting Severe chest pain that does not resolve with rest or nitroglycerin [place], foamy mucus with cough and shortness of breath A continuous rapid or irregular heartbeat Passing out or fainting Stroke symptoms such as sudden numbness or weakness on one side of your face , arm, or leg or sudden confusion, trouble speaking or vision changes Your Health Problems: Goals to Promote Your Health: * To prevent worsening of your condition * To maintain your health at the optimal level Directions to Meet Your Goals: * Take your medications as prescribed * Follow your dietary instruction * Follow activity as directed * Keep your appointments as scheduled * Take your immunizations and boosters as scheduled * If your symptoms worsen call your PCP * If no PCP go to Urgent Care or Emergency Room Smoking is dangerous to your health. Avoid second hand smoke. You may reach the 24-hour crisis hotline for domestic abuse at .
== END 2018-02-20 15:55 ==
LOC: NEPFCDU 02:11 → N06 01-18 21:45 → N03 01-31 08:21 → N04 02-07 19:28
PROVIDERS: ADMIT Hospitalist; ATTEND Hospitalist